=== PATIENT | female | born 1945 | race Caucasian/White ===

== ENCOUNTER 2018-08-06 13:38 | Emergency (ER) | payer OTHER, MEDICARE ==
--- OUTSIDE RECORDS SUMMARY | 2018-08-06 13:40 | XMS REPORT ---
:1945 [facility] Address [address] [place] [address] [address]. [address] [place] [address] Care Team Providers Name Role Phone Unavailable Unavailable Unavailable Problems This patient has no known problems. Allergies, Adverse Reactions, Alerts This patient has no known allergies or adverse reactions. Medications This patient has no known medications.
--- NOTE | 2018-08-06 15:02 | RAD REPORT ---
EXAM DESCRIPTION: CT - Stone Protocol - 08/06/2018 2:50 pm CLINICAL HISTORY: Flank pain. ABD PAIN COMPARISON: Abdomen Pelvis W/Wo Contrast dated 01/09/2018 TECHNIQUE: Axial images were obtained without oral or IV contrast. Lack of contrast limits solid org an and vascular assessment. The lliez-sz-sgyo spans the entirety of the system partially obscuring uppermost abdomen and lung bases. Coronal reformatted images were obtained and reviewed. All CT scans are performed using dose optimization technique as appropriate and may include automated exposure control or mA/KV adjustment according to patient size. FINDINGS: The lower lung ramachandran are clear. Cholecystectomy clips. Imaged portions of the liver and spleen show no suspicious findings on non-contrast imaging. The panc reas and adrenal glands are normal. No pathologic lymphadenopathy in the abdomen or pelvis. No urinary tract stones or obstructive uropathy. No bowel obstruction, free air, free fluid or abscess. Anterior abdominal wall laxity noted. Moderate stool is present in the colon.Scattered colonic diverticulosis without diverticulitis. The appendix appears absent. Postsurgical changes are present involving the lumbar spine with hardware in place. Advanced degenera tive changes are noted throughout the lumbar levels. IMPRESSION: No acute abnormality is identified.
[2018-08-06 15:04] LABS: Absolute Lymphocytes (CBC) 3.5 K/uL (0.7-4.9); Absolute Monocytes 0.9 K/uL (0.1-1.3); Absolute Neutrophil 3.1 K/uL (1.8-8.0); Basophils % 0.6 % (0-1.3); Eosinophils % 3.9 % (0-4.4); Hematocrit 37.4 % (36.0-45.0); MPV 8.5 fL (7.6-11.3); Monocytes % 11.6 % (3.3-12.3); RBC Red Blood Cell Count 4.14 M/uL (3.86-4.86)
[2018-08-06 15:17] LABS: Protime INR 1.13
--- NOTE | 2018-08-06 15:26 | RAD REPORT ---
EXAM DESCRIPTION: RAD - Chest Single View - 08/06/2018 3:20 pm CLINICAL HISTORY: CHEST PAIN Chest pain. COMPARISON: Chest Pa And Lat (2 Views) dated 02/28/2018; Chest Single View dated 02/10/2017; Chest Sing le View dated 02/09/2017; Chest Single View dated 02/09/2017 FINDINGS: Portable technique limits examination quality. The lungs are grossly clear. The heart is normal in size. No displaced fractures. IMPRESSION: No acute intrathoracic process suspected.
[2018-08-06 15:27] LABS: ALT/SGPT 31 U/L (12-78); AST/SGOT 39 U/L (15-37); Albumin 3.4 g/dL (3.4-5.0); Alkaline Phosphatase 157 U/L (45-117); BUN Blood Urea Nitrogen 39 mg/dL (7-18); Bicarbonate 33 mmol/L (21-32); Bilirubin Direct 0.2 mg/dL (0-0.2); Bilirubin Total 0.6 mg/dL (0.2-1.0); Glucose Level 132 mg/dL (74-106); Lipase 27 U/L (73-393); Magnesium 2.3 mg/dL (1.8-2.4); NT PRO-BNP 126 pg/mL (<125); Protein, Total 7.4 g/dL (6.4-8.2); Sodium Level 138 mmol/L (136-145); Troponin (Emerg Dept Use Only) < 0.02 ng/mL (0.0-0.045)
--- NOTE | 2018-08-06 15:55 | EDPHYS ---
Physician Documentation [facility] Name: Casie Kelley Age: 72 yrs Sex: Female : 1945 Arrival Date: 08/06/2018 Time: 13:44 Bed 2 Private MD: PRASHANTH SOTO ED Physician Kali Denton HPI: 08/06 17:02 This 72 yrs old Female presents to ER via Wheelchair with complaints of SIDE gs PAIN. 17:02 The patient presents with abdominal pain in the left upper quadrant. Onset: The gs symptoms/episode began/occurred yesterday. The symptoms do not radiate. Associated signs and symptoms: Pertinent positives: constipation, Pertinent negatives: nausea and vomiting, chest pain, diarrhea. The symptoms are described as crampy. Modifying factors: The symptoms are alleviated by nothing, the symptoms are aggravated by nothing. Severity of pain: At its worst the pain was moderate in the emergency department the pain is unchanged. The patient has experienced similar episodes in the past, a few times. The patient has not recently seen a physician. took a nerve pill says made her feel sleepy pt has sufentanil pump. Historical: - Allergies: 14:00 Codeine; aa5 14:00 Compazine; aa5 14:00 Darvon; aa5 14:00 Demerol; aa5 14:00 HYDROCODONE; aa5 14:00 Meperidine; aa5 14:00 PENTAZOCINE; aa5 14:00 Talwin; aa5 14:00 TRIMETHOPRIM; aa5 14:00 Vioxx; aa5 - PMHx: 14:00 Aneurysm; Cervical Spondylosis; constipation; CVA; Diabetes - NIDDM; heel spur; aa5 Fibromyalgia; Gastroparesis; GERD; Hypothyroidism; ileus; lymphedema; multiple thyroid nodules; PERIPHERAL NEUROPATHY; Obesity; Sleep Apnea; spinal stenosis; vaginal atrophy; - PSHx: 14:00 Cholecystectomy; Appendectomy; Hysterectomy; Disc surgery; PAIN MANAGEMENT PUMP; aa5 shoulder repair; - Immunization history:: Adult Immunizations unknown. - Social history:: Smoking status: Patient/guardian denies using tobacco, never smoked. - Ebola Screening: : No symptoms or risks identified at this time. ROS: 17:02 All other systems are negative. gs Exam: 17:02 Head/Face: Normocephalic, atraumatic. Eyes: Pupils equal round and reactive to light, gs extra-ocular motions intact. Lids and lashes normal. Conjunctiva and sclera are non-icteric and not injected. Cornea within normal limits. Periorbital areas with no swelling, redness, or edema. ENT: Nares patent. No nasal discharge, no septal abnormalities noted. Tympanic membranes are normal and external auditory canals are clear. Oropharynx with no redness, swelling, or masses, exudates, or evidence of obstruction, uvula midline. Mucous membranes moist. Neck: Trachea midline, no thyromegaly or masses palpated, and no cervical lymphadenopathy. Supple, full range of motion without nuchal rigidity, or vertebral point tenderness. No Meningismus. Chest/axilla: Normal chest wall appearance and motion. Nontender with no deformity. No lesions are appreciated. Cardiovascular: Regular rate and rhythm with a normal S1 and S2. No gallops, murmurs, or rubs. Normal PMI, no JVD. No pulse deficits. Respiratory: Lungs have equal breath sounds bilaterally, clear to auscultation and percussion. No rales, rhonchi or wheezes noted. No increased work of breathing, no retractions or nasal flaring. Skin: Warm, dry with normal turgor. Normal color with no rashes, no lesions, and no evidence of cellulitis. MS/ Extremity: Pulses equal, no cyanosis. Neurovascular intact. Full, normal range of motion. Neuro: Awake and alert, GCS 15, oriented to person, place, time, and situation. Cranial nerves II-XII grossly intact. Motor strength 5/5 in all extremities. Sensory grossly intact. Cerebellar exam normal. Normal gait. 17:02 Back: No spinal tenderness. No costovertebral tenderness. Full range of motion. 17:02 Constitutional: The patient appears in no acute distress, alert, awake. 17:02 Abdomen/GI: Palpation: moderate abdominal tenderness, in the left upper quadrant, rebound tenderness, is not appreciated. Vital Signs: 14:00 BP 111 / 46; Pulse 64; Resp 16 S; Temp 99.2(TE); Pulse Ox 96% on R/A; Weight 93.89 kg aa5 (R); Height 5 ft. 1 in. (154.94 cm) (R); Pain 8/10; 14:00 Body Mass Index 39.11 (93.89 kg, 154.94 cm) aa5 MDM: 14:35 Patient medically screened. gs 17:02 Differential diagnosis: bowel obstruction, coronary artery disease, pancreatitis. Data gs reviewed: vital signs, nurses notes. Counseling: I had a detailed discussion with the patient and/or guardian regarding: the historical points, exam findings, and any diagnostic results supporting the discharge/admit diagnosis, lab results, radiology results, the need for outpatient follow up. Response to treatment: the patient's symptoms have markedly improved after treatment, and as a result, I will discharge patient. Physician consultation: Benito Lynch DO regarding patient's condition, pain pump issue, and will see patient in office, shortly. 08/06 14:35 Order name: Basic Metabolic Panel; Complete Time: 15:33 08/06 14:35 Order name: CBC with Diff; Complete Time: 15:33 08/06 14:35 Order name: LFT's; Complete Time: 15:33 08/06 14:35 Order name: Magnesium; Complete Time: 15:33 08/06 14:35 Order name: NT PRO-BNP; Complete Time: 15:33 08/06 14:35 Order name: PT-INR; Complete Time: 15:33 08/06 14:31 Order name: EKG Electrocardiogram EDIL 08/06 14:35 Order name: Troponin (emerg Dept Use Only); Complete Time: 15:33 08/06 14:35 Order name: XRAY Chest (1 view); Complete Time: 15:33 08/06 14:35 Order name: EKG; Complete Time: 14:36 08/06 14:35 Order name: Cardiac monitoring; Complete Time: 15:32 gs 08/06 14:35 Order name: Lipase; Complete Time: 15:33 08/06 14:35 Order name: CT Stone Protocol; Complete Time: 15:33 08/06 14:35 Order name: EKG - Nurse/Tech; Complete Time: 15:32 gs 08/06 14:35 Order name: IV Saline Lock; Complete Time: 15:32 08/06 14:35 Order name: Labs collected and sent; Complete Time: 15:32 08/06 14:35 Order name: O2 Per Protocol; Complete Time: 15:32 08/06 14:35 Order name: O2 Sat Monitoring; Complete Time: 15:32 Administered Medications: 16:07 Drug: Potassium Effervescent Tablet 50 mEq Route: PO; sg Disposition: 08/06/18 15:54 Discharged to Home. Impression: Upper abdominal pain, unspecified. - Condition is Stable. - Discharge Instructions: Abdominal Pain, Adult, Constipation, Adult. - Medication Reconciliation Form, Thank You Letter, Antibiotic Education, Prescription Opioid Use form. - Follow up: Private Physician; When: 1 - 2 days; Reason: Re-evaluation by your physician. Signatures: Dispatcher [employer] EDMihai Ruiz RN RN sg Maral Beard RN RN aa5 Kali Denton MD MD gs Botello, Elizabeth eb Corrections: (The following items were deleted from the chart) 16:17 15:54 08/06/2018 15:54 Discharged to Home. Impression: Upper abdominal pain, eb unspecified. Condition is Stable. Forms are Medication Reconciliation Form, Thank You Letter, Antibiotic Education, Prescription Opioid Use. Follow up: Private Physician; When: 1 - 2 days; Reason: Re-evaluation by your physician.
--- NOTE | 2018-08-06 15:55 | ER ---
Nurse's Notes [facility] Name: Casie Kelley Age: 72 yrs Sex: Female : 1945 Arrival Date: 08/06/2018 Time: 13:44 Bed 2 Private MD: CHERYLE SOTO Diagnosis: Upper abdominal pain, unspecified Presentation: 08/06 13:58 Presenting complaint: Patient states: LUQ pain that began 2 days ago. Pt denies Nausea, aa5 vomiting, and diarrhea. Pt states "I am supposed to have a heart cath tomorrow at [facility] for some blockages I have". 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 Transition of care: patient was not received from another setting of care. Onset of symptoms was July 2018. Risk Assessment: Do you want to hurt yourself or someone else? Patient reports no desire to harm self or others. Initial Sepsis Screen: Does the patient meet any 2 criteria? No. Patient's initial sepsis screen is negative. Does the patient have a suspected source of infection? No. Patient's initial sepsis screen is negative. Care prior to arrival: None. 13:58 Method Of Arrival: Wheelchair aa5 13:58 Acuity: HAN 3 aa5 Historical: - Allergies: 14:00 Codeine; aa5 14:00 Compazine; aa5 14:00 Darvon; aa5 14:00 Demerol; aa5 14:00 HYDROCODONE; aa5 14:00 Meperidine; aa5 14:00 PENTAZOCINE; aa5 14:00 Talwin; aa5 14:00 TRIMETHOPRIM; aa5 14:00 Vioxx; aa5 - PMHx: 14:00 Aneurysm; Cervical Spondylosis; constipation; CVA; Diabetes - NIDDM; heel spur; aa5 Fibromyalgia; Gastroparesis; GERD; Hypothyroidism; ileus; lymphedema; multiple thyroid nodules; PERIPHERAL NEUROPATHY; Obesity; Sleep Apnea; spinal stenosis; vaginal atrophy; - PSHx: 14:00 Cholecystectomy; Appendectomy; Hysterectomy; Disc surgery; PAIN MANAGEMENT PUMP; aa5 shoulder repair; - Immunization history:: Adult Immunizations unknown. - Social history:: Smoking status: Patient/guardian denies using tobacco, never smoked. - Ebola Screening: : No symptoms or risks identified at this time. Vital Signs: 14:00 BP 111 / 46; Pulse 64; Resp 16 S; Temp 99.2(TE); Pulse Ox 96% on R/A; Weight 93.89 kg aa5 (R); Height 5 ft. 1 in. (154.94 cm) (R); Pain 8/10; 14:00 Body Mass Index 39.11 (93.89 kg, 154.94 cm) aa5 ED Course: 13:44 Patient arrived in ED. sb2 13:45 CHERYLE SOTO is Private Physician. sb2 13:58 Arm band placed on. aa5 13:59 Triage completed. aa5 14:18 Kali Denton MD is Attending Physician. gs 14:37 EKG done, by certified ophthalmic technologist. reviewed by Kali Denton MD. tc 14:[address] via stretcher. nj 14:49 CT completed. Patient tolerated procedure well. Patient moved back from CT. nj 14:50 CT Stone Protocol In Process Unspecified. EDMS 15:20 XRAY Chest (1 view) In Process Unspecified. EDMS 15:32 Mihai Brewer, RN is Primary Nurse. sg Administered Medications: 16:07 Drug: Potassium Effervescent Tablet 50 mEq Route: PO; sg Outcome: 15:54 Discharge ordered by . gs 16:17 Patient left the ED. eb Signatures: Dispatcher [employer] EDMS Mihai Brewer, JUDY RN Maral Clay RN RN aa5 Stacey Patel, dry goods inspector EKG Ttc Etienne Motley Gregory, MD MD Margy Meeks sb2 Cheryle Delgado eb Corrections: (The following items were deleted from the chart) 14:03 13:58 Presenting complaint: Patient states: LUQ pain that began 2 days ago. Pt denies aa5 Nausea, vomiting, and diarrhea. aa5 14:12 13:58 Presenting complaint: Patient states: LUQ pain that began 2 days ago. Pt denies aa5 Nausea, vomiting, and diarrhea. Pt states "I am supposed to have a heart cath tomorrow at [facility] for some blockages I have" aa5
--- NOTE | 2018-08-06 16:03 | EKG ---
Test Date: 2018-08-06 Test Time: 14:09:32 Marketing Technology Specialist: JENNIFER MEASUREMENT RESULTS: Intervals: Rate: 70 SC: 226 QRSD: 80 QT: 408 QTc: 440 Beatty: P: 72 SC: 226 QRS: 12 T: 58 INTERPRETIVE STATEMENTS: Sinus rhythm with 1st degree AV block with premature supraventricular complexes Otherwise normal ECG Compared to ECG 02/08/2017 08:48:16 Atrial premature complex(es) now present First degree AV block now present Electronically Signed On 08-06-18 16:02:49 DRILLING FIELD SPECIALIST by Ricco Gregg
[2018-08-06] MEDS ORDERED: POTASSIUM 25 MEQ EFFERV TAB ONE (16:18)
[2018-08-06 17:22] VITALS: BP 111/46; TEMP 99.2; O2SAT 96
== END 2018-08-06 16:17 | disposition home or self-care (01) ==
LOC: ER 13:38
DX: R10.10 Upper abdominal pain, unspecified (principal); I44.0 Atrioventricular block, first degree; I49.3 Ventricular premature depolarization
CPT/HCPCS: 36415; 71045; 74176; 76377; 80048; 80076; 83690; 83735; 83880; 84484; 85025; 85610; 93005; 99284

== ENCOUNTER 2018-08-14 17:16 | Emergency (ER) | payer OTHER, MEDICARE ==
--- OUTSIDE RECORDS SUMMARY | 2018-08-14 17:18 | XMS REPORT ---
:1945 [facility] Address [address] [place] [address] [address]. [address] [place] [address] Care Team Providers Name Role Phone Unavailable Unavailable Unavailable Problems This patient has no known problems. Allergies, Adverse Reactions, Alerts This patient has no known allergies or adverse reactions. Medications This patient has no known medications.
--- NOTE | 2018-08-14 19:40 | EDPHYS ---
Physician Documentation [facility] Name: Casie Kelley Age: 72 yrs Sex: Female : 1945 Arrival Date: 08/14/2018 Time: 17:25 Bed 26 Private MD: ED Physician Kali Denton HPI: 08/14 21:51 This 72 yrs old Female presents to ER via EMS with complaints of Leg Pain. gs 21:51 The complaints affect the lateral aspect of right thigh. Context: The problem was gs sustained at home, resulted from a chronic condition, the patient can fully bear weight, the patient is able to ambulate. Modifying factors: The symptoms are alleviated by nothing. the symptoms are aggravated by movement. Associated signs and symptoms: Pertinent positives: numbness, now resolved. Treatment prior to arrival includes: no previous treatment. Severity of symptoms: At their worst the symptoms were moderate, in the emergency department the symptoms have resolved. The patient has experienced similar episodes in the past, several times. Historical: - Allergies: 17:56 Codeine; tl3 17:56 Compazine; tl3 17:56 Darvon; tl3 17:56 HYDROCODONE; tl3 17:56 Demerol; tl3 17:56 Meperidine; tl3 17:56 PENTAZOCINE; tl3 17:56 Talwin; tl3 17:56 TRIMETHOPRIM; tl3 17:56 Vioxx; tl3 17:56 Levofloxacin; tl3 17:56 Lyrica; tl3 17:56 sulfamethoxazole (bulk); tl3 - Home Meds: 17:56 furosemide 40 mg Oral tab 1 tab once daily [Active]; gabapentin 300 mg Oral cap 1 cap 3 tl3 times per day [Active]; levothyroxine 75 mcg tab 1 tab once daily [Active]; metformin 500 mg Oral Tb24 1 tab 2 times per day [Active]; Zaroxolyn 2.5 mg Oral tab 1 tab once daily [Active]; mirabegron oral oral 1 tab once daily [Active]; montelukast 10 mg Oral tab 1 tab once daily [Active]; nitroglycerin 0.4 mg SL subl 1 tab [Active]; Xyzal 5 mg oral tab 1 tab once daily [Active]; Klor-Con M20 20 mEq Oral TbTQ 1 tab once daily [Active]; omeprazole 40 mg Oral cpDR 1 cap 2 times per day [Active]; Zofran (as hydrochloride) 4 mg Oral tab 1 tabs every 8 hours [Active]; nystatin 100,000 unit/gram Topical powd 2 times per day [Active]; trazodone 50 mg Oral tab 1 tab nightly [Active]; qwpqexujlr-jomkpndojx-JpWx(PF) 1 mcg/mL -0.1 % epidural soln per pain pump [Active]; atorvastatin 40 mg oral tab 1 tab once daily [Active]; Plavix 75 mg Oral tab 1 tab once daily [Active]; docusate sodium 100 mg Oral cap 1 cap 2 times per day [Active]; estradiol vaginal vaginal [Active]; fluticasone 50 mcg/actuation nasal spsn 2 sprays once daily [Active]; glucosamine-chondroitin 750-600 mg oral chew 2 tab twice a day [Active]; DuoNeb 0.5 mg-3 mg(2.5 mg base)/3 mL Inhl nebu 3 mL 4 times per day [Active]; - PMHx: 17:56 Aneurysm; Cervical Spondylosis; constipation; CVA; Diabetes - NIDDM; Fibromyalgia; tl3 Gastroparesis; GERD; heel spur; Hypothyroidism; ileus; lymphedema; multiple thyroid nodules; Obesity; PERIPHERAL NEUROPATHY; Sleep Apnea; spinal stenosis; vaginal atrophy; 21:53 Chronic pain; gs - PSHx: 17:56 Cholecystectomy; Appendectomy; Hysterectomy; Disc surgery; PAIN MANAGEMENT PUMP; tl3 shoulder repair; - Immunization history:: Adult Immunizations. - Social history:: Smoking status: unknown. - Ebola Screening: : No symptoms or risks identified at this time. ROS: 21:53 All other systems are negative. gs Exam: 21:53 Head/Face: Normocephalic, atraumatic. Eyes: Pupils equal round and reactive to light, gs extra-ocular motions intact. Lids and lashes normal. Conjunctiva and sclera are non-icteric and not injected. Cornea within normal limits. Periorbital areas with no swelling, redness, or edema. ENT: Nares patent. No nasal discharge, no septal abnormalities noted. Tympanic membranes are normal and external auditory canals are clear. Oropharynx with no redness, swelling, or masses, exudates, or evidence of obstruction, uvula midline. Mucous membranes moist. Neck: Trachea midline, no thyromegaly or masses palpated, and no cervical lymphadenopathy. Supple, full range of motion without nuchal rigidity, or vertebral point tenderness. No Meningismus. Chest/axilla: Normal chest wall appearance and motion. Nontender with no deformity. No lesions are appreciated. Cardiovascular: Regular rate and rhythm with a normal S1 and S2. No gallops, murmurs, or rubs. Normal PMI, no JVD. No pulse deficits. Respiratory: Lungs have equal breath sounds bilaterally, clear to auscultation and percussion. No rales, rhonchi or wheezes noted. No increased work of breathing, no retractions or nasal flaring. Abdomen/GI: Soft, non-tender, with normal bowel sounds. No distension or tympany. No guarding or rebound. No evidence of tenderness throughout. Back: No spinal tenderness. No costovertebral tenderness. Full range of motion. Skin: Warm, dry with normal turgor. Normal color with no rashes, no lesions, and no evidence of cellulitis. MS/ Extremity: Pulses equal, no cyanosis. Neurovascular intact. Full, normal range of motion. Neuro: Awake and alert, GCS 15, oriented to person, place, time, and situation. Cranial nerves II-XII grossly intact. Motor strength 5/5 in all extremities. Sensory grossly intact. Cerebellar exam normal. Normal gait. 21:53 Constitutional: The patient appears alert, awake. Vital Signs: 17:56 BP 109 / 53; Pulse 60; Resp 18; Pulse Ox 99% ; tl3 19:19 BP 106 / 50; Pulse 62; Resp 18; Pulse Ox 95% on R/A; mg2 19:37 BP 96 / 57; Pulse 63; Resp 16; Pulse Ox 98% on R/A; tl3 20:10 BP 112 / 52; Pulse 62; Resp 16; Pulse Ox 96% on R/A; tl3 MDM: 17:58 Patient medically screened. gs 21:53 Data reviewed: vital signs, nurses notes, old medical records. Counseling: I had a gs detailed discussion with the patient and/or guardian regarding: the historical points, exam findings, and any diagnostic results supporting the discharge/admit diagnosis, the need for outpatient follow up. Administered Medications: No medications were administered Disposition: 08/14/18 19:39 Discharged to Home. Impression: Mononeuropathy, unspecified, Constipation, unspecified. - Condition is Stable. - Discharge Instructions: Constipation, Adult, Pinched Nerve. - Medication Reconciliation Form, Thank You Letter, Antibiotic Education, Prescription Opioid Use form. - Follow up: Private Physician; When: 2 - 3 days; Reason: Re-evaluation by your physician. Follow up: Mendoza Oconnell MD; When: 2 - 3 days; Reason: Re-evaluation by your physician. Signatures: Kali Denton MD MD Teresa Deutsch RN RN tl3 Corrections: (The following items were deleted from the chart) 20:12 19:39 08/14/2018 19:39 Discharged to Home. Impression: Mononeuropathy, unspecified; tl3 Constipation, unspecified. Condition is Stable. Forms are Medication Reconciliation Form, Thank You Letter, Antibiotic Education, Prescription Opioid Use. Follow up: Private Physician; When: 2 - 3 days; Reason: Re-evaluation by your physician. Follow up: Mendoza Oconnell; When: 2 - 3 days; Reason: Re-evaluation by your physician. gs
--- NOTE | 2018-08-14 19:40 | ER ---
Nurse's Notes [facility] Name: Casie Kelley Age: 72 yrs Sex: Female : 1945 Arrival Date: 08/14/2018 Time: 17:25 Bed 26 Private MD: Diagnosis: Mononeuropathy, unspecified;Constipation, unspecified Presentation: 08/14 17:26 Presenting complaint: EMS states: EMS was called for lift assist, but once on site pt tl3 was complaining of not being able to feel right leg. Was able to ambulate with assistance at home. Transition of care: patient was not received from another setting of care. Onset of symptoms was August 14, 2018. Risk Assessment: Do you want to hurt yourself or someone else? Patient reports no desire to harm self or others. Initial Sepsis Screen: Does the patient meet any 2 criteria? No. Patient's initial sepsis screen is negative. Does the patient have a suspected source of infection? No. Patient's initial sepsis screen is negative. Care prior to arrival: None. 17:26 Method Of Arrival: EMS tl3 17:26 Acuity: HAN 3 tl3 Triage Assessment: 17:56 General: Appears in no apparent distress. Behavior is calm, cooperative, appropriate tl3 for age. Pain: Denies pain. Historical: - Allergies: 17:56 Codeine; tl3 17:56 Compazine; tl3 17:56 Darvon; tl3 17:56 HYDROCODONE; tl3 17:56 Demerol; tl3 17:56 Meperidine; tl3 17:56 PENTAZOCINE; tl3 17:56 Talwin; tl3 17:56 TRIMETHOPRIM; tl3 17:56 Vioxx; tl3 17:56 Levofloxacin; tl3 17:56 Lyrica; tl3 17:56 sulfamethoxazole (bulk); tl3 - Home Meds: 17:56 furosemide 40 mg Oral tab 1 tab once daily [Active]; gabapentin 300 mg Oral cap 1 cap 3 tl3 times per day [Active]; levothyroxine 75 mcg tab 1 tab once daily [Active]; metformin 500 mg Oral Tb24 1 tab 2 times per day [Active]; Zaroxolyn 2.5 mg Oral tab 1 tab once daily [Active]; mirabegron oral oral 1 tab once daily [Active]; montelukast 10 mg Oral tab 1 tab once daily [Active]; nitroglycerin 0.4 mg SL subl 1 tab [Active]; Xyzal 5 mg oral tab 1 tab once daily [Active]; Klor-Con M20 20 mEq Oral TbTQ 1 tab once daily [Active]; omeprazole 40 mg Oral cpDR 1 cap 2 times per day [Active]; Zofran (as hydrochloride) 4 mg Oral tab 1 tabs every 8 hours [Active]; nystatin 100,000 unit/gram Topical powd 2 times per day [Active]; trazodone 50 mg Oral tab 1 tab nightly [Active]; wvnqzchrgg-vsnolnpjnw-EdZw(PF) 1 mcg/mL -0.1 % epidural soln per pain pump [Active]; atorvastatin 40 mg oral tab 1 tab once daily [Active]; Plavix 75 mg Oral tab 1 tab once daily [Active]; docusate sodium 100 mg Oral cap 1 cap 2 times per day [Active]; estradiol vaginal vaginal [Active]; fluticasone 50 mcg/actuation nasal spsn 2 sprays once daily [Active]; glucosamine-chondroitin 750-600 mg oral chew 2 tab twice a day [Active]; DuoNeb 0.5 mg-3 mg(2.5 mg base)/3 mL Inhl nebu 3 mL 4 times per day [Active]; - PMHx: 17:56 Aneurysm; Cervical Spondylosis; constipation; CVA; Diabetes - NIDDM; Fibromyalgia; tl3 Gastroparesis; GERD; heel spur; Hypothyroidism; ileus; lymphedema; multiple thyroid nodules; Obesity; PERIPHERAL NEUROPATHY; Sleep Apnea; spinal stenosis; vaginal atrophy; 21:53 Chronic pain; gs - PSHx: 17:56 Cholecystectomy; Appendectomy; Hysterectomy; Disc surgery; PAIN MANAGEMENT PUMP; tl3 shoulder repair; - Immunization history:: Adult Immunizations. - Social history:: Smoking status: unknown. - Ebola Screening: : No symptoms or risks identified at this time. Screenin:58 Abuse screen: Denies threats or abuse. Nutritional screening: No deficits noted. tl3 Tuberculosis screening: No symptoms or risk factors identified. Fall Risk Secondary diagnosis (15 points) impaired mobility, CVA. Assessment: 17:58 Reassessment: No changes from previously documented assessment. tl3 19:00 Reassessment: Patient appears in no apparent distress at this time. No changes from tl3 previously documented assessment. Patient and/or family updated on plan of care and expected duration. Pain level reassessed. Patient is alert, oriented x 3, equal unlabored respirations, skin warm/dry/pink. assisted pt to ambulate in room and out into the nursing station, stated that she is feeling better. 20:10 Reassessment: Patient appears in no apparent distress at this time. No changes from tl3 previously documented assessment. Patient and/or family updated on plan of care and expected duration. Pain level reassessed. Patient is alert, oriented x 3, equal unlabored respirations, skin warm/dry/pink. Vital Signs: 17:56 BP 109 / 53; Pulse 60; Resp 18; Pulse Ox 99% ; tl3 19:19 BP 106 / 50; Pulse 62; Resp 18; Pulse Ox 95% on R/A; mg2 19:37 BP 96 / 57; Pulse 63; Resp 16; Pulse Ox 98% on R/A; tl3 20:10 BP 112 / 52; Pulse 62; Resp 16; Pulse Ox 96% on R/A; tl3 ED Course: 17:25 Patient arrived in ED. tl3 17:29 Triage completed. tl3 17:30 Kali Denton MD is Attending Physician. gs 17:56 Arm band placed on right wrist. tl3 17:58 Patient has correct armband on for positive identification. Bed in low position. Call tl3 light in reach. Side rails up X 1. Adult w/ patient. Pulse ox on. NIBP on. 17:58 No provider procedures requiring assistance completed. Patient did not have IV access tl3 during this emergency room visit. 19:34 Teresa Deutsch, JUDY is Primary Nurse. tl3 19:37 Mendoza Oconnell MD is Referral Physician. Administered Medications: No medications were administered Outcome: 19:39 Discharge ordered by . 20:10 Discharged to home via wheelchair. tl3 20:10 Condition: stable 20:10 Discharge instructions given to patient, family, Instructed on discharge instructions, follow up and referral plans. Demonstrated understanding of instructions, follow-up care. 20:12 Patient left the ED. tl3 Signatures: Kali Denton MD MD Teresa Deutsch, JUDY RN tl3 Gardose, Saul, RN RN mg2 Corrections: (The following items were deleted from the chart) 19:37 19:00 BP 96 / 57; Pulse 63bpm; Resp 16bpm; Pulse Ox 98% RA; tl3 tl3
[2018-08-14 20:27] VITALS: BP 112/52; O2SAT 96
== END 2018-08-14 20:12 | disposition home or self-care (01) ==
LOC: ER 17:16
DX: G58.9 Mononeuropathy, unspecified (principal); K59.00 Constipation, unspecified; E11.40 Type 2 diabetes mellitus with diabetic neuropathy, unspecified; M79.7 Fibromyalgia; E11.43 Type 2 diabetes mellitus with diabetic autonomic (poly)neuropathy; K31.84 Gastroparesis; K21.9 Gastro-esophageal reflux disease without esophagitis; E03.9 Hypothyroidism, unspecified; G47.30 Sleep apnea, unspecified; G89.29 Other chronic pain; M47.812 Spondylosis without myelopathy or radiculopathy, cervical region; M48.00 Spinal stenosis, site unspecified; Z79.84 Long term (current) use of oral hypoglycemic drugs; Z79.899 Other long term (current) drug therapy; Z86.73 Personal history of transient ischemic attack (TIA), and cerebral infarction without residual deficits
CPT/HCPCS: 99283

== ENCOUNTER 2018-08-19 18:05 | Observation (INO) | payer OTHER, MEDICARE ==
--- OUTSIDE RECORDS SUMMARY | 2018-08-19 18:07 | XMS REPORT ---
:1945 Author Organization [facility] Address [address] [place] [address] [address] [place] [address] Care Team Providers Name Role Phone Unavailable Unavailable Unavailable Problems This patient has no known problems. Allergies, Adverse Reactions, Alerts This patient has no known allergies or adverse reactions. Medications This patient has no known medications.
[2018-08-19 20:59] LABS: Urine Blood NEGATIVE (NEG); Urine Glucose NEGATIVE (NEG); Urine Protein NEGATIVE (NEG)
--- NOTE | 2018-08-19 21:23 | RAD REPORT ---
EXAM DESCRIPTION: US - Extrem Venous W Compress [place] - 08/19/2018 9:13 pm CLINICAL HISTORY: Leg pain and swelling COMPARISON: None. TECHNIQUE: Real-time sonographic evaluation of the bilateral lower extremity common femoral, superfi cial femoral, popliteal and posterior tibial veins was performed. FINDINGS: Normal compressibility, flow augmentation, phasic flow and spontaneous flow are identified in the left and right lower extremity common femoral, superficial femoral, popliteal and posterior t ibial veins. No intraluminal filling defects seen. IMPRESSION: No DVT in either lower extremity.
--- NOTE | 2018-08-19 22:06 | RAD REPORT ---
EXAM DESCRIPTION: RAD - Chest Single View - 08/19/2018 9:19 pm CLINICAL HISTORY: Leg swelling, shortness of breath COMPARISON: August 06 TECHNIQUE: AP portable chest image was obtained 2119 hours . FINDINGS: Chronic interstitial lung disease is present slightly increased over comparison. No new ma ss or consolidation. Heart size is normal. Vasculature similar or slightly increased over comparison. No measurable pleural effusion and no pneumothorax. No acute bony abnormality seen. No acute aortic findings suspected. IMPRESSION: Interstitial markings and vasculature are increased slightly from comparison. No focal c onsolidation. Early interstitial edema or infiltrate are suspected.
[2018-08-19 22:16] LABS: Absolute Lymphocytes (CBC) 3.2 K/uL (0.7-4.9); Absolute Monocytes 0.8 K/uL (0.1-1.3); Absolute Neutrophil 3.4 K/uL (1.8-8.0); Basophils % 0.7 % (0-1.3); Eosinophils % 4.6 % (0-4.4); Hematocrit 35.8 % (36.0-45.0); Lymphocytes % 41.4 % (15.3-44.8); MPV 8.1 fL (7.6-11.3); Monocytes % 10.2 % (3.3-12.3); RBC Red Blood Cell Count 3.87 M/uL (3.86-4.86)
[2018-08-19 22:19] LABS: Protime INR 1.03
[2018-08-19 22:34] LABS: ALT/SGPT 24 U/L (12-78); AST/SGOT 28 U/L (15-37); Albumin 3.1 g/dL (3.4-5.0); Alkaline Phosphatase 177 U/L (45-117); BUN Blood Urea Nitrogen 22 mg/dL (7-18); Bicarbonate 28 mmol/L (21-32); Bilirubin Total 0.3 mg/dL (0.2-1.0); Glucose Level 146 mg/dL (74-106); Magnesium 2.2 mg/dL (1.8-2.4); NT PRO-BNP 238 pg/mL (<125); Potassium 3.7 mmol/L (3.5-5.1); Sodium Level 141 mmol/L (136-145); Troponin I < 0.02 ng/mL (0.0-0.045)
--- NOTE | 2018-08-19 22:53 | ER ---
Nurse's Notes [facility] Name: Casie Kelley Age: 72 yrs Sex: Female : 1945 Arrival Date: 08/19/2018 Time: 18:08 Bed 17 Private MD: PRASHANTH SOTO Diagnosis: Cellulitis of left lower limb;Cellulitis of right lower limb Presentation: 08/19 18:33 Presenting complaint: Patient states: Reports redness and inflammation to bilateral aj lower legs. Seen by PCP on and given RX. Transition of care: patient was not received from another setting of care. Onset of symptoms was August 15, 2018. Risk Assessment: Do you want to hurt yourself or someone else? Patient reports no desire to harm self or others. Initial Sepsis Screen: Does the patient meet any 2 criteria? No. Patient's initial sepsis screen is negative. Does the patient have a suspected source of infection? No. Patient's initial sepsis screen is negative. Care prior to arrival: None. 18:33 Method Of Arrival: Wheelchair aj 18:33 Acuity: HAN 3 aj Triage Assessment: 18:36 General: Appears in no apparent distress. comfortable, Behavior is calm, cooperative, aj appropriate for age. Pain: Denies pain. Neuro: Level of Consciousness is awake, alert, obeys commands, Oriented to person, place, time, situation, Appropriate for age. Respiratory: Airway is patent Respiratory effort is even, unlabored, Respiratory pattern is regular, symmetrical. Derm: Skin is intact, is healthy with good turgor, Skin is pink, warm \T\ dry. normal, Mild patchy redness to bilateral lower legs. Musculoskeletal: Swelling present in right leg and left leg. Historical: - Allergies: 18:36 Codeine; aj 18:36 Compazine; aj 18:36 Darvon; aj 18:36 Demerol; aj 18:36 HYDROCODONE; aj 18:36 Levofloxacin; aj 18:36 Lyrica; aj 18:36 Meperidine; aj 18:36 PENTAZOCINE; aj 18:36 sulfamethoxazole (bulk); aj 18:36 Talwin; aj 18:36 TRIMETHOPRIM; aj 18:36 Vioxx; aj - Home Meds: 18:36 atorvastatin 40 mg Oral tab 1 tab once daily [Active]; docusate sodium 100 mg Oral cap aj 1 cap 2 times per day [Active]; DuoNeb 0.5 mg-3 mg(2.5 mg base)/3 mL Inhl nebu 3 mL 4 times per day [Active]; estradiol Vaginal [Active]; fluticasone 50 mcg/actuation nasal spsn 2 sprays once daily [Active]; furosemide 40 mg Oral tab 1 tab once daily [Active]; gabapentin 300 mg Oral cap 1 cap 3 times per day [Active]; glucosamine-chondroitin 750-600 mg Oral chew 2 tab twice a day [Active]; Klor-Con M20 20 mEq Oral TbTQ 1 tab once daily [Active]; levothyroxine 75 mcg tab 1 tab once daily [Active]; metformin 500 mg Oral Tb24 1 tab 2 times per day [Active]; mirabegron Oral 1 tab once daily [Active]; montelukast 10 mg Oral tab 1 tab once daily [Active]; nitroglycerin 0.4 mg SL subl 1 tab [Active]; nystatin 100,000 unit/gram Topical powd 2 times per day [Active]; omeprazole 40 mg Oral cpDR 1 cap 2 times per day [Active]; Plavix 75 mg Oral tab 1 tab once daily [Active]; qatadorhob-dszmwqncrg-TaCx(PF) 1 mcg/mL -0.1 % epidural soln per pain pump [Active]; trazodone 50 mg Oral tab 1 tab nightly [Active]; Xyzal 5 mg Oral tab 1 tab once daily [Active]; Zaroxolyn 2.5 mg Oral tab 1 tab once daily [Active]; Zofran (as hydrochloride) 4 mg Oral tab 1 tabs every 8 hours [Active]; - PMHx: 18:36 Aneurysm; Cervical Spondylosis; Chronic pain; constipation; CVA; Diabetes - NIDDM; aj Fibromyalgia; Gastroparesis; GERD; heel spur; Hypothyroidism; ileus; lymphedema; multiple thyroid nodules; Obesity; PERIPHERAL NEUROPATHY; Sleep Apnea; spinal stenosis; vaginal atrophy; - PSHx: 18:36 Cholecystectomy; Appendectomy; Hysterectomy; Disc surgery; PAIN MANAGEMENT PUMP; shoulder repair; - Immunization history:: Adult Immunizations up to date. - Social history:: Smoking status: Patient/guardian denies using tobacco. - Ebola Screening: : Patient negative for fever greater than or equal to 101.5 degrees Fahrenheit, and additional compatible Ebola Virus Disease symptoms Patient denies exposure to infectious person Patient denies travel to an Ebola-affected area in the 21 days before illness onset No symptoms or risks identified at this time. Screenin:36 Abuse screen: Denies threats or abuse. Nutritional screening: No deficits noted. jd3 Tuberculosis screening: No symptoms or risk factors identified. Fall Risk Ambulatory Aid- Crutches/Cane/Walker (15 pts). Gait- Weak (10 pts.). Mental Status- Oriented to own ability (0 pts). Total Miller Fall Scale indicates Low Risk Score (25-44 pts). Fall prevention measures have been instituted. Side Rails Up X 2 Placed close to Nursing Station Frequent Obs/Assesments occuring Family Present and informed to notify staff if they need to leave bedside. Assessment: 19:46 General: Appears in no apparent distress. uncomfortable, Behavior is calm, cooperative, jd3 appropriate for age. Pain: Complains of pain in right leg and left leg Quality of pain is described as aching, tender. Neuro: Level of Consciousness is awake, alert, obeys commands, Oriented to person, place, time, situation. Cardiovascular: Capillary refill < 3 seconds Patient's skin is warm and dry. Respiratory: Airway is patent Respiratory effort is even, unlabored, Respiratory pattern is regular, symmetrical. GI: No signs and/or symptoms were reported involving the gastrointestinal system. : No signs and/or symptoms were reported regarding the genitourinary system. EENT: No signs and/or symptoms were reported regarding the EENT system. Derm: Skin is intact, Skin is dry, Skin is normal, Skin temperature is warm. Musculoskeletal: Circulation, motion, and sensation intact. Range of motion: limited in left ankle and right ankle Swelling present in right leg and left leg. 21:26 Reassessment: Patient appears in no apparent distress at this time. Patient and/or jd3 family updated on plan of care and expected duration. Pain level reassessed. Patient is alert, oriented x 3, equal unlabored respirations, skin warm/dry/pink. 23:45 Reassessment: Patient appears in no apparent distress at this time. Patient and/or jd3 family updated on plan of care and expected duration. Pain level reassessed. Patient is alert, oriented x 3, equal unlabored respirations, skin warm/dry/pink. 08/20 00:43 Reassessment: Patient appears in no apparent distress at this time. Patient and/or jd3 family updated on plan of care and expected duration. Pain level reassessed. Patient is alert, oriented x 3, equal unlabored respirations, skin warm/dry/pink. Vital Signs: 08/19 18:36 BP 108 / 45; Pulse 65; Resp 20; Temp 97.8; Pulse Ox 98% on R/A; Weight 95.25 kg; Height aj 5 ft. 1 in. (154.94 cm); 19:45 BP 99 / 50; Pulse 65; Resp 16 S; Pulse Ox 97% on R/A; jd3 21:26 BP 127 / 65; Pulse 79; Resp 17 S; Pulse Ox 99% on R/A; jd3 23:44 BP 110 / 54; Pulse 64; Resp 16 S; Pulse Ox 98% on R/A; jd3 18:36 Body Mass Index 39.68 (95.25 kg, 154.94 cm) aj ED Course: 18:08 Patient arrived in ED. mr 18:08 PRASHANTH SOTO is Private Physician. mr 18:34 Triage completed. aj 18:38 Arm band placed on left wrist. Patient placed in waiting room, Patient notified of wait aj time. 19:24 Jerrell Paniagua, JUDY is Primary Nurse. jd3 19:32 Everett Robertson PA is PHCP. cp 19:32 Stephen Pérez MD is Attending Physician. cp 19:36 Patient has correct armband on for positive identification. Placed in gown. Bed in low jd3 position. Call light in reach. Side rails up X2. Adult w/ patient. 22:51 Sherwin Conroy MD is Hospitalizing Provider. cp 23:45 No provider procedures requiring assistance completed. jd3 08/20 00:40 Patient admitted, IV remains in place. Inserted saline lock: 20 gauge in right EJ, jd3 using aseptic technique. Administered Medications: 00:31 Drug: Lasix 20 mg Route: IVP; Site: right jugular; jd3 00:53 Follow up: Response: No adverse reaction jd3 00:53 Not Given (to be given on admission): vancoMYCIN 1 grams IVPB once over 2 hrs jd3 Outcome: 08/19 22:52 Decision to Hospitalize by Provider. cp 08/20 00:43 Patient left the ED. [email or web address] Admitted to Med/surg accompanied by nurse, via stretcher, room 205, with chart, Report called to Yenny KIM Condition: stable Instructed on the need for admit, Demonstrated understanding of instructions. Signatures: Rubi Joaquin RN JUDY White, Janey mr Ailyn, RENÉ Floyd cp, Jonathon, RN RN jd3 Corrections: (The following items were deleted from the chart) 08/19 18:38 18:36 Arm band placed on left wrist. Patient placed in an exam room, manolo french 19:46 19:45 BP 147 / 89; Pulse 72bpm; Resp 17bpm; Spontaneous; Pulse Ox 100% RA; trista weston 08/20 00:55 00:51 Condition: stable trista [email or web address] 00:55 00:51 Admitted to Med/surg accompanied by nurse, via stretcher, room 205, with chart, jd3 Report called to Yenny weston 00:55 00:51 Instructed on the need for admit, Demonstrated understanding of instructions, trista [email or web address] 00:55 00:53 Patient left the ED. trista [email or web address] 00:55 08/19 23:45 Patient did not have IV access during this emergency room visit. House trista Transition Social Worker to put in PICC line upon admission. trista
--- NOTE | 2018-08-19 22:53 | EDPHYS ---
Physician Documentation [facility] Name: Casie Kelley Age: 72 yrs Sex: Female : 1945 Arrival Date: 08/19/2018 Time: 18:08 Bed 17 Private MD: PRASHANTH SOTO ED Physician Stephen Pérez HPI: 08/19 20:13 This 72 yrs old Female presents to ER via Wheelchair with complaints of Leg cp Swelling. 20:13 The patient presents with pain, that is acute, swelling, tenderness, redness. The cp complaints affect the right lower leg and left lower leg. 20:13 Onset: The symptoms/episode began/occurred last week. cp 20:13 Associated signs and symptoms: Pertinent positives: calf tenderness, warmth, erythema. cp Treatment prior to arrival includes: prescription medications, oral clindamycin. Severity of symptoms: in the emergency department the symptoms are actually worse, moderately. Historical: - Allergies: 18:36 Codeine; aj 18:36 Compazine; aj 18:36 Darvon; aj 18:36 Demerol; aj 18:36 HYDROCODONE; aj 18:36 Levofloxacin; aj 18:36 Lyrica; aj 18:36 Meperidine; aj 18:36 PENTAZOCINE; aj 18:36 sulfamethoxazole (bulk); aj 18:36 Talwin; aj 18:36 TRIMETHOPRIM; aj 18:36 Vioxx; aj - Home Meds: 18:36 atorvastatin 40 mg Oral tab 1 tab once daily [Active]; docusate sodium 100 mg Oral cap aj 1 cap 2 times per day [Active]; DuoNeb 0.5 mg-3 mg(2.5 mg base)/3 mL Inhl nebu 3 mL 4 times per day [Active]; estradiol Vaginal [Active]; fluticasone 50 mcg/actuation nasal spsn 2 sprays once daily [Active]; furosemide 40 mg Oral tab 1 tab once daily [Active]; gabapentin 300 mg Oral cap 1 cap 3 times per day [Active]; glucosamine-chondroitin 750-600 mg Oral chew 2 tab twice a day [Active]; Klor-Con M20 20 mEq Oral TbTQ 1 tab once daily [Active]; levothyroxine 75 mcg tab 1 tab once daily [Active]; metformin 500 mg Oral Tb24 1 tab 2 times per day [Active]; mirabegron Oral 1 tab once daily [Active]; montelukast 10 mg Oral tab 1 tab once daily [Active]; nitroglycerin 0.4 mg SL subl 1 tab [Active]; nystatin 100,000 unit/gram Topical powd 2 times per day [Active]; omeprazole 40 mg Oral cpDR 1 cap 2 times per day [Active]; Plavix 75 mg Oral tab 1 tab once daily [Active]; mmvwmvfrlf-xsdhynvnvv-TfDb(PF) 1 mcg/mL -0.1 % epidural soln per pain pump [Active]; trazodone 50 mg Oral tab 1 tab nightly [Active]; Xyzal 5 mg Oral tab 1 tab once daily [Active]; Zaroxolyn 2.5 mg Oral tab 1 tab once daily [Active]; Zofran (as hydrochloride) 4 mg Oral tab 1 tabs every 8 hours [Active]; - PMHx: 18:36 Aneurysm; Cervical Spondylosis; Chronic pain; constipation; CVA; Diabetes - NIDDM; aj Fibromyalgia; Gastroparesis; GERD; heel spur; Hypothyroidism; ileus; lymphedema; multiple thyroid nodules; Obesity; PERIPHERAL NEUROPATHY; Sleep Apnea; spinal stenosis; vaginal atrophy; - PSHx: 18:36 Cholecystectomy; Appendectomy; Hysterectomy; Disc surgery; PAIN MANAGEMENT PUMP; shoulder repair; - Immunization history:: Adult Immunizations up to date. - Social history:: Smoking status: Patient/guardian denies using tobacco. - Ebola Screening: : Patient negative for fever greater than or equal to 101.5 degrees Fahrenheit, and additional compatible Ebola Virus Disease symptoms Patient denies exposure to infectious person Patient denies travel to an Ebola-affected area in the 21 days before illness onset No symptoms or risks identified at this time. ROS: 20:20 Constitutional: Negative for body aches, chills, fever, poor PO intake. cp 20:20 Eyes: Negative for injury, pain, redness, and discharge. cp 20:20 ENT: Negative for drainage from ear(s), ear pain, sore throat, difficulty swallowing, difficulty handling secretions. 20:20 Cardiovascular: Positive for edema, Negative for chest pain, palpitations. 20:20 Respiratory: Negative for cough, shortness of breath, wheezing. 20:20 Abdomen/GI: Negative for abdominal pain, nausea, vomiting, and diarrhea, constipation. 20:20 Back: Negative for pain at rest, pain with movement. 20:20 Skin: Positive for erythema, of the left lower leg and right lower leg, warmth, Negative for diaphoresis. 20:20 Neuro: Negative for altered mental status, dizziness, headache, syncope, weakness. 20:20 All other systems are negative. Exam: 20:25 Constitutional: The patient appears in no acute distress, alert, awake, cp non-diaphoretic, non-toxic, well developed, well nourished. 20:25 Head/Face: Normocephalic, atraumatic. cp 20:25 Eyes: Periorbital structures: appear normal, Conjunctiva: normal, no exudate, no injection, Sclera: no appreciated abnormality, Lids and lashes: appear normal, bilaterally. 20:25 ENT: External ear(s): are unremarkable, Ear canal(s): are normal, clear, TM's: bulging, is not appreciated, Nose: is normal, Mouth: Lips: moist, Oral mucosa: pink and intact, moist, Posterior pharynx: is normal, airway is patent, no erythema, no exudate. 20:25 Neck: ROM/movement: is normal, is supple, without pain, no range of motions limitations, no meningismus, no nuchal rigidity. 20:25 Chest/axilla: Inspection: normal, Palpation: is normal, no crepitus, no tenderness. 20:25 Cardiovascular: Rate: normal, Rhythm: regular, Edema: ankle edema, that is moderate, JVD: is not appreciated. 20:25 Respiratory: the patient does not display signs of respiratory distress, Respirations: normal, no use of accessory muscles, no retractions, no splinting, no tachypnea, labored breathing, is not present, Breath sounds: decreased breath sounds, that are mild, throughout, stridor, is not appreciated, wheezing: is not appreciated. 20:25 Abdomen/GI: Inspection: abdomen appears normal, Bowel sounds: active, all quadrants, Palpation: abdomen is soft and non-tender, in all quadrants. 20:25 Back: pain, that is moderate, ROM is painful. 20:25 Skin: cellulitis, that is moderate, well demarcated, on the left lower leg and right lower leg. 20:25 Neuro: Orientation: to person, place \T\ time. Mentation: is normal. 20:40 ECG was reviewed by the Attending Physician. cp Vital Signs: 18:36 BP 108 / 45; Pulse 65; Resp 20; Temp 97.8; Pulse Ox 98% on R/A; Weight 95.25 kg; Height aj 5 ft. 1 in. (154.94 cm); 19:45 BP 99 / 50; Pulse 65; Resp 16 S; Pulse Ox 97% on R/A; jd3 21:26 BP 127 / 65; Pulse 79; Resp 17 S; Pulse Ox 99% on R/A; jd3 23:44 BP 110 / 54; Pulse 64; Resp 16 S; Pulse Ox 98% on R/A; jd3 18:36 Body Mass Index 39.68 (95.25 kg, 154.94 cm) aj MDM: 19:32 Patient medically screened. cp 22:50 Data reviewed: vital signs, nurses notes, lab test result(s), EKG, radiologic studies, cp plain films, ultrasound. Physician consultation: Sherwin Conroy MD was called at 22:51, was contacted at 22:51, regarding admission, to the medical/surgical unit. patient's condition. 08/19 19:56 Order name: CBC with Diff cp 08/19 19:56 Order name: CMP cp 08/19 19:56 Order name: Procalcitonin cp 08/19 19:56 Order name: Blood Culture Adult (2) cp 08/19 19:56 Order name: BNP cp 08/19 19:56 Order name: Troponin I cp 08/19 19:56 Order name: Magnesium cp 08/19 19:56 Order name: PT-INR cp 08/19 19:56 Order name: Ptt, Activated cp 08/19 20:52 Order name: Urine Dipstick--Ancillary (enter results) gm 08/19 21:00 Order name: Urine Dipstick-Ancillary; Complete Time: 21:47 EDMS 08/19 22:18 Order name: CBC with Automated Diff; Complete Time: 22:25 EDMS 08/19 22:25 Interpretation: Normal except: HCT 35.8; EOSINOPHIL % 4.6. cp 08/19 22:23 Order name: Protime (+INR); Complete Time: 22:25 EDMS 08/19 22:23 Order name: PTT, Activated Partial Thromb; Complete Time: 22:25 EDMS 08/19 19:56 Order name: US Extremity Venous W Compression Elroy cp 08/19 19:56 Order name: EKG; Complete Time: 19:58 cp 08/19 19:56 Order name: EKG - Nurse/Tech; Complete Time: 20:38 cp 08/19 19:56 Order name: XRAY Chest (1 view) 08/19 21:24 Order name: US; Complete Time: 21:47 EDMS 08/19 22:26 Interpretation: Report reviewed. cp 08/19 22:07 Order name: RAD; Complete Time: 22:25 EDMS 08/19 22:26 Interpretation: Report reviewed. 08/19 22:34 Order name: Comprehensive Metabolic Panel; Complete Time: 22:36 EDMS 08/19 22:36 Interpretation: Normal except: GLUC 146; BUN 22; GFR 59; ALK 177; A/G 0.8; GLOB 3.9; cp ALB 3.1; CA 8.4. 08/19 22:34 Order name: Troponin I; Complete Time: 22:36 EDMS 08/19 22:34 Order name: NT PRO-BNP; Complete Time: 22:36 EDMS 08/19 22:36 Interpretation: Abnormal: NT PRO-BNP 238. 08/19 22:34 Order name: Magnesium; Complete Time: 22:36 EDMS 08/19 23:11 Order name: Procalcitonin; Complete Time: 23:17 EDMS 08/19 23:17 Interpretation: Reviewed. cp EC:40 Rate is 65 beats/min. Rhythm is regular. NC interval is normal. QRS interval is normal. cp QT interval is normal. Interpreted by me. Reviewed by me. Administered Medications: 08/20 00:31 Drug: Lasix 20 mg Route: IVP; Site: right jugular; jd3 00:53 Follow up: Response: No adverse reaction jd3 00:53 Not Given (to be given on admission): vancoMYCIN 1 grams IVPB once over 2 hrs jd3 Disposition: 08/19/18 22:52 Hospitalization ordered by Sherwin Conroy for Observation. Preliminary diagnosis are Cellulitis of left lower limb, Cellulitis of right lower limb. - Bed requested for Telemetry/MedSurg (observation). - Status is Observation. jd3 - Condition is Stable. - Problem is new. - Symptoms have improved. UTI on Admission? No Signatures: Dispatcher [employer] EDMS Alicia Byers RN JUDY mw Rubi Joaquin RN Everett Domingo PA PA cp Davies, Jonathon, RN RN jd3 Corrections: (The following items were deleted from the chart) 08/19 22:36 22:36 Normal except: GLUC 146; BUN 22; GFR 59. cp cp 23: 22:52 Hospitalization Ordered by Sherwin Conroy MD for Observation. Preliminary diagnosis is Cellulitis of left lower limb; Cellulitis of right lower limb. Bed requested for Telemetry/MedSurg (observation). Status is Observation. Condition is Stable. Problem is new. Symptoms have improved. UTI on Admission? No. cp 08/20 00:53 08/19 23:20 08/19/2018 22:52 Hospitalization Ordered by Sherwin Conroy MD for jd3 Observation. Preliminary diagnosis is Cellulitis of left lower limb; Cellulitis of right lower limb. Bed requested for Telemetry/MedSurg (observation). Status is Observation. Condition is Stable. Problem is new. Symptoms have improved. UTI on Admission? No. mw
[2018-08-19] MEDS ORDERED: ACETAMINOPHEN 500 MG TAB PO PRN (23:14)
[2018-08-19] MEDS ORDERED: FUROSEMIDE 40 MG TABLET PO PRN (23:17)
[2018-08-19] MEDS ORDERED: ECONAZOLE NITRATE 1% CREAM 15GM TOP PRN (23:17)
[2018-08-19] MEDS ORDERED: MORPHINE 4 MG/ML SYR IV PRN (23:31)
[2018-08-19] MEDS ORDERED: VANCOMYCIN 1 GM/250 ML BAG ONE (23:47)
[2018-08-19] MEDS ORDERED: FUROSEMIDE 20 MG/ 2ML VIAL ONE (23:47)
[2018-08-20] MEDS ORDERED: VANCOMYCIN 750 MG in NA CHLORIDE 0.9% 150 ML IVPB ONE (00:45)
[2018-08-20] MEDS ORDERED: VANCOMYCIN 1 GM/250 ML BAG ONE (00:59)
[2018-08-20] MEDS ORDERED: AMPICILLIN/SULBACT 3 GM in NA CHLORIDE 0.9% 100 ML IVPB SCH ×2 (01:00→05:00)
[2018-08-20 03:57] VITALS: BMI 39.6
[2018-08-20] MEDS ORDERED: AMPICILLIN/SULBACTAM 3GM/VIAL ONE (03:59)
[2018-08-20] MEDS ORDERED: NA CHLORIDE 0.9% 250 ML ONE (05:27)
[2018-08-20] MEDS: LEVOTHYROXINE SOD 0.075 MG TAB PO SCH (05:34)
[2018-08-20 06:13] LABS: Absolute Monocytes 0.7 K/uL (0.1-1.3); Absolute Neutrophil 4.1 K/uL (1.8-8.0); Basophils % 0.7 % (0-1.3); Hematocrit 34.9 % (36.0-45.0); Lymphocytes % 36.9 % (15.3-44.8); MPV 8.5 fL (7.6-11.3); Monocytes % 8.5 % (3.3-12.3); RBC Red Blood Cell Count 3.81 M/uL (3.86-4.86)
[2018-08-20 06:21] LABS: ALT/SGPT 23 U/L (12-78); AST/SGOT 28 U/L (15-37); Alkaline Phosphatase 168 U/L (45-117); BUN Blood Urea Nitrogen 24 mg/dL (7-18); Bicarbonate 29 mmol/L (21-32); Bilirubin Total 0.3 mg/dL (0.2-1.0); Glucose Level 120 mg/dL (74-106); Magnesium 2.3 mg/dL (1.8-2.4); NT PRO-BNP 281 pg/mL (<125); Phosphorus 3.7 mg/dL (2.5-4.9); Potassium 3.7 mmol/L (3.5-5.1); Protein, Total 6.8 g/dL (6.4-8.2); Sodium Level 143 mmol/L (136-145); Troponin I < 0.02 ng/mL (0.0-0.045)
--- NOTE | 2018-08-20 07:13 | P.HP ---
Certification for Inpatient Patient admitted to: Inpatient With expected LOS: >2 Midnights Patient will require the following post-hospital care: None Practitioner: I am a practitioner with admitting privileges, knowledge of patient current condition, hospital course, and medical plan of care. Services: Services provided to patient in accordance with Admission requirements found in Title 42 Section 412.3 of the Code of Federal Regulations Patient History Date of Service: 08/19/18 Reason for admission: Bilateral lower extremity cellulitis with lower extremity edema History of Present Illness: Patient is a 72-year-old female came to the hospital with swelling in both of her lower extremities. She also had erythema now in both of the legs. She came into the hospital for further evaluation. She has been on oral antibiotics at home per her primary care provider. However her symptoms were gradually worsening. In the emergency room, she had Doppler of the bilateral lower extremities. This did not reveal a DVT. Most likely patient has cellulitis of both of the lower extremities. Patient states she was also told in the past that she had vasculitis. This could also be an etiology of her inflammation. She will need further evaluation. Allergies codeine Allergy (Intermediate, Verified 08/20/18 01:53) nausea/vomitting meperidine HCl [From Demerol] Allergy (Intermediate, Verified 08/20/18 01:53) Nausea vomitting hydrocodone [Hydrocodone] Allergy (Verified 08/20/18 01:53) nausea vomitting pentazocine lactate [From Talwin] Allergy (Verified 08/20/18 01:53) hallucinations prochlorperazine edisylate [From Compazine] Allergy (Verified 08/20/18 01:53) hallucinations propoxyphene HCl [From Darvon] Allergy (Verified 08/20/18 01:53) nausea vomitting rofecoxib [From Vioxx] Adverse Reaction (Severe, Verified 08/20/18 01:53) renal failure TR Allergy (Uncoded 08/20/18 01:53) Unknown Home Medications: Calcium Carbonate/Vitamin D3 [Calcium 600-Vit D3 400 Caplet] 1 each PO BIDAC 07/16 Cranberry Fruit Extract 1 cap PO BID 02/08/17 Econazole Nitrate 1 tico TOP BIDP PRN 02/08/17 Estradiol [Estrace] 1 tico VAG SEECOM 02/08/17 Fluticasone [Flonase 50MCG Nasal Wright*] 2 spray SHADY DAILY 02/08/17 Gabapentin [Neurontin*] 1 cap PO BID 02/08/17 Lactobacillus Combination No.4 [Probiotic] 1 cap PO DAILY 02/08/17 Levothyroxine Sodium 75 mcg PO DAILY 02/08/17 Metformin ER [Glucophage ER*] 1 tab PO BIDAC 02/08/17 Mirabegron [Myrbetriq] 1 tab PO DAILY 02/08/17 Montelukast [Singulair*] 10 mg PO BEDTIME 02/08/17 Multivitamin [Multiple Vitamins] 1 tab PO DAILY 02/08/17 Nystatin Powder [Mycostatin (Powder)*] 1 tico TOP PRN PRN 02/08/17 Omeprazole 40 mg PO BID 02/08/17 Simvastatin 20 mg PO BEDTIME 02/08/17 Amlodipine [Norvasc*] 10 mg PO DAILY #30 tab 02/14/17 Furosemide 40 mg PO DAILY PRN #30 02/14/17 - Past Medical/Surgical History Diabetic: Yes -: Hypothyroidism -: Fibromyalgia -: Diabetes mellitus -: Gastroparesis -: Diabetic neuropathy -: Spinal stenosis -: Cervical spondylosis with myelopathy -: History of aneurysm with clipping -: Left carotid stenosis -: History of CVA -: Chronic UTI's -: Chronic pain -: Bladder Suspension -: Laminectomy -: Spinal fusion x2 -: Hysterectomy -: Cholecystectomy -: Appendectomy -: Pain pump placement x2 -: shoulder surgery - bilateral Psychosocial/ Personal History: The patient is . She has 4 children. She does not work. - Family History Mother Medical History: Lung disease, Cancer Notes: Rhematic fever, Rhuematoid arthritis Father Medical History: Heart disease, Hypertension, Lung disease, Diabetes, Other ( see notes) - Social History Smoking Status: Never smoker Alcohol use: No CD- Drugs: No Caffeine use: No Place of Residence: Home Review of Systems 10-point ROS is otherwise unremarkable Physical Examination - Vital Signs Temperature: 97.1 F Blood Pressure: 133/58 Pulse: 78 Respirations: 16 Pulse Ox (%): 97 - Physical Exam General: Alert, In no apparent distress, Oriented x3 HEENT: Atraumatic, PERRLA, Mucous membr. moist/pink, EOMI, Sclerae nonicteric Neck: Supple, 2+ carotid pulse no bruit, No LAD, Without JVD or thyroid abnormality Respiratory: Clear to auscultation bilaterally, Normal air movement Cardiovascular: Regular rate/rhythm, Normal S1 S2, Systolic murmur Gastrointestinal: Normal bowel sounds, Soft and benign, Non-distended, No tenderness Musculoskeletal: No clubbing, No tenderness Integumentary: Tenderness/swelling, Erythema Neurological: Normal speech, Normal tone, Sensation intact, Cranial nerves 3-12 intact, Normal affect, Abnormal gait, Abnormal strength Lymphatics: No axilla or inguinal lymphadenopathy - Studies Laboratory Data (last 24 hrs) 08/19/18 22:00: PT 12.2, INR 1.03, APTT 34.7 08/19/18 22:00: Sodium 141, Potassium 3.7, BUN 22 H, Creatinine 0.93, Glucose 146 H, Magnesium 2.2, Total Bilirubin 0.3, AST 28, ALT 24, Alkaline Phosphatase 177 H, Troponin I < 0.02 08/19/18 22:00: WBC 7.8, Hgb 12.3, Hct 35.8 L, Plt Count 297 Assessment & Plan - Problems (Diagnosis) (1) Lymphedema of both lower extremities Current Visit: Yes Status: Acute (2) Cellulitis of left lower extremity Current Visit: Yes Status: Acute (3) History of vasculitis of skin Current Visit: Yes Status: Acute (4) Neuropathy Current Visit: No Status: Active (5) Diabetes mellitus Onset Date: 02/09/17 Current Visit: No Status: Chronic Qualifiers: (6) History of CVA (cerebrovascular accident) Current Visit: No Status: Chronic (7) Hyperlipidemia Onset Date: 02/09/17 Current Visit: No Status: Chronic Qualifiers: (8) Hypertension Onset Date: 02/09/17 Current Visit: No Status: Chronic Qualifiers: (9) Hypothyroidism Onset Date: 02/09/17 Current Visit: No Status: Chronic Qualifiers: (10) Obesity (BMI 30-39.9) Current Visit: No Status: Chronic - Plan 1. Continue with IV antibiotic 2. Continue with monitoring the erythema. If not improving over the next 24-48 hr may benefit from topical or IV steroids 3. Gentle diuresing and check echocardiogram 4. Hep-Lock IV 5. Monitor CBC 6. Strict blood sugar monitoring 7. Pain control 8. Physical therapy evaluation 9. GI and DVT prophylaxis Discharge Plan: Home Plan to discharge in: Greater than 2 days - Advance Directives Does patient have a Living Will: No Does patient have a Durable POA for Healthcare: No - Code Status/Comfort Care Code Status Assessed: Yes Code Status: Full Code Critical Care: No Time Spent Managing PTS Care (In Minutes): 50
[2018-08-20 07:59] LABS: Thyroid Stimulating Hormone 0.443 uIU/mL (0.360-3.740)
[2018-08-20] MEDS ORDERED: PNEUMOCOCCAL VACCINE 0.5 ML IMVAC ONE (08:00)
[2018-08-20] MEDS: METFORMIN ER 500 MG TAB PO SCH ×2 (08:40→16:51)
[2018-08-20] MEDS: ENOXAPARIN 40 MG/0.4 ML SQ SCH (08:40)
[2018-08-20] MEDS: MULTIVITAMIN TAB PO SCH (08:40)
[2018-08-20] MEDS: GABAPENTIN 300 MG CAP PO SCH ×2 (08:41→21:28)
[2018-08-20] MEDS: CALCIUM CARB 500MG/VIT D 200 IU TAB PO SCH ×2 (08:41→21:28)
[2018-08-20] MEDS: PANTOPRAZOLE 40MG TABLET PO SCH ×2 (08:41→16:52)
[2018-08-20] MEDS: LACTOBACILLUS/ACIDOPHILUS TAB PO SCH (08:41)
[2018-08-20] MEDS: ASPIRIN EC 81 MG TAB PO SCH (08:42)
[2018-08-20] MEDS: FUROSEMIDE 40 MG/4 ML VIAL IV SCH (08:42)
[2018-08-20] MEDS ORDERED: VANCOMYCIN 1.5 GM in NA CHLORIDE 0.9% 500 ML IVPB SCH (09:00)
[2018-08-20] MEDS ORDERED: HOME MED 1 EA UNK (Mirabegron [Myrbetriq] 1 TAB) PO SCH (09:00)
[2018-08-20] MEDS ORDERED: AMLODIPINE 10 MG TAB PO SCH (09:00)
[2018-08-20] MEDS ORDERED: FUROSEMIDE 40 MG/4 ML VIAL IV SCH (09:00)
[2018-08-20] MEDS: AMPICILLIN/SULBACT 3 GM in NA CHLORIDE 0.9% 100 ML IVPB SCH ×2 (09:59→16:51)
--- NOTE | 2018-08-20 11:46 | EKG ---
Test Date: 2018-08-19 Test Time: 20:30:55 Crabber: ESTER MEASUREMENT RESULTS: Intervals: Rate: 65 WI: 192 QRSD: 80 QT: 438 QTc: 455 Canadian: P: 76 WI: 192 QRS: 28 T: 58 INTERPRETIVE STATEMENTS: Normal sinus rhythm Normal ECG Compared to ECG 08/06/2018 14:09:32 Atrial premature complex(es) no longer present First degree AV block no longer present Electronically Signed On 08-20-18 11:42:58 QA INTERN by Frederick Richard
--- NOTE | 2018-08-20 13:46 | P.PN ---
Subjective Date of Service: 08/20/18 Primary Care Provider: Dr. Le; Cardiology-Dr. Rubio Chief Complaint: Bilateral lower extremity cellulitis with lower extremity edema Subjective: Other (Pain stable. Edema improved) Physical Examination - Vital Signs Temperature: 97.9 F Blood Pressure: 133/58 Pulse: 78 Respirations: 20 Pulse Ox (%): 98 - Physical Exam General: Alert, In no apparent distress, Oriented x3, Cooperative HEENT: Atraumatic Neck: Supple Respiratory: Clear to auscultation bilaterally, Normal air movement Cardiovascular: Normal pulses, Regular rate/rhythm Gastrointestinal: Normal bowel sounds, Soft and benign, Non-distended, No masses , No rebound, No guarding Integumentary: Other (Erythema, swelling to the lower extremities improved.) Neurological: Normal speech, Normal strength at 5/5 x4 extr, Normal tone, Normal affect - Studies Laboratory Data (last 24 hrs) 08/19/18 22:00: PT 12.2, INR 1.03, APTT 34.7 08/19/18 22:00: Sodium 141, Potassium 3.7, BUN 22 H, Creatinine 0.93, Glucose 146 H, Magnesium 2.2, Total Bilirubin 0.3, AST 28, ALT 24, Alkaline Phosphatase 177 H, Troponin I < 0.02 08/19/18 22:00: WBC 7.8, Hgb 12.3, Hct 35.8 L, Plt Count 297 Medications List Reviewed: Yes Assessment & Plan Discharge Plan: Home Plan to discharge in: 48 Hours Physician Review Additional Text: Impression: Bilateral cellulitis to the lower extremities with history of lymphedema Diabetes mellitus type 2 Hypertension Hypothyroidism GERD Diabetic neuropathy Hyperlipidemia Obesity, BMI 39 Plan: Bilateral cellulitis to the lower extremities with history of lymphedema: Continue with IV antibiotic therapy. Will also continue with diuretic therapy. Will ambulate with physical therapy. Anticipate improvement over the next 48 hr. Patient may require home health and physical therapy at discharge. Diabetes mellitus type 2: Continue with sliding scale. Hypertension: Continue with blood pressure medication. Will monitor and adjust appropriately Hypothyroidism: Continue with medication. Will monitor closely. GERD: Continue the medication. Diabetic neuropathy: Continue with her medication. Will provide medication for pain. Hyperlipidemia: Continue with her medication Obesity, BMI 39: Address lifestyle modification education. Time Spent Managing Pts Care (In Minutes): 55
[2018-08-20] MEDS ORDERED: ATORVASTATIN 10 MG TAB PO SCH (21:00)
[2018-08-20] MEDS ORDERED: VANCOMYCIN 1.75 GM in NA CHLORIDE 0.9% 500 ML IVPB SCH (23:00)
[2018-08-21] MEDS: AMPICILLIN/SULBACT 3 GM in NA CHLORIDE 0.9% 100 ML IVPB SCH ×3 (01:45→17:00)
[2018-08-21] MEDS: LEVOTHYROXINE SOD 0.075 MG TAB PO SCH (06:00)
[2018-08-21 06:28] LABS: Absolute Lymphocytes (CBC) 2.2 K/uL (0.7-4.9); Absolute Monocytes 0.7 K/uL (0.1-1.3); Absolute Neutrophil 3.4 K/uL (1.8-8.0); Basophils % 0.9 % (0-1.3); Hematocrit 34.5 % (36.0-45.0); Lymphocytes % 32.9 % (15.3-44.8); MPV 8.4 fL (7.6-11.3); Monocytes % 10.1 % (3.3-12.3); RBC Red Blood Cell Count 3.66 M/uL (3.86-4.86)
[2018-08-21 06:31] LABS: Magnesium 2.2 mg/dL (1.8-2.4); Potassium 3.3 mmol/L (3.5-5.1)
[2018-08-21] MEDS ORDERED: POTASSIUM 25 MEQ EFFERV TAB PO ONE (07:28)
[2018-08-21 08:50] VITALS: TEMP 97.6
[2018-08-21] MEDS ORDERED: CLOPIDOGREL 75 MG TABLET PO SCH (09:00)
[2018-08-21] MEDS ORDERED: HOME MED 1 EA UNK (L.Acidoph,Paracasei, B.Lactis [Probiotic] 1 EACH) PO SCH (09:00)
[2018-08-21] MEDS ORDERED: MAGNESIUM OXIDE 400 MG TAB PO SCH (09:00)
[2018-08-21] MEDS ORDERED: METOPROLOL TAR 50 MG TAB PO SCH (09:00)
[2018-08-21] MEDS ORDERED: NYSTATIN PWDR 100000 UNIT/GM TOP SCH (09:00)
[2018-08-21] MEDS ORDERED: HOME MED 1 EA UNK (Mirabegron [Myrbetriq] 50 MG) PO SCH (09:00)
[2018-08-21] MEDS: ENOXAPARIN 40 MG/0.4 ML SQ SCH (10:14)
[2018-08-21] MEDS: METFORMIN ER 500 MG TAB PO SCH ×2 (10:15→17:36)
[2018-08-21] MEDS: ASPIRIN EC 81 MG TAB PO SCH (10:15)
[2018-08-21] MEDS: CALCIUM CARB 500MG/VIT D 200 IU TAB PO SCH (10:15)
[2018-08-21] MEDS: PANTOPRAZOLE 40MG TABLET PO SCH ×2 (10:16→17:36)
[2018-08-21] MEDS: FUROSEMIDE 40 MG/4 ML VIAL IV SCH (10:17)
[2018-08-21] MEDS: MULTIVITAMIN TAB PO SCH (10:17)
[2018-08-21] MEDS: LACTOBACILLUS/ACIDOPHILUS TAB PO SCH (10:17)
[2018-08-21] MEDS: GABAPENTIN 300 MG CAP PO SCH (10:17)
--- NOTE | 2018-08-21 10:24 | P.DS ---
Admission Date: 08/20/18 Discharge Date: 08/21/18 Primary Care Provider: Dr. eL; Cardiology-Dr. Rubio Disposition: ROUTINE DISCHARGE Discharge Condition: GOOD Reason for Admission: Bilateral lower extremity cellulitis with lower extremity edema Consultations: none Procedures: CXR: COMPARISON: August 06 TECHNIQUE: AP portable chest image was obtained 2119 hours . FINDINGS: Chronic interstitial lung disease is present slightly increased over comparison. No new mass or consolidation. Heart size is normal. Vasculature similar or slightly increased over comparison. No measurable pleural effusion and no pneumothorax. No acute bony abnormality seen. No acute aortic findings suspected. IMPRESSION: Interstitial markings and vasculature are increased slightly from comparison. No focal consolidation. Early interstitial edema or infiltrate are suspected. Venous Doppler: COMPARISON: None. TECHNIQUE: Real-time sonographic evaluation of the bilateral lower extremity common femoral, superficial femoral, popliteal and posterior tibial veins was performed. FINDINGS: Normal compressibility, flow augmentation, phasic flow and spontaneous flow are identified in the left and right lower extremity common femoral, superficial femoral, popliteal and posterior tibial veins. No intraluminal filling defects seen. IMPRESSION: No DVT in either lower extremity. Medical Problem List: Bilateral cellulitis to the lower extremities with history of lymphedema Diabetes mellitus type 2, A1c 8.4 Hypertension Hypothyroidism GERD Diabetic neuropathy Hyperlipidemia Carotid Arterial disease Obesity, BMI 39 Brief History of Present Illness: 72-year-old female presented to the emergency room with increasing edema to the lower extremities. Mild erythema noted. Patient was evaluated emergency room. Patient was admitted for further evaluation. Hospital Course: Patient presented with increasing swelling to the lower extremities. Patient with history of lymphedema. Patient was admitted for bilateral cellulitis secondary to lymphedema. Patient was given antibiotics and diuretic medication. Medications adjusted during her stay. Patient was also taught fluid restriction. At discharge Norvasc and Neurontin has been discontinued due to side effects of edema. Patient will continue with a 1500 cc per day fluid restriction and low-salt diet. She is to monitor her weight daily. If her weight increases by more than 5 lb she is to contact her PCP for further recommendation. At discharge she will continue with Lasix 80 mg daily and 40 mg at night. Patient will continue with her potassium supplementation. Patient will continue also with Augmentin 500 mg 1 pill twice daily for 7 days. Recommend to elevate legs when sitting or lying. Patient is to continue monitor her edema. She is to follow up with a PCP in 1 week to follow up this hospitalization and continue her care. Patient has diabetes mellitus type 2. Patient will continue with her medication metformin 500 mg 3 times a day. A1c 8.4. Recommend to maintain blood sugars less 140 fasting and less than 200 after meals. Further adjustment can be done by her PCP. Patient has hypertension. Medication adjusted due to edema. Norvasc has been discontinued. Patient started on metoprolol. At discharge she will continue with metoprolol 50 mg 1 pill twice daily. Recommendation is to maintain blood pressures less 150/80. Further adjustment can be done by her PCP. Patient has GERD. She will continue with her medication Prilosec 40 mg twice daily. Patient has hypothyroidism. She will continue with her medication levothyroxine 75 mcg daily. Patient has diabetic neuropathy. She is without any significant pain. Neurontin was discontinued due to edema. If this is to be restarted then Neurontin should be decreased at the lowest dose possible. Patient may use Tylenol as needed for pain. Patient has hyperlipidemia. She will continue with medication Lipitor 40 mg daily. Patient has carotid arterial disease. She will continue with Plavix 75 mg daily. Patient to follow up with cardiovascular surgery as she will have surgery here soon. Patient may will continue with her other medications including medication for urinary incontinence, constipation, and allergies. Vital Signs/Physical Exam: Temp Pulse Resp BP Pulse Ox 97.6 F 72 18 111/56 L 95 08/21/18 08:00 08/21/18 08:00 08/21/18 08:00 08/21/18 08:00 08/21/18 08:00 General: Alert, In no apparent distress, Oriented x3, Cooperative HEENT: Atraumatic Neck: Supple Respiratory: Clear to auscultation bilaterally, Normal air movement Cardiovascular: Normal pulses, Regular rate/rhythm Gastrointestinal: Normal bowel sounds, Soft and benign, Non-distended, No tenderness, No masses, No rebound, No guarding Musculoskeletal: No erythema, No tenderness, No warmth Integumentary: No erythema, No warmth, No cyanosis, Tenderness/swelling ( Swelling to the left lower extremity significantly improved.) Neurological: Normal speech, Normal strength at 5/5 x4 extr, Normal tone, Normal affect Laboratory Data at Discharge: WBC 6.6 K/uL (4.3-10.9) D 08/21/18 06:03 Hgb 12.0 g/dL (12.0-15.0) 08/21/18 06:03 Hct 34.5 % (36.0-45.0) L 08/21/18 06:03 Plt Count 275 K/uL (152-406) 08/21/18 06:03 PT 12.2 SECONDS (9.5-12.5) 08/19/18 22:00 INR 1.03 08/19/18 22:00 APTT 34.7 SECONDS (24.3-36.9) 08/19/18 22:00 Sodium 144 mmol/L (136-145) 08/21/18 06:03 Potassium 3.3 mmol/L (3.5-5.1) L 08/21/18 06:03 BUN 18 mg/dL (7-18) 08/21/18 06:03 Creatinine 0.87 mg/dL (0.55-1.3) 08/21/18 06:03 Glucose 140 mg/dL (74-106) H 08/21/18 06:03 Phosphorus 3.7 mg/dL (2.5-4.9) 08/20/18 05:47 Magnesium 2.2 mg/dL (1.8-2.4) 08/21/18 06:03 Total Bilirubin 0.3 mg/dL (0.2-1.0) 08/20/18 05:47 AST 28 U/L (15-37) 08/20/18 05:47 ALT 23 U/L (12-78) 08/20/18 05:47 Alkaline Phosphatase 168 U/L (45-117) H 08/20/18 05:47 Troponin I < 0.02 ng/mL (0.0-0.045) 08/20/18 13:00 Home Medications: Amoxicillin/Potassium Clav [Augmentin 500-125 Tablet] 1 each PO BID #14 tablet 08/21/18 Atorvastatin Calcium [Lipitor] 40 mg PO BEDTIME 08/21/18 Clopidogrel Bisulfate [Plavix*] 75 mg PO DAILY 08/21/18 Docusate [Colace Cap*] 100 mg PO BID 08/21/18 Estradiol [Estrace] 1 gm VG SEECOM 08/21/18 Fluticasone [Flonase 50MCG Nasal [place]*] 2 sprays NS DAILY 08/21/18 Furosemide [Lasix*] 40 mg PO 1700 08/21/18 Furosemide [Lasix*] 80 mg PO DAILY 08/21/18 Gluc/Tommy-MSM#1/C/Femi/Mehran/Bor [Glucosamine-Chondr Complx Cplt] 2 tab PO BID Ipratropium/Albuterol Sulfate [Iprat-Albut 0.5-3(2.5) mg/3 ml] 3 ml IH Q4H 08/21 L.acidoph,Paracasei, B.lactis [Probiotic] 1 each PO DAILY 08/21/18 Levocetirizine Dihydrochloride [Xyzal] 5 mg PO 1700 08/21/18 Levothyroxine [Synthroid*] 75 mcg PO [id number] 08/21/18 Magnesium Oxide [Mag 0X*] 400 mg PO BID 08/21/18 Metformin HCl [Glucophage*] 500 mg PO TIDWM 08/21/18 Metoprolol Tartrate [Lopressor*] 50 mg PO BID #60 tab 08/21/18 Mirabegron [Myrbetriq] 50 mg PO DAILY 08/21/18 Montelukast [Singulair*] 10 mg PO BEDTIME 08/21/18 Multivitamin [Daily Multivitamin] 1 each PO DAILY 08/21/18 Nitroglycerin [Nitrostat*] 0.4 mg SL Q5M PRN 08/21/18 Nystatin Powder [Mycostatin (Powder)*] 1 appl TP BID 08/21/18 Omeprazole [Prilosec] 40 mg PO BID 08/21/18 Ondansetron [Zofran (Odt)*] 4 mg PO Q8HP PRN 08/21/18 Potassium Oral Tab [Klor-Con 10 mEq Tab*] 40 meq PO BID 08/21/18 Trazodone [Desyrel*] 50 mg PO BEDTIME 08/21/18 Tumeric Root Extract 2 cap PO DAILY 08/21/18 New Medications: Amoxicillin/Potassium Clav [Augmentin 500-125 Tablet] 1 each PO BID #14 tablet Metoprolol Tartrate [Lopressor*] 50 mg PO BID #60 tab Patient Discharge Instructions: 1. Patient will follow up with PCP in 1 week to follow up this hospitalization. 2. Patient presented with increasing swelling to the lower extremities. Patient with history of lymphedema. Patient was admitted for bilateral cellulitis secondary to lymphedema. Patient was given antibiotics and diuretic medication. Medications adjusted during her stay. Patient was also taught fluid restriction. At discharge Norvasc and Neurontin has been discontinued due to side effects of edema. Patient will continue with a 1500 cc per day fluid restriction and low-salt diet. She is to monitor her weight daily. If her weight increases by more than 5 lb she is to contact her PCP for further recommendation. At discharge she will continue with Lasix 80 mg daily and 40 mg at night. Patient will continue with her potassium supplementation. Patient will continue also with Augmentin 500 mg 1 pill twice daily for 7 days. Recommend to elevate legs when sitting or lying. Patient is to continue monitor her edema. She is to follow up with a PCP in 1 week to follow up this hospitalization and continue her care. 3. Patient has diabetes mellitus type 2. Patient will continue with her medication metformin 500 mg 3 times a day. A1c 8.4. Recommend to maintain blood sugars less 140 fasting and less than 200 after meals. Further adjustment can be done by her PCP. 4. Patient has GERD. She will continue with her medication Prilosec 40 mg twice daily. 5. Patient has hypothyroidism. She will continue with her medication levothyroxine 75 mcg daily. 6. Patient has diabetic neuropathy. She is without any significant pain. Neurontin was discontinued due to edema. If this is to be restarted then Neurontin should be decreased at the lowest dose possible. Patient may use Tylenol as needed for pain. 7. Patient has hyperlipidemia. She will continue with medication Lipitor 40 mg daily. 8. Patient has carotid arterial disease. She will continue with plan of 75 mg daily. Patient to follow up with cardiovascular surgery as she will have surgery here soon. 9. Patient may will continue with her other medications including medication for urinary incontinence, constipation, and allergies. 10. Patient has hypertension. Medications adjusted due to edema has been discontinued. Metoprolol has been added. At discharge she will continue with metoprolol 50 mg 1 pill twice daily. Recommendation is to maintain blood pressures less 150/80. Further adjustment can be done by her PCP. Diet: ADA Activity: Fall precautions Time spent managing pt's care (in minutes): 55
[2018-08-21 14:15] VITALS: O2SAT 95
[2018-08-21] MEDS ORDERED: CETIRIZINE HCL 5 MG TABLET PO SCH (17:00)
[2018-08-21 17:11] VITALS: BP 135/63
[2018-08-21] MEDS ORDERED: TRAZODONE 50 MG TABLET PO SCH (21:00)
[2018-08-21] MEDS ORDERED: MONTELUKAST 10 MG TAB PO SCH (21:00)
== END 2018-08-21 18:04 | disposition home health service (06) ==
LOC: ER 18:05 → 2ND 08-20 00:01 → INTOOBSV 08-20 00:01
PROVIDERS: ADMIT Hospitalist; ATTEND Hospitalist
DX: L03.116 Cellulitis of left lower limb (principal); L03.115 Cellulitis of right lower limb; E11.40 Type 2 diabetes mellitus with diabetic neuropathy, unspecified; I10 Essential (primary) hypertension; E03.9 Hypothyroidism, unspecified; K21.9 Gastro-esophageal reflux disease without esophagitis; E78.5 Hyperlipidemia, unspecified; I77.89 Other specified disorders of arteries and arterioles; E66.9 Obesity, unspecified; Z68.39 Body mass index [BMI] 39.0-39.9, adult; Z86.73 Personal history of transient ischemic attack (TIA), and cerebral infarction without residual deficits
CPT/HCPCS: 36415 ×2; 71045; 80048; 80053 ×2; 81003; 82962 ×6; 83036; 83735 ×3; 83880 ×2; 84100; 84145; 84439; 84443; 84484 ×3; 85025 ×3; 85610; 85730; 87040 ×2; 93005; 93970; 96374; 97116 ×2; 97163; 97530; 99285; G0378 ×2; J0295 ×3; J1650 ×2; J1940 ×3; J3370 ×2

== ENCOUNTER 2019-04-27 03:21 | Emergency (ER) | payer OTHER, MEDICARE ==
[2019-04-27 04:07] LABS: Protime INR 1.75
[2019-04-27 04:08] LABS: Absolute Lymphocytes (CBC) 4.5 K/uL (0.7-4.9); Basophils % 0.6 % (0-1.3); Hematocrit 31.4 % (36.0-45.0); Lymphocytes % 51.6 % (15.3-44.8); MPV 8.7 fL (7.6-11.3); RBC Red Blood Cell Count 3.36 M/uL (3.86-4.86)
[2019-04-27 04:18] LABS: Potassium 3.8 mmol/L (3.5-5.1)
--- NOTE | 2019-04-27 05:04 | EDPHYS ---
Physician Documentation [facility] Name: Casie Kelley Age: 73 yrs Sex: Female : 1945 Arrival Date: 04/27/2019 Time: 03:28 Bed 17 Private MD: ED Physician Kali Denton HPI: 04/27 04:39 This 73 yrs old Female presents to ER via EMS with complaints of can move gs legs. 04:39 The patient presents to the emergency department with weakness of the left lower gs extremity, right lower extremity. Onset: The symptoms/episode began/occurred at 02:00. Context: occurred at home, occurred while the patient was sitting. Associated signs and symptoms: Pertinent negatives: altered mental status, altered speech. Severity of symptoms: At their worst the symptoms were severe in the emergency department the symptoms are unchanged. Current symptoms: paralysis or paresis, that is severe. The patient has experienced a previous episode. Historical: - Allergies: 04:13 TRIMETHOPRIM; jb4 04:13 Vioxx; jb4 04:13 Talwin; jb4 04:13 sulfamethoxazole (bulk); jb4 04:13 PENTAZOCINE; jb4 04:13 Meperidine; jb4 04:13 Lyrica; jb4 04:13 HYDROCODONE; jb4 04:13 Darvon; jb4 04:13 Compazine; jb4 04:13 Demerol; jb4 04:13 Levofloxacin; jb4 04:13 Codeine; jb4 - Home Meds: 04:13 atorvastatin 40 mg Oral tab 1 tab once daily [Active]; DuoNeb 0.5 mg-3 mg(2.5 mg jb4 base)/3 mL Inhl nebu 3 mL 4 times per day [Active]; estradiol Vaginal [Active]; fluticasone 50 mcg/actuation nasal spsn 2 sprays once daily [Active]; furosemide 40 mg Oral tab 1 tab once daily [Active]; gabapentin 300 mg Oral cap 1 cap 3 times per day [Active]; glucosamine-chondroitin 750-600 mg Oral chew 2 tab twice a day [Active]; Klor-Con M20 20 mEq Oral TbTQ 1 tab once daily [Active]; levothyroxine 75 mcg tab 1 tab once daily [Active]; metformin 500 mg Oral Tb24 1 tab 2 times per day [Active]; montelukast 10 mg Oral tab 1 tab once daily [Active]; nitroglycerin 0.4 mg SL subl 1 tab [Active]; nystatin 100,000 unit/gram Topical powd 2 times per day [Active]; omeprazole 40 mg Oral cpDR 1 cap 2 times per day [Active]; Plavix 75 mg Oral tab 1 tab once daily [Active]; tgdphgidvo-hzxnavwirv-CoYi(PF) 1 mcg/mL -0.1 % epidural soln per pain pump [Active]; Xyzal 5 mg Oral tab 1 tab once daily [Active]; Zaroxolyn 2.5 mg Oral tab 1 tab once daily [Active]; Zofran (as hydrochloride) 4 mg Oral tab 1 tabs every 8 hours [Active]; 04:13 Eliquis 5 mg oral tab 1 tab 2 times per day [Active]; mirabegron oral 50mg oral 1 tab jb4 once daily [Active]; morphine 15 mg Oral tab 1 tab every 6 hours for Severe Pain [Active]; - PMHx: 04:13 Aneurysm; Cervical Spondylosis; Chronic pain; constipation; CVA; Diabetes - NIDDM; jb4 Fibromyalgia; Gastroparesis; GERD; heel spur; Hypothyroidism; ileus; lymphedema; multiple thyroid nodules; Obesity; PERIPHERAL NEUROPATHY; Sleep Apnea; spinal stenosis; vaginal atrophy; - PSHx: 04:13 Cholecystectomy; Hysterectomy; Appendectomy; Disc surgery; PAIN MANAGEMENT PUMP; jb4 shoulder repair; - Immunization history:: Adult Immunizations up to date. - Social history:: Smoking status: Patient/guardian denies using tobacco, Patient/guardian denies using alcohol. - Ebola Screening: : No symptoms or risks identified at this time. ROS: 04:39 All other systems are negative. gs Exam: 04:39 Head/Face: Normocephalic, atraumatic. Eyes: Pupils equal round and reactive to light, gs extra-ocular motions intact. Lids and lashes normal. Conjunctiva and sclera are non-icteric and not injected. Cornea within normal limits. Periorbital areas with no swelling, redness, or edema. ENT: Nares patent. No nasal discharge, no septal abnormalities noted. Tympanic membranes are normal and external auditory canals are clear. Oropharynx with no redness, swelling, or masses, exudates, or evidence of obstruction, uvula midline. Mucous membranes moist. Neck: Trachea midline, no thyromegaly or masses palpated, and no cervical lymphadenopathy. Supple, full range of motion without nuchal rigidity, or vertebral point tenderness. No Meningismus. Chest/axilla: Normal chest wall appearance and motion. Nontender with no deformity. No lesions are appreciated. Cardiovascular: Regular rate and rhythm with a normal S1 and S2. No gallops, murmurs, or rubs. Normal PMI, no JVD. No pulse deficits. Respiratory: Lungs have equal breath sounds bilaterally, clear to auscultation and percussion. No rales, rhonchi or wheezes noted. No increased work of breathing, no retractions or nasal flaring. Abdomen/GI: Soft, non-tender, with normal bowel sounds. No distension or tympany. No guarding or rebound. No evidence of tenderness throughout. Back: No spinal tenderness. No costovertebral tenderness. Full range of motion. 04:39 Constitutional: The patient appears alert, awake. 04:39 Skin: Appearance: Color: erythematous. 04:57 Neuro: Orientation: is normal, Mentation: is normal, Memory: is normal, Cranial nerves: gs CN II- XII are normal as tested, Cerebellar function: normal finger to nose testing, Motor: strength is 5/5 in the right arm and left arm, Strength is 3/5 in the left leg, Strength is 1/5 in the right leg, Sensation: pin prick testing is normal, speech normal. Vital Signs: 03:45 BP 116 / 59; Pulse 63; Resp 16; Temp 98.1(O); Pulse Ox 98% on R/A; Weight 99.34 kg (R); jb4 Height 5 ft. 1 in. (154.94 cm) (R); Pain 8/10; 04:30 BP 100 / 46; Pulse 61; Resp 15; Pulse Ox 99% on R/A; jb4 05:15 BP 129 / 54; Pulse 64; Resp 12; Pulse Ox 98% on R/A; jb4 06:30 BP 115 / 53; Pulse 62; Resp 13; Pulse Ox 97% on R/A; jb4 03:45 Body Mass Index 41.38 (99.34 kg, 154.94 cm) jb4 NIH Stroke Scale Scores: 04:47 NIHSS Score: 5 jb4 04:57 NIHSS Score: 5 MDM: 03:41 Patient medically screened. 04:57 Data reviewed: vital signs, nurses notes. Counseling: I had a detailed discussion with the patient and/or guardian regarding: the historical points, exam findings, and any diagnostic results supporting the discharge/admit diagnosis, the need to transfer to another facility. Response to treatment: There is no appreciated change of the patient's symptoms at this time. ED course: ddx-cva,cauda equina,weakness,neoplasm no TPA weakness b/l lower extremities, also pt on eliquis. 04/27 03:33 Order name: Basic Metabolic Panel; Complete Time: 04:47 04/27 03:33 Order name: CBC with Diff 04/27 03:33 Order name: Protime (+inr); Complete Time: 04:47 04/27 03:33 Order name: CT Stroke Brain w/o Contrast 04/27 03:33 Order name: Stroke CXR 1 View 04/27 04:15 Order name: Manual Differential EDNE 04/27 03:33 Order name: EKG; Complete Time: 03:35 04/27 03:33 Order name: Accucheck; Complete Time: 04:07 04/27 03:33 Order name: Cardiac monitoring; Complete Time: 04:08 04/27 03:33 Order name: EKG - Nurse/Tech; Complete Time: 04:07 04/27 03:33 Order name: IV Saline Lock; Complete Time: 04:07 04/27 03:33 Order name: Labs collected and sent; Complete Time: 04:08 04/27 03:33 Order name: NPO; Complete Time: 04:08 04/27 03:33 Order name: O2 Per Protocol; Complete Time: 04:08 04/27 03:33 Order name: O2 Sat Monitoring; Complete Time: 04:08 04/27 03:33 Order name: Stroke Swallow Screen; Complete Time: 04:08 Administered Medications: 05:16 Drug: NS 0.9% 1000 ml Route: IV; Rate: 75 ml/hr; Site: right antecubital; jb4 05:24 Follow up: Response: No adverse reaction; IV Status: Infusion continued upon transfer jb4 Disposition: 04/27/19 05:03 Transfer ordered to [facility]. Diagnosis is lower extremity paresis. - Reason for transfer: Higher level of care. - Accepting physician is sadi. - Condition is Stable. - Problem is new. - Symptoms have improved. NIH Stroke Scale - NIH Stroke Score Date: 04/27/2019 Time: 04:47 Total Score = 5 1a. Level of Consciousness (LOC) - 0(Alert) 1b. Level of Consciousness (LOC) (Year \T\ Age) - 0(Both) 1c. LOC Commands (Open \T\ Closes Eyes/Blower Insulator) - 0(Both) 2. Best Gaze (Lateral Gaze Paresis) - 0(Normal) 3. Visual Field Loss - 0(No visual loss) 4. Facial Palsy - 0(Normal) 5a. Left Arm: Motor (10-second hold) - 0(No drift) 5b. Right Arm: Motor (10-second hold) - 0(No drift) 6a. Left Leg: Motor (5-second hold - always test supine) - 1(Drift) 6b. Right Leg: Motor (5-second hold - always test supine) - 4(No movement) 7. Limb Ataxia (finger/nose \T\ heel/wilson - test with eyes open) - 0(Absent) 8. Sensory Loss (pinprick arms/legs/face) - 0(Normal) 9. Best Language: Aphasia (description/naming/reading) - 0(No aphasia) 10. Dysarthria (speech clarity - read or repeat words) - 0(Normal) 11. Extinction and Inattention (visual/tactile/auditory/spatial/personal) - 0(No abnormality) Initials: jb4 NIH Stroke Scale - NIH Stroke Score Date: 04/27/2019 Time: 04:57 Total Score = 5 1a. Level of Consciousness (LOC) - 0(Alert) 1b. Level of Consciousness (LOC) (Year \T\ Age) - 0(Both) 1c. LOC Commands (Open \T\ Closes Eyes/Blower Insulator) - 0(Both) 2. Best Gaze (Lateral Gaze Paresis) - 0(Normal) 3. Visual Field Loss - 0(No visual loss) 4. Facial Palsy - 0(Normal) 5a. Left Arm: Motor (10-second hold) - 0(No drift) 5b. Right Arm: Motor (10-second hold) - 0(No drift) 6a. Left Leg: Motor (5-second hold - always test supine) - 2(Drift, some effort against gravity) 6b. Right Leg: Motor (5-second hold - always test supine) - 3(No effort against gravity) 7. Limb Ataxia (finger/nose \T\ heel/wilson - test with eyes open) - 0(Absent) 8. Sensory Loss (pinprick arms/legs/face) - 0(Normal) 9. Best Language: Aphasia (description/naming/reading) - 0(No aphasia) 10. Dysarthria (speech clarity - read or repeat words) - 0(Normal) 11. Extinction and Inattention (visual/tactile/auditory/spatial/personal) - 0(No abnormality) Initials: Signatures: Dispatcher [employer] EDMS Renzo Cummings RN RN jb4 Kali Denton MD MD Corrections: (The following items were deleted from the chart) 05:07 04:13 Home Meds: docusate sodium 100 mg Oral cap 1 cap 2 times per day; [facility] jb4 05:07 04:13 Home Meds: mirabegron Oral 1 tab once daily; [facility] jb4 05:07 04:13 Home Meds: trazodone 50 mg Oral tab 1 tab nightly; jb4 jb4 06:46 05:03 04/27/2019 05:03 Transfer ordered to [facility]. jb4 Diagnosis is lower extremity paresis. Reason for transfer: Higher level of care. Accepting physician is sadi. Condition is Stable. Problem is new. Symptoms have improved. gs
--- NOTE | 2019-04-27 05:04 | ER ---
Nurse's Notes [facility] Name: Casie Kelley Age: 73 yrs Sex: Female : 1945 Arrival Date: 04/27/2019 Time: 03:28 Bed 17 Private MD: Diagnosis: lower extremity paresis Presentation: 04/27 03:15 Presenting complaint: EMS states: PT reports inability to move her right leg. Reports a jb4 history of TIA and Stroke, and that the last time she had a TIA it felt the same way. 03:15 Method Of Arrival: EMS: [facility] jb4 03:15 Transition of care: patient was not received from another setting of care. Onset of jb4 symptoms was April 27, 2019. Risk Assessment: Do you want to hurt yourself or someone else? Patient reports no desire to harm self or others. Initial Sepsis Screen: Does the patient meet any 2 criteria? No. Patient's initial sepsis screen is negative. Does the patient have a suspected source of infection? No. Patient's initial sepsis screen is negative. Care prior to arrival: None. 03:15 Acuity: HAN 2 jb4 Historical: - Allergies: 04:13 TRIMETHOPRIM; jb4 04:13 Vioxx; jb4 04:13 Talwin; jb4 04:13 sulfamethoxazole (bulk); jb4 04:13 PENTAZOCINE; jb4 04:13 Meperidine; jb4 04:13 Lyrica; jb4 04:13 HYDROCODONE; jb4 04:13 Darvon; jb4 04:13 Compazine; jb4 04:13 Demerol; jb4 04:13 Levofloxacin; jb4 04:13 Codeine; jb4 - Home Meds: 04:13 atorvastatin 40 mg Oral tab 1 tab once daily [Active]; DuoNeb 0.5 mg-3 mg(2.5 mg jb4 base)/3 mL Inhl nebu 3 mL 4 times per day [Active]; estradiol Vaginal [Active]; fluticasone 50 mcg/actuation nasal spsn 2 sprays once daily [Active]; furosemide 40 mg Oral tab 1 tab once daily [Active]; gabapentin 300 mg Oral cap 1 cap 3 times per day [Active]; glucosamine-chondroitin 750-600 mg Oral chew 2 tab twice a day [Active]; Klor-Con M20 20 mEq Oral TbTQ 1 tab once daily [Active]; levothyroxine 75 mcg tab 1 tab once daily [Active]; metformin 500 mg Oral Tb24 1 tab 2 times per day [Active]; montelukast 10 mg Oral tab 1 tab once daily [Active]; nitroglycerin 0.4 mg SL subl 1 tab [Active]; nystatin 100,000 unit/gram Topical powd 2 times per day [Active]; omeprazole 40 mg Oral cpDR 1 cap 2 times per day [Active]; Plavix 75 mg Oral tab 1 tab once daily [Active]; nvjlfazkxb-ukpxqbhlyj-RgTf(PF) 1 mcg/mL -0.1 % epidural soln per pain pump [Active]; Xyzal 5 mg Oral tab 1 tab once daily [Active]; Zaroxolyn 2.5 mg Oral tab 1 tab once daily [Active]; Zofran (as hydrochloride) 4 mg Oral tab 1 tabs every 8 hours [Active]; 04:13 Eliquis 5 mg oral tab 1 tab 2 times per day [Active]; mirabegron oral 50mg oral 1 tab jb4 once daily [Active]; morphine 15 mg Oral tab 1 tab every 6 hours for Severe Pain [Active]; - PMHx: 04:13 Aneurysm; Cervical Spondylosis; Chronic pain; constipation; CVA; Diabetes - NIDDM; jb4 Fibromyalgia; Gastroparesis; GERD; heel spur; Hypothyroidism; ileus; lymphedema; multiple thyroid nodules; Obesity; PERIPHERAL NEUROPATHY; Sleep Apnea; spinal stenosis; vaginal atrophy; - PSHx: 04:13 Cholecystectomy; Hysterectomy; Appendectomy; Disc surgery; PAIN MANAGEMENT PUMP; jb4 shoulder repair; - Immunization history:: Adult Immunizations up to date. - Social history:: Smoking status: Patient/guardian denies using tobacco, Patient/guardian denies using alcohol. - Ebola Screening: : No symptoms or risks identified at this time. Screenin:50 The patient has not been NPO before screening. The patient is alert, able to follow jb4 commands. The patient does not exhibit slurred or garbled speech The patient is not exhibiting difficulty speaking. The patient does not exhibit difficulty understanding words. The patient is able to swallow own secretions with no drooling or need for suction. Patient tolerated one teaspoon of water. No drooling, immediate coughing, gurgling, or clearing of the throat was noted. The patient tolerated 90mL of water. No drooling, immediate coughing, gurgling, or clearing of the throat was noted. The patient passed the bedside swallow screening. Oral medications may be given as ordered. Contact Physician for further diet orders. Provider notified of bedside swallow screening results: Kali Denton MD. 03:51 Abuse screen: Denies threats or abuse. Nutritional screening: No deficits noted. jb4 Tuberculosis screening: No symptoms or risk factors identified. Fall Risk Secondary diagnosis (15 points) TIA, CVA, IV access (20 points). Gait- Impaired (20 pts.). Total Miller Fall Scale indicates High Risk Score (45 or more points). Fall prevention measures have been instituted. Side Rails Up X 2 Placed Close to Nursing Station Frequent Obs/Assessments Occuring Family Present and informed to notify staff if the need to leave the bedside As available patient and family educated on Fall Prevention Program and Strategies. Assessment: 03:15 General: Appears in no apparent distress. uncomfortable, Behavior is calm, cooperative, jb4 appropriate for age, Pt is unable to move her right leg, redness and warmth noted to BUSHRA inner lower legs.. Pain: Complains of pain in back Pain does not radiate. Pain currently is 8 out of 10 on a pain scale. Neuro: Level of Consciousness is awake, alert, obeys commands, Oriented to person, place, time, situation. Cardiovascular: Patient's skin is warm and dry. Rhythm is sinus rhythm. Respiratory: Airway is patent Respiratory effort is even, unlabored, Respiratory pattern is regular, symmetrical. GI: No deficits noted. No signs and/or symptoms were reported involving the gastrointestinal system. : No deficits noted. No signs and/or symptoms were reported regarding the genitourinary system. EENT: No deficits noted. No signs and/or symptoms were reported regarding the EENT system. Derm: Skin is intact, Skin is pink, warm \T\ dry. Musculoskeletal: Circulation, motion, and sensation intact. 03:29 Reassessment: Pt reports sudden onset weakness to left side. 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 04:26 Reassessment: Patient appears in no apparent distress at this time. No changes from 4 previously documented assessment. Patient and/or family updated on plan of care and expected duration. Pain level reassessed. Pt reports weakness feels the same. 04:43 Reassessment: Pt report being able to move her right leg. Pt reports left leg is jb4 getting worse and harder to move. 05:50 Reassessment: Patient appears in no apparent distress at this time. Patient and/or jb4 family updated on plan of care and expected duration. Pain level reassessed. Patient is alert, oriented x 3, equal unlabored respirations, skin warm/dry/pink. PT reports being able to fully use her right leg, continues to complain of weakness of left extremeties. 06:44 Reassessment: Patient appears in no apparent distress at this time. No changes from [facility] previously documented assessment. Patient and/or family updated on plan of care and expected duration. Pain level reassessed. Patient is alert, oriented x 3, equal unlabored respirations, skin warm/dry/pink. Pt transferred out of ED via EMS. Vital Signs: 03:45 BP 116 / 59; Pulse 63; Resp 16; Temp 98.1(O); Pulse Ox 98% on R/A; Weight 99.34 kg (R); jb4 Height 5 ft. 1 in. (154.94 cm) (R); Pain 8/10; 04:30 BP 100 / 46; Pulse 61; Resp 15; Pulse Ox 99% on R/A; jb4 05:15 BP 129 / 54; Pulse 64; Resp 12; Pulse Ox 98% on R/A; jb4 06:30 BP 115 / 53; Pulse 62; Resp 13; Pulse Ox 97% on R/A; jb4 03:45 Body Mass Index 41.38 (99.34 kg, 154.94 cm) 4 NIH Stroke Scale Scores: 04:47 NIHSS Score: 5 jb4 04:57 NIHSS Score: 5 ED Course: 03:15 Arm band placed on right wrist. EKG completed in triage. Results shown to . bello 03:15 Patient has correct armband on for positive identification. Bed in low position. Call jb4 light in reach. Side rails up X 1. site monitor on. Pulse ox on. NIBP on. 03:28 Patient arrived in ED. jb4 03:30 blood sugar 195. jd2 03:32 Kali Denton MD is Attending Physician. gs 03:49 Initial lab(s) drawn, by me, sent to lab. EKG done, by ED staff, reviewed by Kali Denton MD. 03:51 Inserted saline lock: in right antecubital area, using aseptic technique. Blood jb4 collected. 03:52 CT Stroke Brain w/o Contrast In Process Unspecified. EDMS 03:55 Renzo Cummings, RN is Primary Nurse. jb4 04:05 Stroke CXR 1 View In Process Unspecified. EDMS 04:06 Triage completed. jb4 06:30 No provider procedures requiring assistance completed. Patient transferred, IV remains jb4 in place. Administered Medications: 05:16 Drug: NS 0.9% 1000 ml Route: IV; Rate: 75 ml/hr; Site: right antecubital; jb4 05:24 Follow up: Response: No adverse reaction; IV Status: Infusion continued upon transfer jb4 Outcome: 05:03 ER care complete, transfer ordered by . 06:30 Transferred by ground EMS to [facility], Transfer form completed. jb4 X-rays sent w/ patient. 06:30 Condition: stable 06:30 Discharge instructions given to patient, family, Instructed on the need for transfer, Demonstrated understanding of instructions. 06:46 Patient left the ED. jb4 NIH Stroke Scale - NIH Stroke Score Date: 04/27/2019 Time: 04:47 Total Score = 5 1a. Level of Consciousness (LOC) - 0(Alert) 1b. Level of Consciousness (LOC) (Year \T\ Age) - 0(Both) 1c. LOC Commands (Open \T\ Closes Eyes/Autographer) - 0(Both) 2. Best Gaze (Lateral Gaze Paresis) - 0(Normal) 3. Visual Field Loss - 0(No visual loss) 4. Facial Palsy - 0(Normal) 5a. Left Arm: Motor (10-second hold) - 0(No drift) 5b. Right Arm: Motor (10-second hold) - 0(No drift) 6a. Left Leg: Motor (5-second hold - always test supine) - 1(Drift) 6b. Right Leg: Motor (5-second hold - always test supine) - 4(No movement) 7. Limb Ataxia (finger/nose \T\ heel/wilson - test with eyes open) - 0(Absent) 8. Sensory Loss (pinprick arms/legs/face) - 0(Normal) 9. Best Language: Aphasia (description/naming/reading) - 0(No aphasia) 10. Dysarthria (speech clarity - read or repeat words) - 0(Normal) 11. Extinction and Inattention (visual/tactile/auditory/spatial/personal) - 0(No abnormality) Initials: jbIker NIH Stroke Scale - NIH Stroke Score Date: 04/27/2019 Time: 04:57 Total Score = 5 1a. Level of Consciousness (LOC) - 0(Alert) 1b. Level of Consciousness (LOC) (Year \T\ Age) - 0(Both) 1c. LOC Commands (Open \T\ Closes Eyes/Autographer) - 0(Both) 2. Best Gaze (Lateral Gaze Paresis) - 0(Normal) 3. Visual Field Loss - 0(No visual loss) 4. Facial Palsy - 0(Normal) 5a. Left Arm: Motor (10-second hold) - 0(No drift) 5b. Right Arm: Motor (10-second hold) - 0(No drift) 6a. Left Leg: Motor (5-second hold - always test supine) - 2(Drift, some effort against gravity) 6b. Right Leg: Motor (5-second hold - always test supine) - 3(No effort against gravity) 7. Limb Ataxia (finger/nose \T\ heel/wilson - test with eyes open) - 0(Absent) 8. Sensory Loss (pinprick arms/legs/face) - 0(Normal) 9. Best Language: Aphasia (description/naming/reading) - 0(No aphasia) 10. Dysarthria (speech clarity - read or repeat words) - 0(Normal) 11. Extinction and Inattention (visual/tactile/auditory/spatial/personal) - 0(No abnormality) Initials: monet Signatures: Dispatcher [employer] EDSharon Watson James, RN RN jb4 Kali Denton MD MD gs Corrections: (The following items were deleted from the chart) 04:09 03:35 blood sugar 195 jd2 jd2 04:38 03:51 Initial lab(s) drawn, by me, sent to lab. EKG done, by ED staff, reviewed jb4 by Kali Denton MD jb4 04:47 03:29 NIHSS Score: 5 jb4 jb4 04:47 04:43 NIHSS Score: 6 jb4 jb4 05:07 04:13 Home Meds: docusate sodium 100 mg Oral cap 1 cap 2 times per day; jb4 jb4 05:07 04:13 Home Meds: mirabegron Oral 1 tab once daily; jb4 jb4 05:07 04:13 Home Meds: trazodone 50 mg Oral tab 1 tab nightly; jb4 jb4
[2019-04-27] MEDS ORDERED: NA CHLORIDE 0.9% 1,000 ML ONE (05:09)
[2019-04-27 05:23] LABS: Blood Morphology Comment NOT SEEN (NOT SEEN); Platelet Estimate ADEQ
[2019-04-27 06:59] VITALS: TEMP 98.1
[2019-04-27 07:03] VITALS: BP 115/53; O2SAT 97
--- NOTE | 2019-04-27 08:27 | RAD REPORT ---
EXAM DESCRIPTION: Vikram Single View04/27/2019 4:05 am CLINICAL HISTORY: Code stroke/ malaise COMPARISON: July 2018 FINDINGS: The lungs appear clear of acute infiltrate. The heart is normal size IMPRESSION: No acute abnormalities displayed
--- NOTE | 2019-04-27 15:34 | EKG ---
Test Date: 2019-04-27 Test Time: 03:58:05 Brush Stainer: BESSIE MEASUREMENT RESULTS: Intervals: Rate: 64 OK: 204 QRSD: 82 QT: 436 QTc: 449 [place]: P: 69 OK: 204 QRS: 24 T: 53 INTERPRETIVE STATEMENTS: Sinus rhythm with premature supraventricular complexes Low voltage QRS Abnormal ECG Compared to ECG 08/19/2018 20:30:55 Atrial premature complex(es) now present Low QRS voltage now present Electronically Signed On 04-27-19 15:34:00 CDT by Ricco Gregg
--- NOTE | 2019-04-30 17:40 | RAD REPORT ---
EXAM DESCRIPTION: CT - Ct Stroke Brain Wo Cont - 04/27/2019 4:10 am ADDENDUM #1 THIS REPORT CONTAINS FINDINGS THAT MAY BE CRITICAL TO PATIENT CARE: The findings were verbally discu ssed via telephone conference with Dr. Denton by Dr. Wilburn at 0410 hours central time on April 27. The results were acknowledged and understood. Electronically signed by: Adriano Wilburn MD 04/27/2019 4:11 AM CDT End of Addendum EXAM DESCRIPTION: Ct Stroke Brain Wo Cont CLINICAL HISTORY: WEAKNESS COMPARISON: CT head February 08, 2017 TECHNIQUE: Multiple helical axial tomographic images were obtained of the head without intravenous c ontrast. Coronal and sagittal reformatted images were obtained. This exam was performed according to our departmental dose-optimization program, which includes automated exposure control, adjustment of the mA and/or kV according to patient size and/or use of iterative reconstruction technique. FINDINGS: Mild generalized brain volume loss is demonstrated. Metallic aneurysm clip in the suprasel lar cistern demonstrated with associated artifact. There is mild hypoattenuation in the periventricul ar white matter suggestive of chronic microvascular ischemic changes. There is no acute intracranial hemorrhage. No mass. No midline shift. No ventriculomegaly. Martin-white matter differentiation is main tained. Paranasal sinuses are clear. Mastoid air cells and middle ear spaces are clear. Changes of lens repla cement demonstrated. Left frontal craniotomy changes are demonstrated. Surrounding soft tissues are unremarkable. IMPRESSION: No acute intracranial process. Electronically signed by: Adriano Wilburn MD 04/27/2019 4:05 AM CDT Due to temporary technical issues with the PACS/Fluency reporting system, reports are being signed by the in house radiologist as a courtesy to ensure prompt reporting. The interpreting radiologist is f ully responsible for the content of the report.
== END 2019-04-27 06:46 | disposition short-term general hospital (02) ==
LOC: ER 03:21
DX: H52.52 Paresis of accommodation (principal); I89.0 Lymphedema, not elsewhere classified; E03.9 Hypothyroidism, unspecified; K21.9 Gastro-esophageal reflux disease without esophagitis; G62.9 Polyneuropathy, unspecified; Z88.6 Allergy status to analgesic agent; Z88.2 Allergy status to sulfonamides; Z88.8 Allergy status to other drugs, medicaments and biological substances
CPT/HCPCS: 93005; 85025; 80048; 36415; 85610; 82962; 70450; 71045; 99285; J7030

== ENCOUNTER 2019-05-02 09:26 | Inpatient (IN) | payer OTHER, MEDICARE ==
--- NOTE | 2019-05-02 14:45 | R.PREADM ---
SCREENING DATE AND TIME 05/02/2019 09:39 (CDT) ANTICIPATED REHAB ADMISSION DATE 05/04/2019 REFERRING FACILITY [facility] REFERRAL DATE AND TIME 05/02/2019 09:39 (CDT) ACUTE ADMIT DATE 04/27/2019 Previous Rehabilitation(s): No. REFERRING PHYSICIAN Reyes Hernadez REHAB FACILITY [facility] CLINICAL LIAISON Flora Masters PHYSICIAN REVIEWER Dr. Edil Carroll M.D. MR# [id number] NAME CASIE KELSEY ADDRESS [address] [facility] [id number] DATE OF 1945 AGE 73 SSN# [id number] GENDER female MARITAL STATUS RACE white ADMIT FROM 02 - [facility] PRE-HOSPITAL LIVING SETTING 01 - Home (private home/apt. board/care, assisted living, senior care, transitional living) HOME TYPE AND DETAILS Type of home: single family house # of steps to enter the residence: 0 # of steps within the residence: 0 # of levels in the residence: 1 PRE-HOSPITAL LIVING WITH Family/Relatives FAMILY SUPPORT Yes PRIMARY FAMILY CONTACT NAME Ed White PRIMARY FAMILY CONTACT PHONE PHONE PRIMARY FAMILY CONTACT ON ADM.? no IS PRIMARY FAMILY CONTACT AUTH. REP.? no 1ST EMERGENCY CONTACT Ed White 1ST CONTACT PHONE PHONE 1ST CONTACT ON ADM. no IS 1ST CONTACT AUTH. REP.? no PHONE 2ND CONTACT ON ADM.? no PATIENT EMPLOYMENT STATUS Retired (for age) PATIENT EMPLOYER No Employer PAYOR INFORMATION: 1ST PAYOR NAME MEDICARE 1ST PAYOR PHONE 1ST PAYOR INJURY/ILLNESS DUE TO ACCIDENT? No ANOTHER CONSTITUTION PARTY RESPONSIBLE? No PRIMARY REHAB/ACUTE DIAGNOSIS: TIA REHAB IMPAIRMENT CATEGORY (KUMAR): 20 Miscellaneous (Misc) does NOT meet 60% rule PRIMARY DIAGNOSIS-RELATED SURGERIES: No surgeries related to the primary diagnosis were performed. COMORBID REHAB/ACUTE DIAGNOSES: - N/A JOSE Type 2 diabetes mellitus CAROTID STENOSIS obesity chronic pain chronic anticoagulation hypertension hypothyroidism presence of intrathecal pump sleep apnea INTERVENTIONS: - Hypertension Fluid management Medications VS - Sleep Apnea 02 sats Oxygen Respiratory management RISK FOR COMPLICATIONS: - Hypertension CVA Hypotension AL TIA - Sleep Apnea Anoxia BI CVA Fatigue AL SUMMARY OF ACUTE HOSPITALIZATION: Pt. is a 73 yo Right-handed white female. On 04/27/2019 she was admitted to [facility] with diagnosis TIA. Her impairment category is Debility 16 - Debility (16). Pre-morbidly, Pt. was independent/mod-I in Self-Care, Sphincter Control, Transfers Control, Locomotio n, Communication, and Social Cognition; and she had good Sphincter Control. Currently, she has deficits of Self-Care, Transfers Control, Locomotion, Communication, Social Cognit ion, Endurance, Balance, and Safety Awareness. Pt. is now referred to [facility] for acute in-patient rehabilitation in order to maximize patient's functional independence in activities of daily living, strength, ROM, and mobi lity. Patient has realistic goal of being discharged at assistance level 6-Patricio to reside at Home with Fam jace/Relatives. Casie Kelsey is a 73 year old female that lives in a single mario house with her . Her prior level of function was she needed assistance with ADLs and ambulation. On 04/27/2019, patient was sitting on the couch last night for atleast 2 hours and then when she tried to get up she cant, she tried it multiple times but cant feel her right leg and was admitted to [facility] and treated. He is now medically stable but in need of 24-hour nursing, doctor supervision and oversite while receiving active and ongoing is reasonably expected to participate in 3hours of therapy a day/15 hours per week and receive care with an intensive interdisciplinary approach. PAST MEDICAL HISTORY JOSE CAROTID STENOSIS Type 2 diabetes mellitus chronic anticoagulation chronic pain hypertension hypothyroidism obesity presence of intrathecal pump sleep apnea MEDICATION ALLERGIES: rofecoxib codeine hydrocodone meperidine bactrim pentazocine lactate prochlorperazine edisylate propoxyphene ENVIRONMENTAL ALLERGIES: - Substance Allergies None Known - Other Allergies None Known CODE STATUS: Full code WEIGHT/HEIGHT/BMI: WEIGHT 216 lbs HEIGHT 5' 1" BMI 40.8 DIET: - Diet Type Regular - Diet - Solid Texture Regular - Diet - Liquid Texture Regular - Tube Feed N/A REVIEW OF SYSTEMS: - Gen Alert and awake Lying in bed No apparent distress Oriented to: person, time, and place - Vital Signs Vital signs stable, afebrile - CVS RRR VITAL SIGNS Temperature: 98.1 F SBP/DBP: 135/63 Pulse: 82 Resp: 18 Vital signs stable, afebrile MEDICATIONS/TREATMENT: Other- See attached MAR (Medication Administration Record). CURRENT SPHINCTER CONTROL: Pre-hospital bladder status: continent # of bladder accidents in the last 7 days prior to screenin Pre-hospital bowel status: continent # of bowel accidents in the last 7 days prior to screenin Last Bowel Movement Date: 05/02/2019 DETAILED CURRENT FUNCTIONAL STATUS: - Bladder accident frequency: Ind - No accidents in the past 7 days - Bowel accident frequency: Ind - No accidents in the past 7 days - Walking score based on distance walked: 2(5149ft) - Wheelchair score based on distance traveled: 1(<=50ft) FUNCTIONAL STATUS: - Self-Care A. Eating Ind sup B. Grooming Ind sup C. Bathing Ind ADNO D. Dressing - Upper Ind Kianna E. Dressing - Lower Ind maxA F. Toileting Ind Kianna - Sphincter Control G: Bladder control Ind Ind H: Bowel control Ind Ind - Transfers Control I. Bed/Chair/Wheelchair Ind Kianna J. Toilet Ind Kianna K. Tub/Shower Ind ADNO - Locomotion L. Walk/Wheelchair (C) Ind Dep L. Walk/Wheelchair (W) Ind modA M. Stairs Ind ADNO - Communication N. Comprehension (B) Ind sup O. Expression (B) Ind sup - Social Cognition P. Social Interaction Ind sup Q. Problem Solving Ind sup R. Memory Ind sup - Endurance Poor - Balance Fair - Safety Awareness Fair CURRENT FUNC. DEFICITS: Self-Care, Transfers Control, Locomotion, Communication, Social Cognition, Endurance, Balance, and Sa fety Awareness THERAPY NOTES FROM ACUTE CARE: Attached. SPECIAL NEEDS: - Safety Concerns Skin breakdown precautions needed due to skin breakdown risk PATIENT NEEDS ACTIVE AND ONGOING THERAPEUTIC INTERVENTION OF MULTIPLE THERAPY DISCIPLINES, INCLUDING: - Dietary and Nutrition Adequate Nutrition. Nutritional Education. Nutritional Supplements. PATIENT NEEDS CLOSE MEDICAL SUPERVISION BY A REHABILITATION PHYSICIAN FOR: Bowel and Bladder Management Coordination of Treatment Team Diabetes Management Medical and Co-Morbidity Management Pain Management PATIENT REQUIRES 24X7 REHAB NURSING FOR MEDICAL AND FUNCTIONAL MGT. OF THE FOLLOWING DEFICITS: ADL's Ambulation Bowel and Bladder Management Cognition Communication Disease Management Medication Management Pain Management Patient/Family Education Providing Safe Environment Transfers PATIENT REQUIRES INTENSIVE, COORDINATED INTERDISCIPLINARY APPROACH TO REHAB: Arranging Home Equipment/Services Discharge Planning Family Intervention/Training Child Welfare Worker/Case Management PATIENT REHAB POTENTIAL: Kiet KELSEY is able and expected to receive 3 hours of individualized therapy daily on at least 5 of nicho ry 7 days Kiet KELSEY's prognosis for significant practical improvement within a reasonable period of time appears Good Expected level of measurable improvement will be of a practical value to Kiet KELSEY's functional capaci ty or adaptations to impairments Has a viable Discharge Plan Medically appropriate; condition is sufficiently stable to participate in intensive rehab program DISCHARGE PLAN: - Estimated Length of Stay (days) 13. - Consensus on plan Discharge plan has been discussed with primary caregiver. Patient/Family is in agreement with the wilfred n. Primary caregiver is in agreement with the plan. - Patient/Family Goals Return home with assistance. - Planned Living Setting Upon Discharge Home, to live with Family/Relatives. RECOMMENDED CARE LEVEL: IRF RECOMMENDATION DETAILS: Recommended Admission to Comprehensive Rehabilitation Program to Increase Functional [place] SCREENER'S COMPLETENESS CONFIRMATION: - Screening Confirmation The patient data collection on this preadmission screening form is finished PHYSICIANS REVIEW AND ADMISSION DETERMINATION Admit - Based on my review of the Pre-Admission Screening results, in my medical judgment and experie nce, I concur with the findings and recommend admission to [facility], as this patient requires an IRF level of care. SIGNATURE PANEL: Clinical Liaison - [electronically] signed by Tracy Garcia on 05/02/2019 at 14:02 (CDT) Clinical Liaison - [electronically] signed by Flora Masters on 05/02/2019 at 14:06 (CDT) Physician Reviewer - [electronically] signed by Dr. Edil Carroll M.D. on 05/02/2019 at 14:45 (CDT )
[2019-05-02] MEDS ORDERED: IPRATROPIUM BROM 0.5MG/2.5ML NEB PRN (18:45)
[2019-05-02] MEDS ORDERED: ALBUTEROL 2.5 MG/3 ML NEB SOL NEB PRN (18:45)
[2019-05-02] MEDS ORDERED: MORPHINE 15 MG IR TAB PO PRN (19:15)
[2019-05-02] MEDS ORDERED: D50W 25 GM/50 ML SYRINGE IV PRN (19:19)
[2019-05-02] MEDS ORDERED: GLUCAGON 1 MG/VIAL IM PRN (19:19)
[2019-05-02] MEDS: INSULIN -REGULAR HUMAN 50 UNIT/0.5 ML ML SQ SCH (21:00)
[2019-05-02] MEDS: MAGNESIUM CHLORIDE 64 MG TAB PO SCH (21:35)
[2019-05-02] MEDS: APIXABAN 5 MG TABLET PO SCH (21:35)
[2019-05-02] MEDS: LACTOBACILLUS/ACIDOPHILUS TAB PO SCH (21:35)
[2019-05-02] MEDS: ATORVASTATIN 40 MG TAB PO SCH (21:35)
[2019-05-02] MEDS: GABAPENTIN 300 MG CAP PO SCH (21:35)
[2019-05-02] MEDS: ACETAMINOPHEN 500 MG TAB PO PRN (21:36)
[2019-05-02] MEDS: MIDODRINE HCL 5 MG TABLET PO SCH (21:36)
[2019-05-02] MEDS: MONTELUKAST 10 MG TAB PO SCH (21:41)
[2019-05-02 23:17] LABS: Urine Appearance CLEAR; Urine Bilirubin NEGATIVE (NEG); Urine Blood NEGATIVE (NEG); Urine Color YELLOW; Urine Glucose NEGATIVE (NEG); Urine Protein NEGATIVE (NEG); Urine Specific Gravity 1.015 (1.005-1.030); Urine Urobilinogen 0.2 mg/dL (0.2-1.0); Urine pH 5.5 (5.0-7.0)
[2019-05-02] MEDS ORDERED: NYSTATIN PWDR 100000 UNIT/GM TOP PRN (23:17)
[2019-05-02 23:57] LABS: Urine Culture Reflex Order NOT NEEDED
[2019-05-03 00:01] LABS: Urine Bacteria <20 /HPF (<20); Urine RBC NONE SEEN /HPF (NONE SEEN)
[2019-05-03] MEDS: LEVOTHYROXINE SOD 0.075 MG TAB PO SCH (06:30)
[2019-05-03 07:18] LABS: Absolute Lymphocytes (CBC) 4.4 K/uL (0.7-4.9); Basophils % 0.8 % (0-1.3); Hematocrit 36.1 % (36.0-45.0); Lymphocytes % 48.8 % (15.3-44.8); MPV 8.2 fL (7.6-11.3); RBC Red Blood Cell Count 3.81 M/uL (3.86-4.86)
[2019-05-03] MEDS: INSULIN -REGULAR HUMAN 50 UNIT/0.5 ML ML SQ SCH ×4 (07:30→21:00)
[2019-05-03 07:43] LABS: Albumin 3.3 g/dL (3.4-5.0); Magnesium 2.1 mg/dL (1.8-2.4); Potassium 3.9 mmol/L (3.5-5.1)
[2019-05-03] MEDS: D-MANNOSE PO SCH ×2 (08:00→19:56)
[2019-05-03] MEDS: PANTOPRAZOLE 40MG TABLET PO SCH (09:30)
[2019-05-03] MEDS: FUROSEMIDE 40 MG TABLET PO SCH ×2 (09:30→17:05)
[2019-05-03] MEDS: MULTIVITAMIN TAB PO SCH (09:31)
[2019-05-03] MEDS: glipiZIDE 5 MG TAB PO SCH (09:31)
[2019-05-03] MEDS: GLUCOSAM/CHONDROI 500mg-400mg PO SCH ×3 (09:31→22:09)
[2019-05-03] MEDS: APIXABAN 5 MG TABLET PO SCH ×2 (09:31→19:52)
[2019-05-03] MEDS: MIDODRINE HCL 5 MG TABLET PO SCH ×2 (09:31→19:53)
[2019-05-03] MEDS: GABAPENTIN 300 MG CAP PO SCH ×3 (09:31→22:09)
[2019-05-03] MEDS: CALCIUM CARBONATE 500 MG TAB PO SCH (09:31)
[2019-05-03] MEDS: MAGNESIUM CHLORIDE 64 MG TAB PO SCH ×2 (09:31→19:53)
[2019-05-03] MEDS: LACTOBACILLUS/ACIDOPHILUS TAB PO SCH ×2 (09:31→19:53)
[2019-05-03] MEDS: SPIRONOLACTONE 25 MG TABLET PO SCH (09:32)
[2019-05-03] MEDS: CLOPIDOGREL 75 MG TABLET PO SCH (09:32)
[2019-05-03] MEDS: METFORMIN HCL 500 MG TAB PO SCH ×3 (09:32→17:05)
--- NOTE | 2019-05-03 09:35 | P.RH.PN ---
Estimated Length of Stay: 14 Expected Discharge Date: 05/15/19 Discharge Disposition Plan: Home Family Support: Yes Half-Way Goal: Mobility, Transfers, Self Care Vital Signs: Last Vital Signs Temp 97.1 F 05/03/19 07:19 Pulse 56 05/03/19 07:19 Resp 14 05/03/19 07:19 BP 110/71 05/03/19 07:19 Pulse Ox 97 05/03/19 07:19 Laboratory: Laboratory Last Values WBC 9.0 K/uL (4.3-10.9) 05/03/19 06:44 RBC 3.81 M/uL (3.86-4.86) L 05/03/19 06:44 Hgb 12.5 g/dL (12.0-15.0) 05/03/19 06:44 Hct 36.1 % (36.0-45.0) 05/03/19 06:44 MCV 94.9 fL (80-100) 05/03/19 06:44 MCH 32.8 pg (27.0-35.0) 05/03/19 06:44 MCHC 34.6 g/dL (32.0-36.0) 05/03/19 06:44 RDW 14.0 % (12.1-15.2) 05/03/19 06:44 Plt Count 350 K/uL (152-406) D 05/03/19 06:44 MPV 8.2 fL (7.6-11.3) 05/03/19 06:44 Neutrophils % 35.3 % (41.7-73.7) L 05/03/19 06:44 Lymphocytes % 48.8 % (15.3-44.8) H 05/03/19 06:44 Monocytes % 7.7 % (3.3-12.3) 05/03/19 06:44 Eosinophils % 7.4 % (0-4.4) H 05/03/19 06:44 Basophils % 0.8 % (0-1.3) 05/03/19 06:44 Absolute Neutrophils 3.2 K/uL (1.8-8.0) 05/03/19 06:44 Absolute Lymphocytes 4.4 K/uL (0.7-4.9) 05/03/19 06:44 Absolute Monocytes 0.7 K/uL (0.1-1.3) 05/03/19 06:44 Absolute Eosinophils 0.7 K/uL (0-0.5) H 05/03/19 06:44 Absolute Basophils 0.1 K/uL (0-0.5) 05/03/19 06:44 Sodium 142 mmol/L (136-145) 05/03/19 06:44 Potassium 3.9 mmol/L (3.5-5.1) 05/03/19 06:44 Chloride 110 mmol/L (98-107) H 05/03/19 06:44 Carbon Dioxide 25 mmol/L (21-32) 05/03/19 06:44 BUN 22 mg/dL (7-18) H D 05/03/19 06:44 Creatinine 1.06 mg/dL (0.55-1.3) D 05/03/19 06:44 Estimated GFR 51 mL/min (=/>90) L 05/03/19 06:44 Glucose 162 mg/dL (74-106) H 05/03/19 06:44 POC Glucose 157 mg/dl (65-120) H 05/02/19 20:19 Calcium 9.2 mg/dL (8.5-10.1) 05/03/19 06:44 Magnesium 2.1 mg/dL (1.8-2.4) 05/03/19 06:44 Albumin 3.3 g/dL (3.4-5.0) L 05/03/19 06:44 Prealbumin 22.0 mg/dL (20-40) 05/03/19 06:44 Urine Color Yellow 05/02/19 22:18 Urine Appearance Clear 05/02/19 22:18 Urine pH 5.5 (5.0-7.0) 05/02/19 22:18 Ur Specific [place] 1.015 (1.005-1.030) 05/02/19 22:18 Urine Ketones Negative (NEG) 05/02/19 22:18 Urine Blood Negative (NEG) 05/02/19 22:18 Urine Nitrite Negative (NEG) 05/02/19 22:18 Urine Bilirubin Negative (NEG) 05/02/19 22:18 Urine Urobilinogen 0.2 mg/dL (0.2-1.0) 05/02/19 22:18 Ur Leukocyte Esterase Negative (NEG) 05/02/19 22:18 Urine RBC None seen /HPF (NONE SEEN) 05/02/19 22:18 Urine WBC <5 /HPF (<5) 05/02/19 22:18 Ur Squamous Epith Cells <5 /HPF (NONE SEEN) 05/02/19 22:18 Ur Urothelial Cells <5 /HPF (NONE SEEN) 05/02/19 22:18 Urine Bacteria <20 /HPF (<20) 05/02/19 22:18 Urine Culture Reflexed Not needed 05/02/19 22:18 Urine Glucose Negative (NEG) 05/02/19 22:18 Urine Total Protein Negative (NEG) 05/02/19 22:18 Weight: 200 lb 9.6 oz Closed Surgical Incision Present: Yes Physician Update: Labs reviewed. Mildly elevated BUN. Will push fluids. Her morphine pump needs to be refilled on Monday. Will contact Dr. Lynch's office for instructions. Continue Eliquis and Plavix. She is doing well with physical and occupational therpy. Summary: Patient's care plan and oysterman goals have been reviewed and revised as necessary. Please see the Rehabilitation Signature page for all necessary signatures.
[2019-05-03] MEDS ORDERED: INFLUENZA VACCINE (for 3y+) 0.5 ML DOSE IMVAC ONE (11:00)
[2019-05-03] MEDS: ACETAMINOPHEN 500 MG TAB PO PRN (13:28)
[2019-05-03] MEDS ORDERED: CYCLOBENZAPRINE TOP PRN (13:48)
[2019-05-03] MEDS ORDERED: BACLOFEN TOP PRN (13:48)
[2019-05-03] MEDS ORDERED: [UNRECOGNIZED DRUG - OTHER] TOP PRN (13:48)
[2019-05-03] MEDS: FLUTICASONE 50MCG NASAL SPRAY NAS SCH ×2 (14:45→22:10)
[2019-05-03] MEDS: LEVOCETIRIZINE 5 MG PO SCH (19:55)
[2019-05-03] MEDS ORDERED: HOME MED 1 EA UNK PO SCH (21:00)
[2019-05-03] MEDS: ATORVASTATIN 40 MG TAB PO SCH (22:09)
[2019-05-03] MEDS: MONTELUKAST 10 MG TAB PO SCH (22:09)
[2019-05-04] MEDS: LEVOTHYROXINE SOD 0.075 MG TAB PO SCH (06:38)
[2019-05-04] MEDS: PANTOPRAZOLE 40MG TABLET PO SCH (06:38)
[2019-05-04] MEDS: INSULIN -REGULAR HUMAN 50 UNIT/0.5 ML ML SQ SCH ×4 (07:30→20:32)
[2019-05-04] MEDS: FLUTICASONE 50MCG NASAL SPRAY NAS SCH ×2 (08:58→20:30)
[2019-05-04] MEDS: ACETAMINOPHEN 500 MG TAB PO PRN ×2 (08:59→20:28)
[2019-05-04] MEDS: CLOPIDOGREL 75 MG TABLET PO SCH (09:00)
[2019-05-04] MEDS: APIXABAN 5 MG TABLET PO SCH ×2 (09:00→20:29)
[2019-05-04] MEDS: MIDODRINE HCL 5 MG TABLET PO SCH ×2 (09:00→20:28)
[2019-05-04] MEDS: FUROSEMIDE 40 MG TABLET PO SCH ×2 (09:00→17:10)
[2019-05-04] MEDS: MULTIVITAMIN TAB PO SCH (09:00)
[2019-05-04] MEDS: glipiZIDE 5 MG TAB PO SCH (09:00)
[2019-05-04] MEDS: GLUCOSAM/CHONDROI 500mg-400mg PO SCH ×3 (09:00→20:28)
[2019-05-04] MEDS: LACTOBACILLUS/ACIDOPHILUS TAB PO SCH ×2 (09:00→20:28)
[2019-05-04] MEDS: MAGNESIUM CHLORIDE 64 MG TAB PO SCH ×2 (09:00→20:28)
[2019-05-04] MEDS: CALCIUM CARBONATE 500 MG TAB PO SCH (09:01)
[2019-05-04] MEDS: GABAPENTIN 300 MG CAP PO SCH ×3 (09:01→20:28)
[2019-05-04] MEDS: METFORMIN HCL 500 MG TAB PO SCH ×3 (09:01→17:10)
[2019-05-04] MEDS: SPIRONOLACTONE 25 MG TABLET PO SCH (09:02)
[2019-05-04] MEDS: D-MANNOSE PO SCH ×2 (09:56→20:27)
[2019-05-04] MEDS: LEVOCETIRIZINE 5 MG PO SCH (17:11)
[2019-05-04] MEDS: MONTELUKAST 10 MG TAB PO SCH (20:28)
[2019-05-04] MEDS: ATORVASTATIN 40 MG TAB PO SCH (20:28)
[2019-05-05] MEDS: LEVOTHYROXINE SOD 0.075 MG TAB PO SCH (06:31)
[2019-05-05] MEDS: PANTOPRAZOLE 40MG TABLET PO SCH (06:31)
[2019-05-05] MEDS: INSULIN -REGULAR HUMAN 50 UNIT/0.5 ML ML SQ SCH ×4 (07:30→20:23)
[2019-05-05] MEDS: FLUTICASONE 50MCG NASAL SPRAY NAS SCH ×2 (08:22→19:16)
[2019-05-05] MEDS: GLUCOSAM/CHONDROI 500mg-400mg PO SCH ×3 (08:22→19:17)
[2019-05-05] MEDS: CALCIUM CARBONATE 500 MG TAB PO SCH (08:22)
[2019-05-05] MEDS: LACTOBACILLUS/ACIDOPHILUS TAB PO SCH ×2 (08:22→19:17)
[2019-05-05] MEDS: GABAPENTIN 300 MG CAP PO SCH ×3 (08:22→19:16)
[2019-05-05] MEDS: APIXABAN 5 MG TABLET PO SCH ×2 (08:22→19:17)
[2019-05-05] MEDS: glipiZIDE 5 MG TAB PO SCH (08:22)
[2019-05-05] MEDS: MIDODRINE HCL 5 MG TABLET PO SCH ×2 (08:22→19:17)
[2019-05-05] MEDS: MULTIVITAMIN TAB PO SCH (08:22)
[2019-05-05] MEDS: METFORMIN HCL 500 MG TAB PO SCH ×3 (08:23→16:57)
[2019-05-05] MEDS: CLOPIDOGREL 75 MG TABLET PO SCH (08:23)
[2019-05-05] MEDS: FUROSEMIDE 40 MG TABLET PO SCH ×2 (08:23→16:57)
[2019-05-05] MEDS: SPIRONOLACTONE 25 MG TABLET PO SCH (08:23)
[2019-05-05] MEDS: MAGNESIUM CHLORIDE 64 MG TAB PO SCH ×2 (08:23→19:16)
[2019-05-05] MEDS: D-MANNOSE PO SCH ×2 (08:24→19:15)
[2019-05-05] MEDS: POLYETHYL GLY 3350 17 GM/DOSE PO PRN (10:27)
[2019-05-05] MEDS: LEVOCETIRIZINE 5 MG PO SCH (16:57)
[2019-05-05] MEDS: ACETAMINOPHEN 500 MG TAB PO PRN (19:16)
[2019-05-05] MEDS: MONTELUKAST 10 MG TAB PO SCH (19:17)
[2019-05-05] MEDS: ATORVASTATIN 40 MG TAB PO SCH (19:17)
[2019-05-06] MEDS: LEVOTHYROXINE SOD 0.075 MG TAB PO SCH (06:16)
[2019-05-06] MEDS: PANTOPRAZOLE 40MG TABLET PO SCH (06:16)
[2019-05-06] MEDS: INSULIN -REGULAR HUMAN 50 UNIT/0.5 ML ML SQ SCH ×4 (07:30→21:58)
[2019-05-06] MEDS: D-MANNOSE PO SCH ×2 (08:45→20:21)
[2019-05-06] MEDS: METFORMIN HCL 500 MG TAB PO SCH ×3 (08:45→17:03)
[2019-05-06] MEDS: ACETAMINOPHEN 500 MG TAB PO PRN (08:45)
[2019-05-06] MEDS: SPIRONOLACTONE 25 MG TABLET PO SCH (08:46)
[2019-05-06] MEDS: GABAPENTIN 300 MG CAP PO SCH ×3 (08:46→20:22)
[2019-05-06] MEDS: MIDODRINE HCL 5 MG TABLET PO SCH ×2 (08:46→20:22)
[2019-05-06] MEDS: glipiZIDE 5 MG TAB PO SCH (08:46)
[2019-05-06] MEDS: GLUCOSAM/CHONDROI 500mg-400mg PO SCH ×3 (08:46→20:22)
[2019-05-06] MEDS: LACTOBACILLUS/ACIDOPHILUS TAB PO SCH ×2 (08:46→20:21)
[2019-05-06] MEDS: APIXABAN 5 MG TABLET PO SCH ×2 (08:47→20:22)
[2019-05-06] MEDS: FUROSEMIDE 40 MG TABLET PO SCH ×2 (08:47→17:02)
[2019-05-06] MEDS: CLOPIDOGREL 75 MG TABLET PO SCH (08:47)
[2019-05-06] MEDS: MAGNESIUM CHLORIDE 64 MG TAB PO SCH ×2 (08:47→20:22)
[2019-05-06] MEDS: MULTIVITAMIN TAB PO SCH (08:47)
[2019-05-06] MEDS: CALCIUM CARBONATE 500 MG TAB PO SCH (08:48)
[2019-05-06] MEDS: FLUTICASONE 50MCG NASAL SPRAY NAS SCH ×2 (08:49→20:22)
[2019-05-06] MEDS: POLYETHYL GLY 3350 17 GM/DOSE PO PRN (14:22)
[2019-05-06] MEDS: LEVOCETIRIZINE 5 MG PO SCH (17:03)
[2019-05-06] MEDS: ATORVASTATIN 40 MG TAB PO SCH (20:21)
[2019-05-06] MEDS: MONTELUKAST 10 MG TAB PO SCH (20:22)
[2019-05-07] MEDS: PANTOPRAZOLE 40MG TABLET PO SCH (06:33)
[2019-05-07] MEDS: LEVOTHYROXINE SOD 0.075 MG TAB PO SCH (06:33)
[2019-05-07] MEDS: INSULIN -REGULAR HUMAN 50 UNIT/0.5 ML ML SQ SCH ×4 (07:23→21:00)
[2019-05-07] MEDS: FLUTICASONE 50MCG NASAL SPRAY NAS SCH ×2 (08:00→21:23)
[2019-05-07] MEDS: D-MANNOSE PO SCH ×2 (08:00→21:22)
[2019-05-07] MEDS: glipiZIDE 5 MG TAB PO SCH (08:39)
[2019-05-07] MEDS: APIXABAN 5 MG TABLET PO SCH ×2 (08:39→21:22)
[2019-05-07] MEDS: MULTIVITAMIN TAB PO SCH (08:39)
[2019-05-07] MEDS: GLUCOSAM/CHONDROI 500mg-400mg PO SCH ×3 (08:39→21:22)
[2019-05-07] MEDS: CLOPIDOGREL 75 MG TABLET PO SCH (08:39)
[2019-05-07] MEDS: ACETAMINOPHEN 500 MG TAB PO PRN (08:40)
[2019-05-07] MEDS: MIDODRINE HCL 5 MG TABLET PO SCH ×2 (08:40→21:23)
[2019-05-07] MEDS: MAGNESIUM CHLORIDE 64 MG TAB PO SCH ×2 (08:40→21:22)
[2019-05-07] MEDS: FUROSEMIDE 40 MG TABLET PO SCH ×2 (08:41→17:15)
[2019-05-07] MEDS: CALCIUM CARBONATE 500 MG TAB PO SCH (08:41)
[2019-05-07] MEDS: METFORMIN HCL 500 MG TAB PO SCH ×3 (08:41→17:15)
[2019-05-07] MEDS: LACTOBACILLUS/ACIDOPHILUS TAB PO SCH ×2 (08:42→21:22)
[2019-05-07] MEDS: GABAPENTIN 300 MG CAP PO SCH ×3 (08:42→21:22)
[2019-05-07] MEDS: SPIRONOLACTONE 25 MG TABLET PO SCH (08:42)
[2019-05-07] MEDS ORDERED: BISACODYL 10 MG RECTAL SUPP PR PRN (15:30)
[2019-05-07] MEDS ORDERED: MAGNESIUM CITRATE 300 ML BOT PO PRN (15:30)
[2019-05-07] MEDS: LEVOCETIRIZINE 5 MG PO SCH (17:16)
--- NOTE | 2019-05-07 17:56 | R.HP ---
FACILITY: [facility] ENCOUNTER DATE AND TIME: 05/07/2019 17:46 (CDT) MR#: [id number] NAME CASIE KELSEY ADDRESS: [address] [place] [address]: [facility] [id number] PHONE: DATE OF : 1945 AGE: 73 SSN# [id number] GENDER: Female DEXTERITY Right-handed MARITAL STATUS RACE White PRE-HOSPITAL LIVING SETTING 01 - Home (private home/apt. board/care, assisted living, custodial, transitional living) PRE-HOSPITAL LIVING WITH Family/Relatives ENCOUNTER PHYSICIAN: Dr. Edil Carroll M.D. REFERRING DOCTOR: Reyes Hernadez DATE OF ADMISSION: 05/02/2019 17:58 (CDT) REFERRING FACILITY [facility] HOME TYPE AND DETAILS: Type of home: single family house # of steps to enter the residence: 0 # of steps within the residence: 0 # of levels in the residence: 1 ADMISSION DIAGNOSIS: TIA PRIMARY DIAGNOSIS-RELATED SURGERIES: No surgeries related to the primary diagnosis were performed. SECONDARY/COMORBID DIAGNOSES (TIERED): - N/A JOSE Type 2 diabetes mellitus CAROTID STENOSIS obesity chronic pain chronic anticoagulation hypertension hypothyroidism presence of intrathecal pump sleep apnea HISTORY OF PRESENT ILLNESS (HPI): Pt. is a 73 yo Right-handed white female. On 04/27/2019 she was admitted to [facility] with diagnosis TIA. Her impairment category is Debility 16 - Debility (16). Pre-morbidly, Pt. was independent/mod-I in Self-Care, Sphincter Control, Transfers Control, Locomotio n, Communication, and Social Cognition; and she had good Sphincter Control. Currently, she has deficits of Self-Care, Transfers Control, Locomotion, Communication, Social Cognit ion, Endurance, Balance, and Safety Awareness. Pt. is now referred to [facility] for acute in-patient rehabilitation in order to maximize patient's functional independence in activities of daily living, strength, ROM, and mobi lity. Patient has realistic goal of being discharged at assistance level 6-Patricio to reside at Home with Fam jace/Relatives. Casie Kelsey is a 73 year old female that lives in a single mario house with her . Her prior level of function was she needed assistance with ADLs and ambulation. On 04/27/2019, patient was sitting on the couch last night for atleast 2 hours and then when she tried to get up she cant, she tried it multiple times but cant feel her right leg and was admitted to [facility] and treated. He is now medically stable but in need of 24-hour nursing, doctor supervision and oversite while receiving active and ongoing is reasonably expected to participate in 3hours of therapy a day/15 hours per week and receive care with an intensive interdisciplinary approach. MEDICATION ALLERGIES: rofecoxib codeine hydrocodone meperidine bactrim pentazocine lactate prochlorperazine edisylate propoxyphene ENVIRONMENTAL ALLERGIES: - Substance Allergies None Known - Other Allergies None Known PAST MEDICAL HISTORY: JOSE CAROTID STENOSIS Type 2 diabetes mellitus chronic anticoagulation chronic pain hypertension hypothyroidism obesity presence of intrathecal pump sleep apnea FAMILY HISTORY: Family history is not contributory. SOCIAL HISTORY: - Home Living Family/Relatives REVIEW OF SYSTEMS: - Gen No Chills Fatigue No Fever - Eyes No Double Vision No itchiness - ENMT No Difficulty Swallowing - CVS No Chest Discomfort No Chest Pain Fatigue No Weight Gain - Resp No Cough No Shortness of Breath - GI Continent No Abdominal Pain No Constipation No Diarrhea - Continent No Kidney Pain No Painful Urination No Urinary Urgency - MSK No Joint Pain Muscle Cramps No Stiffness - Skin No Itching No Rash No Suspicious Lesions - Neuro Coordination Difficulty No Difficulty with Concentration No Memory Loss No Seizures Weakness - Psych No Anxiety No Depression No HIV Exposure No Persistent Infections No Seasonal Allergies - Endo No Cold/Heat Intolerance No Excessive Hunger No Excessive Thirst No Excessive Urination PHYSICAL EXAM - Gen Alert and awake Lying in bed No apparent distress Oriented to: person, time, and place - Skin No breakdown No abnormalities - Eyes No abnormalities - ENMT No abnormalities - Neck No abnormalities - CVS RRR - Chest No abnormalities - Abd +bowel sounds - GI Soft Deferred - No abnormalities - Ext Mild bilateral lower extremity edema. - MSK 4/5 weakness in both lower extremities. - Neuro No focal deficits - Psych No abnormalities VITAL SIGNS Temperature: 98.1 F SBP/DBP: 135/63 Pulse: 82 Resp: 18 NURSING: - Shower allowing shower - Lab Results blood Sugar Check ACHS ACTIVITIES OOB only with supervision FUNCTIONAL STATUS: - Self-Care A. Eating Ind sup B. Grooming Ind sup C. Bathing Ind ADNO D. Dressing - Upper Ind Kianna E. Dressing - Lower Ind maxA F. Toileting Ind Kianna - Sphincter Control G: Bladder control Ind Ind H: Bowel control Ind Ind - Transfers Control I. Bed/Chair/Wheelchair Ind Kianna J. Toilet Ind Kianna K. Tub/Shower Ind ADNO - Locomotion L. Walk/Wheelchair (C) Ind Dep L. Walk/Wheelchair (W) Ind modA M. Stairs Ind ADNO - Communication N. Comprehension (B) Ind sup O. Expression (B) Ind sup - Social Cognition P. Social Interaction Ind sup Q. Problem Solving Ind sup R. Memory Ind sup - Endurance Poor - Balance Fair - Safety Awareness Fair QI SCORES:: - Self-Care A. Eating 05-Setup or clean-up assistance B. Oral hygiene 05-Setup or clean-up assistance C. Toileting hygiene 04-Supervision or touching assistance E. Shower/bathe self 03-Partial/moderate assistance F. Upper body dressing 04-Supervision or touching assistance G. Lower body dressing 02-Substantial/maximal assistance H. Putting on/taking off footwear 02-Substantial/maximal assistance - Mobility A. Roll left and right 03-Partial/moderate assistance B. Sit to lying 04-Supervision or touching assistance C. Lying to sitting on side of bed 04-Supervision or touching assistance D. Sit to stand 04-Supervision or touching assistance E. Chair/drg-of-lvbbc transfer 04-Supervision or touching assistance F. Toilet transfer 04-Supervision or touching assistance G. Car transfer 88-Not attempted due to medical condition or safety concerns I. Walk 10 feet 04-Supervision or touching assistance J. Walk 50 feet with two turns 04-Supervision or touching assistance K. Walk 150 feet 88-Not attempted due to medical condition or safety concerns L. Walking 10 feet on uneven surfaces 88-Not attempted due to medical condition or safety concerns M. 1 step (curb) 88-Not attempted due to medical condition or safety concerns N. 4 steps 88-Not attempted due to medical condition or safety concerns O. 12 steps 88-Not attempted due to medical condition or safety concerns P. Picking up object 88-Not attempted due to medical condition or safety concerns R. Wheel 50 feet with two turns 88-Not attempted due to medical condition or safety concerns S. Wheel 150 feet 88-Not attempted due to medical condition or safety concerns - Bladder and Bowel Bladder continence 1-Stress incontinence only Bowel continence 0-Always continent CURRENT FUNC. DEFICITS: Self-Care, Transfers Control, Locomotion, Communication, Social Cognition, Endurance, Balance, and Sa fety Awareness MEDICATIONS: - Other See attached MAR (Medication Administration Record) ASSESSMENT: Pt. is a 73 yo Right-handed white female.On 04/27/2019 she was admitted to [facility] with diagnosis TIA.Her impairment category is Debility 16 - Debility (16).Pre-morbidly, Pt. was independent/mod-I in Self-Care, Sphincter Control, Transfers Control, Locomotion, Communicati on, and Social Cognition; and she had good Sphincter Control.Currently, she has deficits of Self-Care , Transfers Control, Locomotion, Communication, Social Cognition, Endurance, Balance, and Safety Awar eness.Pt. is now referred to [facility] for acute in-patient rehabilitation in order to maximize patient's functional independence in activities of daily living, strength, ROM, an d mobility.- Rehab Goal Patient has realistic goal of being discharged at assistance level 6-Patricio to reside at Home with Fam jace/Relatives. Casie Kelsey is a 73 year old female that lives in a single mario house with her . Her prior level of function was she needed assistance with ADLs and ambulation. On 04/27/2019, patient was sitting on the couch last night for atleast 2 hours and then when she tried to get up she cant, she tried it multiple times but cant feel her right leg and was admitted to [facility] and treated. He is now medically stable but in need of 24-hour nursing, doctor supervision and oversite while receiving active and ongoing is reasonably expected to participate in 3hours of therapy a day/15 hours per week and receive care with an intensive interdisciplinary approach.REHAB PLAN: - Physical Therapy Gait dysfunction - to improve, our physical therapists will perform initial evaluation of pt's status upon admission and devise an individualized program for Gait Training, and Wheel Chair mobility Inability to transfer - to improve, our physical therapists will perform initial evaluation of pt's s tatus upon admission and devise an individualized program for Bed mobility Need for home safety evaluation - to improve, our physical therapists will perform initial evaluation of pt's status upon admission and devise an individualized program for Home Evaluation Need in caregiver upon discharge - to improve, our physical therapists will perform initial evaluatio n of pt's status upon admission and devise an individualized program for Caregiver Training New precaution - to improve, our physical therapists will perform initial evaluation of pt's status u yadira admission and devise an individualized program for Patient precaution education Edema - to improve, our physical therapists will perform initial evaluation of pt's status upon admi ssion and devise an individualized program for Elevation Training, and Lymphedema Therapy Pain - to improve, our physical therapists will perform initial evaluation of pt's status upon admiss ion and devise an individualized program for Modalities Poor balance - to improve, our physical therapists will perform initial evaluation of pt's status upo n admission and devise an individualized program for Balance Training Poor endurance - to improve, our physical therapists will perform initial evaluation of pt's status u yadira admission and devise an individualized program for Endurance Training Weakness - to improve, our physical therapists will perform initial evaluation of pt's status upon ad mission and devise an individualized program for Aquatic Therapy, Neuromuscular Reeducation, and Stre ngthening Achieving independence - to improve, our physical therapists will perform initial evaluation of pt's status upon admission and devise an individualized program for Community Reintegration Activities - Occupational Therapy ADL deficits - to improve, our occupation therapists will perform initial evaluation of pt's status u yadira admission and devise an individualized program for Bathing, Bed mobility, Community Reintegration , Cooking, Dressing, Eating, Fine Motor Skills, Grooming, Homemaking, Kitchen Mobility, Laundry, Freda ent Education, Safety Awareness, Splinting - Positioning, Transfers(Toilet, Tub, Shower), and Wheel C hair Management Cognitive deficits - to improve, our occupation therapists will perform initial evaluation of pt's st atus upon admission and devise an individualized program for Cognition - orientation Need for child caregiver - to improve, our occupation therapists will perform initial evaluation of pt's s tatus upon admission and devise an individualized program for Caregiver Training Weakness - to improve, our occupation therapists will perform initial evaluation of pt's status upon admission and devise an individualized program for Aquatic Therapy, Balance, Endurance, UE ROM, and U E strengthening MEDICAL PLAN: - Diet Type Start Regular - Diet - Liquid Texture Start Regular - Tube Feed Start N/A - Lab Results blood Sugar Check ACHS - Other See attached MAR (Medication Administration Record) - Diet - Solid Texture Regular - Shower shower DISCHARGE PLAN: - Estimated Length of Stay (days) 13. - Consensus on plan Discharge plan has been discussed with primary caregiver. Patient/Family is in agreement with the wilfred n. Primary caregiver is in agreement with the plan. - Patient/Family Goals Return home with assistance. - Planned Living Setting Upon Discharge Home, to live with Family/Relatives. SIGNATURE PANEL: (CDT)
--- NOTE | 2019-05-07 17:57 | PAPE ---
PATIENT: [facility] MR# [id number] REFERRING DOCTOR Reyes Hernadez EVALUATION DATE AND TIME 05/07/2019 17:56 (CDT) NAME CASSIA KELSEY DATE OF 1945 AGE 73 PHONE SSN# [id number] GENDER female EVALUATING PHYSICIAN Dr. Edil Carroll M.D. ADMISSION DIAGNOSIS: TIA SECONDARY/COMORBID DIAGNOSES TIERED: - N/A JOSE Type 2 diabetes mellitus CAROTID STENOSIS obesity chronic pain chronic anticoagulation hypertension hypothyroidism presence of intrathecal pump sleep apnea POST-ADMISSION FUNCTIONAL/MEDICAL STATUS: - Bladder Same accident frequency: Ind - No accidents in the past 7 days - Bowel Same accident frequency: Ind - No accidents in the past 7 days - Walking Same score based on distance walked: 2(5149ft) - Wheelchair Same score based on distance traveled: 1(<=50ft) STATUS CHANGE EVALUATION: No change in Functional or Medical Status is identified compared with Pre-Admission screening. PATIENT NEEDS CLOSE MEDICAL SUPERVISION BY A REHABILITATION PHYSICIAN FOR: Bowel and Bladder Management Coordination of Treatment Team Diabetes Management Medical and Co-Morbidity Management Pain Management PATIENT REQUIRES 24X7 REHAB NURSING FOR MEDICAL AND FUNCTIONAL MGT. OF THE FOLLOWING DEFICITS: ADL's Ambulation Bowel and Bladder Management Cognition Communication Disease Management Medication Management Pain Management Patient/Family Education Providing Safe Environment Transfers PATIENT REQUIRES INTENSIVE, COORDINATED INTERDISCIPLINARY APPROACH TO REHAB: Arranging Home Equipment/Services Discharge Planning Family Intervention/Training Executive Chairman Of The Board/Case Management LIST OF IDENTIFIED AND POTENTIAL PROBLEMS: Alteration in leisure activities Bladder, Incontinence Blood Pressure, Hypertension/hypotension Issues Bowel, Incontinence Diabetes, Hyperglycemia/hypoglycemia Issues Infection, Actual or Potential Mobility Impaired Pain, Alteration in Comfort Self Care Deficit Skin Integrity, Actual or Potential Urinary Tract Infection (UTI), Actual or Potential RISK FOR COMPLICATIONS - Hypertension CVA. Hypotension. AL. TIA. - Sleep Apnea Anoxia. BI. CVA. Fatigue. AL. INTERVENTIONS - Hypertension - Sleep Apnea 02 sats. Oxygen. Respiratory management. PATIENT COULD BE AT RISK FOR COMPLICATIONS FROM ADVERSE MEDICAL CONDITIONS DUE TO HIS/HER COMORBIDITI ES AND THE RIGORS OF THE INTENSIVE REHABILLITATION PROGRAM. METHODS OR INTERVENTIONS TO AVOID COMPLIC ATIONS INCLUDE: - Infection Clinical staff to assess and manage the signs and symptoms of infection including fever, redness, war mth, etc. - Urinary Tract Infection - Falls Patient will be evaluated for Fall Precautions and will be placed on Fall Precautions as indicated pe r protocol. - Skin Breakdown Nursing will assess skin daily using assessment tool and will place on Skin Breakdown Precautions as indicated per protocol. - Pain Clinical staff may employ non-medication methods such as massage, distraction, decrease stimulus, etc . as needed. Clinical staff will assess patient's pain level every shift per protocol to assess and e nsure pain management effectiveness. Medications will be given and the pain level re-assessed. PRELIMINARY PLAN OF CARE: - Physical Therapy Patient needs Physical Therapy for a daily minimum of 1.5 hours at least 5 out of 7 days, to improve: Mobility, Strengthening, Transfers, Stretching, ROM, Endurance, Ability to manage stairs, Gait, and Balance. - Speech Therapy Patient needs Speech Therapy for a daily minimum of 0.5 hours at least 5 out of 7 days, to improve: S wallowing, Cognition, Language Skills, and Compensatory Strategies. - Rehabilitation Nursing Patient requires 24x7 Rehabilitation Nursing for: Pain Issues, Identifying and preventing risk factor s, Monitoring and reporting current medical conditions, Assisting with ambulation and transfer, Kate ting with all ADL-s, Teaching patients about disease process and medications, Family teaching, Provid ing safe environment, Bowel and Bladder Issues, Skin Integrity, and Medication Management. Patient needs Executive Chairman Of The Board and/or Case Management for: Discharge Planning, Arranging Home Equipmen t or Services, and Family Interventions. - Dietary and Nutrition Services Patient needs Dietary and Nutrition Services for: Adequate Nutrition, Nutritional Supplements, and Nu tritional Education. - Occupational Therapy Patient needs Occupational Therapy for a daily minimum of 1.5 hours at least 5 out of 7 days, to impr ove Activities of Daily Living, including: Eating, Grooming, Bathing, Dressing, Toileting, Toilet Tra nsfers, Community Reintegration, Higher functional activities, Adaptive Equipment, Splinting, Househo ld Tasks, and Other activities as determined. POTENTIAL FUNCTIONAL GOALS FOR PATIENT TO ACHIEVE BY DISCHARGE: - Safety Precaution Patient will remain free from falls or injury at time of discharge. - Bed Mobility Patient will perform bed mobility at 4-Kianna level of assistance. - Transfers Patient will complete transfers from bed to chair at 4-Kianna level of assistance. - Mobility Patient will ambulate 150 ft with 4-Kianna level of assistance with RW. PATIENT REHAB POTENTIAL TimboIam LOW is able and expected to receive 3 hours of individualized therapy daily on at least 5 of nicho ry 7 days Kiet KELSEY's prognosis for significant practical improvement within a reasonable period of time appears Good Expected level of measurable improvement will be of a practical value to Kiet KELSEY's functional capaci ty or adaptations to impairments Has a viable Discharge Plan Medically appropriate; condition is sufficiently stable to participate in intensive rehab program DISCHARGE PLAN: - Estimated Length of Stay (days) 13. - Consensus on plan Discharge plan has been discussed with primary caregiver. Patient/Family is in agreement with the wilfred n. Primary caregiver is in agreement with the plan. - Patient/Family Goals Return home with assistance. - Planned Living Setting Upon Discharge Home, to live with Family/Relatives. CONCLUSION ON REHABILITATION NECESSITY: I have evaluated patient's pre-admission functional status and, comparing it to the patient's post-ad mission functional status now, I conclude that the pre-admission assessment was accurate. Patient's c ondition on admission supports the medical necessity of admission to [facility]. It is safe to proceed with patient's therapy program. SIGNATURE PANEL: (CDT)
[2019-05-07] MEDS: ATORVASTATIN 40 MG TAB PO SCH (21:22)
[2019-05-07] MEDS: MONTELUKAST 10 MG TAB PO SCH (21:22)
[2019-05-08] MEDS: PANTOPRAZOLE 40MG TABLET PO SCH (06:38)
[2019-05-08] MEDS: LEVOTHYROXINE SOD 0.075 MG TAB PO SCH (06:38)
[2019-05-08] MEDS: INSULIN -REGULAR HUMAN 50 UNIT/0.5 ML ML SQ SCH ×4 (07:30→20:21)
[2019-05-08] MEDS ORDERED: POTASSIUM CL SA 10 MEQ TAB PO SCH (08:00)
[2019-05-08] MEDS ORDERED: METOLAZONE 2.5 MG TABLET PO SCH (08:00)
[2019-05-08] MEDS: FLUTICASONE 50MCG NASAL SPRAY NAS SCH ×2 (08:46→20:21)
[2019-05-08] MEDS: D-MANNOSE PO SCH ×2 (08:47→20:21)
[2019-05-08] MEDS: POLYETHYL GLY 3350 17 GM/DOSE PO PRN (08:47)
[2019-05-08] MEDS: GABAPENTIN 300 MG CAP PO SCH ×3 (08:50→20:21)
[2019-05-08] MEDS: MIDODRINE HCL 5 MG TABLET PO SCH ×2 (08:50→20:20)
[2019-05-08] MEDS: MULTIVITAMIN TAB PO SCH (08:51)
[2019-05-08] MEDS: CLOPIDOGREL 75 MG TABLET PO SCH (08:51)
[2019-05-08] MEDS: METFORMIN HCL 500 MG TAB PO SCH ×3 (08:52→16:56)
[2019-05-08] MEDS: LACTOBACILLUS/ACIDOPHILUS TAB PO SCH ×2 (08:52→20:20)
[2019-05-08] MEDS: glipiZIDE 5 MG TAB PO SCH (08:52)
[2019-05-08] MEDS: GLUCOSAM/CHONDROI 500mg-400mg PO SCH ×3 (08:52→20:21)
[2019-05-08] MEDS: CALCIUM CARBONATE 500 MG TAB PO SCH (08:52)
[2019-05-08] MEDS: MAGNESIUM CHLORIDE 64 MG TAB PO SCH ×2 (08:53→20:20)
[2019-05-08] MEDS: APIXABAN 5 MG TABLET PO SCH ×2 (08:53→20:20)
[2019-05-08] MEDS: SPIRONOLACTONE 25 MG TABLET PO SCH (08:54)
[2019-05-08] MEDS: FUROSEMIDE 40 MG TABLET PO SCH ×2 (08:55→16:56)
[2019-05-08] MEDS: LEVOCETIRIZINE 5 MG PO SCH (16:58)
--- NOTE | 2019-05-08 17:18 | R.PN ---
ENCOUNTER DATE AND TIME: 05/08/2019 17:15 (CDT) NAME CASSIA KELSEY DATE OF : 1945 DATE OF ADMISSION: 05/02/2019 17:58 (CDT) TIACHIEF COMPLAINT: Debility and transient ischemic attack. SUBJECTIVE: Pt denied any depression. Pt denied any Shortness of Breath. Ms. Kelsey is making good progress overall with physical and occupational therapy. Her blood work is s table. VITAL SIGNS Temperature: 98.1 F SBP/DBP: 135/63 Pulse: 82 Resp: 18 MEDICATION ALLERGIES: rofecoxib codeine hydrocodone meperidine bactrim pentazocine lactate prochlorperazine edisylate propoxyphene ENVIRONMENTAL ALLERGIES: - Substance Allergies None Known - Other Allergies None Known NURSING: - Shower allowing shower - Lab Results blood Sugar Check ACHS ACTIVITIES OOB only with supervision THERAPIES: - Dietary and Nutrition Adequate Nutrition. Nutritional Education. Nutritional Supplements. PHYSICAL EXAM - Gen Alert and awake Lying in bed No apparent distress Oriented to: person, time, and place - Skin No breakdown No abnormalities - Eyes No abnormalities - ENMT No abnormalities - Neck No abnormalities - CVS RRR - Chest No abnormalities - Abd +bowel sounds - GI Soft Deferred - No abnormalities - Ext Mild bilateral lower extremity edema. - MSK 4/5 weakness in both lower extremities. - Neuro No focal deficits - Psych No abnormalities ASSESSMENT: Pt. is a 73 yo Right-handed white female.On 04/27/2019 she was admitted to [facility] with diagnosis TIA.Her impairment category is Debility 16 - Debility (16).Pre-morbidly, Pt. was independent/mod-I in Self-Care, Sphincter Control, Transfers Control, Locomotion, Communicati on, and Social Cognition; and she had good Sphincter Control.Currently, she has deficits of Self-Care , Transfers Control, Locomotion, Communication, Social Cognition, Endurance, Balance, and Safety Awar eness.Pt. is now referred to [facility] for acute in-patient rehabilitation in order to maximize patient's functional independence in activities of daily living, strength, ROM, an d mobility.- Rehab Goal Patient has realistic goal of being discharged at assistance level 6-Patricio to reside at Home with Fam jace/Relatives. MDM/PLAN: - Physical Therapy Gait dysfunction - to improve, our physical therapists will perform initial evaluation of pt's statu s upon admission and devise an individualized program for Gait Training, and Wheel Chair mobility Inability to transfer - to improve, our physical therapists will perform initial evaluation of pt's status upon admission and devise an individualized program for Bed mobility Need for home safety evaluation - to improve, our physical therapists will perform initial evaluatio n of pt's status upon admission and devise an individualized program for Home Evaluation Need in caregiver upon discharge - to improve, our physical therapists will perform initial evaluati on of pt's status upon admission and devise an individualized program for Caregiver Training New precaution - to improve, our physical therapists will perform initial evaluation of pt's status upon admission and devise an individualized program for Patient precaution education Edema - to improve, our physical therapists will perform initial evaluation of pt's status upon admis andrey and devise an individualized program for Elevation Training, and Lymphedema Therapy Pain - to improve, our physical therapists will perform initial evaluation of pt's status upon admis andrey and devise an individualized program for Modalities Poor balance - to improve, our physical therapists will perform initial evaluation of pt's status up on admission and devise an individualized program for Balance Training Poor endurance - to improve, our physical therapists will perform initial evaluation of pt's status upon admission and devise an individualized program for Endurance Training Weakness - to improve, our physical therapists will perform initial evaluation of pt's status upon a dmission and devise an individualized program for Aquatic Therapy, Neuromuscular Reeducation, and Str engthening Achieving independence - to improve, our physical therapists will perform initial evaluation of pt's status upon admission and devise an individualized program for Community Reintegration Activities - Occupational Therapy ADL deficits - to improve, our occupation therapists will perform initial evaluation of pt's status upon admission and devise an individualized program for Bathing, Bed mobility, Community Reintegratio n, Cooking, Dressing, Eating, Fine Motor Skills, Grooming, Homemaking, Kitchen Mobility, Laundry, Pat ient Education, Safety Awareness, Splinting - Positioning, Transfers(Toilet, Tub, Shower), and Wheel Chair Management Cognitive deficits - to improve, our occupation therapists will perform initial evaluation of pt's s tatus upon admission and devise an individualized program for Cognition - orientation Need for day care teacher - to improve, our occupation therapists will perform initial evaluation of pt's status upon admission and devise an individualized program for Caregiver Training Weakness - to improve, our occupation therapists will perform initial evaluation of pt's status upon admission and devise an individualized program for Aquatic Therapy, Balance, Endurance, UE ROM, and UE strengthening - Other See attached MAR (Medication Administration Record) - Diet Type Continue Regular - Diet - Liquid Texture Continue Regular - Tube Feed Continue N/A - Lab Results blood Sugar Check ACHS - Diet - Solid Texture Continue Regular - Shower allowing shower FUNCTIONAL STATUS: UPDATED AT WEEKLY TEAM CONFERENCE - Bladder Same accident frequency: 7-Ind - No accidents in the past 7 days - Bowel Same accident frequency: 7-Ind - No accidents in the past 7 days - Walking Same score based on distance walked: 2(50-149ft) - Wheelchair Same score based on distance traveled: 1(<=50ft) FUNCTIONAL STATUS: - Self-Care A. Eating sup B. Grooming sup C. Bathing ADNO D. Dressing - Upper Kianna E. Dressing - Lower maxA F. Toileting Kianna - Sphincter Control G: Bladder control Ind H: Bowel control Ind - Transfers Control I. Bed/Chair/Wheelchair Kianna J. Toilet Kianna K. Tub/Shower ADNO - Locomotion L. Walk/Wheelchair (C) Dep L. Walk/Wheelchair (W) modA M. Stairs ADNO - Communication N. Comprehension (B) sup O. Expression (B) sup - Social Cognition P. Social Interaction sup Q. Problem Solving sup R. Memory sup - Endurance Poor - Balance Fair - Safety Awareness Fair QI SCORES:: - Self-Care A. Eating 05-Setup or clean-up assistance B. Oral hygiene 05-Setup or clean-up assistance C. Toileting hygiene 04-Supervision or touching assistance E. Shower/bathe self 03-Partial/moderate assistance F. Upper body dressing 04-Supervision or touching assistance G. Lower body dressing 02-Substantial/maximal assistance H. Putting on/taking off footwear 02-Substantial/maximal assistance - Mobility A. Roll left and right 03-Partial/moderate assistance B. Sit to lying 04-Supervision or touching assistance C. Lying to sitting on side of bed 04-Supervision or touching assistance D. Sit to stand 04-Supervision or touching assistance E. Chair/bqt-pn-aquvs transfer 04-Supervision or touching assistance F. Toilet transfer 04-Supervision or touching assistance G. Car transfer 88-Not attempted due to medical condition or safety concerns I. Walk 10 feet 04-Supervision or touching assistance J. Walk 50 feet with two turns 04-Supervision or touching assistance K. Walk 150 feet 88-Not attempted due to medical condition or safety concerns L. Walking 10 feet on uneven surfaces 88-Not attempted due to medical condition or safety concerns M. 1 step (curb) 88-Not attempted due to medical condition or safety concerns N. 4 steps 88-Not attempted due to medical condition or safety concerns O. 12 steps 88-Not attempted due to medical condition or safety concerns P. Picking up object 88-Not attempted due to medical condition or safety concerns R. Wheel 50 feet with two turns 88-Not attempted due to medical condition or safety concerns S. Wheel 150 feet 88-Not attempted due to medical condition or safety concerns - Bladder and Bowel Bladder continence 1-Stress incontinence only Bowel continence 0-Always continent [facility] DEFICITS: Self-Care, Transfers Control, Locomotion, Communication, Social Cognition, Endurance, Balance, and Sa fety Awareness SIGNATURE PANEL: (CDT)
[2019-05-08] MEDS: MONTELUKAST 10 MG TAB PO SCH (20:20)
[2019-05-08] MEDS: ATORVASTATIN 40 MG TAB PO SCH (20:21)
[2019-05-09 06:13] LABS: Absolute Lymphocytes (CBC) 4.2 K/uL (0.7-4.9); Basophils % 0.8 % (0-1.3); Hematocrit 34.6 % (36.0-45.0); Lymphocytes % 53.2 % (15.3-44.8); MPV 8.5 fL (7.6-11.3); RBC Red Blood Cell Count 3.76 M/uL (3.86-4.86)
[2019-05-09] MEDS: LEVOTHYROXINE SOD 0.075 MG TAB PO SCH (06:30)
[2019-05-09] MEDS: PANTOPRAZOLE 40MG TABLET PO SCH (06:30)
[2019-05-09 06:38] LABS: Albumin 3.3 g/dL (3.4-5.0); Magnesium 2.7 mg/dL (1.8-2.4); Potassium 3.5 mmol/L (3.5-5.1); Prealbumin 21.9 mg/dL (20-40)
[2019-05-09] MEDS: INSULIN -REGULAR HUMAN 50 UNIT/0.5 ML ML SQ SCH ×4 (07:30→20:55)
[2019-05-09] MEDS: D-MANNOSE PO SCH ×2 (08:32→20:53)
[2019-05-09] MEDS: FLUTICASONE 50MCG NASAL SPRAY NAS SCH ×2 (08:32→20:54)
[2019-05-09] MEDS: SPIRONOLACTONE 25 MG TABLET PO SCH (08:33)
[2019-05-09] MEDS: GABAPENTIN 300 MG CAP PO SCH ×3 (08:33→20:56)
[2019-05-09] MEDS: APIXABAN 5 MG TABLET PO SCH ×2 (08:33→20:56)
[2019-05-09] MEDS: METFORMIN HCL 500 MG TAB PO SCH ×3 (08:33→16:43)
[2019-05-09] MEDS: MULTIVITAMIN TAB PO SCH (08:33)
[2019-05-09] MEDS: CALCIUM CARBONATE 500 MG TAB PO SCH (08:33)
[2019-05-09] MEDS: LACTOBACILLUS/ACIDOPHILUS TAB PO SCH ×2 (08:35→20:56)
[2019-05-09] MEDS: CLOPIDOGREL 75 MG TABLET PO SCH (08:35)
[2019-05-09] MEDS: glipiZIDE 5 MG TAB PO SCH (08:35)
[2019-05-09] MEDS: MIDODRINE HCL 5 MG TABLET PO SCH ×2 (08:35→20:56)
[2019-05-09] MEDS: FUROSEMIDE 40 MG TABLET PO SCH ×2 (08:35→16:43)
[2019-05-09] MEDS: MAGNESIUM CHLORIDE 64 MG TAB PO SCH ×2 (08:35→20:56)
[2019-05-09] MEDS: GLUCOSAM/CHONDROI 500mg-400mg PO SCH ×3 (08:35→20:55)
--- NOTE | 2019-05-09 14:02 | FAST ---
SHIFT START DATE/TIME: 05/09/2019 07:00 (CDT) SHIFT END DATE/TIME: 05/09/2019 19:00 (CDT) NAME CASSIA KELSEY DATE OF : 1945 DATE OF ADMISSION: 05/02/2019 17:58 (CDT) PHONE: AGE: 73 SSN# [id number] GENDER: Female ENCOUNTER PHYSICIAN: Dr. Edil Carroll M.D. ADMISSION DIAGNOSIS: - Debility 16 - Debility (16) TIA. EATING: EATING - STEP 1: Does the patient complete the activity by him/herself with no assistance (physical, verbal/nonverbal cueing, setup/clean-up)? Yes. 1. [id number] ADMISSION PERFORMANCE: Independent CODE: 06 ORAL HYGIENE: ORAL HYGIENE - STEP 1: Does the patient complete the activity by him/herself with no assistance (physical, verbal/nonverbal cueing, setup/clean-up)? Yes. 1. [id number] ADMISSION PERFORMANCE: Independent CODE: 06 TOILETING HYGIENE: TOILETING HYGIENE - STEP 1: Does the patient complete the activity by him/herself with no assistance (physical, verbal/nonverbal cueing, setup/clean-up)? Yes. 1. [id number] ADMISSION PERFORMANCE: Independent CODE: 06 BATHING: Not assessed/no information CODE: - DRESSING - UPPER BODY: DRESSING - UPPER BODY - STEP 1: Does the patient complete the activity by him/herself with no assistance (physical, verbal/nonverbal cueing, setup/clean-up)? Yes. 1. [id number] ADMISSION PERFORMANCE: Independent CODE: 06 DRESSING - LOWER BODY: DRESSING - LOWER BODY - STEP 1: Does the patient complete the activity by him/herself with no assistance (physical, verbal/nonverbal cueing, setup/clean-up)? Yes. 1. [id number] ADMISSION PERFORMANCE: Independent CODE: 06 PUTTING ON/TAKING OFF FOOTWEAR: FOOTWEAR - STEP 1: Does the patient complete the activity by him/herself with no assistance (physical, verbal/nonverbal cueing, setup/clean-up)? Yes. 1. [id number] ADMISSION PERFORMANCE: Independent CODE: 06 ROLL LEFT AND RIGHT: ROLL LEFT AND RIGHT - STEP 1: Does the patient complete the activity by him/herself with no assistance (physical, verbal/nonverbal cueing, setup/clean-up)? Yes. 1. [id number] ADMISSION PERFORMANCE: Independent CODE: 06 SIT TO LYING: SIT TO LYING - STEP 1: Does the patient complete the activity by him/herself with no assistance (physical, verbal/nonverbal cueing, setup/clean-up)? No. SIT TO LYING - STEP 2: Does the patient need only setup/clean-up assistance from one helper? No. SIT TO LYING - STEP 3: Does the patient need only verbal/nonverbal cueing or touching/steadying/contact guard assistance fro m one helper? Yes. 1. [id number] ADMISSION PERFORMANCE: Supervision or touching assistance CODE: 04 LYING TO SITTING: LYING TO SITTING ON SIDE OF BED - STEP 1: Does the patient complete the activity by him/herself with no assistance (physical, verbal/nonverbal cueing, setup/clean-up)? No. LYING TO SITTING ON SIDE OF BED - STEP 2: Does the patient need only setup/clean-up assistance from one helper? No. LYING TO SITTING ON SIDE OF BED - STEP 3: Does the patient need only verbal/nonverbal cueing or touching/steadying/contact guard assistance fro m one helper? Yes. 1. [id number] ADMISSION PERFORMANCE: Supervision or touching assistance CODE: 04 SIT TO STAND: SIT TO STAND - STEP 1: Does the patient complete the activity by him/herself with no assistance (physical, verbal/nonverbal cueing, setup/clean-up)? No. SIT TO STAND - STEP 2: Does the patient need only setup/clean-up assistance from one helper? No. SIT TO STAND - STEP 3: Does the patient need only verbal/nonverbal cueing or touching/steadying/contact guard assistance fro m one helper? Yes. 1. [id number] ADMISSION PERFORMANCE: Supervision or touching assistance CODE: 04 TRANSFERS: BED, CHAIR: CHAIR/[id number] TRANSFER - STEP 1: Does the patient complete the activity by him/herself with no assistance (physical, verbal/nonverbal cueing, setup/clean-up)? No. CHAIR/ELU-XU-[id number] TRANSFER - STEP 2: Does the patient need only setup/clean-up assistance from one helper? No. CHAIR/[id number]-[id number] TRANSFER - STEP 3: Does the patient need only verbal/nonverbal cueing or touching/steadying/contact guard assistance fro m one helper? Yes. 1. [id number] ADMISSION PERFORMANCE: Supervision or touching assistance CODE: 04 TRANSFER TOILET: TOILET TRANSFER - STEP 1: Does the patient complete the activity by him/herself with no assistance (physical, verbal/nonverbal cueing, setup/clean-up)? No. TOILET TRANSFER - STEP 2: Does the patient need only setup/clean-up assistance from one helper? No. TOILET TRANSFER - STEP 3: Does the patient need only verbal/nonverbal cueing or touching/steadying/contact guard assistance fro m one helper? Yes. 1. [id number] ADMISSION PERFORMANCE: Supervision or touching assistance CODE: 04 TRANSFERS: CAR: Not assessed/no information CODE: - WALK 10 FEET: Not assessed/no information CODE: - 1 STEP (CURB): Not assessed/no information CODE: - PICKING UP OBJECT: Not assessed/no information CODE: - DOES THE PATIENT USE A WHEELCHAIR/SCOOTER? Q1. DOES THE PATIENT USE A WHEELCHAIR/SCOOTER?: Yes CODE: 1 WHEEL 50 FEET WITH TWO TURNS: WHEEL 50 FEET WITH TWO TURNS - STEP 1: Does the patient complete the activity by him/herself with no assistance (physical, verbal/nonverbal cueing, setup/clean-up)? No. WHEEL 50 FEET WITH TWO TURNS - STEP 2: Does the patient need only setup/clean-up assistance from one helper? No. WHEEL 50 FEET WITH TWO TURNS - STEP 3: Does the patient need only verbal/nonverbal cueing or touching/steadying/contact guard assistance fro m one helper? Yes. 1. [id number] ADMISSION PERFORMANCE: Supervision or touching assistance CODE: 04 INDICATE THE TYPE OF WHEELCHAIR/SCOOTER USED: RR1. INDICATE THE TYPE OF WHEELCHAIR/SCOOTER USED.: Manual CODE: 1 WHEEL 150 FEET: WHEEL 150 FEET - STEP 1: Does the patient complete the activity by him/herself with no assistance (physical, verbal/nonverbal cueing, setup/clean-up)? No. WHEEL 150 FEET - STEP 2: Does the patient need only setup/clean-up assistance from one helper? No. WHEEL 150 FEET - STEP 3: Does the patient need only verbal/nonverbal cueing or touching/steadying/contact guard assistance fro m one helper? Yes. 1. [id number] ADMISSION PERFORMANCE: Supervision or touching assistance CODE: 04 INDICATE THE TYPE OF WHEELCHAIR/SCOOTER USED: SS1. INDICATE THE TYPE OF WHEELCHAIR/SCOOTER USED.: Manual CODE: 1 BLADDER AND BOWEL: H350. BLADDER CONTINENCE (3-DAY ASSESSMENT PERIOD): Always continent (no documented incontinence) CODE: 0 H400. BOWEL CONTINENCE (3-DAY ASSESSMENT PERIOD): Always continent CODE: 0 SIGNATURE PANEL: The following modified sections: 1. [id number] Admission Performance, 1. [id number] Admission Performance, 1. [id number] Admission Performance, 1. [id number] Admission Performance, 1. QV6296e Admission Performance, 1. [id number] Admission Performance, 1. [id number] Admission Performance, 1. [id number] Admission Performance , 1. [id number] Admission Performance, 1. [id number] Admission Performance, 1. WI1528H Admission Performanc e, 1. [id number] Admission Performance, Q1. Does the patient use a wheelchair/scooter?, 1. [id number] Admis andrey Performance, RR1. Indicate the type of wheelchair/scooter used., 1. [id number] Admission Performanc e, Code, SS1. Indicate the type of wheelchair/scooter used., H350. Bladder Continence (3-day assessme nt period), H400. Bowel Continence (3-day assessment period) were [electronically] signed by Case WhittNCaio on MonMay 09 2019 14:01:35 T-0500 (Central Daylight Time)
--- NOTE | 2019-05-09 15:17 | FAST ---
ENCOUNTER DATE AND TIME: 05/09/2019 08:00 (CDT) NAME CASSIA KELSEY DATE OF : 1945 DATE OF ADMISSION: 05/02/2019 17:58 (CDT) PHONE: AGE: 73 SSN# [id number] GENDER: Female ENCOUNTER PHYSICIAN: Dr. Edil Carroll M.D. ADMISSION DIAGNOSIS: - Debility 16 - Debility (16) TIA. ROLL LEFT AND RIGHT: ROLL LEFT AND RIGHT - STEP 1: Does the patient complete the activity by him/herself with no assistance (physical, verbal/nonverbal cueing, setup/clean-up)? No. ROLL LEFT AND RIGHT - STEP 2: Does the patient need only setup/clean-up assistance from one helper? No. ROLL LEFT AND RIGHT - STEP 3: Does the patient need only verbal/nonverbal cueing or touching/steadying/contact guard assistance fro m one helper? Yes. 1. [id number] ADMISSION PERFORMANCE: Supervision or touching assistance CODE: 04 SIT TO LYING: SIT TO LYING - STEP 1: Does the patient complete the activity by him/herself with no assistance (physical, verbal/nonverbal cueing, setup/clean-up)? No. SIT TO LYING - STEP 2: Does the patient need only setup/clean-up assistance from one helper? No. SIT TO LYING - STEP 3: Does the patient need only verbal/nonverbal cueing or touching/steadying/contact guard assistance fro m one helper? Yes. 1. [id number] ADMISSION PERFORMANCE: Supervision or touching assistance CODE: 04 LYING TO SITTING: LYING TO SITTING ON SIDE OF BED - STEP 1: Does the patient complete the activity by him/herself with no assistance (physical, verbal/nonverbal cueing, setup/clean-up)? No. LYING TO SITTING ON SIDE OF BED - STEP 2: Does the patient need only setup/clean-up assistance from one helper? No. LYING TO SITTING ON SIDE OF BED - STEP 3: Does the patient need only verbal/nonverbal cueing or touching/steadying/contact guard assistance fro m one helper? Yes. 1. [id number] ADMISSION PERFORMANCE: Supervision or touching assistance CODE: 04 SIT TO STAND: SIT TO STAND - STEP 1: Does the patient complete the activity by him/herself with no assistance (physical, verbal/nonverbal cueing, setup/clean-up)? No. SIT TO STAND - STEP 2: Does the patient need only setup/clean-up assistance from one helper? Yes. 1. [id number] ADMISSION PERFORMANCE: Setup or clean-up assistance CODE: 05 TRANSFERS: BED, CHAIR: CHAIR/[id number] TRANSFER - STEP 1: Does the patient complete the activity by him/herself with no assistance (physical, verbal/nonverbal cueing, setup/clean-up)? No. CHAIR/[id number] TRANSFER - STEP 2: Does the patient need only setup/clean-up assistance from one helper? Yes. 1. [id number] ADMISSION PERFORMANCE: Setup or clean-up assistance CODE: 05 TRANSFER TOILET: Not assessed/no information CODE: - TRANSFERS: CAR: Not assessed/no information CODE: - WALK 10 FEET: WALK 10 FEET - STEP 1: Does the patient complete the activity by him/herself with no assistance (physical, verbal/nonverbal cueing, setup/clean-up)? No. WALK 10 FEET - STEP 2: Does the patient need only setup/clean-up assistance from one helper? Yes. 1. [id number] ADMISSION PERFORMANCE: Setup or clean-up assistance CODE: 05 WALK 50 FEET: WALK 50 FEET - STEP 1: Does the patient complete the activity by him/herself with no assistance (physical, verbal/nonverbal cueing, setup/clean-up)? No. WALK 50 FEET - STEP 2: Does the patient need only setup/clean-up assistance from one helper? Yes. 1. [id number] ADMISSION PERFORMANCE: Setup or clean-up assistance CODE: 05 WALK 150 FEET: WALK 150 FEET - STEP 1: Does the patient complete the activity by him/herself with no assistance (physical, verbal/nonverbal cueing, setup/clean-up)? No. WALK 150 FEET - STEP 2: Does the patient need only setup/clean-up assistance from one helper? Yes. 1. [id number] ADMISSION PERFORMANCE: Setup or clean-up assistance CODE: 05 WALK 10 FEET UNEVEN: Not assessed/no information CODE: - 1 STEP (CURB): Not assessed/no information CODE: - PICKING UP OBJECT: Not assessed/no information CODE: - DOES THE PATIENT USE A WHEELCHAIR/SCOOTER? Q1. DOES THE PATIENT USE A WHEELCHAIR/SCOOTER?: Yes CODE: 1 WHEEL 50 FEET WITH TWO TURNS: WHEEL 50 FEET WITH TWO TURNS - STEP 1: Does the patient complete the activity by him/herself with no assistance (physical, verbal/nonverbal cueing, setup/clean-up)? No. WHEEL 50 FEET WITH TWO TURNS - STEP 2: Does the patient need only setup/clean-up assistance from one helper? Yes. 1. [id number] ADMISSION PERFORMANCE: Setup or clean-up assistance CODE: 05 INDICATE THE TYPE OF WHEELCHAIR/SCOOTER USED: RR1. INDICATE THE TYPE OF WHEELCHAIR/SCOOTER USED.: Manual CODE: 1 WHEEL 150 FEET: WHEEL 150 FEET - STEP 1: Does the patient complete the activity by him/herself with no assistance (physical, verbal/nonverbal cueing, setup/clean-up)? No. WHEEL 150 FEET - STEP 2: Does the patient need only setup/clean-up assistance from one helper? Yes. 1. [id number] ADMISSION PERFORMANCE: Setup or clean-up assistance CODE: 05 INDICATE THE TYPE OF WHEELCHAIR/SCOOTER USED: SS1. INDICATE THE TYPE OF WHEELCHAIR/SCOOTER USED.: Manual CODE: 1 BLADDER AND BOWEL: CODE: EXPR CODE: EXPR SIGNATURE PANEL: The following modified sections: 1. [id number] Admission Performance, 1. [id number] Admission Performance, 1. [id number] Admission Performance, 1. LD1586P Admission Performance, 1. [id number] Admission Performance, 1. [id number] Admission Performance, 1. [id number] Admission Performance, 1. [id number] Admission Performance , Q1. Does the patient use a wheelchair/scooter?, 1. [id number] Admission Performance, RR1. Indicate the type of wheelchair/scooter used., 1. [id number] Admission Performance, Code, SS1. Indicate the type of wheelchair/scooter used. were [electronically] signed by Elijah Anand PTA on MonMay 09 2019 15:16:34 GMT-0500 (Central Daylight Time)
[2019-05-09] MEDS: ACETAMINOPHEN 500 MG TAB PO PRN (15:52)
[2019-05-09] MEDS: LEVOCETIRIZINE 5 MG PO SCH (16:43)
--- NOTE | 2019-05-09 17:23 | R.PN ---
ENCOUNTER DATE AND TIME: 05/09/2019 17:21 (CDT) NAME CASSIA KELSEY DATE OF : 1945 DATE OF ADMISSION: 05/02/2019 17:58 (CDT) TIACHIEF COMPLAINT: Debility and transient ischemic attack. SUBJECTIVE: Pt denied any depression. Pt denied any Shortness of Breath. Ms. Kelsey is making good progress overall with physical and occupational therapy. Her blood work is s table. Her pain is well managed and she is sleeping well at night. VITAL SIGNS Temperature: 97.7 F SBP/DBP:145 Pulse: 87 Resp: 16 MEDICATION ALLERGIES: rofecoxib codeine hydrocodone meperidine bactrim pentazocine lactate prochlorperazine edisylate propoxyphene ENVIRONMENTAL ALLERGIES: - Substance Allergies None Known - Other Allergies None Known NURSING: - Shower allowing shower - Lab Results blood Sugar Check ACHS ACTIVITIES OOB only with supervision THERAPIES: - Dietary and Nutrition Adequate Nutrition. Nutritional Education. Nutritional Supplements. PHYSICAL EXAM - Gen Alert and awake Lying in bed No apparent distress Oriented to: person, time, and place - Skin No breakdown No abnormalities - Eyes No abnormalities - ENMT No abnormalities - Neck No abnormalities - CVS RRR - Chest No abnormalities - Abd +bowel sounds - GI Soft Deferred - No abnormalities - Ext Mild bilateral lower extremity edema. - MSK 4/5 weakness in both lower extremities. - Neuro No focal deficits - Psych No abnormalities ASSESSMENT: Pt. is a 73 yo Right-handed white female.On 04/27/2019 she was admitted to [facility] with diagnosis TIA.Her impairment category is Debility 16 - Debility (16).Pre-morbidly, Pt. was independent/mod-I in Self-Care, Sphincter Control, Transfers Control, Locomotion, Communicati on, and Social Cognition; and she had good Sphincter Control.Currently, she has deficits of Self-Care , Transfers Control, Locomotion, Communication, Social Cognition, Endurance, Balance, and Safety Awar eness.Pt. is now referred to [facility] for acute in-patient rehabilitation in order to maximize patient's functional independence in activities of daily living, strength, ROM, an d mobility.- Rehab Goal Patient has realistic goal of being discharged at assistance level 6-Patricio to reside at Home with Fam jace/Relatives. MDM/PLAN: - Physical Therapy Gait dysfunction - to improve, our physical therapists will perform initial evaluation of pt's statu s upon admission and devise an individualized program for Gait Training, and Wheel Chair mobility Inability to transfer - to improve, our physical therapists will perform initial evaluation of pt's status upon admission and devise an individualized program for Bed mobility Need for home safety evaluation - to improve, our physical therapists will perform initial evaluatio n of pt's status upon admission and devise an individualized program for Home Evaluation Need in caregiver upon discharge - to improve, our physical therapists will perform initial evaluati on of pt's status upon admission and devise an individualized program for Caregiver Training New precaution - to improve, our physical therapists will perform initial evaluation of pt's status upon admission and devise an individualized program for Patient precaution education Edema - to improve, our physical therapists will perform initial evaluation of pt's status upon admi ssion and devise an individualized program for Elevation Training, and Lymphedema Therapy Pain - to improve, our physical therapists will perform initial evaluation of pt's status upon admis andrey and devise an individualized program for Modalities Poor balance - to improve, our physical therapists will perform initial evaluation of pt's status up on admission and devise an individualized program for Balance Training Poor endurance - to improve, our physical therapists will perform initial evaluation of pt's status upon admission and devise an individualized program for Endurance Training Weakness - to improve, our physical therapists will perform initial evaluation of pt's status upon a dmission and devise an individualized program for Aquatic Therapy, Neuromuscular Reeducation, and Str engthening Achieving independence - to improve, our physical therapists will perform initial evaluation of pt's status upon admission and devise an individualized program for Community Reintegration Activities - Occupational Therapy ADL deficits - to improve, our occupation therapists will perform initial evaluation of pt's status upon admission and devise an individualized program for Bathing, Bed mobility, Community Reintegratio n, Cooking, Dressing, Eating, Fine Motor Skills, Grooming, Homemaking, Kitchen Mobility, Laundry, Pat ient Education, Safety Awareness, Splinting - Positioning, Transfers(Toilet, Tub, Shower), and Wheel Chair Management Cognitive deficits - to improve, our occupation therapists will perform initial evaluation of pt's s tatus upon admission and devise an individualized program for Cognition - orientation Need for health care specialist - to improve, our occupation therapists will perform initial evaluation of pt's status upon admission and devise an individualized program for Caregiver Training Weakness - to improve, our occupation therapists will perform initial evaluation of pt's status upon admission and devise an individualized program for Aquatic Therapy, Balance, Endurance, UE ROM, and UE strengthening - Other See attached MAR (Medication Administration Record) - Diet Type Continue Regular - Diet - Liquid Texture Continue Regular - Tube Feed Continue N/A - Lab Results blood Sugar Check ACHS - Diet - Solid Texture Continue Regular - Shower allowing shower FUNCTIONAL STATUS: UPDATED AT WEEKLY TEAM CONFERENCE - Bladder Same accident frequency: 7-Ind - No accidents in the past 7 days - Bowel Same accident frequency: 7-Ind - No accidents in the past 7 days - Walking Same score based on distance walked: 2(50-149ft) - Wheelchair Same score based on distance traveled: 1(<=50ft) FUNCTIONAL STATUS: - Self-Care A. Eating sup B. Grooming sup C. Bathing ADNO D. Dressing - Upper Kianna E. Dressing - Lower maxA F. Toileting Kianna - Sphincter Control G: Bladder control Ind H: Bowel control Ind - Transfers Control I. Bed/Chair/Wheelchair Kianna J. Toilet Kianna K. Tub/Shower ADNO - Locomotion L. Walk/Wheelchair (C) Dep L. Walk/Wheelchair (W) modA M. Stairs ADNO - Communication N. Comprehension (B) sup O. Expression (B) sup - Social Cognition P. Social Interaction sup Q. Problem Solving sup R. Memory sup - Endurance Poor - Balance Fair - Safety Awareness Fair QI SCORES:: - Self-Care A. Eating 05-Setup or clean-up assistance B. Oral hygiene 05-Setup or clean-up assistance C. Toileting hygiene 04-Supervision or touching assistance E. Shower/bathe self 03-Partial/moderate assistance F. Upper body dressing 04-Supervision or touching assistance G. Lower body dressing 02-Substantial/maximal assistance H. Putting on/taking off footwear 02-Substantial/maximal assistance - Mobility A. Roll left and right 03-Partial/moderate assistance B. Sit to lying 04-Supervision or touching assistance C. Lying to sitting on side of bed 04-Supervision or touching assistance D. Sit to stand 04-Supervision or touching assistance E. Chair/qcz-ma-stogh transfer 04-Supervision or touching assistance F. Toilet transfer 04-Supervision or touching assistance G. Car transfer 88-Not attempted due to medical condition or safety concerns I. Walk 10 feet 04-Supervision or touching assistance J. Walk 50 feet with two turns 04-Supervision or touching assistance K. Walk 150 feet 88-Not attempted due to medical condition or safety concerns L. Walking 10 feet on uneven surfaces 88-Not attempted due to medical condition or safety concerns M. 1 step (curb) 88-Not attempted due to medical condition or safety concerns N. 4 steps 88-Not attempted due to medical condition or safety concerns O. 12 steps 88-Not attempted due to medical condition or safety concerns P. Picking up object 88-Not attempted due to medical condition or safety concerns R. Wheel 50 feet with two turns 88-Not attempted due to medical condition or safety concerns S. Wheel 150 feet 88-Not attempted due to medical condition or safety concerns - Bladder and Bowel Bladder continence 1-Stress incontinence only Bowel continence 0-Always continent CURRENT [facility]. DEFICITS: Self-Care, Transfers Control, Locomotion, Communication, Social Cognition, Endurance, Balance, and Sa fety Awareness SIGNATURE PANEL: (CDT)
[2019-05-09] MEDS: ATORVASTATIN 40 MG TAB PO SCH (20:56)
[2019-05-09] MEDS: MONTELUKAST 10 MG TAB PO SCH (20:57)
[2019-05-10] MEDS: LEVOTHYROXINE SOD 0.075 MG TAB PO SCH (06:42)
[2019-05-10] MEDS: PANTOPRAZOLE 40MG TABLET PO SCH (06:42)
[2019-05-10] MEDS: INSULIN -REGULAR HUMAN 50 UNIT/0.5 ML ML SQ SCH ×4 (07:23→20:47)
[2019-05-10] MEDS: CALCIUM CARBONATE 500 MG TAB PO SCH (08:24)
[2019-05-10] MEDS: MULTIVITAMIN TAB PO SCH (08:24)
[2019-05-10] MEDS: GLUCOSAM/CHONDROI 500mg-400mg PO SCH ×3 (08:24→20:16)
[2019-05-10] MEDS: LACTOBACILLUS/ACIDOPHILUS TAB PO SCH ×2 (08:24→20:16)
[2019-05-10] MEDS: SPIRONOLACTONE 25 MG TABLET PO SCH (08:25)
[2019-05-10] MEDS: APIXABAN 5 MG TABLET PO SCH ×2 (08:25→20:17)
[2019-05-10] MEDS: GABAPENTIN 300 MG CAP PO SCH ×3 (08:25→20:16)
[2019-05-10] MEDS: glipiZIDE 5 MG TAB PO SCH (08:25)
[2019-05-10] MEDS: METFORMIN HCL 500 MG TAB PO SCH ×3 (08:25→16:34)
[2019-05-10] MEDS: FUROSEMIDE 40 MG TABLET PO SCH ×2 (08:25→16:34)
[2019-05-10] MEDS: MAGNESIUM CHLORIDE 64 MG TAB PO SCH ×2 (08:25→20:16)
[2019-05-10] MEDS: CLOPIDOGREL 75 MG TABLET PO SCH (08:25)
[2019-05-10] MEDS: MIDODRINE HCL 5 MG TABLET PO SCH ×2 (08:26→20:17)
--- NOTE | 2019-05-10 09:00 | FAST ---
ENCOUNTER DATE AND TIME: 05/08/2019 08:00 (CDT) NAME CASSIA KELSEY DATE OF : 1945 DATE OF ADMISSION: 05/02/2019 17:58 (CDT) PHONE: AGE: 73 N# [id number] GENDER: Female ENCOUNTER PHYSICIAN: Dr. Edil Carroll M.D. ADMISSION DIAGNOSIS: - Debility 16 - Debility (16) TIA. EATING: EATING - STEP 1: Does the patient complete the activity by him/herself with no assistance (physical, verbal/nonverbal cueing, setup/clean-up)? Yes. 1. [id number] ADMISSION PERFORMANCE: Independent CODE: 06 ORAL HYGIENE: ORAL HYGIENE - STEP 1: Does the patient complete the activity by him/herself with no assistance (physical, verbal/nonverbal cueing, setup/clean-up)? Yes. 1. [id number] ADMISSION PERFORMANCE: Independent CODE: 06 TOILETING HYGIENE: TOILETING HYGIENE - STEP 1: Does the patient complete the activity by him/herself with no assistance (physical, verbal/nonverbal cueing, setup/clean-up)? Yes. 1. [id number] ADMISSION PERFORMANCE: Independent CODE: 06 BATHING: SHOWER/BATHE SELF - STEP 1: Does the patient complete the activity by him/herself with no assistance (physical, verbal/nonverbal cueing, setup/clean-up)? Yes. 1. [id number] ADMISSION PERFORMANCE: Independent CODE: 06 DRESSING - UPPER BODY: DRESSING - UPPER BODY - STEP 1: Does the patient complete the activity by him/herself with no assistance (physical, verbal/nonverbal cueing, setup/clean-up)? Yes. 1. [id number] ADMISSION PERFORMANCE: Independent CODE: 06 DRESSING - LOWER BODY: DRESSING - LOWER BODY - STEP 1: Does the patient complete the activity by him/herself with no assistance (physical, verbal/nonverbal cueing, setup/clean-up)? Yes. 1. [id number] ADMISSION PERFORMANCE: Independent CODE: 06 PUTTING ON/TAKING OFF FOOTWEAR: FOOTWEAR - STEP 1: Does the patient complete the activity by him/herself with no assistance (physical, verbal/nonverbal cueing, setup/clean-up)? Yes. 1. [id number] ADMISSION PERFORMANCE: Independent CODE: 06 DOES THE PATIENT USE A WHEELCHAIR/SCOOTER? CODE: EXPR INDICATE THE TYPE OF WHEELCHAIR/SCOOTER USED: CODE: EXPR INDICATE THE TYPE OF WHEELCHAIR/SCOOTER USED: CODE: EXPR BLADDER AND BOWEL: CODE: EXPR CODE: EXPR SIGNATURE PANEL: The following modified sections: 1. [id number] Admission Performance, 1. [id number] Admission Performance, 1. [id number] Admission Performance, 1. [id number] Admission Performance, 1. [id number] Admission Performance, 1. [id number] Admission Performance, 1. [id number] Admission Performance were [electronically] signed by Grzegorz Thomas OT on MonMay 10 2019 08:59:06 GMT-0500 (Central Daylight Time)
[2019-05-10] MEDS: FLUTICASONE 50MCG NASAL SPRAY NAS SCH ×2 (09:03→20:19)
[2019-05-10] MEDS: D-MANNOSE PO SCH ×2 (09:03→20:17)
--- NOTE | 2019-05-10 09:43 | P.RH.PN ---
Estimated Length of Stay: 10 Expected Discharge Date: 05/11/19 Discharge Disposition Plan: Home Family Support: Yes Custodial Goal: Mobility, Transfers, Self Care Vital Signs: Last Vital Signs Temp 97.0 F 05/09/19 19:30 Pulse 66 05/10/19 08:25 Resp 18 05/09/19 19:30 BP 145/53 H 05/10/19 08:25 Pulse Ox 97 05/09/19 19:30 Laboratory: Laboratory Last Values WBC 7.9 K/uL (4.3-10.9) 05/09/19 05:41 RBC 3.76 M/uL (3.86-4.86) L 05/09/19 05:41 Hgb 12.5 g/dL (12.0-15.0) 05/09/19 05:41 Hct 34.6 % (36.0-45.0) L 05/09/19 05:41 MCV 92.2 fL (80-100) 05/09/19 05:41 MCH 33.4 pg (27.0-35.0) 05/09/19 05:41 MCHC 36.2 g/dL (32.0-36.0) H 05/09/19 05:41 RDW 13.9 % (12.1-15.2) 05/09/19 05:41 Plt Count 290 K/uL (152-406) 05/09/19 05:41 MPV 8.5 fL (7.6-11.3) 05/09/19 05:41 Neutrophils % 29.8 % (41.7-73.7) L 05/09/19 05:41 Lymphocytes % 53.2 % (15.3-44.8) H 05/09/19 05:41 Monocytes % 9.9 % (3.3-12.3) 05/09/19 05:41 Eosinophils % 6.3 % (0-4.4) H 05/09/19 05:41 Basophils % 0.8 % (0-1.3) 05/09/19 05:41 Absolute Neutrophils 2.3 K/uL (1.8-8.0) 05/09/19 05:41 Absolute Lymphocytes 4.2 K/uL (0.7-4.9) 05/09/19 05:41 Absolute Monocytes 0.8 K/uL (0.1-1.3) 05/09/19 05:41 Absolute Eosinophils 0.5 K/uL (0-0.5) 05/09/19 05:41 Absolute Basophils 0.1 K/uL (0-0.5) 05/09/19 05:41 Sodium 140 mmol/L (136-145) 05/09/19 05:41 Potassium 3.5 mmol/L (3.5-5.1) 05/09/19 05:41 Chloride 100 mmol/L (98-107) 05/09/19 05:41 Carbon Dioxide 31 mmol/L (21-32) 05/09/19 05:41 BUN 34 mg/dL (7-18) H 05/09/19 05:41 Creatinine 1.25 mg/dL (0.55-1.3) 05/09/19 05:41 Estimated GFR 42 mL/min (=/>90) L 05/09/19 05:41 Glucose 164 mg/dL (74-106) H 05/09/19 05:41 POC Glucose 163 mg/dl (65-120) H 05/10/19 Unknown Calcium 9.4 mg/dL (8.5-10.1) 05/09/19 05:41 Magnesium 2.7 mg/dL (1.8-2.4) H D 05/09/19 05:41 Albumin 3.3 g/dL (3.4-5.0) L 05/09/19 05:41 Prealbumin 21.9 mg/dL (20-40) 05/09/19 05:41 Urine Color Yellow 05/02/19 22:18 Urine Appearance Clear 05/02/19 22:18 Urine pH 5.5 (5.0-7.0) 05/02/19 22:18 Ur Specific [place] 1.015 (1.005-1.030) 05/02/19 22:18 Urine Ketones Negative (NEG) 05/02/19 22:18 Urine Blood Negative (NEG) 05/02/19 22:18 Urine Nitrite Negative (NEG) 05/02/19 22:18 Urine Bilirubin Negative (NEG) 05/02/19 22:18 Urine Urobilinogen 0.2 mg/dL (0.2-1.0) 05/02/19 22:18 Ur Leukocyte Esterase Negative (NEG) 05/02/19 22:18 Urine RBC None seen /HPF (NONE SEEN) 05/02/19 22:18 Urine WBC <5 /HPF (<5) 05/02/19 22:18 Ur Squamous Epith Cells <5 /HPF (NONE SEEN) 05/02/19 22:18 Ur Urothelial Cells <5 /HPF (NONE SEEN) 05/02/19 22:18 Urine Bacteria <20 /HPF (<20) 05/02/19 22:18 Urine Culture Reflexed Not needed 05/02/19 22:18 Urine Glucose Negative (NEG) 05/02/19 22:18 Urine Total Protein Negative (NEG) 05/02/19 22:18 Weight: 214 lb 9.6 oz Wound Present: No Closed Surgical Incision Present: Yes Negative Pressure Wound Therapy Present: No Physician Update: Labs reviewed and are stable. Walking and did stairs with modified independence. She has mild difficulties with cognitive issues. Will discharge in the AM and have outpatient physical and speech therapy. Medical Issues: Patient is always continent with bladder and bowel. Pain Issues: Sodium Chloride 0.9%(NS) SoIP with Sufentanil 50mcg/ml Soln 0.5mcg/ ml, ropivacaine 5mg/ml Soln 0.125% by Epidural route continous Functional Improvement: Patient has met all short-term goals at this time and is progressing well toward long-term goals. Patient tends to present w/ kyphotic posture; VC given for correction. Functional Improvement Occupational Therapy: Pt can benifit with further therapy to address pt's overall goals with increasing pt's UB strength and ROM and static standing for clothing and for Iadl's. Cont with the POC and the goals by the supervising OTR. Speech Therapy Update: Patient's cognitive skills are minimally impaired. She appears to be forgetful, with reduced divided attention. However, she is at SUPV-MOD I for all speech, language, and cognitive skills. Patient is at MOD I for Auditory Comprehension, SUPV for Verbal Expression, MOD I for Social Interaction, MOD I for Problem Solving, and MOD I for Memory. Patient gets very frustrated and even embarrassed about occasional word-finding difficulties. Patient would be a good candidate for outpatient speech therapy. 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 Please see the Rehabilitation Signature page for all necessary signatures.
[2019-05-10] MEDS: ACETAMINOPHEN 500 MG TAB PO PRN (13:26)
--- NOTE | 2019-05-10 14:29 | FAST ---
ENCOUNTER DATE AND TIME: 05/09/2019 08:00 (CDT) NAME CASSIA KELSEY DATE OF : 1945 DATE OF ADMISSION: 05/02/2019 17:58 (CDT) PHONE: AGE: 73 SSN# [id number] GENDER: Female ENCOUNTER PHYSICIAN: Dr. Edil Carroll M.D. ADMISSION DIAGNOSIS: - Debility 16 - Debility (16) TIA. EATING: Not assessed/no information CODE: - ORAL HYGIENE: ORAL HYGIENE - STEP 1: Does the patient complete the activity by him/herself with no assistance (physical, verbal/nonverbal cueing, setup/clean-up)? Yes. 1. [id number] ADMISSION PERFORMANCE: Independent CODE: 06 TOILETING HYGIENE: TOILETING HYGIENE - STEP 1: Does the patient complete the activity by him/herself with no assistance (physical, verbal/nonverbal cueing, setup/clean-up)? Yes. 1. [id number] ADMISSION PERFORMANCE: Independent CODE: 06 BATHING: SHOWER/BATHE SELF - STEP 1: Does the patient complete the activity by him/herself with no assistance (physical, verbal/nonverbal cueing, setup/clean-up)? Yes. 1. [id number] ADMISSION PERFORMANCE: Independent CODE: 06 DRESSING - UPPER BODY: DRESSING - UPPER BODY - STEP 1: Does the patient complete the activity by him/herself with no assistance (physical, verbal/nonverbal cueing, setup/clean-up)? Yes. 1. [id number] ADMISSION PERFORMANCE: Independent CODE: 06 DRESSING - LOWER BODY: DRESSING - LOWER BODY - STEP 1: Does the patient complete the activity by him/herself with no assistance (physical, verbal/nonverbal cueing, setup/clean-up)? Yes. 1. [id number] ADMISSION PERFORMANCE: Independent CODE: 06 PUTTING ON/TAKING OFF FOOTWEAR: FOOTWEAR - STEP 1: Does the patient complete the activity by him/herself with no assistance (physical, verbal/nonverbal cueing, setup/clean-up)? Yes. 1. [id number] ADMISSION PERFORMANCE: Independent CODE: 06 DOES THE PATIENT USE A WHEELCHAIR/SCOOTER? CODE: EXPR INDICATE THE TYPE OF WHEELCHAIR/SCOOTER USED: CODE: EXPR INDICATE THE TYPE OF WHEELCHAIR/SCOOTER USED: CODE: EXPR BLADDER AND BOWEL: CODE: EXPR CODE: EXPR SIGNATURE PANEL: The following modified sections: 1. [id number] Admission Performance, 1. [id number] Admission Performance, 1. VB1054g Admission Performance, 1. [id number] Admission Performance, 1. GR5424c Admission Performance, 1. [id number] Admission Performance were [electronically] signed by ANETTE Steward on MonMay 10 2019 14:28:52 T-0500 (Central Daylight Time)
[2019-05-10] MEDS: LEVOCETIRIZINE 5 MG PO SCH (16:34)
[2019-05-10] MEDS: ATORVASTATIN 40 MG TAB PO SCH (20:16)
[2019-05-10] MEDS: MONTELUKAST 10 MG TAB PO SCH (20:17)
[2019-05-11 05:36] VITALS: BMI 39.7
[2019-05-11] MEDS: LEVOTHYROXINE SOD 0.075 MG TAB PO SCH (06:32)
[2019-05-11] MEDS: PANTOPRAZOLE 40MG TABLET PO SCH (06:32)
[2019-05-11] MEDS: INSULIN -REGULAR HUMAN 50 UNIT/0.5 ML ML SQ SCH (07:22)
[2019-05-11 07:37] VITALS: BP 119/68; TEMP 97.4
[2019-05-11] MEDS: D-MANNOSE PO SCH (08:21)
[2019-05-11] MEDS: ACETAMINOPHEN 500 MG TAB PO PRN (08:21)
[2019-05-11] MEDS: MAGNESIUM CHLORIDE 64 MG TAB PO SCH (08:22)
[2019-05-11] MEDS: MULTIVITAMIN TAB PO SCH (08:23)
[2019-05-11] MEDS: METFORMIN HCL 500 MG TAB PO SCH (08:23)
[2019-05-11] MEDS: CALCIUM CARBONATE 500 MG TAB PO SCH (08:23)
[2019-05-11] MEDS: APIXABAN 5 MG TABLET PO SCH (08:23)
[2019-05-11] MEDS: GLUCOSAM/CHONDROI 500mg-400mg PO SCH (08:23)
[2019-05-11] MEDS: FUROSEMIDE 40 MG TABLET PO SCH (08:24)
[2019-05-11] MEDS: glipiZIDE 5 MG TAB PO SCH (08:24)
[2019-05-11] MEDS: LACTOBACILLUS/ACIDOPHILUS TAB PO SCH (08:24)
[2019-05-11] MEDS: CLOPIDOGREL 75 MG TABLET PO SCH (08:24)
[2019-05-11] MEDS: SPIRONOLACTONE 25 MG TABLET PO SCH (08:24)
[2019-05-11] MEDS: GABAPENTIN 300 MG CAP PO SCH (08:25)
[2019-05-11] MEDS: MIDODRINE HCL 5 MG TABLET PO SCH (08:25)
[2019-05-11] MEDS: FLUTICASONE 50MCG NASAL SPRAY NAS SCH (08:35)
== END 2019-05-11 11:20 | disposition home health service (06) | DRG 69 ==
LOC: 5TH 17:58
PROVIDERS: ADMIT Psychiatry & Neurology Neurology with Special Qualifications in Child Neurology; ATTEND Psychiatry & Neurology Neurology with Special Qualifications in Child Neurology
DX: G45.9 Transient cerebral ischemic attack, unspecified (principal); N17.9 Acute kidney failure, unspecified; R54 Age-related physical debility; E11.9 Type 2 diabetes mellitus without complications; G89.29 Other chronic pain; I10 Essential (primary) hypertension; E03.9 Hypothyroidism, unspecified; G47.30 Sleep apnea, unspecified; Z79.01 Long term (current) use of anticoagulants
CPT/HCPCS: 36415; 80048; 81001; 82040; 82962; 83735; 84134; 85025; 87086; 87088; 90471; 92523; 97110; 97116; 97127; 97161; 97530; Q2035

== ENCOUNTER 2020-12-01 11:22 | Emergency (ER) | payer OTHER, MEDICARE ==
--- OUTSIDE RECORDS SUMMARY | 2020-12-01 11:26 | XMS REPORT | Continuity of Care Document ---
:1945 Author Organization [facility] t Address [address] [place] [address] Care Team Providers Name Role Phone Sudarshan Madrigal MD Primary Care Physician 2, Lab Attending Clinician Unavailable Keyon Le MD Attending Clinician Pob, Lab Main Attending Clinician Unavailable Meredith MENDES S Attending Clinician Jose Francisco EMPLOYMENT ADVISOR Attending Clinician Provider, Urgent Care Attending Clinician Unavailable Nae ALEJO Attending Clinician Srikanth MENDES Attending Clinician Ramiro MENDES Attending Clinician Doctor Unassigned, Name Attending Clinician Unavailable KATHIA Attending Clinician Unavailable CLAIRE Admitting Clinician Unavailable Payers Payer Name Policy Type Policy Number Effective Date Expiration Date S ource Problems Condition Condition Condition Status Onset Resolution Last Treating Co mments Source Name Details Category Date Date Treatment Clinician Date Acute Acute Disease Active 2018-[address] [facility] ischemic ischemic 0-03 [facility] stroke 00:00: Medical 00 [place] JOSE (acute JOSE (acute Disease Active [facility] kidney kidney 04-28 [facility] injury) injury) 00:00: Medical 00 [place] Type 2 Type [address] [facility]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 04-28 [facility] - mellitus mellitus 00:00: Medica l 00 [place] Carotid Carotid Disease Active [facility] stenosis stenosis 04-28 [facility] - 00:[facility]: Medical 00 [place] Obesity Obesity Disease Active [facility] 04-28 [facility] 00:[facility]: Medical 00 [place] Chronic Chronic Disease Active [facility] anticoagul anticoagul 04-28 [facility] - ation ation 00:00: Medical 00 [place] Sleep Sleep Disease Active [facility] apnea apnea 04-28 [facility] - 00:00: Medical 00 [place] Weakness Weakness Disease [facility] 00:[facility]: Medical 00 [place] Cellulitis Cellulitis Disease Active 2012-[address] 08-22 [facility] - 00:00: Medical 00 [place] Chronic Chronic Disease Active 2012-[address] [facility] pain pain 08-21 [facility] - 00:00: Medical 00 [place] Hypertensi Hypertensi Disease Active 2012-[address] on on 08-21 [facility] - 00:00: Medical 00 [place] Hypothyroi Hypothyroi Disease Active 2012-[address] dism dism 08-21 [facility] - 00:00: Medical 00 [place] Presence Presence Disease Active 2012-07 [facility] 08[facility] - intratheca intratheca 00:00: Me dical l pump l pump 00 Center Allergies, Adverse Reactions, Alerts Allergy Allergy Status Severity Reaction(s) Onset Inactive Treating Comm ents Source Name Type Date Date Clinician Sulfamet Propensi Active 2012-[address] [facility] hoxazole ty to 08-22 [facility] - -Trimeth adverse 00:00: Medical oprim reaction 00 Center s Codeine Propensi Active Nausea And 2012-[address] [facility] ty to Vomiting 08-22 [facility] - adverse 00:00: Medical reaction 00 Center s Hydrocod Propensi Active Nausea And 2012-[address] [facility] ty to Vomiting 08-22 tolerates [facility] - adverse 00:00: sufentani Medica l reaction 00 l per IT Center s pain pump from home. Meperidi Propensi Active Nausea And 2012-[address] ne ty to Vomiting 08-22 [facility] - adverse 00:00: Medical reaction 00 Center s Pentazoc Propensi Active 2012-[address] ine ty to 08-22 tions [facility] - Lactate adverse 00:00: Medical reaction 00 Center s Prochlor Propensi Active 2012-[address] perazine ty to 08-22 tions [facility] - Edisylat adverse 00:00: Medical e reaction 00 Center s Propoxyp Propensi Active Nausea And 2012-[address] hene ty to Vomiting 08-22 [facility] - adverse 00:00: Medical reaction 00 Center s Rofecoxi Propensi Active Severe 2012-[address] [facility] [address] b ty to 08-22 failure [facility] - adverse 00:00: Medical reaction 00 Center s prochlor DA Active U 2002[facility] d [facility] codeine DA Active U 2002[facility]: d [facility] propoxyp DA Active U 2002-0 [facility]ne [facility]: d [facility] pentazoc DA Active U 2002-0 [facility]e [facility] 00:[facility]: d [facility] Center meperidi DA Active U 2002-0 [facility] ne [facility] 00:[facility]: d 00 [facility] Center naloxone DA Active U 2002-0 [facility] 00:[facility]: d 00 [facility] Center CODEINE DA Active U 2002-0 [facility] 00:[facility]: d 00 [facility] Center COMPAZIN DA Active U 2002-0 [facility] E [facility] 00:[facility]: d 00 [facility] Center DARVON DA Active U 2002-0 [facility] 00:[facility]: d 00 Medical Center DEMEROL DA Active U 2002-0 [facility] 02-24 [facility] 00:00: d Medical Center No Known DA Active U 2002- [facility] Contrast [facility]- [facility]: d s [facility] No Known DA Active U 2002- [facility] Food - [facility] Allergie 00:00: d s Medical Center No Known DA Active U 2002- [facility] Other [facility]- [facility] Allergie 00:00: d s Medical Center EMMA DA Active U 2002- [facility] 7 [facility] 00:[facility]: d Medical Center Social History Social Habit Start Date Stop Date Quantity Comments Source Sex Assigned At [facility] Alcohol intake 2013-06-24 2013-06-24 Current [facility] es - 00:00:00 00:00:00 non-drinker of Medical Ce nter alcohol (finding) Smoking Status Start Date Stop Date Source Never smoker [facility] Medications Ordered Filled Start Stop Current Ordering Indication Dosage Frequency Signature Comments Components Source Medication Medication Date Date Medication? Clinician (SIG) Name Name metFORMIN 2018-07 Yes 500mg [id number] Take [address] [facility] [address] (GLUCOPHAGE 0-04 [id number] tablet [facility] - ) 500 MG 00:00: 3D (500 mg Medica l tablet 00 total) by Center mouth 3 (three) times daily. glucosamine 2018-07 Yes 1{tbl} Q.80494050 Take [address] [facility] [address] -chondroiti 0-03 [id number] tablet by [facility] - n 500-400 18:01: 3D mouth 3 Medic al mg tablet 23 (three) Center times daily. lactobacill 2018-07 Yes 1{tbl} Q.5D Take [address] us acidoph 0-03 tablet by Luke s - & bulgar 18:01: mouth 2 Medica l (FLORANEX) 23 (two) Center 1 million times cell Tab daily. per tablet levothyroxi 2018-07 Yes 75ug QD Take [address] [facility] [address] ne 0-03 mcg by [facility] - (SYNTHROID, 18:01: mouth Medic al LEVOTHROID) 23 daily. [place] 75 MCG tablet multivitami 2018-07 Yes 1{tbl} QD Take [address] n 0-03 [facility] - (THERAGRAN) 18:01: mouth Medic al per tablet 23 daily. [place] nystatin 2018-[address] [facility] (MYCOSTATIN 0-03 topically [facility] - ) 100,000 18:01: as needed Med ical unit/gram 23 . Center powder polyethylen 2018-07 Yes 17g Take [address] e glycol 0-03 by mouth [facility] - (GLYCOLAX) 18:01: as needed Me dical 17 gram 23 . Center packet MAGNESIUM 2018-07 Yes 71.5mg Q.5D Take 71.[address] CHLORIDE 0-03 mg by [facility] - (SLOW-MAG 18:01: mouth 2 Medic al ORAL) 23 (two) Center times daily. sodium 2018-[address] [facility] chloride 0-03 Epidural [facility] - 0.9% (NS) 18:01: route Medical SolP with 23 continuous Cent er SUfentanil . 50 mcg/mL Soln 0.5 mcg/mL, ropivacaine 5 mg/mL Soln 0.125 % D-MANNOSE 2018-07 Yes 500mg Q.5D Take [address] ORAL 0-03 mg by [facility] - 18:01: mouth 2 Medical 23 (two) Center times daily. furosemide 2018-07 Yes 40mg Q.5D Take [address] (LASIX) 40 0-03 by mouth 2 [facility] - MG tablet 18:01: (two) Medical 23 times Center daily. midodrine 2018-07 Yes 2.5mg Q.5D Take 2.[address] [facility] (PROAMATINE 0-03 mg by [facility] - ) 2.5 MG 18:01: mouth 2 Medica l tablet 23 (two) Center times daily. montelukast 2018-07 Yes 10mg QD Take [address] [facility] (SINGULAIR) 0-03 by mouth Luke s - 10 mg 18:01: nightly. Medical tablet 23 Center metOLazone 2018-07 Yes 2.5mg Take 2.[address] (ZAROXOLYN) 0-03 mg by [facility] - 2.5 MG 18:01: mouth Medical tablet 23 every 7 Center days Every Monday 30 minutes before lasix. potassium 2018-07 Yes 20meq Take [address] [facility] chloride 0-03 mEq by [facility] - (KLOR-CON) 18:01: mouth Medica l 20 mEq 23 every 7 Center packet days Once a week on Monday . spironolact 2018-07 Yes 25mg QD Take [address] [facility] one 0-03 by mouth [facility] - (ALDACTONE) 18:01: daily. Medi advid 25 MG 23 Center tablet ipratropium 2018-07 Yes 3mL Take [address] [address] -albuterol 0-03 by [facility] - (DUO-NEB) 18:01: nebulizati Me dical 0.5 mg-3 23 on every 6 Cente r mg(2.5 mg (six) base)/3 mL hours as nebulizer needed for solution Wheezing. clopidogrel 2018-07 Yes 75mg QD Take [address] [facility] (PLAVIX) 75 0-03 by mouth Luke s - mg tablet 18:01: daily. Medica l 23 Center apixaban 2018-07 Yes 5mg Q.5D Take [address] [facility] (ELIQUIS) 5 0-03 by mouth 2 [facility] kes - mg Tab 18:01: (two) Medical tablet 23 times Center daily. omeprazole 2018-07 Yes 40mg QD Take [address] (PRILOSEC) 0-03 by mouth [facility] - 40 MG 18:01: daily. Medical capsule 23 Center levocetiriz 2018-07 Yes 5mg QD Take [address] ine (XYZAL) 0-03 by mouth Luke s - 5 MG tablet 18:01: every Medic al 23 evening. [place] glipiZIDE 2018-07 Yes 5mg QD Take [address] [facility] (GLUCOTROL) 0-03 by mouth Luke s - 5 MG tablet 18:01: daily. Medi david 23 Center atorvastati 2018-07 Yes 40mg QD Take [address] [facility] n (LIPITOR) 0-03 by mouth Luke s - 40 MG 18:01: nightly. Medical tablet 23 [place] calcium 2018-07 Yes 600mg QD Take 600 [facility] carbonate 0-03 mg by [facility] - (OS-DAVID) 18:01: mouth Medical 600 mg 23 daily. Center calcium (1,500 mg) Tab gabapentin 2018-07 Yes 300mg Q.[id number] Take [address] (NEURONTIN) 0-03 [id number] mg by L ukes - 300 MG 18:01: 3D mouth 3 Medical capsule 23 (three) Center times daily. Procedures This patient has no known procedures. Plan of Care Planned Activity Planned Date Details Comments Source Future Scheduled 2020-03-[address] [facility] - Test 00:00:00 (#1) [code = Medical Center INFLUENZA VACCINE (#1)] Future Scheduled 2019-10-[address] [facility] k[facility] - Test 00:00:00 measurement Medical Center (procedure) [code = 07511583] Future Scheduled 2007-05-[address] [facility] [facility] - Test 00:00:00 WELLNESS (YEAR 2 or Medical Center FIRST YEAR if no IPPE) [code = MEDICARE ANNUAL WELLNESS (YEAR 2 or FIRST YEAR if no IPPE)] Future Scheduled 1953-10-[address] DIAB[address] EYE EXAM [facility] - Test 00:00:00 [code = DIABETIC EYE Medical Center EXAM] Future Scheduled 1955-10-[address] [facility] - Test 00:00:00 examination Medical Center (regime/therapy) [code = 944681758] Future Scheduled 1955-10[birth year]21 Urine screening for [facility] - Test 00:00:00 protein (procedure) Medical Center [code = 114708843] Encounters Start End Encounter Admission Attending Care Care Encounter Source Date/Time Date/Time Type Type Clinicians Facility Department ID 2020-11-30 2020-11-30 Brush Filler Hand [place], Hui Lab [facility] [id number] 13:14:25 13:29:25 Visit [place] [id number] [place] [id number] Professio [phone] [address] 2020-11-27 2020-11-27 Telephone Rey [facility] [id number] 00:00:00 00:00:00 Cheryle Leos [id number] [place] [id number] Professio [phone] [facility] 2020-11-26 2020-11-26 Brush Filler Hand Hui Dutton [facility] 1.2.840.114 [id number] 11:47:44 12:02:44 Visit Lab Main [place] [id number] [place] [id number] Professio [phone] [address] 2020-11-26 2020-11-26 Emergency [facility] [id number] 03:21:00 06:10:00 Shante Leos [id number] [place] 4.2.7.2.686 [place] [id number] [id number] 2020-11-23 2020-11-23 [facility] 1.2.840.114 [id number] 16:20:16 23:59:00 Encounter Jennifer Leos [id number] [place] 4.2.7.2.686 [place] [id number] 807 2020-11-23 2020-11-23 [facility] [id number] 14:51:43 15:11:43 Care [facility] [id number] Care [place] 4.2.7.2.686 Professio [phone] nal [address] 2020-11-21 2020-11-21 [facility] 1.2.840.114 [id number] 00:00:00 00:00:00 Cheryle A [place] [id number] [place] 4.2.7.2.686 Professio [phone] [facility] 2020-11-17 2020-11-17 [facility] [id number] 14:30:00 23:59:00 Encounter Veronica [place] [id number] [place] 4.2.7.2.686 [place] [id number] 806 2020-11-12 2020-11-12 [facility] 1.2.840.114 [id number] 00:00:00 00:00:00 Deo Leos [id number] [place] [id number] Professio [phone] [facility] 2020-11-11 2020-11-11 Telephone [facility] [id number] 00:00:00 00:00:00 Latisha Leos [id number] [place] [id number] Professio [phone] nal 059 [facility] 2020-11-10 2020-11-10 Telephone Rey [facility] 1.2.840.114 [id number] 00:00:00 00:00:00 Cheryle Leos [id number] [place] [id number] Professio [phone] nal 044 [facility] 2020-11-09 2020-11-09 Brush Filler Hand Hui Dutton [facility] 1.2.840.114 [id number] 12:26:23 12:41:23 Visit Lab Main [place] [id number] [place] 4.2.7.2.686 Professio [phone] nal 353 [facility] 2020-11-09 2020-11-09 Office Ramiro [facility] 1.2.840.114 [id number] 11:35:43 12:06:49 Visit Latisha [place] [id number] [place] 4.2.7.2.686 Professio [phone] nal 059 [facility] 2020-11-09 2020-11-09 Patient Rey [facility] 1.2.840.114 [id number] 00:00:00 00:00:00 Secure Msg Cheryle Leos [id number] [place] 4.2.7.2.686 Professio [phone] nal 231 [facility] 2020-11-07 2020-11-07 Orders Doctor SKYE 1.2.840.114 [id number] 00:00:00 00:00:00 Only Unassigned, CORNELIA 350.1.13.[address] [facility] 4.2.7.2.686 [phone] [id number] Results Test Description Test Time Test Comments Results Result [facility] e Comments - CT T-SPINE W/O 2020-03-26 FAX: CONTRAST 13:56:00 Tatiana Mai MD [phone] [place]: St: [facility] FAX: Frandy Shaw Name: CASSIA KELSEY : 1945 Age/S: 74/F [address] Unit: [id number] Loc: [place] [address] Phys: Frandy Shaw MD R1 Acct: [id number] Dis Date: Status: REG ER PHONE #: [phone] Exam Date: 03/26/2020 1326 FAX #: [phone] Reason: back pain EXAMS: CPT CODE: [id number] CT T-SPINE W/O CONTRAST 21014 EXAM: - CT T-SPINE W/O CONTRAST, - CT L-SPINE W/O CONTRAST HISTORY: Fall Location code:C3 TECHNIQUE: Axial tomograms through the thoracic and lumbar spine were obtained without intravenous contrast. Sagittal and coronal reformatted images are provided. One or more of the following dose reduction techniques were used: Automated exposure control, adjustment of the mA and/or kV according to patient size, and/or utilization of iterative reconstruction technique. DLP: 1214 mGy-cm. COMPARISON: None available time of interpretation. FINDINGS: Minimal remote-appearing wedging at T12 with loss of height anteriorly of 10% is seen. There is no retropulsion seen. There is no acute fracture or malalignment. Right-sided pedicle screws at L3 and L4 vertebral stabilization rods are present and appear intact and fully engaged. Pain pump device about the right lateral lower abdomen is seen with lead entering the central canal posteriorly at the level of L1-2 and extending cephalad in the right aspect of the canal to the level of T11. Bone harvest sites from the iliac wings is partially imaged. Diffuse degenerative disc disease and facet arthropathy is identified. Remainder of vertebral body height and alignment is appropriate. No acute fracture is seen. Dependent atelectasis is seen without acute consolidation. Left convex curvature of the thoracolumbar spine apex at L1 is seen. IMPRESSION: 1. No acute osseous abnormality with chronic changes as above. at 1356 Reported and signed by: Frandy Lorenzana MD PAGE 1 Signed Report (CONTINUED) FAX: Tatiana Mai MD [phone] [place]: St: REG FAX: Frandy Shaw Name: CASSIA KELSEY [facility] [place] : 1945 Age/S: 74/F [address] Unit: [id number] Loc: [place] [address] Phys: Frandy Shaw MD R1 Acct: [id number] Dis Date: Status: REG ER PHONE #: [phone] Exam Date: 03/26/2020 1326 FAX #: [phone] Reason: back pain EXAMS: CPT CODE: [id number] CT T-SPINE W/O CONTRAST 65437 <Continued> CC: Tatiana Mai MD; Frandy Shaw MD Technologist: Ara Hall Dt/Tm: 03/26/2020 (9078) [email or web address] Orig Print D/T: S: 03/26/2020 (3739 PAGE 2 Signed Report - CT L-SPINE W/O 2020-03-26 FAX: CONTRAST 13:56:00 Tatiana Mai MD [phone] [place]: [facility]: REG FAX: Frandy Shaw Name: CASSIA KELSEY [place] : 1945 Age/S: 74/F [address] Unit: [id number] Loc: [place] [address] Phys: Frandy Shaw MD R1 Acct: [id number] Dis Date: Status: REG ER PHONE #: [phone] Exam Date: 03/26/2020 1326 FAX #: [phone] Reason: pain EXAMS: CPT CODE: [id number] CT L-SPINE W/O CONTRAST 90130 EXAM: - CT T-SPINE W/O CONTRAST, - CT L-SPINE W/O CONTRAST HISTORY: Fall Location code:C3 TECHNIQUE: Axial tomograms through the thoracic and lumbar spine were obtained without intravenous contrast. Sagittal and coronal reformatted images are provided. One or more of the following dose reduction techniques were used: Automated exposure control, adjustment of the mA and/or kV according to patient size, and/or utilization of iterative reconstruction technique. DLP: 1214 mGy-cm. COMPARISON: None available time of interpretation. FINDINGS: Minimal remote-appearing wedging at T12 with loss of height anteriorly of 10% is seen. There is no retropulsion seen. There is no acute fracture or malalignment. Right-sided pedicle screws at L3 and L4 vertebral stabilization rods are present and appear intact and fully engaged. Pain pump device about the right lateral lower abdomen is seen with lead entering the central canal posteriorly at the level of L1-2 and extending cephalad in the right aspect of the canal to the level of T11. Bone harvest sites from the iliac wings is partially imaged. Diffuse degenerative disc disease and facet arthropathy is identified. Remainder of vertebral body height and alignment is appropriate. No acute fracture is seen. Dependent atelectasis is seen without acute consolidation. Left convex curvature of the thoracolumbar spine apex at L1 is seen. IMPRESSION: 1. No acute osseous abnormality with chronic changes as above. at 1356 Reported and signed by: Frandy Lorenzana MD PAGE 1 Signed Report (CONTINUED) FAX: Tatiana Mai MD [phone] [place]: St: REG FAX: Frandy Shaw Name: CASSIA KELSEY [facility] : 1945 Age/S: 74/F [address] Unit: [id number] Loc: [place] [address] Phys: Frandy Shaw MD R1 Acct: [id number] Dis Date: Status: REG ER PHONE #: [phone] Exam Date: 03/26/2020 1326 FAX #: [phone] Reason: pain EXAMS: CPT CODE: [id number] CT L-SPINE W/O CONTRAST 55666 <Continued> CC: Tatiana Mai MD; Frandy Shaw MD Technologist: Ara Hall Dt/Tm: 03/26/2020 (3794) [email or web address] Orig Print D/T: S: 03/26/2020 (2339 PAGE 2 Signed Report - CT C-SPINE W/O 2020-03-26 FAX: CONT 13:53:00 Frandy Shaw [place]: St: REG Name: CASSIA KELSEY [facility] : 1945 Age/S: 74/F [address] Unit: [id number] Loc: [place] [address] Phys: Frandy Shaw MD R1 Acct: [id number] Dis Date: Status: REG ER PHONE #: [phone] Exam Date: 03/26/2020 1326 FAX #: [phone] Reason: fall EXAMS: CPT CODE: [id number] CT C-SPINE W/O CONT 89703 EXAM: - CT C-SPINE W/O CONT CLINICAL HISTORY: Fall COMPARISON: None available. LOCATION: U19 TECHNIQUE: Axial noncontrast CT images of the cervical spine were obtained. Axially acquired data were reformatted in coronal and sagittal planes for further analysis. This examination was performed according to our departmental dose optimization program, which includes automated exposure control, adjustment of the mA and/or kV according to patient size, and/or use of iterative reconstruction technique. FINDINGS: The cervical spine demonstrate preserved lordotic curvature. The vertebral body heights are well-maintained. Moderate to severe disc height loss noted throughout the lower cervical spine from C5-T1. No significant bony spinal canal narrowing. Overall mild to moderate spinal degenerative changes with multilevel moderate to severe neural foraminal narrowing from C5-T1 predominantly related to facet hypertrophy. No soft tissue abnormalities. There is asymmetric hypertrophy of the left thyroid gland with minimal posterior extension. The lung apices are unremarkable. Visualized intracranial contents are only remarkable for metallic density just superior to the planum sphenoidale, which is likely iatrogenic. IMPRESSION: No acute fracture or traumatic malalignment. Overall mild to moderate spinal degenerative changes with multilevel bilateral moderate to severe neural foraminal narrowing from C5-T1. at 1353 Reported and signed by: VERÓNICA KELSEY DO PAGE 1 Signed Report (CONTINUED) FAX: Frandy Shaw [place]: St: REG Name: CASSIA KELSEY [facility] : 1945 Age/S: 74/F [address] Unit: [id number] Loc: [place] [address] Phys: Frandy Shaw MD R1 Acct: [id number] Dis Date: Status: REG ER PHONE #: [phone] Exam Date: 03/26/2020 1326 FAX #: [phone] Reason: fall EXAMS: CPT CODE: [id number] CT C-SPINE W/O CONT 04387 <Continued> CC: Frandy Shaw MD Technologist: Ara Wilde Trnscrd Dt/Tm: 03/26/2020 (1353) [email or web address] Orig Print D/T: S: 03/26/2020 (2659 PAGE 2 Signed Report - CT HEAD/BRAIN 2020-03-26 FAX: W/O CONT 13:43:00 Frandy Shaw [place]: St: REG Name: CASSIA KELSEY [facility] : 1945 Age/S: 74/F [address] Unit: [id number] Loc: [place] [address] Phys: Frandy Shaw MD R1 Acct: [id number] Dis Date: Status: REG ER PHONE #: [phone] Exam Date: 03/26/2020 1326 FAX #: [phone] Reason: fall thinners EXAMS: CPT CODE: [id number] CT HEAD/BRAIN W/O CONT 33134 EXAM: - CT HEAD/BRAIN W/O CONT INDICATION: fall thinners LOCATION: T18 COMPARISON: None available time of interpretation. TECHNIQUE: Axial tomograms through the brain were obtained without intravenous contrast. Coronal and sagittal reformatted images are provided. All CT scans are performed using radiation dose reduction technique. Technical factors are evaluated and adjusted to insure appropriate moderation of exposure. Automated dose management technology is applied to adjust the radiation dose to minimize exposure while achieving a diagnostic quality image. FINDINGS: Intra-axial and extra-axial structures: Metallic clips seen at the basilar cistern, resulting in beam hardening artifact, and diminishes for assessment of the adjacent structures. Within this limitation, no CT evidence of acute territorial infarct, or intracranial hemorrhage seen. No mass effect, midline shift or hydrocephalus seen. Bilateral periventricular low attenuation changes seen, suggesting sequela of chronic small vessel ischemic disease. Bones and soft tissues:The patient is post left craniotomy. Paranasal sinuses, and mastoid air cells: Appear clear. Orbits:Visualized orbits appear unremarkable. IMPRESSION: No acute intracranial process seen. Metallic clips identified at the basal cistern, resulting in beam hardening artifact, and diminishes sensitivity for assessment of the adjacent structures. at 1343 Reported and signed by: Dao Potter MD PAGE 1 Signed Report (CONTINUED) FAX: Frandy Shaw [place]: St: REG Name: CASSIA KELSEY [facility] : 1945 Age/S: 74/F [address] Unit: [id number] Loc: [place] [address] Phys: Frandy Shaw MD R1 Acct: [id number] Dis Date: Status: REG ER PHONE #: [phone] Exam Date: 03/26/2020 1326 FAX #: [phone] Reason: fall thinners EXAMS: CPT CODE: [id number] CT HEAD/BRAIN W/O CONT 04813 <Continued> CC: Frandy Shaw MD Technologist: Ara Wilde Trnscrd Dt/Tm: 03/26/2020 (0603) [email or web address] Orig Print D/T: S: 03/26/2020 (2570 PAGE 2 Signed Report COMPREHENSIVE METABOLIC PANEL 2020-03-26 13:23:00 Test Item Value Reference Range Interpretation Comme nts SODIUM (test code = NA) 140 mmol/L 137-145 N POTASSIUM (test code = K) 3.8 mmol/L 3.4-5.0 N CHLORIDE (test code = CL) 98 mmol/L 98-107 N CARBON DIOXIDE (test code = 33 mmol/L 22-30 H CO2) GLUCOSE (test code = GLU) 158 mg/dL 74-106 H BLOOD UREA NITROGEN (test code 31 mg/dL 7-17 H = BUN) GLOMERULAR FILTRATION RATE 51 >60 L T he estimated glomerular (test code = GFR) filtration rate is computed usingpatient ra ce, age (>18), sex, and serum creatinine. If anyof the neede d data elements are missing the Laboratory cannot compute an amanda mation of the glomerular filt ration rate. 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 BILIRUBIN UNCONJUGATED (test 0.2 mg/dL 0-1.1 N code = BILUNC) SGOT/AST (test code = AST) 61 U/L 15-46 H SGPT/ALT (test code = ALT) 30 U/L 0-34 N ALKALINE PHOSPHATASE (test 146 U/L 38-126 H code = ALKP) PROTHROMBIN [id number] 13:07:00 Test Item Value Reference Range Interpretation Comments PROTHROMBIN TIME 14.5 SECONDS 9.2-12.1 H PATIENT (test code = PTP) INTERNATIONAL NORMAL 1.3 The INR is to be used RATIO (test code = only for monitoring INR) ORAL ANTICOAGULANTTH ERAPY. Indicati on INR Value1. Prophylaxis/annalisa atment of: Venous Thrombosis, Pul monary Embolism 2.0 - 3.02. Preventi on of systemic emboli sm from: Tiss ue heart valves 2.0 - 3.0 Acute myocardial infa rction (to present systemic emboli sm)* 2.0 - 3.0 Valvular heart disease 2.0 - 3.0 Atrial fibrillation 2.0 - 3.03. [employer] Operator al prosthetic valv es (high risk) 2.5 - 3.5 * If oral anticoagulant t herapy is elected to preventrecurren t myocardial infa rction, an INR of 2.5-3 .5 isrecommended, consistent with Food and Drug Administrationr ecommen dations. THROMBOPLASTIN TIME [id number] 13:07:00 Test Item Value Reference Range Interpretation Comments THROMBOPLASTIN TIME 23.7 SECONDS 23.4-37.0 N Therap eutic Range PARTIAL (test code = for Hep clint PTT) EFFECTIVE Heparin IU/mL aPT T Seconds0.3 64.30.7 88.8 CBC W/AUTO [id number] 12:58:00 Test Item Value Reference Range Interpretation Comments WHITE BLOOD CELL (test code = 11.7 x10 3/uL 5.0-12.0 N WBC) RED BLOOD CELL (test code = 3.75 x10 6/uL 4.20-5.40 L RBC) HEMOGLOBIN (test code = HGB) 11.5 g/dL 12.0-16.0 L HEMATOCRIT (test code = HCT) 35.8 % 36.0-46.0 L MEAN CELL VOLUME (test code = 96 fL 81-99 N MCV) MEAN CELL HGB (test code = MCH) 30.7 pg 27-31 N MEAN CELL HGB CONCENTRATION 32.1 g/dL 33-37 L (test code = MCHC) RED CELL DISTRIBUTION WIDTH 13.8 % 11.5-15.5 N (test code = RDW) PLATELET COUNT (test code = 251 x10 3/uL 130-400 N PLT) MEAN PLATELET VOLUME (test code 9.9 fL 9.4-16.4 N = MPV) NEUTROPHIL % (test code = NT%) 63.3 % 43-65 N IMMATURE GRANULOCYTE % (test 0.4 % 0.0-2.0 N code = IG%) LYMPHOCYTE % (test code = LY%) 25.7 % 20.5-45.5 N MONOCYTE % (test code = MO%) 7.2 % 5.5-11.7 N EOSINOPHIL % (test code = EO%) 2.9 % 0.9-2.9 N BASOPHIL % (test code = BA%) 0.5 % 0.2-1.0 N NUCLEATED RBC % (test code = 0.0 % 0-1.0 N NRBC%) NEUTROPHIL # (test code = NT#) 7.41 x10 3/uL 2.2-4.8 H IMMATURE GRANULOCYTE # (test 0.05 x10 3/uL 0-0.03 H code = IG#) LYMPHOCYTE # (test code = LY#) 3.02 x10 3/uL 1.3-2.9 H MONOCYTE # (test code = MO#) 0.85 x10 3/uL 0.3-0.8 H EOSINOPHIL # (test code = EO#) 0.34 x10 3/uL 0.0-0.2 H BASOPHIL # (test code = BA#) 0.06 x10 3/uL 0.0-0.1 N - XR PELVIS 08/01 [id number] 12:35:00 FAX: Frandy Shaw [place]: St: REG Name: LOWCASSIA G [facility] : 1945 Age/S: 74/F [address] Unit#: [id number] Loc: [place] [address] Phys: Frandy Shaw MD R1 Acct: [id number] Dis Date: Status: REG ER PHONE #: [phone] Exam Date: 03/26/2020 1229 FAX #: [phone] Reason: fall EXAMS: CPT CODE: [id number] XR PELVIS 1/2 VIEWS 84728 EXAM: - XR PELVIS 1/2 VIEWS INDICATION: fall Location: T 18. COMPARISON: None. TECHNIQUE: 1 view. FINDINGS: Diminished sensitivity secondary to patient body habitus. No acute fractureseen. Soft tissues appear grossly unremarkable. IMPRESSION: No acute fracture seen. Diminished sensitivity at 1231 Reported and signed by: Dao Potter MD CC: Frandy Shaw MD Technologist: Lazaro Hall Date/Time/By: 03/26/2020 (9432) : By: [email or web address] PAGE 1 Signed Report FAX: Frandy Shaw [place]: St: REG -- Name: CASSIA KELSEY [facility] : 1945 Age/S: 74/[address] Unit #: [id number] Loc: [place] [address] Phys: Frandy Shaw MD R1 Acct: [id number] Dis Date: Status: REG ER PHONE #: [phone] Exam Date: 03/26/2020 1229 FAX #: [phone] Reason: fall EXAMS: CPT CODE: [id number] XR PELVIS 1/2 VIEWS 62931 <Continued> Orig Print D/T: S: 03/26/2020 (6244) PAGE 2 Signed Report- XR CHEST 1 [id number] 12:32:00 FAX: Frandy Shaw [place]: St: REG Name: CASSIA KELSEY [place] : 1945 Age/S: 74/F [address] Unit#: [id number] Loc: [place] [address] Phys: Frandy Shaw MD R1 Acct: [id number] Dis Date: Status: REG ER PHONE #: [phone] Exam Date: 03/26/2020 1222 FAX #: [phone] Reason: fall EXAMS: CPT CODE: [id number] XR CHEST 1 V 58842 EXAM: - XR CHEST 1 V INDICATION: fall Location: T 18. COMPARISON: None TECHNIQUE: Frontal view of the chest. FINDINGS: Mild elevation of the left hemidiaphragm, suspect small amount of left lung base opacity. No pneumothorax seen. Cardiomediastinal silhouette and osseous structures appear unremarkable. No definite evidence of an acute displaced rib fracture seen. IMPRESSION: Mild elevation of left hemidiaphragm, with suspected small amount of left lung base opacity, suggesting small pleural effusion or pleural thickening with atelectasis or pneumonia. at 1232 Reported and signed by: Dao Potter MD CC: Frandy Shaw MD Technologist: Lazaro Hall Date/Time/By: 03/26/2020 (1232) : By: Maria [email or web address] PAGE 1 Signed Report FAX: Frandy Shaw [place]: [facility]: RE G Name: CASSIA KELSEY [place] : 1945 Age/S: 74/F [address] Unit #: [id number] Loc: [place] [address] Phys: Frandy Shaw MD R1 Acct: [id number] Dis Date: Status: REG ER PHONE #: [phone] Exam Date: 03/26/2020 1222 FAX #: [phone] Reason: fall EXAMS: CPT CODE: [id number] XR CHEST 1 V 39536 <Continued> Orig Print D/T: S: 03/26/2020 (5988) PAGE 2 Signed ReportCT, BRAIN, WITHOUT [id number] 14:47:00Reason for exam:- >eval for stroke, unable to obtain MRIFINAL REPORT CT, BRAIN, WITHOUT CONTRAST INDICATION: Stroke, follow upeval for stroke, unable to obtain MRI TECHNIQUE: Noncontrast axial imaging was obtained from the vertex to the skull base. Axial images were reconstructed using a bone algorithm. DOSE REDUCTION: Dose modulation, iterative reconstruction, and/or weight-based adjustment of the mA/kV was utilized to reduce the radiation dose to as low as reasonably achievable. 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 This is seen on only one image of the axial sequence, and clearly artifactual based on sagittal and coronal reconstructions. No intracranial hemorrhage or abnormal extra-axial collection. Continued evolution of the left anterior temporal lobe infarct. No significant mass effect. No hydrocephalus. Osseous structures: Postoperative changes. Paranasal sinuses and mastoid air cells: No evidence of sinusitis. Mastoids are clear. Orbital contents: Globes are intact. IMPRESSION: Evolving left anterior temporal lobe infarct.No intracranial hemorrhage. Signed: Ludmila Finney MDReport Verified Date/Time: 05/02/2019 14:47:24 -GLUCOSE [id number] 12:03:00 Test Item Value Reference Range Interpretation Comments POC-GLUCOSE METER 237 mg/dL 70-110 H TESTED AT [place] [address] ([facility]) (test code = JACQUE Lopez [place] [address]) [address] POCT-GLUCOSE [id number] 07:42:00 Test Item Value Reference Range Interpretation Comments POC-GLUCOSE METER 155 mg/dL 70-110 H TESTED AT [facility] [address] ([facility]) (test code = JACQUE LEIGH [place] 1538) [address] POCT-GLUCOSE [id number] 23:26:00 Test Item Value Reference Range Interpretation Comments POC-GLUCOSE METER 300 mg/dL 70-110 H TESTED AT [facility] [address] ([facility]) (test code = JACQUE [place] 1538) [address] CT, CTANGIO [id number] 17:04:00Reason for exam:->eval for strokeFINAL REPORT CLINICAL HISTORY: Stroke, follow upeval for stroke TECHNIQUE: Initially, noncontrast head CT images were performed. Contiguous contrast-enhanced axial images throughthe neck followed by axial images through the head with coronal and sagittal reformations to assess the arterial circulation. 3-D reconstructions were performed using a volume rendered technique separately on a workstation. This exam was performed according to the departmental dose optimization program which includes automated exposure control, adjustment of the mA and/or kV according to the patient size, and/or use of an iterative reconstruction technique. COMPARISON: CT 04/29/2019 FINDINGS: CTA head:Postoperative changes of prior left frontal craniotomy and aneurysm clipping in the region of the anterior cerebral arteries. There is a region of hypoattenuation with loss of astorga-white differentiation within the anterior left temporal lobe consistent with acute infarct. No convincing acute intracranial hemorrhage. There is no hydrocephalus or midline shift. The skull is intact. Aneurysm clips in the region of the anterior cerebral arteries, and associated is streak artifact, limiting evaluation of the proximal ACAs segments. The MCAs and chair mechanic are patent without occlusion or high-grade stenosis.Distal bilateral ACAs are patent. The major intradural venous sinuses are patent. CTA neck:Great vessel origins: No occlusion or high-grade stenosis. Carotid arteries: No occlusion or high-grade stenosis. Vertebral arteries: No occlusion or high- grade stenosis. Mild degenerative changes of the cervical spine. Calcified left thyroid nodule measuring up to 1.4 cm, which does not require further imaging. Scarring and calcification of the visualized lung apices. IMPRESSION:1.Streak artifact relatedto ANA MARIA region aneurysm clips, partially limits evaluation in this region.2.Acute to early subacute left anterior temporal lobe infarct.3.No convincing intracranial hemorrhage.4.No arterial occlusion orhigh-grade stenosis where visualized. Signed: Ludmila Finney Verified Date/Time: 05/01/2019 17:04:53 CT, CAROTID, [id number] 17:04:00Reason for exam:- >eval strokeFINAL REPORT CLINICAL HISTORY: Stroke, follow upeval for stroke TECHNIQUE: Initially, noncontrast head CT images were performed. Contiguous contrast-enhanced axial images throughthe neck followed by axial images through the head with coronal and sagittal reformations to assess t he arterial circulation. 3-D reconstructions were performed using a volume rendered technique separately on a workstation. This exam was performed according to the departmental dose optimization program which includes automated exposure control, adjustment of the mA and/or kV according to the patient size, and/or use of an iterative reconstruction technique. COMPARISON: CT 04/29/2019 FINDINGS: CTA head:Postoperative changes of prior left frontal craniotomy and aneurysm clipping in the region of the anterior cerebral arteries. There is a region of hypoattenuation with loss of astorga-white differentiation within the anterior left temporal lobe consistent with acute infarct. No convincing acute intracranial hemorrhage. There is no hydrocephalus or midline shift. The skull is intact. Aneurysm clips in the region of the anterior cerebral arteries, and associated is streak artifact, limiting evaluation of the proximal ACAs segments. The MCAs and chair mechanic are patent without occlusion or high-grade stenosis. Distal bilateral ACAs are patent. The major intradural venous sinuses are patent. CTA neck:Great vessel origins: No occlusion or high-grade stenosis. Carotid arteries: No occlusion or high-grade stenosis. Vertebral arteries: No occlusion or high-grade stenosis. Mild degenerative changes of the cervical spine. Calcified left thyroid nodule measuring up to 1.4 cm, which does not require further imaging. Scarring and calcification of the visualized lung apices. IMPRESSION:1.Streak artifact relatedto ANA MARIA region aneurysm clips, partially limits evaluation in this region.2.Acute to early subacute left anterior temporal lobe infarct.3.No convincing intracranial hemorrhage.4.No arterial occlusion orhigh-grade stenosis where visualized. Signed: Ludmila Finney Verified Date/Time: 05/01/2019 17:04:53 POCT-GLUCOSE METER 2019-05-01 17:03:00 Test Item Value Reference Range Interpretation Comments POC-GLUCOSE METER 135 mg/dL 70-110 H TESTED AT [facility] [address] ([facility]) (test code = JACQUE Lopez [facility] 1538) [address] POCT-GLUCOSE [id number] 12:56:00 Test Item Value Reference Range Interpretation Comments POC-GLUCOSE METER 329 mg/dL 70-110 H Notified John Vincent MD/TESTED ([facility]) (test code = AT [facility] [address] [facility]) [facility] [address] POCT-GLUCOSE [id number] 08:12:00 Test Item Value Reference Range Interpretation Comments POC-GLUCOSE METER 140 mg/dL 70-110 H TESTED AT [facility] [address] ([facility]) (test code = JACQUE Lopez [facility] 1538) [address] BASIC METABOLIC [id number] 07:13:00 Test Item Value Reference Range Interpretation Comments SODIUM (BEAKER) 139 meq/L 136-145 (test code = 381) POTASSIUM (BEAKER) 4.0 meq/L 3.5-5.1 (test code = 379) CHLORIDE (BEAKER) 106 meq/L 98-107 (test code = 382) CO2 (BEAKER) (test 23 meq/L 22-29 code = 355) BLOOD UREA NITROGEN 19 mg/dL 7-21 (BEAKER) (test code = 354) CREATININE (BEAKER) 1.00 mg/dL 0.57-1.25 (test code = 358) GLUCOSE RANDOM 142 mg/dL 70-105 H (BEAKER) (test code = 652) CALCIUM (BEAKER) 9.4 mg/dL 8.4-10.2 (test code = 697) EGFR (BEAKER) (test 54 mL/min/1.73 ESTIMA LIZY GFR IS code = 1092) sq m NOT ACCURATE CREATININE CLEARANCE IN PREDICTING GLOMERULAR FILTRATION RATE . ESTIMATED GFR I S NOT APPLICABLE FOR DIALYSIS PATIEN TS. CBC W/PLT COUNT & AUTO [id number] 06:37:00 Test Item Value Reference Range Interpretation Comments WHITE BLOOD CELL COUNT (BEAKER) 9.1 K/ L 3.5-10.5 (test code = 775) RED BLOOD CELL COUNT (BEAKER) 3.51 M/ L 3.93-5.22 L (test code = 761) HEMOGLOBIN (BEAKER) (test code = 11.5 GM/DL 11.2-15.7 410) HEMATOCRIT (BEAKER) (test code = 33.2 % 34.1-44.9 L 411) MEAN CORPUSCULAR VOLUME (BEAKER) 94.6 fL 79.4-94.8 (test code = 753) MEAN CORPUSCULAR HEMOGLOBIN 32.8 pg 25.6-32.2 H (BEAKER) (test code = 751) MEAN CORPUSCULAR HEMOGLOBIN CONC 34.6 GM/DL 32.2-35.5 (BEAKER) (test code = 752) RED CELL DISTRIBUTION WIDTH 12.6 % 11.7-14.4 (BEAKER) (test code = 412) PLATELET COUNT (BEAKER) (test 312 K/CU MM 150-450 code = 756) MEAN PLATELET VOLUME (BEAKER) 10.0 fL 9.4-12.3 (test code = 754) NUCLEATED RED BLOOD CELLS 0 /100 WBC 0-0 (BEAKER) (test code = 413) NEUTROPHILS RELATIVE PERCENT 28 % (BEAKER) (test code = 429) LYMPHOCYTES RELATIVE PERCENT 54 % (BEAKER) (test code = 430) MONOCYTES RELATIVE PERCENT 9 % (BEAKER) (test code = 431) EOSINOPHILS RELATIVE PERCENT 8 % (BEAKER) (test code = 432) BASOPHILS RELATIVE PERCENT 1 % (BEAKER) (test code = 437) NEUTROPHILS ABSOLUTE COUNT 2.56 K/ L 1.56-6.13 (BEAKER) (test code = 670) LYMPHOCYTES ABSOLUTE COUNT 4.89 K/ L 1.18-3.74 H (BEAKER) (test code = 414) MONOCYTES ABSOLUTE COUNT (BEAKER) 0.81 K/ L 0.24-0.36 H (test code = 415) EOSINOPHILS ABSOLUTE COUNT 0.71 K/ L 0.04-0.36 H (BEAKER) (test code = 416) BASOPHILS ABSOLUTE COUNT (BEAKER) 0.08 K/ L 0.01-0.08 (test code = 417) IMMATURE GRANULOCYTES-RELATIVE 1 % 0-1 PERCENT (BEAKER) (test code = 2801) POCT-GLUCOSE [id number] 21:36:00 Test Item Value Reference Range Interpretation Comments POC-GLUCOSE METER 169 mg/dL 70-110 H TESTED AT [place] [address] ([facility]) (test code = [facility] John [facility] 1538) [address] POCT-GLUCOSE [id number] 17:12:00 Test Item Value Reference Range Interpretation Comments POC-GLUCOSE METER 156 mg/dL 70-110 H TESTED AT [place] [address] ([facility]) (test code = [facility] 1538) [address] POCT-GLUCOSE [id number] 12:23:00 Test Item Value Reference Range Interpretation Comments POC-GLUCOSE METER 267 mg/dL 70-110 H TESTED AT [place] [address] ([facility]) (test code = [facility] 1538) [address] POCT-GLUCOSE [id number] 08:41:00 Test Item Value Reference Range Interpretation Comments POC-GLUCOSE METER 172 mg/dL 70-110 H TESTED AT [place] [address] ([facility]) (test code = [facility] 1538) [address] BASIC METABOLIC [id number] 07:45:00 Test Item Value Reference Range Interpretation Comments SODIUM (BEAKER) 140 meq/L 136-145 (test code = 381) POTASSIUM (BEAKER) 4.5 meq/L 3.5-5.1 (test code = 379) CHLORIDE (BEAKER) 109 meq/L 98-107 H (test code = 382) CO2 (BEAKER) (test 21 meq/L 22-29 L code = 355) BLOOD UREA NITROGEN 19 mg/dL 7-21 (BEAKER) (test code = 354) CREATININE (BEAKER) 0.95 mg/dL 0.57-1.25 (test code = 358) GLUCOSE RANDOM 135 mg/dL 70-105 H (BEAKER) (test code = 652) CALCIUM (BEAKER) 9.0 mg/dL 8.4-10.2 (test code = 697) EGFR (BEAKER) (test 57 mL/min/1.73 ESTIMA LIZY GFR IS code = 1092) sq m NOT ACCURATE CREATININE CLEARANCE IN PREDICTING GLOMERULAR FILTRATION RATE . ESTIMATED GFR I S NOT APPLICABLE FOR DIALYSIS PATIEN TS. CBC W/PLT COUNT & AUTO [id number] 06:18:00 Test Item Value Reference Range Interpretation Comments WHITE BLOOD CELL COUNT (BEAKER) 7.8 K/ L 3.5-10.5 (test code = 775) RED BLOOD CELL COUNT (BEAKER) 3.34 M/ L 3.93-5.22 L (test code = 761) HEMOGLOBIN (BEAKER) (test code = 10.6 GM/DL 11.2-15.7 L 410) HEMATOCRIT (BEAKER) (test code = 31.9 % 34.1-44.9 L 411) MEAN CORPUSCULAR VOLUME (BEAKER) 95.5 fL 79.4-94.8 H (test code = 753) MEAN CORPUSCULAR HEMOGLOBIN 31.7 pg 25.6-32.2 (BEAKER) (test code = 751) MEAN CORPUSCULAR HEMOGLOBIN CONC 33.2 GM/DL 32.2-35.5 (BEAKER) (test code = 752) RED CELL DISTRIBUTION WIDTH 12.6 % 11.7-14.4 (BEAKER) (test code = 412) PLATELET COUNT (BEAKER) (test 295 K/CU MM 150-450 code = 756) MEAN PLATELET VOLUME (BEAKER) 10.1 fL 9.4-12.3 (test code = 754) NUCLEATED RED BLOOD CELLS 0 /100 WBC 0-0 (BEAKER) (test code = 413) NEUTROPHILS RELATIVE PERCENT 24 % (BEAKER) (test code = 429) LYMPHOCYTES RELATIVE PERCENT 56 % (BEAKER) (test code = 430) MONOCYTES RELATIVE PERCENT 11 % (BEAKER) (test code = 431) EOSINOPHILS RELATIVE PERCENT 8 % (BEAKER) (test code = 432) BASOPHILS RELATIVE PERCENT 1 % (BEAKER) (test code = 437) NEUTROPHILS ABSOLUTE COUNT 1.91 K/ L 1.56-6.13 (BEAKER) (test code = 670) LYMPHOCYTES ABSOLUTE COUNT 4.36 K/ L 1.18-3.74 H (BEAKER) (test code = 414) MONOCYTES ABSOLUTE COUNT (BEAKER) 0.84 K/ L 0.24-0.36 H (test code = 415) EOSINOPHILS ABSOLUTE COUNT 0.65 K/ L 0.04-0.36 H (BEAKER) (test code = 416) BASOPHILS ABSOLUTE COUNT (BEAKER) 0.06 K/ L 0.01-0.08 (test code = 417) IMMATURE GRANULOCYTES-RELATIVE 0 % 0-1 PERCENT (BEAKER) (test code = 2801) POCT-GLUCOSE [id number] 21:28:00 Test Item Value Reference Range Interpretation Comments POC-GLUCOSE METER 268 mg/dL 70-110 H TESTED AT [place] [address] ([facility]) (test code = JACQUE Lopez [facility] 1538) [address] POCT-GLUCOSE [id number] 17:44:00 Test Item Value Reference Range Interpretation Comments POC-GLUCOSE METER 258 mg/dL 70-110 H TESTED AT [place] [address] ([facility]) (test code = JACQUE Lopez [facility] 1538) [address] POCT-GLUCOSE [id number] 14:15:00 Test Item Value Reference Range Interpretation Comments POC-GLUCOSE METER 208 mg/dL 70-110 H TESTED AT [place] [address] ([facility]) (test code = JACQUE Lopez [facility] 1538) [address] BASIC METABOLIC [id number] 13:21:00 Test Item Value Reference Range Interpretation Comments SODIUM (BEAKER) 140 meq/L 136-145 (test code = 381) POTASSIUM (BEAKER) 4.0 meq/L 3.5-5.1 (test code = 379) CHLORIDE (BEAKER) 109 meq/L 98-107 H (test code = 382) CO2 (BEAKER) (test 24 meq/L 22-29 code = 355) BLOOD UREA NITROGEN 26 mg/dL 7-21 H (BEAKER) (test code = 354) CREATININE (BEAKER) 1.19 mg/dL 0.57-1.25 (test code = 358) GLUCOSE RANDOM 252 mg/dL 70-105 H (BEAKER) (test code = 652) CALCIUM (BEAKER) 9.2 mg/dL 8.4-10.2 (test code = 697) EGFR (BEAKER) (test 44 mL/min/1.73 ESTIMA LIZY GFR IS code = 1092) sq m NOT ACCURATE CREATININE CLEARANCE IN PREDICTING GLOMERULAR FILTRATION RATE . ESTIMATED GFR I S NOT APPLICABLE FOR DIALYSIS PATIEN TS. CBC W/PLT COUNT & AUTO [id number] 12:52:00 Test Item Value Reference Range Interpretation Comments WHITE BLOOD CELL COUNT (BEAKER) 7.6 K/ L 3.5-10.5 (test code = 775) RED BLOOD CELL COUNT (BEAKER) 3.26 M/ L 3.93-5.22 L (test code = 761) HEMOGLOBIN (BEAKER) (test code = 10.6 GM/DL 11.2-15.7 L 410) HEMATOCRIT (BEAKER) (test code = 31.6 % 34.1-44.9 L 411) MEAN CORPUSCULAR VOLUME (BEAKER) 96.9 fL 79.4-94.8 H (test code = 753) MEAN CORPUSCULAR HEMOGLOBIN 32.5 pg 25.6-32.2 H (BEAKER) (test code = 751) MEAN CORPUSCULAR HEMOGLOBIN CONC 33.5 GM/DL 32.2-35.5 (BEAKER) (test code = 752) RED CELL DISTRIBUTION WIDTH 12.7 % 11.7-14.4 (BEAKER) (test code = 412) PLATELET COUNT (BEAKER) (test 284 K/CU MM 150-450 code = 756) MEAN PLATELET VOLUME (BEAKER) 9.9 fL 9.4-12.3 (test code = 754) NUCLEATED RED BLOOD CELLS 0 /100 WBC 0-0 (BEAKER) (test code = 413) NEUTROPHILS RELATIVE PERCENT 26 % (BEAKER) (test code = 429) LYMPHOCYTES RELATIVE PERCENT 54 % (BEAKER) (test code = 430) MONOCYTES RELATIVE PERCENT 11 % (BEAKER) (test code = 431) EOSINOPHILS RELATIVE PERCENT 8 % (BEAKER) (test code = 432) BASOPHILS RELATIVE PERCENT 1 % (BEAKER) (test code = 437) NEUTROPHILS ABSOLUTE COUNT 2.00 K/ L 1.56-6.13 (BEAKER) (test code = 670) LYMPHOCYTES ABSOLUTE COUNT 4.10 K/ L 1.18-3.74 H (BEAKER) (test code = 414) MONOCYTES ABSOLUTE COUNT (BEAKER) 0.87 K/ L 0.24-0.36 H (test code = 415) EOSINOPHILS ABSOLUTE COUNT 0.60 K/ L 0.04-0.36 H (BEAKER) (test code = 416) BASOPHILS ABSOLUTE COUNT (BEAKER) 0.05 K/ L 0.01-0.08 (test code = 417) IMMATURE GRANULOCYTES-RELATIVE 0 % 0-1 PERCENT (BEAKER) (test code = 2801) CT, BRAIN, WITHOUT [id number] 12:34:00Reason for exam:->right leg weakness, ? TIA vs strokeFINAL REPORT CT, BRAIN, WITHOUT CONTRAST CLINICAL INDICATION: right leg weakness, ? TIA vs strokeright leg weakness. ? TIA vs stroke COMPARISON: None TECHNIQUE: Noncontrast axial CT imaging of the brain and skull. DOSE REDUCTION: Dose modulation, iterative reconstruction, and/or weight-based adjustment of the mA/kV was utilized to reduce the radiation dose to as low as reasonably achievable. FINDINGS: Prior left pterional craniotomy, presumably for aneurysm clipping with clip overlying the left ICA terminus. Streak artifact from clip minimally limits evaluation of the adjacent parenchyma. Within these limitations, nointracranial hemorrhage, midline shift or mass effect. Midline structures are normally developed. Mild chronic microvascular ischemic changes of the periventricular and subcortical white matter are present. No hydrocephalus. Orbits are within normal limits. Prior bilateral lens surgery. Atherosclerotic calcification of the intracranial internal carotid andvertebral arteries. No obstructive paranasal sinus disease. IMPRESSION: No evidence of acute infarct. Prior left pterional craniotomy for aneurysm clipping. If there is persistent clinical concern for intracranial pathology, MR examination is recommended for further characterization. Signed: Heike Adkins MDReport Verified Date/Time: 04/29/2019 12:34:14 Reading Location: [address] Neuro Reading Room POCT-GLUCOSE [id number] 07:49:00 Test Item Value Reference Range Interpretation Comments POC-GLUCOSE METER 170 mg/dL 70-110 H TESTED AT [place] [address] ([facility]) (test code = JACQUE Lopez [facility] 1538) [id number] POCT-GLUCOSE [id number] 21:52:00 Test Item Value Reference Range Interpretation Comments POC-GLUCOSE METER 227 mg/dL 70-110 H TESTED AT [place] [address] ([facility]) (test code = JACQUE Lopez [facility] 1538) [id number] POCT-GLUCOSE [id number] 17:00:00 Test Item Value Reference Range Interpretation Comments POC-GLUCOSE METER 277 mg/dL 70-110 H TESTED AT [place] [address] ([facility]) (test code = JACQUE Lopez [facility] 1538) [id number] POCT-GLUCOSE [id number] 11:19:00 Test Item Value Reference Range Interpretation Comments POC-GLUCOSE METER 306 mg/dL 70-110 H TESTED AT [facility] [address] ([facility]) (test code = JACQUE Lopez [facility] 1538) [id number] HEMOGLOBIN [id number] 08:41:00 Test Item Value Reference Range Interpretation Comments HEMOGLOBIN A1C (BEAKER) (test code = 7.8 % 4.3-6.1 H 368) POCT-GLUCOSE [id number] 07:54:00 Test Item Value Reference Range Interpretation Comments POC-GLUCOSE METER 165 mg/dL 70-110 H TESTED AT [facility] [address] ([facility]) (test code = JACQUE Lopez [facility] 1538) [address] LIPID [id number] 05:59:00 Test Item Value Reference Range Interpretation Comments TRIGLYCERIDES (BEAKER) (test code = 219 mg/dL 540) CHOLESTEROL (BEAKER) (test code = 101 mg/dL 631) HDL CHOLESTEROL (BEAKER) (test code 25 mg/dL = 976) LDL CHOLESTEROL CALCULATED (BEAKER) 32 mg/dL (test code = 633) Triglyceride Reference Range: Low Risk <150 Borderline 150-199 High Risk 200-499 Very High Risk >=500Cholesterol Reference Range: Low Risk <200 Borderline 200-239 High Risk >240HDL Cholesterol Reference Range: Low Risk >=60 High Risk <40LDL Cholesterol Reference Range: Optimal <100 Near Optimal 100-129 Borderline 130-159 High 160-189 Very High >=190 FastingBASIC METABOLIC [id number] 05:59:00 Test Item Value Reference Range Interpretation Comments SODIUM (BEAKER) 141 meq/L 136-145 (test code = 381) POTASSIUM (BEAKER) 4.3 meq/L 3.5-5.1 (test code = 379) CHLORIDE (BEAKER) 104 meq/L 98-107 (test code = 382) CO2 (BEAKER) (test 28 meq/L code = 355) BLOOD UREA NITROGEN 46 mg/dL 7-21 H (BEAKER) (test code = 354) CREATININE (BEAKER) 1.48 mg/dL 0.57-1.25 H (test code = 358) GLUCOSE RANDOM 219 mg/dL 70-105 H (BEAKER) (test code = 652) CALCIUM (BEAKER) 9.6 mg/dL 8.4-10.2 (test code = 697) EGFR (BEAKER) (test 34 mL/min/1.73 ESTIMA LIZY GFR IS code = 1092) sq m NOT ACCURATE CREATININE CLEARANCE IN PREDICTING GLOMERULAR FILTRATION RATE . ESTIMATED GFR I S NOT APPLICABLE FOR DIALYSIS PATIEN TS. FastingCB (HEMOGRAM ONLY)2019-04-28 05:36:00 Test Item Value Reference Range Interpretation Comments WHITE BLOOD CELL COUNT (BEAKER) 6.2 K/ L 3.5-10.5 (test code = 775) RED BLOOD CELL COUNT (BEAKER) 3.63 M/ L 3.93-5.22 L (test code = 761) HEMOGLOBIN (BEAKER) (test code = 11.4 GM/DL 11.2-15.7 410) HEMATOCRIT (BEAKER) (test code = 35.1 % 34.1-44.9 411) MEAN CORPUSCULAR VOLUME (BEAKER) 96.7 fL 79.4-94.8 H (test code = 753) MEAN CORPUSCULAR HEMOGLOBIN 31.4 pg 25.6-32.2 (BEAKER) (test code = 751) MEAN CORPUSCULAR HEMOGLOBIN CONC 32.5 GM/DL 32.2-35.5 (BEAKER) (test code = 752) RED CELL DISTRIBUTION WIDTH 12.6 % 11.7-14.4 (BEAKER) (test code = 412) PLATELET COUNT (BEAKER) (test 287 K/CU MM 150-450 code = 756) MEAN PLATELET VOLUME (BEAKER) 10.2 fL 9.4-12.3 (test code = 754) NUCLEATED RED BLOOD CELLS 0 /100 WBC 0-0 (BEAKER) (test code = 413) POCT-GLUCOSE [id number] 23:58:00 Test Item Value Reference Range Interpretation Comments POC-GLUCOSE METER 272 mg/dL 70-110 H TESTED AT [facility] [address] ([facility]) (test code = JACQUE SORIANO 1538) [id number] POCT-GLUCOSE [id number] 17:13:00 Test Item Value Reference Range Interpretation Comments POC-GLUCOSE METER 251 mg/dL 70-110 H TESTED AT [place] [address] (BEAKER) (test code = JACQUE LEIGH [place] 1538) [id number] VITAMIN B12 AND [id number] 12:54:00 Test Item Value Reference Range Interpretation Comments VITAMIN B12 (BEAKER) (test code = 622 pg/mL 213-816 774) FOLATE (BEAKER) (test code = 362) > ng/mL >=7.0 TSH/FREE T4 IF [id number] 12:40:00 Test Item Value Reference Range Interpretation Comments THYROID STIMULATING HORMONE 0.54 uIU/mL 0.35-4.94 (BEAKER) (test code = 772) URINALYSIS [id number] 12:06:00 Test Item Value Reference Range Interpretation Comments RBC UA (BEAKER) (test code = 519) 3 /HPF WBC UA (BEAKER) (test code = 520) 114 /HPF SQUAMOUS EPITHELIAL (BEAKER) (test 4 /HPF code = 516) HYALINE CASTS (BEAKER) (test code = 2 /LPF 514) URINALYSIS WITH MICROSCOPIC IF [id number] 12:03:00 Test Item Value Reference Range Interpretation Comments COLOR (BEAKER) (test code = 470) Light Yellow CLARITY (BEAKER) (test code = Hazy 469) SPECIFIC GRAVITY UA (BEAKER) 1.008 1.001-1.035 (test code = 468) PH UA (BEAKER) (test code = 467) 6.5 5.0-8.0 PROTEIN UA (BEAKER) (test code = Negative Negative 464) GLUCOSE UA (BEAKER) (test code = Negative Negative 365) KETONES UA (BEAKER) (test code = Negative Negative 371) BILIRUBIN UA (BEAKER) (test code Negative Negative = 462) BLOOD UA (BEAKER) (test code = Negative Negative 461) NITRITE UA (BEAKER) (test code = Negative Negative 465) LEUKOCYTE ESTERASE UA (BEAKER) Large Negative A (test code = 466) UROBILINOGEN UA (BEAKER) (test 0.2 mg/dL 0.2-1.0 code = 463) SOURCE(BEAKER) (test code = 2795) POCT-GLUCOSE [id number] 11:46:00 Test Item Value Reference Range Interpretation Comments POC-GLUCOSE METER 178 mg/dL 70-110 H TESTED AT [place] [address] ([facility]) (test code = YUNIORSHANA John [facility] 1538) [id number] POCT-GLUCOSE [id number] 08:47:00 Test Item Value Reference Range Interpretation Comments POC-GLUCOSE METER 113 mg/dL 70-110 H TESTED AT [place] [address] ([facility]) (test code = [facility] John [facility] 1538) [id number]
--- NOTE | 2020-12-01 12:00 | RAD REPORT ---
EXAM DESCRIPTION: CT - CTHCSPWOC - 12/01/2020 11:40 am CLINICAL HISTORY: head injury, fall COMPARISON: Ct Stroke Brain Wo Cont dated 04/27/2019 TECHNIQUE: Axial 5 mm thick images of the head were obtained. Axial 2 mm thick images of the cervic al spine were obtained with sagittal and coronal reconstruction images generated and reviewed. All CT scans are performed using dose optimization technique as appropriate and may include automated exposure control or mA/KV adjustment according to patient size. FINDINGS: No intracranial hemorrhage, mass, edema or acute intracranial finding. No suspicion for ac [place] infarction. No extra-axial fluid collections. Mastoid air cells and paranasal sinuses are clear. No globe or orbit abnormality seen. Aneurysm clip is present near the left-side [place] and there are postsurgical changes to the lateral frontal bone. Gliosis changes are present in the anteri or temporal lobe. Patient has atrophy and chronic ischemic changes similar to 2019. Cervical assessment is limited. The patient is substantially tilted and rotated within the scanner. P atient has significant degenerative change in the cervical spine but no fracture identified. No sublu xation or alignment abnormality seen. There is minimal rotation of the C1 ring relative to the right lateral mass of C2 probably not clinically significant. Multilevel disc space narrowing present. No f racture or acute bony abnormality. Central canal detail is inherently limited. No paraspinal mass or hematoma. IMPRESSION: No hemorrhage or other acute intracranial finding. The above detailed CT head findings a re stable from March 2019. Cervical spine degenerative changes are present as detailed. No fracture or acute finding confirmed.
[2020-12-01 12:17] LABS: Absolute Lymphocytes (CBC) 3.3 K/uL (0.7-4.9); Basophils % 0.7 % (0-1.3); Hematocrit 34.8 % (36.0-45.0); Lymphocytes % 35.3 % (15.3-44.8)
[2020-12-01 12:18] LABS: Protime INR 1.33
[2020-12-01 12:32] LABS: ALT/SGPT 29 U/L (12-78); AST/SGOT 31 U/L (15-37); Albumin 3.3 g/dL (3.4-5.0); Alkaline Phosphatase 169 U/L (45-117); BUN Blood Urea Nitrogen 33 mg/dL (7-18); Bicarbonate 33 mmol/L (21-32); Bilirubin Direct 0.2 mg/dL (0-0.2); Bilirubin Total 0.6 mg/dL (0.2-1.0); Glucose Level 151 mg/dL (74-106); Magnesium 2.5 mg/dL (1.8-2.4); NT PRO-BNP 512 pg/mL (<450); Potassium 3.6 mmol/L (3.5-5.1); Protein, Total 8.2 g/dL (6.4-8.2); Sodium Level 135 mmol/L (136-145); Troponin (Emerg Dept Use Only) < 0.02 ng/mL (0.0-0.045)
--- NOTE | 2020-12-01 13:20 | RAD REPORT ---
EXAM DESCRIPTION: CT - Chest Abdomen Pelvis W Cont - 12/01/2020 12:55 pm CLINICAL HISTORY: Chest and abdominal pain status post fall COMPARISON: CT abdomen 2019 TECHNIQUE: Computed axial tomography of the chest, abdomen and pelvis was obtained. 100 cc Isovue-30 0 was administered intravenously. Oral contrast was not requested. This limits evaluation of bowel. All CT scans are performed using dose optimization technique as appropriate and may include automated exposure control or mA/KV adjustment according to patient size. FINDINGS: A pleural effusion is not present. A pulmonary contusion is not seen. A mediastinal hematoma is not present. The liver, spleen, pancreas, adrenals, kidneys and bladder do not demonstrate traumatic injury. No ascites. Postsurgical changes involve spine. Neurostimulator device place Left hip fracture is not seen. IMPRESSION: No acute traumatic injury involving the chest, abdomen nor pelvis is seen.
--- NOTE | 2020-12-01 14:56 | EDPHYS ---
Physician Documentation [facility] Name: Casie Kelley Age: 75 yrs Sex: Female : 1945 Arrival Date: 12/01/2020 Time: 11:23 Bed 8 Private MD: ED Physician Everett Yoon HPI: 12/01 11:24 This 75 yrs old Female presents to ER via EMS with complaints of Fall Injury. [facility] 11:24 Details of fall: The patient fell from an upright position, while walking. Onset: The [facility] symptoms/episode began/occurred acutely, just prior to arrival. Associated injuries: The patient sustained injury to the head, neck injury, left hip. This is a 75 year old female with a history of chronic pain that presents to the ED with complaints of left sided pain, headache, neck pain following a fall which occurred just prior to arrival. Patient states she tripped on her walker. Patient also complains of pain to her left lower leg. Prescribed abx by her pcp yesterday. patient sttes swelling has decreased since. . Historical: - Allergies: 11:26 Codeine; ss 11:26 Compazine; ss 11:26 Darvon; ss 11:26 Demerol; ss 11:26 HYDROCODONE; ss 11:26 Levofloxacin; ss 11:26 Lyrica; ss 11:26 Meperidine; ss 11:26 PENTAZOCINE; ss 11:26 sulfamethoxazole (bulk); ss 11:26 Talwin; ss 11:26 TRIMETHOPRIM; ss 11:26 Vioxx; ss 11:26 Codeine; sv 11:26 Compazine; sv 11:26 Darvon; sv 11:26 Demerol; sv 11:26 HYDROCODONE; sv 11:26 Levofloxacin; sv 11:26 Lyrica; sv 11:26 Meperidine; sv 11:26 PENTAZOCINE; sv 11:26 sulfamethoxazole (bulk); sv 11:26 Talwin; sv 11:26 TRIMETHOPRIM; sv 11:26 Vioxx; sv - Home Meds: 12:11 alendronate 70 mg oral tab 1 tab once wkly [Active]; glipizide-metformin 2.5-500 mg sv oral tab 1 tab 2 times per day [Active]; metolazone 2.5 mg oral tab weekly [Active]; nitrofurantoin macrocrystal 100 mg Oral cap 1 cap twice a day [Active]; midodrine 5 mg oral tab twice a day [Active]; aspirin 81 mg Oral chew 1 tab once daily [Active]; morphine 15 mg Oral tab 1 tab daily prn for Severe Pain [Active]; sertraline 100 mg oral tab 1 tab once daily [Active]; montelukast 10 mg Oral tab 1 tab nightly [Active]; gabapentin 300 mg Oral cap 1 cap 3 times per day [Active]; Eliquis 5 mg Oral tab 1 tab 2 times per day [Active]; atorvastatin 40 mg Oral tab 1 tab nightly [Active]; amiodarone 200 mg Oral tab 1 tab once daily [Active]; doxycycline hyclate 100 mg Oral cap 1 cap every 12 hours [Active]; levothyroxine 50 mcg oral tab once daily [Active]; omeprazole 40 mg Oral cpDR 1 cap 2 times per day [Active]; torsemide 20 mg oral tab 2 tabs twice a day [Active]; spironolactone 25 mg Oral tab 1 tab once daily [Active]; Calcium 600 600 mg (1,500 mg) oral tab daily [Active]; 12:33 Klor-Con M20 20 mEq Oral TbTQ 2 tab 2 times per day [Active]; Renew life 1 tab daily sv [Active]; boswellia stuart xt (bulk) 65 % miscellaneous powd daily [Active]; multivitamin oral cap daily [Active]; d-mannose oral 500 mg daily oral [Active]; - PMHx: 11:26 vaginal atrophy; Aneurysm; Cervical Spondylosis; Chronic pain; lymphedema; spinal ss stenosis; GERD; PERIPHERAL NEUROPATHY; Sleep Apnea; Hypothyroidism; multiple thyroid nodules; Diabetes - NIDDM; Gastroparesis; Obesity; CVA; ileus; heel spur; Fibromyalgia; constipation; 11:26 Cervical Spondylosis; CVA; Diabetes - NIDDM; Gastroparesis; constipation; Chronic pain; sv PERIPHERAL NEUROPATHY; GERD; Aneurysm; Hypothyroidism; multiple thyroid nodules; Fibromyalgia; lymphedema; Obesity; heel spur; ileus; Sleep Apnea; spinal stenosis; vaginal atrophy; - PSHx: 11:26 Cholecystectomy; Hysterectomy; Appendectomy; Disc surgery; PAIN MANAGEMENT PUMP; ss 11: Cholecystectomy; Hysterectomy; Appendectomy; Disc surgery; PAIN MANAGEMENT PUMP; sv shoulder repair; - Immunization history:: Adult Immunizations up to date. - Social history:: Smoking status: Patient denies any tobacco usage or history of. ROS: 11:24 Constitutional: Negative for fever, chills, and weight loss, Cardiovascular: Negative jmm for chest pain, palpitations, and edema, Respiratory: Negative for shortness of breath, cough, wheezing, and pleuritic chest pain. 11:24 MS/extremity: Positive for pain, swelling. 11:24 All other systems are negative. Exam: 11:24 Constitutional: This is a well developed, well nourished patient who is awake, alert, jmm and in no acute distress. Head/Face: atraumatic. Eyes: EOMI, no conjunctival erythema appreciated ENT: Moist Mucus Membranes Neck: Trachea midline, Supple Chest/axilla: Normal chest wall appearance and motion. Cardiovascular: Regular rate and rhythm. No edema appreciated Respiratory: Normal respirations, no respiratory distress appreciated Abdomen/GI: Non distended, soft Back: Normal ROM 11:24 Musculoskeletal/extremity: left hip ttp, pain on flexion of the hip joint. 11:24 Skin: erythema and induration noted to the right lower leg, ttp, full dorsalis pulse, compartments are soft, NVI. 11:24 Neuro: Orientation: is normal, Mentation: is normal, Memory: is normal. 11:24 Psych: Behavior/mood is pleasant, cooperative. Vital Signs: 11:19 BP 144 / 58; Pulse 65; Resp 14; Temp 98.6(TE); Pulse Ox 99% on R/A; Weight 102.51 kg; ss Height 5 ft. 1 in. (154.94 cm); Pain 8/10; 12:00 BP 129 / 56; Pulse 67; Resp 15; Temp 98.7; Pulse Ox 97% ; sv 12:30 BP 122 / 46; Pulse 64; Resp 15; Pulse Ox 97% ; sv 13:00 BP 124 / 74; Pulse 64; Resp 12; Pulse Ox 97% ; sv 13:30 BP 121 / 56; Pulse 71; Resp 14; Pulse Ox 97% ; sv 14:30 BP 125 / 50; Pulse 63; Resp 21; Pulse Ox 93% on R/A; sv 15:24 BP 112 / 79; Pulse 64; Resp 16; Pulse Ox 95% ; bp 11:19 Body Mass Index 42.70 (102.51 kg, 154.94 cm) ss Maty Coma Score: 12:00 Eye Response: spontaneous(4). Verbal Response: oriented(5). Motor Response: obeys sv commands(6). Total: 15. Trauma Score (Adult): 12:00 Eye Response: spontaneous(1); Verbal Response: oriented(1); Motor Response: obeys sv commands(2); Systolic BP: > 89 mm Hg(4); Respiratory Rate: 10 to 29 per min(4); [place] Score: 15; Trauma Score: 12 13:00 Eye Response: spontaneous(1); Verbal Response: oriented(1); Motor Response: obeys sv commands(2); Systolic BP: > 89 mm Hg(4); Respiratory Rate: 10 to 29 per min(4); [place] Score: 15; Trauma Score: 12 13:30 Eye Response: spontaneous(1); Verbal Response: oriented(1); Motor Response: obeys sv commands(2); Systolic BP: > 89 mm Hg(4); Respiratory Rate: 10 to 29 per min(4); [place] Score: 15; Trauma Score: 12 MDM: 11:33 Patient medically screened. [facility] 14:53 Data reviewed: vital signs, nurses notes. Counseling: I had a detailed discussion with kita the patient and/or guardian regarding: the historical points, exam findings, and any diagnostic results supporting the discharge/admit diagnosis, lab results, radiology results, the need for outpatient follow up, to return to the emergency department if symptoms worsen or persist or if there are any questions or concerns that arise at home. Refusal of service: The patient/guardian displays adequate decision making capability and despite a detailed discussion of alternatives, benefits, risks, and consequences refuses: Admission to the hospital for further work-up and treatment. ED course: Patient is alert and non toxic in appearance in the ED. Imaging studies negative for an acute process. Patient states her right leg has decreased swelling since oral abx. 12/01 11:24 Order name: Basic Metabolic Panel [facility] 12/01 11:24 Order name: CBC with Diff [facility] 12/01 11:24 Order name: LFT's [facility] 12/01 11:24 Order name: Magnesium [facility] 12/01 11:24 Order name: NT PRO-BNP [facility] 12/01 11:24 Order name: PT-INR [facility] 12/01 11:24 Order name: Troponin (emerg Dept Use Only) [facility] 12/01 11:25 Order name: Basic Metabolic Panel; Complete Time: 13:20 [facility] 12/01 11:25 Order name: CBC with Automated Diff; Complete Time: 12:23 [facility] 12/01 11:25 Order name: Liver (Hepatic) Function; Complete Time: 13:20 [facility] 12/01 11:25 Order name: Magnesium; Complete Time: 13:20 [facility] 12/01 11:25 Order name: NT PRO-BNP; Complete Time: 13:20 [facility] 12/01 11:25 Order name: Protime (+INR); Complete Time: 12:23 [facility] 12/01 11:25 Order name: Troponin (Emerg Dept Use Only); Complete Time: 13:20 [facility] 12/01 11:24 Order name: EKG; Complete Time: 11:25 [facility] 12/01 11:24 Order name: Cardiac monitoring; Complete Time: 12:45 [facility] 12/01 11:24 Order name: EKG - Nurse/Tech; Complete Time: 12:45 [facility] 12/01 11:24 Order name: IV Saline Lock; Complete Time: 12:45 [facility] 12/01 11:24 Order name: Labs collected and sent; Complete Time: 12:45 [facility] 12/01 11:24 Order name: O2 Per Protocol; Complete Time: 12:45 [facility] 12/01 11:24 Order name: O2 Sat Monitoring; Complete Time: 12:45 [facility] 12/01 11:24 Order name: CT Head C Spine; Complete Time: 12:02 [facility] 12/01 12:02 Order name: CT Chest, Abdomen, Pelvis - W/Contrast; Complete Time: 13:22 jm Administered Medications: No medications were administered Disposition: 12/02 11:20 Co-signature as Attending Physician, Everett Yoon MD I agree with the assessment and isaias plan of care. Disposition: 12/01/20 14:55 Discharged to Home. Impression: Fall, Head Injury, Hip Contusion, Cellulitis of the Lower Leg. - Condition is Stable. - Discharge Instructions: Head Injury, Adult, Hip Pain. - Medication Reconciliation Form, Thank You Letter, Antibiotic Education, Prescription Opioid Use form. - Follow up: Private Physician; When: 2 - 3 days; Reason: Recheck today's complaints, Continuance of care, Re-evaluation by your physician. Signatures: Dispatcher [employer] Herlinda Denson RN RN Everett Post MD MD cha Mickail, Joel, PA PA jmm Smirch, Shelby, RN RN ss Corrections: (The following items were deleted from the chart) 12/01 15:28 14:55 12/01/2020 14:55 Discharged to Home. Impression: Fall; Head Injury; Hip sv Contusion; Cellulitis of the Lower Leg. Condition is Stable. Forms are Medication Reconciliation Form, Thank You Letter, Antibiotic Education, Prescription Opioid Use. Follow up: Private Physician; When: 2 - 3 days; Reason: Recheck today's complaints, Continuance of care, Re-evaluation by your physician. kita
--- NOTE | 2020-12-01 14:56 | ER ---
Nurse's Notes [facility] Name: Casie Kelley Age: 75 yrs Sex: Female : 1945 Arrival Date: 12/01/2020 Time: 11:23 Bed 8 Private MD: Diagnosis: Fall;Head Injury;Hip Contusion;Cellulitis of the Lower Leg Presentation: 12/01 11:19 Chief complaint: EMS states: Wheel of walker got caught causing patient to fall onto L ss side from standing. Pt c/o pain to L hip and states that she did hit her head. Denies LOC. significant bruising noted to R lower abd, but states that was from a previous fall and had already been seen for it in the ED previously. Coronavirus screen: Client denies travel out of the [place] in the last 14 days. Ebola Screen: Patient denies exposure to infectious person. Patient denies travel to an Ebola-affected area in the 21 days before illness onset. Initial Sepsis Screen: Does the patient meet any 2 criteria? No. Patient's initial sepsis screen is negative. Does the patient have a suspected source of infection? No. Patient's initial sepsis screen is negative. Risk Assessment: Do you want to hurt yourself or someone else? Patient reports no desire to harm self or others. Onset of symptoms was December 01, 2020. 11:19 Method Of Arrival: EMS: [facility] ss 11:19 Acuity: HAN 2 ss 11:20 Care prior to arrival: Cervical collar in place. Placed on backboard. Mechanism of sv Injury: Fall from standing position. Trauma event details: Injury occurred in the [facility], Injury occurred: at home. Trauma Activation: Alert Physician: ED Physician; Name: Dr Yoon; Notified At: 11:19; Arrived At: Physician: General Surgeon; Name: ; Notified At: 11:19; Arrived At: Physician: Radiology; Name: Ilda; Notified At: 11:19; Arrived At: Physician: Respiratory; Name: ; Notified At: 11:19; Arrived At: Physician: Lab; Name: ; Notified At: 11:19; Arrived At: Historical: - Allergies: 11:26 Codeine; ss 11:26 Compazine; ss 11:26 Darvon; ss 11:26 Demerol; ss 11:26 HYDROCODONE; ss 11:26 Levofloxacin; ss 11:26 Lyrica; ss 11:26 Meperidine; ss 11:26 PENTAZOCINE; ss 11:26 sulfamethoxazole (bulk); ss 11:26 Talwin; ss 11:26 TRIMETHOPRIM; ss 11:26 Vioxx; ss 11:26 Codeine; sv 11:26 Compazine; sv 11:26 Darvon; sv 11:26 Demerol; sv 11:26 HYDROCODONE; sv 11:26 Levofloxacin; sv 11:26 Lyrica; sv 11:26 Meperidine; sv 11:26 PENTAZOCINE; sv 11:26 sulfamethoxazole (bulk); sv 11:26 Talwin; sv 11:26 TRIMETHOPRIM; sv 11:26 Vioxx; sv - Home Meds: 12:11 alendronate 70 mg oral tab 1 tab once wkly [Active]; glipizide-metformin 2.5-500 mg sv oral tab 1 tab 2 times per day [Active]; metolazone 2.5 mg oral tab weekly [Active]; nitrofurantoin macrocrystal 100 mg Oral cap 1 cap twice a day [Active]; midodrine 5 mg oral tab twice a day [Active]; aspirin 81 mg Oral chew 1 tab once daily [Active]; morphine 15 mg Oral tab 1 tab daily prn for Severe Pain [Active]; sertraline 100 mg oral tab 1 tab once daily [Active]; montelukast 10 mg Oral tab 1 tab nightly [Active]; gabapentin 300 mg Oral cap 1 cap 3 times per day [Active]; Eliquis 5 mg Oral tab 1 tab 2 times per day [Active]; atorvastatin 40 mg Oral tab 1 tab nightly [Active]; amiodarone 200 mg Oral tab 1 tab once daily [Active]; doxycycline hyclate 100 mg Oral cap 1 cap every 12 hours [Active]; levothyroxine 50 mcg oral tab once daily [Active]; omeprazole 40 mg Oral cpDR 1 cap 2 times per day [Active]; torsemide 20 mg oral tab 2 tabs twice a day [Active]; spironolactone 25 mg Oral tab 1 tab once daily [Active]; Calcium 600 600 mg (1,500 mg) oral tab daily [Active]; 12:33 Klor-Con M20 20 mEq Oral TbTQ 2 tab 2 times per day [Active]; Renew life 1 tab daily sv [Active]; fortino davidson xt (bulk) 65 % miscellaneous powd daily [Active]; multivitamin oral cap daily [Active]; d-mannose oral 500 mg daily oral [Active]; - PMHx: 11:26 vaginal atrophy; Aneurysm; Cervical Spondylosis; Chronic pain; lymphedema; spinal ss stenosis; GERD; PERIPHERAL NEUROPATHY; Sleep Apnea; Hypothyroidism; multiple thyroid nodules; Diabetes - NIDDM; Gastroparesis; Obesity; CVA; ileus; heel spur; Fibromyalgia; constipation; 11:26 Cervical Spondylosis; CVA; Diabetes - NIDDM; Gastroparesis; constipation; Chronic pain; sv PERIPHERAL NEUROPATHY; GERD; Aneurysm; Hypothyroidism; multiple thyroid nodules; Fibromyalgia; lymphedema; Obesity; heel spur; ileus; Sleep Apnea; spinal stenosis; vaginal atrophy; - PSHx: 11:26 Cholecystectomy; Hysterectomy; Appendectomy; Disc surgery; PAIN MANAGEMENT PUMP; ss 11:26 Cholecystectomy; Hysterectomy; Appendectomy; Disc surgery; PAIN MANAGEMENT PUMP; sv shoulder repair; - Immunization history:: Adult Immunizations up to date. - Social history:: Smoking status: Patient denies any tobacco usage or history of. Screenin:27 Abuse screen: Denies threats or abuse. Denies injuries from another. Nutritional ss screening: No deficits noted. Tuberculosis screening: Never had TB. 11:45 Fall Risk Fall in past 12 months (25 points). No secondary diagnosis (0 pts). IV access sv (20 points). Ambulatory Aid- None/Bed Rest/Nurse Assist (0 pts). Gait- Normal/Bed Rest/Wheelchair (0 pts) Mental Status- Oriented to own ability (0 pts). Total Miller Fall Scale indicates High Risk Score (45 or more points). Fall prevention measures have been instituted. Side Rails Up X 2 Placed Close to Nursing Station Frequent Obs/Assessments Occuring As available patient and family educated on Fall Prevention Program and Strategies. Primary Survey: 11:45 NO uncontrolled hemorrhage observed. A: The patient is alert. Airway: patent, No sv supplemental oxygen in use on arrival. Oral cavity: clear, Trachea midline. Breathing/Chest: Respiratory pattern: regular, Respiratory effort: spontaneous, unlabored, Chest inspection: symmetrical rise and fall of the chest. Circulation: Cardiac rhythm: sinus rhythm Heart tones present. Pulses: palpable right radial artery and left radial artery. Skin color: pink, Skin temperature: warm, dry. Disability Alert. Exposure/Environment: All clothing and personal items were removed. Forensic evidence collection is not deemed to be indicated at this time. Items placed in patient belonging bag. There is no evidence of uncontrolled external bleeding. No obvious injuries are noted at this time. A warming method has been applied: A warm blanket has been provided to the patient. 12:30 Reassessment Airway Airway Patent Oxygen No O2 Oral cavity Clear Trachea Midline sv Breathing/Chest Respiratory pattern Regular Respiratory effort Spontaneous Unlabored Chest inspection Symmetrical Circulation Heart rhythm Sinus rhythm Heart tones Present Pulses Palpable Color Blue Temperature Warm Dry Disability Alert. Secondary Survey: 11:45 HEENT: No deficits noted. Gastrointestinal: Abdomen is bruised right lower quadrant sv Other purple and yellow in color, pt stated that was from her fall a few days ago. Pt also has her pain pump in that area. Palpation No deficit noted. : No signs and/or symptoms were reported regarding the genitourinary system. Musculoskeletal: No signs and/or symptoms reported regarding the musculoskeletal system. Pt has a wound noted to the RLE that is from her last fall as well. She is currently on antibiotics and stated that the swelling has improved. Assessment: 11:27 Reassessment: Pt in CT now. ss 11:42 Reassessment: Pt back from CT via stretcher. sv 13:30 Reassessment: Patient appears in no apparent distress at this time. Patient and/or sv family updated on plan of care and expected duration. Pain level reassessed. Patient is alert, oriented x 3, equal unlabored respirations, skin warm/dry/pink. 15:28 Reassessment: Patient appears in no apparent distress at this time. Patient and/or sv family updated on plan of care and expected duration. Pain level reassessed. Patient is alert, oriented x 3, equal unlabored respirations, skin warm/dry/pink. Patient states feeling better. Vital Signs: 11:19 BP 144 / 58; Pulse 65; Resp 14; Temp 98.6(TE); Pulse Ox 99% on R/A; Weight 102.51 kg; ss Height 5 ft. 1 in. (154.94 cm); Pain 8/10; 12:00 BP 129 / 56; Pulse 67; Resp 15; Temp 98.7; Pulse Ox 97% ; sv 12:30 BP 122 / 46; Pulse 64; Resp 15; Pulse Ox 97% ; sv 13:00 BP 124 / 74; Pulse 64; Resp 12; Pulse Ox 97% ; sv 13:30 BP 121 / 56; Pulse 71; Resp 14; Pulse Ox 97% ; sv 14:30 BP 125 / 50; Pulse 63; Resp 21; Pulse Ox 93% on R/A; sv 15:24 BP 112 / 79; Pulse 64; Resp 16; Pulse Ox 95% ; bp 11:19 Body Mass Index 42.70 (102.51 kg, 154.94 cm) ss Maty Coma Score: 12:00 Eye Response: spontaneous(4). Verbal Response: oriented(5). Motor Response: obeys sv commands(6). Total: 15. Trauma Score (Adult): 12:00 Eye Response: spontaneous(1); Verbal Response: oriented(1); Motor Response: obeys sv commands(2); Systolic BP: > 89 mm Hg(4); Respiratory Rate: 10 to 29 per min(4); [place] Score: 15; Trauma Score: 12 13:00 Eye Response: spontaneous(1); Verbal Response: oriented(1); Motor Response: obeys sv commands(2); Systolic BP: > 89 mm Hg(4); Respiratory Rate: 10 to 29 per min(4); Maty Score: 15; Trauma Score: 12 13:30 Eye Response: spontaneous(1); Verbal Response: oriented(1); Motor Response: obeys sv commands(2); Systolic BP: > 89 mm Hg(4); Respiratory Rate: 10 to 29 per min(4); [place] Score: 15; Trauma Score: 12 ED Course: 11:19 Arm band placed on right wrist. ss 11:23 Patient arrived in ED. ss 11:23 Herlinda Gifford, JUDY is Primary Nurse. sv 11:24 Delbert Oliveros PA is PHCP. jmm 11:24 Everett Yoon MD is Attending Physician. jmm 11:40 CT Head C Spine In Process Unspecified. EDMS 11:45 Patient has correct armband on for positive identification. Placed in gown. Bed in low sv position. Call light in reach. Side rails up X2. 11:45 Patient maintains SpO2 saturation greater than 95% on room air. sv 11:45 Thermoregulation: warm blanket given to patient. sv 11:58 Triage completed. ss 12:45 Basic Metabolic Panel Sent. sv 12:45 CBC with Diff Sent. sv 12:45 Troponin (emerg Dept Use Only) Sent. sv 12:45 PT-INR Sent. sv 12:45 NT PRO-BNP Sent. sv 12:46 Magnesium Sent. sv 12:46 LFT's Sent. sv 12:56 CT Chest, Abdomen, Pelvis - W/Contrast In Process Unspecified. EDMS 15:28 IV discontinued, intact, bleeding controlled, No redness/swelling at site. Pressure sv dressing applied. 15:28 No provider procedures requiring assistance completed. sv Administered Medications: No medications were administered Intake: 12:00 PO: 0ml; Total: 0ml. sv 13:00 PO: 0ml; Total: 0ml. sv 13:30 PO: 0ml; Total: 0ml. sv Output: 12:00 Urine: 0ml; Total: 0ml. sv 13:00 Urine: 0ml; Total: 0ml. sv 13:30 Urine: 0ml; Total: 0ml. sv Outcome: 14:55 Discharge ordered by . kita 15:28 Patient left the ED. sv 15:28 Discharged to home via wheelchair, with family. sv 15:28 Condition: stable 15:28 Condition: improved 15:28 Patient's length of stay in the Emergency Department was greater than 2 hours. Patient's length of stay was extended due to staffing issues within the emergency department. 15:28 Discharge instructions given to patient, family, Instructed on discharge instructions, sv follow up and referral plans. Demonstrated understanding of instructions, follow-up care. Signatures: Dispatcher [employer] Herlinda Denson, Delbert Dailey RN, PA PA jmm Smirch, Shelby, RN RN Kishore Black, JUDY RN bp
[2020-12-01 15:36] VITALS: TEMP 98.7
[2020-12-01 15:43] VITALS: BP 112/79; O2SAT 95
--- NOTE | 2020-12-03 07:25 | EKG ---
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
== END 2020-12-01 15:28 | disposition home or self-care (01) ==
LOC: ER 11:22
DX: L03.116 Cellulitis of left lower limb (principal); S70.02XA Contusion of left hip, initial encounter; W18.09XA Striking against other object with subsequent fall, initial encounter; Y93.01 Activity, walking, marching and hiking; Z79.01 Long term (current) use of anticoagulants; Z79.82 Long term (current) use of aspirin; Z86.73 Personal history of transient ischemic attack (TIA), and cerebral infarction without residual deficits; Z88.1 Allergy status to other antibiotic agents; Z88.2 Allergy status to sulfonamides; Z88.3 Allergy status to other anti-infective agents; Z88.5 Allergy status to narcotic agent; Z88.6 Allergy status to analgesic agent; Z88.8 Allergy status to other drugs, medicaments and biological substances; E03.9 Hypothyroidism, unspecified; E11.42 Type 2 diabetes mellitus with diabetic polyneuropathy
CPT/HCPCS: 93005; 85025; 80048; 36415; 83735; 85610; 80076; 84484; 83880; 70450; 72125; 71260; 74177; Q9967; 99284; G0390

== ENCOUNTER 2021-04-14 10:19 | Inpatient (IN) | payer OTHER, MEDICARE ==
--- OUTSIDE RECORDS SUMMARY | 2021-04-14 10:25 | XMS REPORT | Continuity of Care Document ---
:1945 Author Organization [facility] t Address [address] [place] [id number] Care Team Providers Name Role Phone Rey MENDES, A Primary Care Physician Keyon Le MD Attending Clinician 2, Lab Attending Clinician Unavailable Pob, Lab Main Attending Clinician Unavailable Meredith MENDES S Attending Clinician Jose Francisco ALEJO Attending Clinician Provider, Urgent Care Attending Clinician [...] Details Category Date Date Treatment Clinician Date UTI UTI Disease Active Univers symptoms symptoms 7-06 ity of 00:: [place] [facility] Abdominal Abdominal Disease Active Uni vers bloating bloating 7-06 ity of 00:: [place] [facility] Bleeds Bleeds Disease Active Univers easily easily 7-06 ity of 00:: [place] [facility] High blood High blood Disease Active U nivers copper copper 7-06 ity of level level 00:: [place] [facility] Hematoma Hematoma Disease Active Unive rs 6-03 ity of 00:00: [place] [facility] Atypical Atypical Disease Active Unive rs chest pain chest pain 5-26 it y of 00:: [place] [facility] Dyslipidem Dyslipidem Disease Active U nivers ia ia 5-12 ity of 00:00: [place] [facility] Essential Essential Disease Active Uni vers hypertensi hypertensi 5-12 it y of on on 00:00: [place] [facility] Memory Memory Disease Active Univers changes changes 2-03 ity of 00:00: [place] [facility] Hypotensio Hypotensio Disease Active U nivers n, n, 2-03 ity of unspecifie unspecifie [place] hypotensio hypotensio Br anch n type n type Recurrent Recurrent Disease Active Uni vers falls falls 8-10 ity of 00:00: [place] [facility] Tremor Tremor Disease Active 2019- Univers 8-10 ity of 00:00: [place] [id number] Medical Branch Bradycardi Bradycardi Disease Active 2019- U nivers a a 8-10 ity of 00:00: [address] Branch Acute Acute Disease Active 2018-[address] [facility] ischemic ischemic 0-03 [facility] stroke stroke 00:00: [place] [id number] Center JOSE (acute JOSE (acute Disease Active [facility] kidney kidney 04-28 [facility] injury) injury) 00:00: Medical 00 Center Type 2 Type [address] [facility]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 04-28 [facility] mellitus mellitus 00:00: Medica l 00 Center Carotid Carotid Disease Active [facility] stenosis stenosis 04-28 [facility] 00[facility] Center Obesity Obesity Disease Active [facility] 04-28 [facility] 00 Center Chronic Chronic Disease Active [facility] anticoagul anticoagul 04-28 [facility] - ation ation 00:00: Medical 00 Center Sleep Sleep Disease Active [facility] apnea apnea 04-28 [facility] 00:[facility] Center Weakness Weakness Disease [facility] Center Chronic Chronic Disease Active Univers heart heart 04-23 ity of failure failure 00:00: [place] with with 00 Medical preserved preserved Bran ch ejection ejection fraction fraction PAF PAF Disease Active Univers (paroxysma (paroxysma 3-11 it y of l atrial l atrial 00:00: [place] fibrillati fibrillati 00 Me dical on) on) Branch Carotid Carotid Disease Active 2017-07 Overview: Univ ers stenosis, stenosis, 2-14 Formattin i ty of asymptomat asymptomat 00:00: g of this [place] ic, ic, 00 note Medical bilateral bilateral might be Br anch different from the original. Added automatic ally from request for surgery [id number] Carotid Carotid Disease Active Univers artery artery 8-01 ity of disease, disease, 00:00: [place] unspecifie unspecifie 00 Me dical d d Branch laterality laterality Acute on Acute on Disease Active Unive rs chronic chronic 5-21 ity of diastolic diastolic 00:00[place] congestive congestive 00 Me dical heart heart Branch failure failure Body mass Body mass Disease Active Uni vers index index 6-24 ity of (BMI) (BMI) 00:00: [place] greater greater 00 Medical than 30 in than 30 in Br anch adult adult Type 2 Type 2 Disease Active Univers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 7-27 ity of mellitus mellitus 00:00: [place] without without 00 Medical complicati complicati Br anch on, on, without without long-term long-term current current use of use of insulin insulin Multiple Multiple Disease Active Unive rs thyroid thyroid 6-07 ity of nodules nodules 00:00: [place] 00 Medical Branch Lump in Lump in Disease Active Univers neck neck 3-23 ity of 00:00: [place] 00 Medical Branch Neuropathy Neuropathy Disease Active U nivers of both of both 3-07 ity of feet feet 00:00: [place] 00 Medical Branch S/P lumbar S/P lumbar Disease Active U nivers spinal spinal 3-21 ity of arthrodesi arthrodesi 00:00: [place] [facility] Lumbar Lumbar Disease Active Univers degenerati degenerati 3-21 it y of ve disc ve disc 00:00: [place] disease disease 00 Medical Branch Cellulitis Cellulitis Disease Active 2012-[address] 08-22 [facility] Center Chronic Chronic Disease Active 2012-[address] [facility] pain pain 08-21 [facility] 00:[facility] Medical 00 Center Hypertensi Hypertensi Disease Active 2012-[address] on on 08-21 [facility] 00:[facility] Medical 00 Center Hypothyroi Hypothyroi Disease Active 2012-[address] dism dism 08-21 [facility] 00:[facility]: Medical 00 Center Presence Presence Disease Active 2012-07 [facility] of 08[facility] - intratheca intratheca 00:00: Me dical l pump l pump 00 Center Spinal Spinal Disease Active Univers stenosis, stenosis, 8-12 ity of lumbar lumbar 00:00: [place] region, region, 00 Medical without without Branch neurogenic neurogenic claudicati claudicati on on 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 8-12 it y of s with s with 00:00: [place] myelopathy myelopathy 00 Me dical Branch Acute Acute Disease Active Univers cystitis cystitis 2-04 ity of with with 00:00: [place] hematuria hematuria 00 Medi david Branch Vaginal Vaginal Disease Active 2011-07 Univers atrophy atrophy 1-14 ity of 00:00: [place] 00 Medical Branch 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 1-14 it y of ce urge ce urge 00:00: [place] and stress and stress 00 Me dical (male)(fem (male)(fem Br anch mojgan) mojgan) Lymphedema Lymphedema Disease Active U nivers ity of [place] [facility] Neuropathy Neuropathy Disease Active U nivers ity of [facility] Branch Heel spur Heel spur Disease Active Uni vers ity of [facility] Primary Primary Disease Active Univers hypothyroi hypothyroi it y of dism dism [facility] Fibromyalg Fibromyalg Disease Active U nivers ia ia ity of [facility] Gastropare Gastropare Disease Active U nivers sis sis ity of [facility] Cerebral Cerebral Disease Active Overview: Un pepito infarction infarction Formattin ity of g of this [place] note Medical might be Branch different from the original. no residual Aneurysm Aneurysm Disease Active Overview: Un pepito Formattin ity of g of this [place] note Medical might be Branch different from the original. L frontal - cerebral -short term memory loss GERD GERD Disease Resolve 2020-11-06 2020-11-06 Univers (gastroeso (gastroeso d 00:00:00 18:21:59 ity of phageal phageal [place] reflux reflux Medical disease) disease) Branch Complicate Complicate Disease Resolve 2020-05-30 2020-05-31 Univers d UTI d UTI d 5-14 00:00:00 00:41:45 ity of (urinary (urinary 00:00: [place] tract tract 00 Medical infection) infection) Br anch Chest pain Chest pain Disease Resolve 2020-05-30 2020-05-31 Univers d 5-23 00:00:00 00:41:42 ity of 00:00: [place] 00 [facility] Branch Hypokalemi Hypokalemi Disease Resolve 2020-05-30 2020-05-31 Univers a a d 5-22 00:00:00 00:41:50 ity of 00:00: [place] 00 [facility] Branch Kidney Kidney Disease Resolve 2020-05-30 2020-05-31 Univers stones stones d 2-26 00:00:00 00:42:01 ity of 00:00: [place] 00 [facility] Branch UTI UTI Disease Resolve 2015-072020-05-30 2020-05-31 Univers (urinary (urinary d 0-24 00:00:00 00:42:25 it y of tract tract 00:00: [place] infection) infection) 00 Me dical Branch Other Other Disease Resolve 2011-072020-05-30 2020-05-31 Univers constipati constipati d 1-14 00:00:00 00:42:16 ity of on on 00:00: [place] 00 Medical Branch Morbid Morbid Disease Resolve 2011-072020-05-30 2020-05-31 Univers obesity obesity d 0-24 00:00:00 00:42:10 ity of 00:00: [place] 00 Medical Branch Carotid Carotid Disease Resolve 2019-09-12 2019-09-13 Univers stenosis stenosis d 9-19 00:00:00 04:16:03 it y of 00:00: [place] 00 Medical Branch Bilateral Bilateral Disease Resolve 2019-09-12 2019-09-13 Univers carotid carotid d 8-27 00:00:00 04:16:01 ity of artery artery 00:00: [place] stenosis stenosis 00 Medica l Branch Deep vein Deep vein Disease Resolve 2019-09-12 2019-09-13 Univers thrombosis thrombosis d 3-11 00:00:00 04:15:52 ity of (DVT) of (DVT) of 00:00: [place] proximal proximal 00 Medica l vein of vein of Branch right right lower lower extremity, extremity, unspecifie unspecifie d d chronicity chronicity Cellulitis Cellulitis Disease Resolve 2019-09-12 2019-09-13 Univers d 2-01 00:00:00 04:15:41 ity of 00:00: [place] 00 Medical Branch Obesity Obesity Disease Resolve 2015-072019-09-12 2019-09-13 Univers d 0-24 00:00:00 04:15:36 ity of 00:00: [place] 00 Medical Branch Elevated Elevated Disease Resolve 2019-09-12 2019-09-13 Univers hemoglobin hemoglobin d 8- 00:00:00 04:16:13 ity of A1c A1c 00:00: [place] 00 Medical Branch Pre-op Pre-op Disease Resolve 2016-2018-10-27 2018-10-27 Univers chest exam chest exam d 6- 00:00:00 14:23:40 ity of 00:00: [place] 00 Medical Branch Ileus Ileus Disease Resolve 2016-09-25 2016-09-25 Univers d 00:00:00 20:31:37 ity of [place] [facility] Sepsis Sepsis Disease Resolve 2015-2016-04-02 2016-04-02 Univers d 8-29 00:00:00 19:56:24 ity of 00:00: [place] 00 Medical Branch Thyroid Thyroid Disease Resolve 2016-01-09 2016-01-09 Univers mass mass d 10-20 00:00:00 10:53:52 ity of 00:00: [place] 00 Medical Branch Fall, Fall, Disease Resolve 2016-01-09 2016-01-09 Univers subsequent subsequent d 10-20 00:00:00 10:53:32 ity of encounter encounter 00:00[place] Bilateral Bilateral Disease Resolve 2016-01-09 2016-01-09 Univers low back low back d 10-20 00:00:00 10:56:42 it y of pain pain 00:00: [place] without without 00 Medical sciatica sciatica Branch Pain of Pain of Disease Resolve 2016-01-09 2016-01-09 Univers left lower left lower d 10-04 00:00:00 10:56:32 ity of extremity extremity 00:00: [place] [facility] Pain of Pain of Disease Resolve 2016-01-09 2016-01-09 Univers upper upper d 10-04 00:00:00 10:56:26 ity of extremity, extremity, 00:00: [place] unspecifie unspecifie 00 Me dical d d Branch laterality laterality Peripheral Peripheral Disease Resolve 2016-01-09 2016-01-09 Univers artery artery d 307 00:00:00 10:56:04 ity of disease disease 00:00: [place] 00 Medical Branch Cerebral Cerebral Disease Resolve 2016-01-09 2016-01-09 Univers aneurysm, aneurysm, d 8-12 00:00:00 10:56:12 ity of nonrupture nonrupture 00:00: [place] 00 Medical Branch History of History of Disease Resolve 2016-01-09 2016-01-09 Univers colonic colonic d 11-06 00:00:00 10:55:55 ity of polyps polyps 00:00: [place] 00 Medical Branch UTI UTI Disease Resolve 2016-01-09 2016-01-09 Univers (urinary (urinary d 10-31 00:00:00 10:55:47 it y of tract tract 00:00: [place] infection) infection) 00 Me dical Branch Kidney Kidney Disease Resolve 2016-01-09 2016-01-09 Univers failure failure d 00:00:00 10:53:58 ity of [facility] Pneumonia Pneumonia Disease Resolve 2016-01-09 2016-01-09 Univers d 00:00:00 10:54:42 ity of [facility] Phlebitis Phlebitis Disease Resolve 2016-01-09 2016-01-09 Univers d 00:00:00 10:54:05 ity of [facility] History of History of Disease Resolve 2016-01-09 2016-01-09 Univers stomach stomach d 00:00:00 10:54:09 ity of ulcers ulcers [facility] Rheumatic Rheumatic Disease Resolve 2016-01-09 2016-01-09 Univers fever fever d 00:00:00 10:54:13 ity of [facility] Colitis Colitis Disease Resolve 2016-01-09 2016-01-09 Univers d 00:00:00 10:54:17 ity of [facility] Diverticul Diverticul Disease Resolve 2016-01-09 2016-01-09 Univers itis itis d 00:00:00 10:54:22 ity of [facility] Dementia Dementia Disease Resolve 2016-01-09 2016-01-09 Univers d 00:00:00 10:54:26 ity of [facility] Urinary Urinary Disease Resolve 2016-01-09 2016-01-09 Univers incontinen incontinen d 00:00:00 10:55:35 ity of ce ce [facility] Poisoning Poisoning Disease Resolve 2016-01-09 2016-01-09 Univers by by d 00:00:00 10:54:35 ity of aromatic aromatic [place] ammonia ammonia [facility] spirit spirit Branch Parkinson Parkinson Disease Resolve 2016-01-09 2016-01-09 Univers disease disease d 00:00:00 10:54:50 ity of [facility] UTI (lower UTI (lower Disease Resolve 2016-01-09 2016-01-09 Univers urinary urinary d 00:00:00 10:54:56 ity of tract tract [place] infection) infection) [place] Constipati Constipati Disease Resolve 2012-11-17 2015-05-01 Univers on on d - 00:00:00 23:44:32 ity of 00:00: [place] 00 [facility] Urinary Urinary Disease Resolve 2012-11-17 2012-11-17 Univers urgency urgency d 2- 00:00:00 21:36:12 ity of 00:00: [place] 00 Medical Branch Urinary Urinary Disease Resolve 2012-11-17 2012-11-17 Univers frequency frequency d 2-04 00:00:00 21:36:15 ity of 00:00: [place] 00 Medical Branch Ileus Ileus Disease Resolve 2012-11-17 2012-11-17 Univers following following d 00:00:00 21:36:34 [place] of gastrointe gastrointe [place] st[place]inal Medical surgery surgery Branch Mixed Mixed Disease Resolve 2012-10-31 2012-10-31 Univers incontinen incontinen d 09-03 00:00:00 17:41:45 ity of ce ce 00:00: [place] 00 Medical Branch Allergies, Adverse Reactions, Alerts Allergy Allergy Status Severity Reaction(s) Onset Inactive Treating Comm ents Source Name Type Date Date Clinician Preg[place]al Propensi Active Nausea 2017-07 Univer s in ty to and/or 1-16 ity of adverse Vomiting 00:00: [place] reaction 00 Medical s Branch Levoflox Propensi Active Itching Unive rs acin ty to 4-26 ity of adverse 00:00: [place] reaction 00 Medical s Branch Meperidi Propensi Active Nausea 2014-07 Univer s ne ty to and/or 2-07 ity of adverse Vomiting 00:00: [place] reaction Medical s Branch Pentazoc Propensi Active Nausea 2014-07 Univer s ine ty to and/or 2-07 ity of adverse Vomiting 00:00: [place] reaction 00 Medical s Branch Rofecoxi Propensi Active Severe 2012-[address] [facility] b ty to 08-22 failure [facility] adverse 00:[facility]: Medical reaction 00 Center s Sulfamet Propensi Active 2012-[address] [facility] hoxazole [...] adverse 00:00: Medical reaction 00 Center s Codeine Propensi Active Nausea 2011-07 Univers ty to and/or 0-24 ity of adverse Vomiting 00:00: [place] reaction [facility] s Branch Prochlor Propensi Active Hallucinatio 2011-07 Univers perazine ty to ns 0-24 ity of adverse 00:00: [place] reaction [facility] s Branch Propoxyp Propensi Active Nausea 2011-07 Univer s hene Hcl ty to and/or 0-24 ity of adverse Vomiting 00:00: [place] reaction 00 Medical s Branch Meperidi Propensi Active Nausea 2011-07 Univer s ne Hcl ty to and/or 0-24 ity of adverse Vomiting 00:00: [place] reaction 00 Medical s Branch Hydrocod Propensi Active Nausea 2011-07 Univer s one ty to and/or 0-24 ity of adverse Vomiting 00:00: [place] reaction [facility] s Branch Talwin Propensi Active Hallucinatio 2011-07 Un pepito Compound ty to ns 0-24 ity of adverse 00:00: [place] reaction [facility] s Branch Rofecoxi Propensi Active Unknown - 2011-07 Renal Uni vers b ty to See comments 0-24 failure ity of adverse 00:00: [place] reaction 00 Medical s [place] prochlor DA Active U 2002-0 [facility] perazine 02-24 [facility] 00:00: d 00 Medical [place] codeine DA Active U 2002-0 [facility] 02-24 [facility] 00:00: d 00 [facility] propoxyp DA Active U 2002-0 [facility] hene 02-24 [facility] 00:00: d 00 [facility] pentazoc DA Active U 2002-0 [facility] ine 02-24 [facility] 00:00: d 00 [facility] meperidi DA Active U 2002-0 [facility] ne 7- [place] 00:00: d 00 [facility] Center naloxone DA Active U 2002-0 [facility] 7-28 [place] 00:00: d 00 [facility] CODEINE DA Active U 2002-0 [facility] 7- [place] 00:00: d 00 [facility] COMPAZIN DA Active U 2002[facility]0 [facility] E 7- [place] 00:00: d 00 [facility] DARVON DA Active U 2002-0 [facility] 7- [place] 00:[facility]: d [facility] DEMEROL DA Active U 2002[facility]0 [facility] 7- [place] 00:[facility]: d 00 [facility] No Known DA Active U 2002-0 [facility] Contrast 7- [place] Allergie 00:00: d s 00 Medical Center No Known DA Active U 2002-0 [facility] Food 7- [facility] Allergie 00:00: d s 00 Medical Center No Known DA Active U 2002-0 [facility] Other 7- [facility] Allergie 00:00: d s 00 Medical Center TALWIN DA Active U 2002-0 [facility] 7- [facility] 00:00: d 00 Medical Center Social History Social Habit Start Date Stop Date Quantity Comments Source Exposure to Not sure [facility] SARS-CoV-2 [place] [facility] (event) Branch History [facility] 2019-12-12 2019-12-12 5 University o f Financial 00:00:00 00:00:00 [place] [facility] History [facility] Food 2019-12-12 2019-12-12 1 Univers ity of Worry 00:00:00 00:00:00 [place] [facility] History [facility] Food 2019-12-12 2019-12-12 1 Univers ity of Scarcity 00:00:00 00:00:00 [place] [facility] History SDTX 2019-12-12 2019-12-12 2 University o f Transport Med 00:00:00 00:00:00 [place] Medic al Branch History [facility] 2019-12-12 2019-12-12 2 University o f Transport Non-Med 00:00:00 00:00:00 [facility] Alcohol intake 2013-06-24 2013-06-[address] [facility] - 00:00:00 00:00:00 non-drinker of Medical Ce nter alcohol (finding) Tobacco use and 2012-05-17 2012-05-17 Never used Universit y of exposure 00:00:00 00:00:00 [facility] Sex Assigned At [address] [facility] - 00:00:00 00:00:00 [facility] Center Smoking Status Start Date Stop Date Source Never smoker [facility] Medications Ordered Filled Start Stop Current Ordering Indication Dosage Frequency Signature Comments Components Source Medication Medication Date Date Medication? Clinician (SIG) Name Name ciprofloxac 2020- Yes [id number] 500mg Take 1 Univers in HCl 04-06 tablet by ity of (CIPRO) 500 00:00: 04:59 [place] mg tablet 00 :00 every 12 Medica l (twelve) Branch hours for 10 days. ciprofloxac 2020- Yes [id number] 500mg Take 1 Univers in HCl 04-06 tablet by ity of (CIPRO) 500 00:00: 04:59 [place] mg tablet 00 :00 every 12 Medica l (twelve) Branch hours for 10 days. ciprofloxac 2020- Yes [id number] 500mg Take 1 Univers in HCl 04-06 tablet by ity of (CIPRO) 500 00:00: 04:59 [place] mg tablet 00 :00 every 12 Medica l (twelve) Branch hours for 10 days. ciprofloxac 2020- Yes [id number] 500mg Take 1 Univers in HCl 04-06 tablet by ity of (CIPRO) 500 00:00: 04:59 [place] mg tablet 00 :00 every 12 Medica l (twelve) Branch hours for 10 days. blood sugar Yes USE TO [facility] ers diagnostic 04-02 CHECK ity of (FREESTYLE 00:00: BLOOD [place] LITE 00 SUGAR Medical STRIPS) DAILY. Branch strip DX:E11.22 blood sugar Yes USE TO [facility] ers diagnostic 04-02 CHECK ity of (FREESTYLE 00:00: BLOOD [place] LITE 00 SUGAR Medical STRIPS) DAILY. Branch strip DX:E11.22 blood sugar Yes USE TO [facility] ers diagnostic 04-02 CHECK ity of (FREESTYLE 00:00: BLOOD [place] LITE 00 SUGAR Medical STRIPS) DAILY. Branch strip DX:E11.22 blood sugar Yes USE TO Univ ers diagnostic 9-03 CHECK ity of (FREESTYLE 00:00: BLOOD [place] LITE 00 SUGAR Medical STRIPS) DAILY. Branch strip DX:E11.22 ammonium Yes [id number] Apply to Univers lactate 12 8-28 area(s) as ity of % lotion 00:00: needed [place] 00 (skin over Medical swollen Branch leg, use ONLY when skin is intact. 1-2 times a day.). ammonium Yes [id number] Apply to Univers lactate 12 8-28 area(s) as ity of % lotion 00:00: needed [place] 00 (skin over Medical swollen Branch leg, use ONLY when skin is intact. 1-2 times a day.). ammonium Yes [id number] Apply to Univers lactate 12 8-28 area(s) as ity of % lotion 00:00: needed [place] 00 (skin over Medical swollen Branch leg, use ONLY when skin is intact. 1-2 times a day.). ammonium Yes [id number] Apply to Univers lactate 12 8-28 area(s) as ity of % lotion 00:00: needed [place] 00 (skin over Medical swollen Branch leg, use ONLY when skin is intact. 1-2 times a day.). lancets Yes Use 1 Univers (FREESTYLE 8-26 daily as ity o f LANCETS) 28 00:00: directed [place] gauge Mis 00 Medical Branch lancets Yes Use 1 Univers (FREESTYLE 8-26 daily as ity o f LANCETS) 28 00:00: directed [place] gauge [place] 00 Medical Branch lancets Yes Use 1 Univers (FREESTYLE 8-26 daily as ity o f LANCETS) 28 00:00: directed [place] gauge [place] 00 Medical Branch lancets Yes Use 1 Univers (FREESTYLE 8-26 daily as ity o f LANCETS) 28 00:00: directed [place] gauge [facility] 00 Medical Branch SERTRALINE Yes [id number] 100mg TAKE 1 Univers 100 mg 8-23 TABLET BY ity of tablet 00:00: MOUTH [place] 00 DAILY Medical Branch torsemide Yes [id number] TAKE 2 Un pepito 20 mg 8-23 TABLETS BY ity of tablet 00:00: MOUTH IN [place] 00 THE Medical MORNING Branch AND 1 TABLET IN THE EVENING SERTRALINE 0 Yes [id number] 100mg TAKE 1 Univers 100 mg 8-23 TABLET BY ity of tablet 00:00: MOUTH [place] 00 DAILY Medical Branch torsemide 2020-0 Yes [id number] TAKE 2 Un pepito 20 mg 8-23 TABLETS BY ity of tablet 00:00: MOUTH IN [place] 00 THE Medical MORNING Branch AND 1 TABLET IN THE EVENING SERTRALINE 0 Yes [id number] 100mg TAKE 1 Univers 100 mg 8-23 TABLET BY ity of tablet 00:00: MOUTH [place] 00 DAILY Medical Branch torsemide 0 Yes [id number] TAKE 2 Un pepito 20 mg 8-23 TABLETS BY ity of tablet 00:00: MOUTH IN [place] 00 THE Medical MORNING Branch AND 1 TABLET IN THE EVENING SERTRALINE 0 Yes [id number] 100mg TAKE 1 Univers 100 mg 8-23 TABLET BY ity of tablet 00:00: MOUTH [place] DAILY Medical Branch torsemide 0 Yes [id number] TAKE 2 Un pepito 20 mg 8-23 TABLETS BY ity of tablet 00:00: MOUTH IN [place] 00 THE Medical MORNING Branch AND 1 TABLET IN THE EVENING cefdinir 2020- No [id number] 300mg Take 1 U nivers 300 mg 8-20 -07 capsule by ity of capsule 00:00: 00:00 mouth [place] 00 :00 every 12 Medical (twelve) Branch hours. cefdinir 2020-0 202- No [id number] 300mg Take 1 U nivers 300 mg 8-20 - capsule by ity of capsule 00:00: 00:00 mouth [place] 00 :00 every 12 Medical (twelve) Branch hours. calcium 0 Yes 1{tbl} Take 1 Univer s carbonate 8-19 tablet by ity o f (CALCIUM 17:08: mouth 2 [place] 600 ORAL) 38 (two) Medical times Branch daily. diphenhydra 0 Yes Take by Un pepito mine HCl 8-19 mouth. ity of (BENADRYL 17:08: [place] ORAL) 38 Medical Branch polyethylen 2020-0 Yes 17g Take 17 g U nivers e glycol 8-19 by mouth ity of (MIRALAX) 17:08: daily. [place] 17 38 Medical gram/dose Branch powder NON-FORMULA 2020-0 Yes [facility] RY 8-19 se and ity of MEDICATION 17:08: [place] 38 essential Medical oils in Branch capsule form SUFENTANIL/ 2020-0 Yes by [facility] BUPIVACAINE 8-19 Epidural ity of /NS/PF 17:08: route. The [place] (SUFENTANIL 38 patient Medic al -BUPIVACAIN has a pain Br anch -NACL,PF, pump and EPIDURAL) these are the medication s in the pump. They added morphine. Indication s: also contains clonidine multivitami 2020-0 Yes 1{tbl} Take 1 Tab Univers n tablet 8-19 by mouth ity of 17:08: daily. [place] [address] Medical Branch morpHINE 0 Yes 15mg Take 15 mg Uni vers I.R. 15 mg 8-19 by mouth ity o f tablet 17:08: every 6 [place] [address] (six) Medical hours as Branch needed for Pain (scale 7-10). calcium 0 Yes 1{tbl} [facility] tablet by ity o f (CALCIUM 17:08: mouth 2 [place] 600 ORAL) 38 (two) Medical times Branch daily. diphenhydra 0 Yes Take by Un pepito mine HCl 8- mouth. ity of (BENADRYL 17:08: [place] ORAL) 38 Medical Branch polyethylen 0 Yes 17g Take 17 g U nivers e glycol 8-19 by mouth ity of (MIRALAX) 17:08: daily. [place] [id number] 38 Medical gram/dose Branch powder NON-FORMULA 0 Yes [facility] RY 8-19 se and ity of MEDICATION 17:08: [place] 38 essential Medical oils in Branch capsule form SUFENTANIL/ 2020-0 Yes by [facility] BUPIVACAINE 8-19 Epidural ity of /NS/PF 17:08: route. The [place] (SUFENTANIL 38 patient Medic al -BUPIVACAIN has a pain Br anch -NACL,PF, pump and EPIDURAL) these are the medication s in the pump. They added morphine. Indication s: also contains clonidine multivitami 2020-0 Yes 1{tbl} Take 1 Tab Univers n tablet 8-19 by mouth ity of 17:08: daily. [place] [address] Medical Branch morpHINE 2020-0 Yes 15mg Take 15 mg Uni vers I.R. 15 mg 8-19 by mouth ity o f tablet 17:08: every 6 [place] [address] (six) Medical hours as Branch needed for Pain (scale 7-10). calcium 2020-0 Yes 1{tbl} Take 1 [facility] 8-19 tablet by ity o f (CALCIUM 17:08: mouth 2 [place] 600 ORAL) 38 (two) Medical times Branch daily. diphenhydra 0 Yes Take by Un pepito mine HCl 8 mouth. ity of (BENADRYL 17:08: [place] ORAL) Medical Branch polyethylen 0 Yes 17g Take 17 g U nivers e glycol 03-18 by mouth ity of (MIRALAX) 17:08: daily. [place] [address] Medical gram/dose Branch powder NON-FORMULA 0 Yes [facility] Univers RY 03-18 se and ity of MEDICATION 17:08: [place] [facility] 38 essential Medical oils in Branch capsule form SUFENTANIL/ 0 Yes by [facility] BUPIVACAINE 03-18 Epidural ity of /NS/PF 17:08: route. The [place] (SUFENTANIL 38 patient Medic al -BUPIVACAIN has a pain Br anch -NACL,PF, pump and EPIDURAL) these are the medication s in the pump. They added morphine. Indication s: also contains clonidine multivitami 0 Yes 1{tbl} Take 1 Tab Univers n tablet 03-18 by mouth ity of 17:08: daily. [address] Branch morpHINE 2020-0 Yes 15mg Take 15 mg Uni vers I.R. 15 mg 8-19 by mouth ity o f tablet 17:08: every 6 [place] [address] (six) Medical hours as Branch needed for Pain (scale 7-10). SUFENTANIL/ 2020-0 Yes by [facility] BUPIVACAINE - Epidural ity of /NS/PF 12:08: route. The [place] (SUFENTANIL 38 patient Medic al -BUPIVACAIN has a pain Br anch -NACL,PF, pump and EPIDURAL) these are the medication s in the pump. They added morphine. Indication s: also contains clonidine multivitami 2021-0 Yes 1{tbl} Take 1 Tab Univers n tablet 8-19 by mouth ity of 12:08: daily. [place] 38 Medical Branch morpHINE 0 Yes 15mg Take 15 mg Uni vers I.R. 15 mg 8-19 by mouth ity o f tablet 12:08: every 6 [place] 38 (six) Medical hours as Branch needed for Pain (scale 7-10). calcium 0 Yes 1{tbl} Take 1 Univer s carbonate 8-19 tablet by ity o f (CALCIUM 12:08: mouth 2 [place] 600 ORAL) 38 (two) Medical times Branch daily. diphenhydra Yes Take by Un pepito mine HCl 8-19 mouth. ity of (BENADRYL 12:08: [place] ORAL) 38 Medical Branch polyethylen Yes 17g Take 17 g U nivers e glycol 8-19 by mouth ity of (MIRALAX) 12:08: daily. [place] 38 Medical gram/dose Branch powder NON-FORMULA 0 Yes [facility] RY 8-19 se and ity of MEDICATION 12:08: copaiba [facility] s 38 essential Medical oils in Branch capsule form amiodarone Yes [id number] 200mg Take 1 Univers 200 mg 8-16 tablet by ity of tablet 00:00: mouth [place] 00 daily. Medical Branch amiodarone Yes [id number] 200mg Take 1 [facility] 200 mg 8-16 tablet by ity of tablet 00:00: mouth [place] 00 daily. Medical Branch amiodarone Yes [id number] 200mg Take 1 [facility] 200 mg 8-16 tablet by ity of tablet 00:00: mouth [place] 00 daily. Medical Branch amiodarone Yes [id number] 200mg Take 1 [facility] 200 mg 8-16 tablet by ity of tablet 00:00: mouth [place] 00 daily. Medical Branch midodrine Yes [id number] 2.5mg Take 1 U nivers 2.5 mg 8-06 tablet by ity of tablet 00:00: mouth 2 [place] 00 (two) Medical times Branch daily. midodrine Yes [id number] 2.5mg Take 1 U nivers 2.5 mg 8-06 tablet by ity of tablet 00:00: mouth 2 [place] 00 (two) Medical times Branch daily. midodrine 2020-0 Yes [id number] 2.5mg Take 1 U nivers 2.5 mg 8-06 tablet by ity of tablet 00:00: mouth 2 [place] (two) Medical times Branch daily. midodrine 2020-0 Yes [id number] 2.5mg Take 1 U nivers 2.5 mg 8-06 tablet by ity of tablet 00:00: mouth 2 [place] (two) Medical times Branch daily. lipase-prot 2020- Yes [id number] 3{capsu Take 3 Univers ease-amylas 7-05 le} capsules ity of e (CREON) 00:00: by mouth [place] 36,000-114, 00 before Medica l 000- meals. Branch 180,000 Take 1 unit CpDR before snacks. lipase-prot Yes [id number] 3{capsu Take 3 Univers ease-amylas 7-05 le} capsules ity of e (CREON) 00:00: by mouth [place] 36,000-114, 00 before Medica l 000- meals. Branch 180,000 Take 1 unit CpDR before snacks. lipase-prot Yes [id number] 3{capsu Take 3 [facility] ease-amylas 7-05 le} capsules ity of e (CREON) 00:00: by mouth [place] 36,000-114, 00 before Medica l 000- meals. Branch 180,000 Take 1 unit CpDR before snacks. lipase-prot Yes [id number] 3{capsu Take 3 Univers ease-amylas 7-05 le} capsules ity of e (CREON) 00:00: by mouth [place] 36,000-114, 00 before Medica l 000- meals. Branch 180,000 Take 1 unit CpDR before snacks. cephALEXin 2020-2020- No [id number] 500mg Take 1 Univers 500 mg 7-12 06- capsule by ity of capsule 00:00: 00:00 mouth 4 [place] 00 :00 (four) Medical times Branch daily. clindamycin 2020-2020- No [id number] 450mg Take 3 Univers 150 mg 7-12 06-07 capsules ity of capsule 00:00: 00:00 by mouth 3 [place] 00 :00 (three) Medical times Branch daily. cephALEXin 2020-0 2020- No [id number] 500mg Take 1 [facility] 500 mg 02-01 capsule by ity of capsule 00:00: 00:00 mouth 4 [place] 00 :00 (four) Medical times Branch daily. clindamycin 2020-0 1- No [id number] 450mg Take 3 [facility] 150 mg 02-01 capsules ity of capsule 00:00: 00:00 by mouth 3 [place] 00 :00 (three) Medical times Branch daily. metOLazone 2020-0 Yes 1.25mg Take 0.5 U nivers 2.5 mg 6-15 tablets by ity of tablet 00:00: mouth [place] 00 weekly. Medical Branch metOLazone 2020-0 Yes 1.25mg Take 0.5 U nivers 2.5 mg 6-15 tablets by ity of tablet 00:00: mouth [place] 00 weekly. Medical Branch metOLazone 2020-0 Yes 1.25mg Take 0.5 U nivers 2.5 mg 6-15 tablets by ity of tablet 00:00: mouth [place] 00 weekly. Medical Branch metOLazone 0 Yes 1.25mg Take 0.5 U nivers 2.5 mg 6-15 tablets by ity of tablet 00:00: mouth [place] 00 weekly. Medical Branch OMEPRAZOLE 2020-0 Yes [id number] TAKE 1 [facility] 40 mg 6-08 CAPSULE BY ity of capsule 00:00: MOUTH [place] 00 TWICE Medical DAILY Branch atorvastati 2020-0 Yes 40mg Take 1 Univ ers n 40 mg 6-08 tablet by ity of tablet 00:00: mouth at [place] 00 bedtime. Medical Branch OMEPRAZOLE 2020-0 Yes [id number] TAKE 1 [facility] 40 mg 6-08 CAPSULE BY ity of capsule 00:00: MOUTH [place] 00 TWICE Medical DAILY Branch atorvastati 2020-0 Yes 40mg Take 1 Univ ers n 40 mg 6-08 tablet by ity of tablet 00:00: mouth at [place] 00 bedtime. Medical Branch OMEPRAZOLE 2020-0 Yes [id number] TAKE 1 [facility] 40 mg 6-08 CAPSULE BY ity of capsule 00:00: MOUTH [place] 00 TWICE Medical DAILY Branch atorvastati 2021-0 Yes 40mg Take 1 Univ ers n 40 mg 6-08 tablet by ity of tablet 00:00: mouth at [place] 00 bedtime. Medical Branch OMEPRAZOLE Yes [id number] TAKE 1 [facility] 40 mg 6-08 CAPSULE BY ity of capsule 00:00: MOUTH [place] 00 TWICE Medical DAILY Branch atorvastati Yes 40mg Take 1 Univ ers n 40 mg 6-08 tablet by ity of tablet 00:00: mouth at [place] 00 bedtime. Medical Branch fluticasone Yes [id number] 2{spray Use 2 [facility] propionate 5-22 } Sprays in ity of 50 00:00: each [place] mcg/actuati 00 nostril Medic al on nasal daily. Branch spray fluticasone Yes [id number] 2{spray Use 2 [facility] propionate 5-22 } Sprays in ity of 50 00:00: each [place] mcg/actuati 00 nostril Medic al on nasal daily. Branch spray fluticasone Yes [id number] 2{spray Use 2 [facility] propionate 5-22 } Sprays in ity of 50 00:00: each [place] mcg/actuati 00 nostril Medic al on nasal daily. Branch spray fluticasone Yes [id number] 2{spray Use 2 [facility] propionate 5-22 } Sprays in ity of 50 00:00: each [place] mcg/actuati 00 nostril Medic al on nasal daily. Branch spray bisacodyL 5 Yes [id number] 5mg Take 1 Univers mg EC 5-08 tablet by ity of tablet 00:00: mouth [place] 00 daily. Medical Branch sennosides- Yes [id number] 1{tbl} Take 1 Univers docusate 5-08 tablet by ity of sodium 00:00: mouth 2 [place] 8.6-50 mg 00 (two) Medical per tablet times Branch daily. bisacodyL 5 Yes [id number] 5mg Take 1 Univers mg EC 5-08 tablet by ity of tablet 00:00: mouth [place] 00 daily. Medical Branch sennosides- Yes [id number] 1{tbl} Take 1 Univers docusate 5-08 tablet by ity of sodium 00:00: mouth 2 [place] 8.6-50 mg 00 (two) Medical per tablet times Branch daily. bisacodyL 5 Yes [id number] 5mg Take 1 Univers mg EC 5-08 tablet by ity of tablet 00:00: mouth [place] 00 daily. Medical Branch sennosides- Yes [id number] 1{tbl} Take 1 [facility] docusate 5-08 tablet by ity of sodium 00:00: mouth 2 [place] 8.6-50 mg 00 (two) Medical per tablet times Branch daily. bisacodyL 5 Yes [id number] 5mg Take 1 Univers mg EC 5-08 tablet by ity of tablet 00:00: mouth [place] 00 daily. Medical Branch sennosides- Yes [id number] 1{tbl} Take 1 Univers docusate 5-08 tablet by ity of sodium 00:00: mouth 2 [place] 8.6-50 mg 00 (two) Medical per tablet times Branch daily. clindamycin 2020- No Cellulitis 450mg Take 3 Univers 150 mg 5-05 05-13 of right capsules ity of capsule 00:00: 04:59 lower by mouth 3 [place] 00 :00 extremity (three) Medical times Branch daily for 7 days. clindamycin 2020- No Cellulitis 450mg Take 3 Univers 150 mg 5-05 05-13 of right capsules ity of capsule 00:00: 04:59 lower by mouth 3 [place] 00 :00 extremity (three) Medical times Branch daily for 7 days. multivitami Yes 1{tbl} Take 1 Tab Univers n tablet 5-03 by mouth ity of 16:59: daily. [place] 16 Medical Branch morpHINE Yes 15mg Take 15 mg Uni vers I.R. 15 mg 5-03 by mouth ity o f tablet 16:59: every 6 [place] 16 (six) Medical hours as Branch needed for Pain (scale 7-10). calcium Yes 1{tbl} Take 1 Univer s carbonate 5-03 tablet by ity o f (CALCIUM 16:59: mouth 2 [place] 600 ORAL) 16 (two) Medical times Branch daily. diphenhydra Yes Take by Un pepito mine HCl 5-03 mouth. ity of (BENADRYL 16:59: [place] ORAL) 16 Medical Branch polyethylen Yes 17g Take 17 g U nivers e glycol 5-03 by mouth ity of (MIRALAX) 16:59: daily. [place] [address] 16 Medical gram/dose Branch powder NON-FORMULA Yes [facility] RY 5-03 se and ity of MEDICATION 16:59: [place] 16 essential Medical oils in Branch capsule form atorvastati Yes Take by Un pepito n calcium 5-03 mouth at ity of (LIPITOR 16:59: bedtime. [place] ORAL) 16 Medical Branch SUFENTANIL/ Yes by Univer s BUPIVACAINE 5-03 Epidural ity of /NS/PF 16:59: route. The [place] (SUFENTANIL 16 patient Medic al -BUPIVACAIN has a pain Br anch -NACL,PF, pump and EPIDURAL) these are the medication s in the pump. They added morphine. Indication s: also contains clonidine multivitami Yes 1{tbl} Take 1 Tab Univers n tablet 5-03 by mouth ity of 16:59: daily. [place] 16 Medical Branch morpHINE Yes 15mg Take 15 mg Uni vers I.R. 15 mg 5-03 by mouth ity o f tablet 16:59: every 6 [place] 16 (six) Medical hours as Branch needed for Pain (scale 7-10). calcium Yes 1{tbl} Take 1 Univer s carbonate 5-03 tablet by ity o f (CALCIUM 16:59: mouth 2 [place] 600 ORAL) 16 (two) Medical times Branch daily. diphenhydra Yes Take by Un pepito mine HCl 5-03 mouth. ity of (BENADRYL 16:59: [place] ORAL) 16 Medical Branch polyethylen Yes 17g Take 17 g U nivers e glycol 5-03 by mouth ity of (MIRALAX) 16:59: daily. [place] 17 16 Medical gram/dose Branch powder NON-FORMULA Yes [facility] RY 5-03 se and ity of MEDICATION 16:59: [place] 16 essential Medical oils in Branch capsule form atorvastati Yes Take by Un pepito n calcium 5-03 mouth at ity of (LIPITOR 16:59: bedtime. [place] ORAL) 16 Medical Branch SUFENTANIL/ Yes by [place] BUPIVACAINE 5-03 Epidural ity of /NS/PF 16:59: route. The [place] (SUFENTANIL 16 patient Medic al -BUPIVACAIN has a pain Br anch -NACL,PF, pump and EPIDURAL) these are the medication s in the pump. They added morphine. Indication s: also contains clonidine lipase-prot Yes Abdominal 2{capsu Take 2 Univers ease-amylas 5-03 bloating le} capsules ity of e 00:00: by mouth 4 [place] 12,000-38,0 00 (four) Medica l 00 -60,000 times Branch unit daily with capsule meals or snack. Take 2 before meals, 1 before snacks. lipase-prot Yes Abdominal 2{capsu Take 2 Univers ease-amylas 5-03 bloating le} capsules ity of e 00:00: by mouth 4 [place] 12,000-38,0 00 (four) Medica l 00 -60,000 times Branch unit daily with capsule meals or snack. Take 2 before meals, 1 before snacks. doxycycline 2020- No Cellulitis 100mg Take 1 Univers hyclate 100 5- 05-14 of right capsule by ity of mg capsule 00:00: 04:59 lower mouth [place] 00 :00 extremity every 12 Medica l (twelve) Branch hours for 10 days. doxycycline 2020- No Cellulitis 100mg Take 1 Univers hyclate 100 5- 05-14 of right capsule by ity of mg capsule 00:00: 04:59 lower mouth [place] 00 :00 extremity every 12 Medica l (twelve) Branch hours for 10 days. Nitrofurant 2020- No Abnormal 100mg Take 1 Univers oin&Nit. 5- 05-11 urinalysis capsule by ity of Macrocryst 00:00: 04:59 mouth 2 [place] (MACROBID) 00 :00 (two) Medical 100 mg times Branch capsule daily for 7 days. Nitrofurant 2020- No Abnormal 100mg Take 1 Univers oin&Nit. - 05-11 urinalysis capsule by ity of Macrocryst 00:00: 04:59 mouth 2 [place] (MACROBID) 00 :00 (two) Medical 100 mg times Branch capsule daily for 7 days. MONTELUKAST Yes [id number] 10mg TAKE 1 Univers 10 mg 4-26 TABLET BY ity of tablet 00:00: [facility] [place] [facility] [place] MONTELUKAST Yes [id number] 10mg TAKE 1 [facility] 10 mg 4-26 TABLET BY ity of tablet 00:00: [facility] AT [place] [facility] MONTELUKAST Yes [id number] 10mg TAKE 1 [facility] 10 mg 4-26 TABLET BY ity of tablet 00:00: MOUTH AT [place] [facility] MONTEKAST Yes [id number] 10mg TAKE 1 Univers 10 mg 4-26 TABLET BY ity of tablet 00:00: MOUTH AT [place] [facility] MONTELUKAST Yes Sinus 10mg TAKE 1 Uni vers 10 mg 4-26 congestion TABLET BY ity of tablet 00:00: MOUTH AT [place] [facility] MONTELUKAST Yes Sinus 10mg TAKE 1 Uni vers 10 mg 4-26 congestion TABLET BY ity of tablet 00:00: MOUTH AT [place] [facility] metOLazone Yes Chronic 1.25mg Take 0.5 Univers 2.5 mg 4-14 heart tablets by ity of tablet 00:00: failure mouth [place] with weekly. Medical preserved Branch ejection fraction metOLazone Yes Chronic 1.25mg Take 0.5 Univers 2.5 mg 4-14 heart tablets by ity of tablet 00:00: failure mouth [place] with weekly. Medical preserved Branch ejection fraction glipizide-m 2020-0 Yes [id number] 1{tbl} Take 1 Univers etformin 3-29 tablet by ity of 2.5-500 mg 00:00: mouth 2 [place] per tablet 00 (two) Medical times Branch daily before breakfast and dinner. glipizide-m 2020-0 Yes [id number] 1{tbl} Take 1 [facility] etformin 3-29 tablet by ity of 2.5-500 mg 00:00: mouth 2 [place] per tablet 00 (two) Medical times Branch daily before breakfast and dinner. glipizide-m Yes [id number] 1{tbl} Take 1 [facility] etformin 3-29 tablet by ity of 2.5-500 mg 00:00: mouth 2 [place] per tablet 00 (two) Medical times Branch daily before breakfast and dinner. glipizide-m Yes [id number] 1{tbl} Take 1 [facility] etformin 3-29 tablet by ity of 2.5-500 mg 00:00: mouth 2 [place] per tablet 00 (two) Medical times Branch daily before breakfast and dinner. glipizide-m Yes Type 2 1{tbl} Take 1 [facility] etformin 3-29 diabetes tablet by it y of 2.5-500 mg 00:00: mellitus mouth 2 [place] per tablet 00 with (two) Medical chronic times Branch kidney daily disease, before without breakfast long-term and current use dinner. of insulin, unspecified CKD stage glipizide-m Yes Type 2 1{tbl} Take 1 [facility] etformin 3-29 diabetes tablet by it y of 2.5-500 mg 00:00: mellitus mouth 2 [place] per tablet 00 with (two) Medical chronic times Branch kidney daily disease, before without breakfast long-term and current use dinner. of insulin, unspecified CKD stage spironolact Yes 25mg Take 1 Univ ers one 25 mg 3-22 tablet by ity o f tablet 00:00: mouth [place] 00 daily. Medical Branch spironolact Yes 25mg Take 1 Univ ers one 25 mg 3-22 tablet by ity o f tablet 00:00: mouth [place] 00 daily. Medical Branch spironolact Yes 25mg Take 1 Univ ers one 25 mg 3-22 tablet by ity o f tablet 00:00: mouth [place] 00 daily. Medical Branch spironolact Yes 25mg Take 1 Univ ers one 25 mg 3-22 tablet by ity o f tablet 00:00: mouth [place] 00 daily. Medical Branch blood sugar Yes USE TO Univ ers diagnostic 3-22 CHECK ity of (FREESTYLE 00:00: BLOOD [place] LITE 00 SUGAR Medical STRIPS) DAILY. Branch strip DX:E11.22 spironolact 2021-0 Yes 25mg Take 1 Univ ers one 25 mg 3-22 tablet by ity o f tablet 00:00: mouth 00 daily. Medical Branch blood sugar Yes USE TO Univ ers diagnostic 3-22 CHECK ity of (FREESTYLE 00:00: BLOOD [place] LITE 00 SUGAR Medical STRIPS) DAILY. Branch strip DX:E11.22 spironolact 0 Yes 25mg Take 1 Univ ers one 25 mg 3-22 tablet by ity o f tablet 00:00: mouth 00 daily. Medical Branch amiodarone Yes PAF 200mg Take 1 Univ ers 200 mg 3-09 (paroxysmal tablet by i ty of tablet 00:00: atrial mouth fibrillatio daily. Medica l n) Branch amiodarone Yes PAF 200mg Take 1 Univ ers 200 mg 3-09 (paroxysmal tablet by i ty of tablet 00:00: atrial mouth fibrillatio daily. Medica l n) Branch gabapentin 0 Yes [id number] 300mg Take 1 [facility] 300 mg 3-03 capsule by ity of capsule 00:00: mouth (two) Medical times Branch daily. TAKE ONE CAPSULE BY MOUTH THREE TIMES DAILY gabapentin 2020-0 Yes [id number] 300mg Take 1 [facility] 300 mg 3-03 capsule by ity of capsule 00:00: mouth (two) Medical times Branch daily. TAKE ONE CAPSULE BY MOUTH THREE TIMES DAILY gabapentin 2020-0 Yes [id number] 300mg Take 1 [facility] 300 mg 3-03 capsule by ity of capsule 00:00: mouth (two) Medical times Branch daily. TAKE ONE CAPSULE BY MOUTH THREE TIMES DAILY gabapentin 2020-0 Yes [id number] 300mg Take 1 [facility] 300 mg 3-03 capsule by ity of capsule 00:00: mouth (two) Medical times Branch daily. TAKE ONE CAPSULE BY MOUTH THREE TIMES DAILY gabapentin 2020-0 Yes Neuropathy 300mg Take 1 [facility] 300 mg 3-03 capsule by ity of capsule 00:00: mouth (two) Medical times Branch daily. TAKE ONE CAPSULE BY MOUTH THREE TIMES DAILY gabapentin 2020-0 Yes Neuropathy 300mg Take 1 [facility] 300 mg 3-03 capsule by ity of capsule 00:00: mouth (two) Medical times Branch daily. TAKE ONE CAPSULE BY MOUTH THREE TIMES DAILY torsemide 0 Yes Fluid Take 1 Unive rs 20 mg 2-19 retention QAM, 1 QPM ity of tablet 00:00: [place] 00 Medical Branch torsemide 0 Yes Fluid Take 1 Unive rs 20 mg 2-19 retention QAM, 1 QPM ity of tablet 00:00: [place] 00 Medical Branch omeprazole 2020-0 Yes [facility] 40 mg 1-26 ity of capsule 00:00: [place] 00 Medical Branch omeprazole 0 Yes [facility] 40 mg 1-26 ity of capsule 00:00: [place] 00 Medical Branch fluticasone Yes Sinus 2{spray Use 2 U nivers propionate 1-14 congestion } Sprays in ity of 50 00:00: each [place] mcg/actuati 00 nostril Medic al on nasal daily. Branch spray fluticasone Yes Sinus 2{spray Use 2 U nivers propionate 1-14 congestion } Sprays in ity of 50 00:00: each [place] mcg/actuati 00 nostril Medic al on nasal daily. Branch spray alendronate Yes [id number] 70mg Take 1 [facility] 70 mg 1-04 tablet by ity of tablet 00:00: mouth [place] 00 weekly. Medical Branch alendronate Yes [id number] 70mg Take 1 [facility] 70 mg 1-04 tablet by ity of tablet 00:00: mouth [place] 00 weekly. Medical Branch alendronate Yes [id number] 70mg Take 1 [facility] 70 mg 1-04 tablet by ity of tablet 00:00: mouth [place] 00 weekly. Medical Branch alendronate Yes [id number] 70mg Take 1 [facility] 70 mg 1-04 tablet by ity of tablet 00:00: mouth [place] 00 weekly. Medical Branch alendronate Yes Age-related 70mg Take 1 [facility] 70 mg 1-04 osteoporosi tablet by it y of tablet 00:00: s without mouth [place] 00 current weekly. Medical pathologica Branch l fracture alendronate Yes Age-related 70mg Take 1 [facility] 70 mg 1-04 osteoporosi tablet by it y of tablet 00:00: s without mouth [place] 00 current weekly. Medical pathologica Branch l fracture apixaban 2019-07 Yes [id number] 5mg Take 1 Univers (ELIQUIS) 5 2-17 tablet by ity of mg tablet 00:00: mouth 2 (two) Medical times Branch daily. Indication s: deep vein thrombosis prevention apixaban 2019-07 Yes [id number] 5mg Take 1 Univers (ELIQUIS) 5 2-17 tablet by ity of mg tablet 00:00: mouth 2 (two) Medical times Branch daily. Indication s: deep vein thrombosis prevention apixaban 2019-07 Yes [id number] 5mg Take 1 Univers (ELIQUIS) 5 2-17 tablet by ity of mg tablet 00:00: mouth 2 (two) Medical times Branch daily. Indication s: deep vein thrombosis prevention apixaban 2019-07 Yes [id number] 5mg Take 1 Univers (ELIQUIS) 5 2-17 tablet by ity of mg tablet 00:00: mouth 2 (two) Medical times Branch daily. Indication s: deep vein thrombosis prevention apixaban 2019-07 Yes deep vein 5mg Take 1 Un pepito (ELIQUIS) 5 2-17 thrombosis tablet by ity of mg tablet 00:00: prevention mouth 2 (two) Medical times Branch daily. Indication s: deep vein thrombosis prevention apixaban 2019-07 Yes deep vein 5mg Take 1 Un pepito (ELIQUIS) 5 2-17 thrombosis tablet by ity of mg tablet 00:00: prevention mouth 2 (two) Medical times Branch daily. Indication s: deep vein thrombosis prevention midodrine 5 2019-07 Yes Hypotension 5mg Take 1 [facility] mg tablet -02 , tablet by ity o f 00:00: unspecified mouth 2 [place] 00 hypotension (two) Medical type times Branch daily. midodrine 5 2019-07 Yes Hypotension 5mg Take 1 [facility] mg tablet 2-02 , tablet by ity o f 00:00: unspecified mouth 2 [place] 00 hypotension (two) Medical type times Branch daily. SERTraline 2019-07 Yes Other 100mg Take 1 Uni vers 100 mg 0-15 insomnia tablet by ity of tablet 00:00: mouth [place] 00 daily. Medical Branch SERTraline 2019-07 Yes Other 100mg Take 1 Uni vers 100 mg 0-15 insomnia tablet by ity of tablet 00:00: mouth 00 daily. Medical Branch levothyroxi 2019-07 Yes [id number] 50ug Take 1 Univers ne 50 mcg 0-12 tablet by ity o f tablet 00:00: mouth [place] 00 every Medical morning. [place] levothyroxi 2019-07 Yes [id number] 50ug Take 1 Univers ne 50 mcg 0-12 tablet by ity o f tablet 00:00: mouth [place] 00 every Medical morning. [place] levothyroxi 2019-07 Yes [id number] 50ug Take 1 Univers ne 50 mcg 0-12 tablet by ity o f tablet 00:00: mouth [place] 00 every Medical morning. Branch levothyroxi 2019-07 Yes [id number] 50ug Take 1 Univers ne 50 mcg 0-12 tablet by ity o f tablet 00:00: mouth [place] 00 every Medical morning. [place] levothyroxi 2019-07 Yes Primary 50ug Take 1 U nivers ne 50 mcg 0-12 hypothyroid tablet by ity of tablet 00:00: ism mouth [place] 00 every Medical morning. [place] levothyroxi 2019-07 Yes Primary 50ug Take 1 U nivers ne 50 mcg 0-12 hypothyroid tablet by ity of tablet 00:00: ism mouth [place] 00 every Medical morning. [place] hydrocortis 2019-07 Yes Adrenal 10mg Take 1 U nivers one 10 mg 0-06 abnormality tablet by ity of tablet 00:00: mouth [place] 00 daily. [facility] hydrocortis 2019-07 Yes Adrenal 10mg Take 1 U nivers one 10 mg 0-06 abnormality tablet by ity of tablet 00:00: mouth [place] 00 daily. [facility] hydrocortis 2019-07- No [id number] 10mg Take 1 Univers one 10 mg 0-06 09-07 tablet by ity of tablet 00:00: 00:00 mouth [place] 00 :00 daily. [facility] hydrocortis 2019-07- No [id number] 10mg Take 1 [facility] one 10 mg 0-06 09-07 tablet by ity of tablet 00:00: 00:00 mouth [place] 00 :00 daily. [facility] Branch hydrocortis Yes [id number] Apply to Univers one 1% / 11 affected ity of [place]ystatin 00:00: [place] (three) [facility] [place] ) daily as needed (for skin yeast infection. ). Nystatin 519387 units per gram, also with zinc. hydrocortis Yes [id number] Apply to Univers one 1% / 9-11 affected ity of nystatin 00:00: [place] (three) Medical (COMPOUNDED times Branch ) daily as needed (for skin yeast infection. ). Nystatin 007603 units per gram, also with zinc. hydrocortis 2020-0 Yes [id number] Apply to Univers one 1% / 11 affected ity of nystatin 00:00: [place]int[place] (three) Medical (COMPOUNDED times Branch ) daily as needed (for skin yeast infection. ). Nystatin 080029 units per gram, also with zinc. hydrocortis 2020-0 Yes [id number] Apply to Univers one 1% / 911 affected ity of nystatin 00:00: area[place] 00 (three) Medical (COMPOUNDED times Branch ) daily as needed (for skin yeast infection. ). Nystatin 938621 units per gram, also with zinc. hydrocortis 2020-0 Yes Skin yeast Apply to Univers one 1% / 11 infection affected it y of nystatin 00:00: area[place]int[place] 00 (three) Medical (COMPOUNDED times Branch ) daily as needed (for skin yeast infection. ). Nystatin 359156 units per gram, also with zinc. hydrocortis 2020-0 Yes Skin yeast Apply to Univers one 1% / 11 infection affected it y of nystatin 00:00: area[place] 3 [place] oint[place] 00 (three) Medical (COMPOUNDED times Branch ) daily as needed (for skin yeast infection. ). Nystatin 366555 units per gram, also with zinc. aspirin 81 2020-0 Yes [id number] 81mg Take 1 Univers mg EC 08-08 9107 tablet by ity of tablet 00:00: mouth [place] 00 daily. Medical Branch aspirin 81 2020-0 Yes [id number] 81mg Take 1 Univers mg EC 08-08 9107 tablet by ity of tablet 00:00: mouth [place] 00 daily. [facility] Branch aspirin 81 2020-0 Yes [id number] 81mg Take 1 Univers mg EC 08-08 9107 tablet by ity of tablet 00:00: mouth [place] 00 daily. [facility] Branch aspirin 81 2020-0 Yes [id number] 81mg Take 1 Univers mg EC 08-08 9107 tablet by ity of tablet 00:00: mouth [place] 00 daily. Medical Branch aspirin 81 2020-0 Yes Bilateral 81mg Take 1 Univers mg EC 08-08 carotid tablet by ity of tablet 00:00: artery mouth [place] 00 stenosis daily. Medical Branch aspirin 81 2020-0 Yes Bilateral 81mg Take 1 Univers mg EC - carotid tablet by ity of tablet 00:00: artery mouth [place] 00 stenosis daily. Medical Branch FREESTYLE 2018-07 Yes Use to Univer s LITE METER 2-24 check ity of Kit 00:00: blood [place] 00 glucose Medical daily. Branch DX:E11.29 FREESTYLE 2018-07 Yes Use to Univer s LITE METER 2-24 check ity of Kit 00:00: blood [place] 00 glucose Medical daily. Branch DX:E11.29 FREESTYLE 2018-07 Yes Use to Univer s LITE METER 2-24 check ity of Kit 00:00: blood [place] 00 glucose Medical daily. Branch DX:E11. FREESTYLE 2018-07 Yes Use to Univer s LITE METER 2-24 check ity of Kit 00:00: blood [place] 00 glucose Medical daily. Branch DX:E11. FREESTYLE 2018-07 Yes Use to Univer s LITE METER 2-24 check ity of Kit 00:00: blood [place] 00 glucose Medical daily. Branch DX:E11.29 FREESTYLE 2018-07 Yes Use to Univer s LITE METER 2-24 check ity of Kit 00:00: blood [place] 00 glucose Medical daily. Branch DX:E11.29 KCL 20 mEq 2018-07 Yes 20meq 20 mEq Univ ers tablet 2-19 every ity of 00:00: Monday. [place] 00 Once a Medical week the Branch same day she takes the metolazone . KCL 20 mEq 2018-07 Yes 20meq 20 mEq Univ ers tablet 2-19 every ity of 00:00: Monday. [place] 00 Once a Medical week the Branch same day she takes the metolazone . metFORMIN 2018-07 Yes 500mg Q.[id number] Take [address] [facility] (GLUCOPHAGE 0-04 [id number] tablet [facility] - ) 500 MG 00:00: 3D (500 mg Medica l tablet 00 total) by Center mouth 3 (three) times daily. glucosamine 2018-07 Yes 1{tbl} Q.02886304 Take [address] [facility] -chondroiti 0-03 [id number] tablet by [facility] - n 500-400 18:01: [...] 18:01: mouth Medic al LEVOTHROID) 23 daily. Center 75 MCG tablet multivitami 2018-07 Yes 1{tbl} QD Take [address] [facility] 0-03 tablet by [facility] - (THERAGRAN) 18:01: mouth Medic al per tablet 23 daily. [place] nystatin 2018-[address] [facility] (MYCOSTATIN 0-03 topically [place] [facility] - ) 100,000 18:01: as needed Med ical unit/gram 23 . Center powder polyethylen 2018-07 Yes 17g Take [address] e glycol 0-03 by mouth [facility] - (GLYCOLAX) 18:01: as needed Me dical 17 gram 23 . [place] packet MAGNESIUM 2018-07 Yes 71.5mg Q.5D Take [...] mouth [facility] - (ALDACTONE) 18:01: daily. Medi david 25 MG 23 Center tablet ipratropium 2018-07 [...] mg tablet 18:01: daily. Medica l 23 [place] apixaban 2018-07 Yes 5mg Q.5D Take [address] [facility] (ELIQUIS) 5 0-03 by mouth 2 [facility] - mg Tab 18:01: (two) Medical tablet 23 times Center daily. omeprazole 2018-07 Yes 40mg QD Take [address] (PRILOSEC) 0-03 by mouth [facility] - 40 MG 18:01: daily. Medical capsule 23 [place] levocetiriz 2018-07 Yes 5mg QD Take [address] ine (XYZAL) 0-03 by mouth [facility] - 5 MG tablet 18:01: every Medic al 23 evening. [place] glipiZIDE 2018-07 Yes 5mg QD Take [address] [facility] (GLUCOTROL) 0-03 by mouth [facility] - 5 MG tablet 18:01: daily. Medi david 23 Center atorvastati 2018-07 Yes 40mg QD Take [address] [facility] n (LIPITOR) 0-03 by mouth Luke s - 40 MG 18:01: nightly. Medical tablet 23 Center calcium 2018-07 Yes 600mg QD Take 600 [facility] carbonate 0-03 mg by [facility] - (OS-DAVID) 18:01: mouth Medical 600 mg 23 daily. [place] calcium (1,500 mg) Tab gabapentin 2018-07 Yes 300mg Q.[id number] Take [address] (NEURONTIN) 0-03 [id number] mg by L ukes - 300 MG 18:01: 3D mouth 3 Medical capsule 23 (three) Center times daily. nitroglycer 2018-[address] 1 Uni vers in 0.4 mg 5-15 tablet ity of sublingual 00:00: under the [place] tablet 00 tongue Medical every 5 Branch (five) minutes as needed for Chest pain. nitroglycer 2018-[address] 1 Uni vers in 0.4 mg 5-15 tablet ity of sublingual 00:00: under the [place] tablet 00 tongue Medical every 5 Branch (five) minutes as needed for Chest pain. nitroglycer 2018-[address] 1 Uni vers in 0.4 mg 5-15 tablet ity of sublingual 00:00: under the [place] tablet 00 tongue Medical every 5 Branch (five) minutes as needed for Chest pain. nitroglycer 2018-[address] 1 Uni vers in 0.4 mg 5-15 tablet ity of sublingual 00:00: under the [place] tablet 00 tongue Medical every 5 Branch (five) minutes as needed for Chest pain. nitroglycer 2018-[address] 1 Uni vers in 0.4 mg 5-15 tablet ity of sublingual 00:00: under the [place] tablet 00 tongue Medical every 5 Branch (five) minutes as needed for Chest pain. nitroglycer 2018-[address] 1 Uni vers in 0.4 mg 5-15 tablet ity of sublingual 00:00: under the [place] tablet 00 tongue Medical every 5 Branch (five) minutes as needed for Chest pain. Immunizations Ordered Filled Immunization Date Status Comments [facility] e Immunization Name Name SARS-COV-2 COVID-19 2021-04-01 Completed Unive rsity of PFIZER VACCINE 00:00:00 [facility] Branch SARS-COV-2 COVID-19 2021-04-01 Completed Unive rsity of PFIZER VACCINE 00:00:00 [facility] Branch SARS-COV-2 COVID-19 2021-04-01 Completed Unive rsity of PFIZER VACCINE 00:00:00 [facility] Branch SARS-COV-2 COVID-19 2021-04-01 Completed Unive rsity of PFIZER VACCINE 00:00:00 [facility] Branch SARS-COV-2 COVID-19 2020-09-17 Completed Unive rsity of PFIZER VACCINE 00:00:00 [facility] Branch SARS-COV-2 COVID-19 2020-09-17 Completed Unive rsity of PFIZER VACCINE 00:00:00 [facility] Branch SARS-COV-2 COVID-19 2020-09-17 Completed Unive rsity of PFIZER VACCINE 00:00:00 [facility] Branch SARS-COV-2 COVID-19 2020-09-17 Completed Unive rsity of PFIZER VACCINE 00:00:00 [facility] Branch SARS-COV-2 COVID-19 2020-09-17 Completed Unive rsity of PFIZER VACCINE 00:00:00 [facility] Branch SARS-COV-2 COVID-19 2020-09-17 Completed Unive rsity of PFIZER VACCINE 00:00:00 [facility] Branch SARS-COV-2 COVID-19 2020-08-26 Completed Unive rsity of PFIZER VACCINE 00:00:00 [facility] Branch SARS-COV-2 COVID-19 2020-08-26 Completed Unive rsity of PFIZER VACCINE 00:00:00 [facility] Branch SARS-COV-2 COVID-19 2020-08-26 Completed Unive rsity of PFIZER VACCINE 00:00:00 [facility] Branch SARS-COV-2 COVID-19 2020-08-26 Completed Unive rsity of PFIZER VACCINE 00:00:00 [facility] SARS-COV-2 COVID-19 2020-08-26 Completed Unive rsity of PFIZER VACCINE 00:00:00 [facility] Branch SARS-COV-2 COVID-19 2020-08-26 Completed Unive rsity of PFIZER VACCINE 00:00:00 [facility] Influenza High Dose 2020-05-05 Completed Unive rsity of [place] 00:00:00 [facility] Influenza High Dose 2020-05-05 Completed Unive rsity of [place] 00:00:00 [facility] Influenza High Dose 2020-05-05 Completed Unive rsity of [place] 00:00:00 [facility] Influenza High Dose 2020-05-05 Completed Unive rsity of [place] 00:00:00 [facility] Influenza High Dose 2020-05-05 Completed Unive rsity of [place] 00:00:00 [facility] Influenza High Dose 2020-05-05 Completed Unive rsity of [place] 00:00:00 [facility] Influenza High Dose 2019-04-30 Completed Unive rsity of 00:00:00 [facility] Influenza High Dose 2019-04-30 Completed Unive rsity of 00:00:00 [facility] Influenza High Dose 2019-04-30 Completed Unive rsity of 00:00:00 [facility] Influenza High Dose 2019-04-30 Completed Unive rsity of 00:00:00 [facility] Influenza High Dose 2019-04-30 Completed Unive rsity of 00:00:00 [facility] Influenza High Dose 2019-04-30 Completed Unive rsity of 00:00:00 [facility] Influenza High Dose 2018-06-10 Completed Unive rsity of 00:00:00 [facility] Influenza High Dose 2018-06-10 Completed Unive rsity of 00:00:00 [facility] Influenza High Dose 2018-06-10 Completed Unive rsity of 00:00:00 [facility] Influenza High Dose 2018-06-10 Completed Unive rsity of 00:00:00 [facility] Influenza High Dose 2018-06-10 Completed Unive rsity of 00:00:00 [facility] Influenza High Dose 2018-06-10 Completed Unive rsity of 00:00:00 [facility] Pneumococcal 13 2016-08-04 Completed Universit y of Conjugate, PCV13 00:00:00 [facility] dical (Prevnar 13) Branch Pneumococcal 13 2016-08-04 Completed Universit y of Conjugate, PCV13 00:00:00 [place] Me dical (Prevnar 13) Branch Pneumococcal 13 2016-08-04 Completed Universit y of Conjugate, PCV13 00:00:00 [place] (Prevnar 13) Branch Pneumococcal 13 2016-08-04 Completed Universit y of Conjugate, PCV13 00:00:00 [facility] dical (Prevnar 13) Branch Pneumococcal 13 2016-08-04 Completed Universit y of Conjugate, PCV13 00:00:00 [facility] dical (Prevnar 13) Branch Pneumococcal 13 2016-08-04 Completed Universit y of Conjugate, PCV13 00:00:00 [facility] [place] [facility] (Prevnar 13) Branch Influenza High Dose 2016-05-25 Completed Unive rsity of 00:00:00 [facility] Influenza High Dose 2016-05-25 Completed Unive rsity of 00:00:00 [facility] Influenza High Dose 2016-05-25 Completed Unive rsity of 00:00:00 [facility] Influenza High Dose 2016-05-25 Completed Unive rsity of 00:00:00 [facility] Influenza High Dose 2016-05-25 Completed Unive rsity of 00:00:00 [facility] Influenza High Dose 2016-05-25 Completed Unive rsity of 00:00:00 [facility] Influenza Virus 2013-04-30 Completed Universit y of Vaccine (3+ yrs) 00:00:00 [facility] Influenza Virus 2013-04-30 Completed Universit y of Vaccine (3+ yrs) 00:00:00 [facility] Influenza Virus 2013-04-30 Completed Universit y of Vaccine (3+ yrs) 00:00:00 [facility] Influenza Virus 2013-04-30 Completed Universit y of Vaccine (3+ yrs) 00:00:00 [facility] Influenza Virus 2013-04-30 Completed Universit y of Vaccine (3+ yrs) 00:00:00 [facility] Influenza Virus 2013-04-30 Completed Universit y of Vaccine (3+ yrs) 00:00:00 [facility] Influenza Virus 2012-04-30 Completed Universit y of Vaccine 00:00:00 [facility] Zoster(Zostavax)( 2012-04-30 Completed Unive rsity of ingles) 00:00:00 [facility] Influenza Virus 2012-04-30 Completed Universit y of Vaccine 00:00:00 [facility] Zoster(Zostavax)( 2012-04-30 Completed Unive rsity of ingles) 00:00:00 [facility] Influenza Virus 2012-04-30 Completed Universit y of Vaccine 00:00:00 [facility] Zoster(Zostavax)( 2012-04-30 Completed Unive rsity of ingles) 00:00:00 [facility] Influenza Virus 2012-04-30 Completed Universit y of Vaccine 00:00:00 [facility] Zoster(Zostavax)( 2012-04-30 Completed Unive rsity of ingles) 00:00:00 [facility] Influenza Virus 2012-04-30 Completed Universit y of Vaccine 00:00:00 [facility] Zoster(Zostavax)( 2012-04-30 Completed Unive rsity of ingles) 00:00:00 [facility] Influenza Virus 2012-04-30 Completed Universit y of Vaccine 00:00:00 [facility] Zoster(Zostavax)( 2012-04-30 Completed Unive rsity of ingles) 00:00:00 [facility] Pneumococcal 2011-04-30 Completed University o f Polysaccharide, 00:00:00 [place] Med ical PPSV23 (PNEUMOVAX) Branch Pneumococcal 2011-04-30 Completed University o f Polysaccharide, 00:00:00 [place] Med ical PPSV23 (PNEUMOVAX) Branch Pneumococcal 2011-04-30 Completed University o f Polysaccharide, 00:00:00 [place] Med ical PPSV23 (PNEUMOVAX) Branch Pneumococcal 2011-04-30 Completed University o f Polysaccharide, 00:00:00 [place] Med ical PPSV23 (PNEUMOVAX) Branch Pneumococcal 2011-04-30 Completed University o f Polysaccharide, 00:00:00 [place] Med ical PPSV23 (PNEUMOVAX) Branch Pneumococcal 2011-04-30 Completed University o f Polysaccharide, 00:00:00 [place] Med ical PPSV23 (PNEUMOVAX) Branch Td 2010-05-22 Completed University of 00:00:00 [facility] Td 2010-05-22 Completed University of 00:00:00 [facility] Td 2010-05-22 Completed University of 00:00:00 [facility] Td 2010-05-22 Completed University of 00:00:00 [facility] Td 2010-05-22 Completed University of 00:00:00 [facility] Td 2010-05-22 Completed University of 00:00:00 [facility] Vital Signs Vital Name Observation Time Observation Value Comments Source Systolic blood 2021-04-06 20:40:00 122 mm[Hg] Univer sity of pressure [facility] Diastolic blood 2021-04-06 20:40:00 72 mm[Hg] Unive rsity of pressure [facility] Heart rate 2021-04-06 20:40:00 60 /min [facility] Body temperature 2021-04-06 20:40:00 36.72 Natalee Univ ersity of [facility] Body height 2021-04-06 20:40:00 154.9 cm Universi [facility] Body weight 2021-04-06 20:40:00 101.152 kg [facility] BMI 2021-04-06 20:40:00 42.14 kg/m2 [facility] Oxygen saturation in 2021-04-06 20:40:00 95 /min [facility] Arterial blood by [facility] Pulse oximetry Branch Procedures Procedure Date / Time Performed Performing Clinician Sourjaelyn e XR LUMBAR SPINE 3 VW 2021-04-07 18:00:56 Cheryle Le [facility] Planned Activity Planned Date Details Comments Source Future Scheduled 2030-07-14 Screening for University of Test 00:00:00 osteoporosis [place] [facility] (procedure) [code = Branch [id number]] Future Scheduled 2030-07-14 Screening for University of Test 00:00:00 osteoporosis [place] [facility] (procedure) [code = Branch [id number]] Future Scheduled 2021-11-26 Creatinine University of Test 00:00:00 measurement [place] [facility] (procedure) [code = Branch 15975436] Future Scheduled 2021-11-26 Creatinine University of Test 00:00:00 measurement [place] [facility] (procedure) [code = Branch 00743798] Future Scheduled 2021-10-15 Depression screening Uni versity of Test 00:00:00 (procedure) [code = [place] 120637245] Branch Future Scheduled 2021-10-15 Depression screening Uni versity of Test 00:00:00 (procedure) [code = [place] [id number]] Branch Future Scheduled 2021-09-08 Calculated low Universit y of Test 00:00:00 density lipoprotein [facility] dical cholesterol level Branch (procedure) [code = 728295285] Future Scheduled 2021-09-08 Calculated low Universit y of Test 00:00:00 density lipoprotein [facility] dical cholesterol level Branch (procedure) [code = 811991050] Future Scheduled 2021-09-03 Microalbumin University of Test 00:00:00 measurement, urine, [place] Me dical quantitative Branch (procedure) [code = 837245864] Future Scheduled 2021-09-03 Microalbumin University of Test 00:00:00 measurement, urine, [facility] dical quantitative Branch (procedure) [code = 309926510] Future Scheduled 2021-05-13 DTaP,Tdap,and Td Postponed from Unive rsity of Test 00:00:00 Vaccines (1 - Tdap) 10/21/1964 (Not [facility] [place] [facility] [code = Indicated) Branch DTaP,Tdap,and Td Vaccines (1 - Tdap)] Future Scheduled 2021-05-13 DTaP,Tdap,and Td Postponed from Unive rsity of Test 00:00:00 Vaccines (1 - Tdap) 10/21/1964 (Not [facility] [place] [facility] [code = Indicated) Branch DTaP,Tdap,and Td Vaccines (1 - Tdap)] Future Scheduled 2021-03-[address] [facility] - Test 00:00:00 (#1) [code = [facility] INFLUENZA VACCINE (#1)] Future Scheduled 2021-03-10 Diabetic foot University of Test 00:00:00 examination [place] [facility] (regime/therapy) Branch [code = 066488608] Future Scheduled 2021-03-10 Diabetic foot University of Test 00:00:00 examination [place] [facility] (regime/therapy) Branch [code = 411323727] Future Scheduled 2021-03-08 Hemoglobin A1c Universit y of Test 00:00:00 measurement [place] [facility] (procedure) [code = Branch 12016413] Future Scheduled 2021-03-08 Hemoglobin A1c Universit y of Test 00:00:00 measurement [place] [facility] (procedure) [code = Branch 59127929] Future Scheduled 2020-09-26 Examination of Universit y of Test 00:00:00 retina (procedure) [place] Med ical [code = 068994102] Branch Future Scheduled 2020-09-26 Examination of Universit y of Test 00:00:00 retina (procedure) [place] Med ical [code = 534915921] Branch Future Scheduled 2020-07-[address] [facility] - Test 00:00:00 (12+) [code = Medical Center DEPRESSION SCREENING (12+)] Future Scheduled 2020-07-31 FALLS RISK SCREENING [facility] - Test 00:00:00 [code = FALLS RISK Medical C enter SCREENING] Future Scheduled 2020-05-22 DTAP/TDAP/TD [facility] - Test 00:00:00 VACCINES (2 - Td or Medical Center Tdap) [code = DTAP/TDAP/TD VACCINES (2 - Td or Tdap)] Future Scheduled 2020-01-09 Medicare Annual Universi ty of Test 00:00:00 Wellness Visit [facility] [place] [facility] (procedure) [code = Branch [id number]] Future Scheduled 2020-01-09 Medicare Annual Universi ty of Test 00:00:00 Wellness Visit [facility] [place] [facility] (procedure) [code = Branch [id number]] Future Scheduled 2019-10-[address] [facility] - Test 00:00:00 [facility] (procedure) [code = 85092168] Future Scheduled 2012-06-25 Zoster Recombinant Unive rsity of Test 00:00:00 Vaccine (SHINGRIX) [place] Med ical (2 of 3) [code = Branch Zoster Recombinant Vaccine (SHINGRIX) (2 of 3)] Future Scheduled 2012-06-25 Zoster Recombinant Unive rsity of Test 00:00:00 Vaccine (SHINGRIX) [place] Med ical (2 of 3) [code = Branch Zoster Recombinant Vaccine (SHINGRIX) (2 of 3)] Future Scheduled 2012-06-25 SHINGLES VACCINES ([address] [facility] - Test 00:00:00 of 3) [code = [facility] SHINGLES VACCINES (2 of 3)] Future Scheduled 2007-05-[address] [facility] [facility] - Test 00:00:00 WELLNESS (YEAR 2 or Medical Center FIRST YEAR if no IPPE) [code = MEDICARE ANNUAL WELLNESS (YEAR 2 or FIRST YEAR if no IPPE)] Future Scheduled 1961-10-21 Hepatitis C University of Test 00:00:00 screening [facility] [place] [facility] (procedure) [code = Branch [id number]] Future Scheduled 1961-10-21 Hepatitis C University of Test 00:00:00 screening [facility] [place] [facility] (procedure) [code = Branch 233040423] Future Scheduled 1961-10-[address] [facility] - Test 00:00:00 SCREENING [code = Medical Ce nter HEPATITIS C SCREENING] Future Scheduled 1955 COVID-19 VACCINE (1) [facility] - Test 00:00:00 [code = COVID-[address] VACCINE (1)] Future Scheduled 1953-10-21 DIABETIC EYE EXAM [facility] - Test 00:00:00 [code = DIABETIC EYE Medical Center EXAM] Future Scheduled 1953-10-[address] [facility] - Test 00:00:00 examination Medical Center (regime/therapy) [code = 426940939] Future Scheduled 1953-10-21 Urine screening for [facility] - Test 00:00:00 protein (procedure) Medical Center [code = 478489855] Encounters Start End Encounter Admission Attending Care Care Encounter Source Date/Time Date/Time Type Type Clinicians Facility Department ID 2021-04-14 2021-04-14 [facility] [id number] Univers 00:00:00 00:00:00 Cheryle Leos [id number] [id number] [facility] [phone] [place] [facility] 044 [facility] 2021-04-07 2021-04-07 [facility] [id number] Univers 12:39:42 23:59:00 Encounter Cheryle Leos [id number] [id number] [id number] [facility] 807 [place] 2021-04-06 2021-04-06 Office [facility] [id number] [facility] 15:24:36 16:56:48 Visit Cheryle Leos [id number] [id number] [phone] [place] dical nal 231 [facility] 2020-11-30 2020-11-30 Television News Reporter 2, Adc Lab [facility] [id number] 13:14:25 13:29:25 Visit [place] [id number] [place] [id number] Professio [phone] [facility] 353 [facility] 2020-11-27 2020-11-27 Telephone Rey [facility] [id number] 00:00:00 00:00:00 Cheryle Leos [id number] [place] [id number] Professio [phone] [facility] 231 [facility] 2020-11-26 2020-11-26 Television News Reporter Hui Dutton [facility] [id number] 11:47:44 12:02:44 Visit Lab Main [place] [id number] [place] [id number] Professio [phone] [address] 2020-11-26 2020-11-26 Emergency [facility] 1.2.167.585 [id number] 03:21:00 06:10:00 Shante Leos 350.1.13.10 [place] 4.2.7.2.686 [place] [phone] [id number] 2020-11-23 2020-11-23 [facility] [place] 1.2.840.114 [id number] 782 16:20:16 23:59:00 Encounter Jennifer Dafne 350.1.13.10 [place] 4.2.7.2.686 [place] [phone] [phone] 2020-11-23 [facility] 1.2.192.268 5227 2944 14:51:43 15:11:43 Care [facility] 350.1.13.10 Care [place] 4.2.7.2.686 Professio [phone] [place] [address] [address] 2020-11-21 2020-11-21 Refill Rey [facility] 1.2.840.114 [id number] [id number] 00:00:00 00:00:00 Cheryle Leos 350.1.13.10 [place] 4.2.7.2.686 Professio [phone] [facility] 231 [facility] 2020-11-17 2020-11-17 [facility] 1.2.458.199 [id number] 9200 14:30:00 23:59:00 Encounter Veronica Leos 350.1.13.10 [place] 4.2.7.2.686 [place] [id number] 806 2020-11-12 2020-11-12 [facility] 1.2.840.114 [id number] 00:00:00 00:00:00 Deo Leos 350.1.13.10 [place] 4.2.7.2.686 Professio [phone] [facility] 044 [facility] 2020-11-11 2020-11-11 Telephone [facility] 1.2.400.898 [id number] 7312 00:00:00 00:00:00 Latisha Leos 350.1.13.10 [place] 4.2.7.2.686 Professio [phone] [facility] 059 [facility] 2020-11-10 2020-11-10 [facility] 1.2.840.114 [id number] 00:00:00 00:00:00 Cheryle Leos 350.1.13.10 [place] 4.2.7.2.686 Professio [phone] [facility] 044 [facility] 2020-11-09 2020-11-09 Television News Reporter Nato [facility] 1.2.840.114 83 [id number] 12:26:23 12:41:23 Visit Lab Rony Leos 350.1.13.10 [place] 4.2.7.2.686 Profess[place] [phone] [facility] 353 [facility] 2020-11-09 2020-11-09 Office [facility] 1.2.840.114 [id number] 11:35:43 12:06:49 Visit Rejijimmie Dafne 350.1.13.10 [place] 4.2.7.2.686 Professio [phone] [facility] 059 [facility] 2020-11-09 2020-11-09 [facility] 1.2.840.114 [id number] 76457 00:00:00 00:00:00 Secure Msg Cheryle Leos 350.1.13.10 [place] 4.2.7.2.686 Profess[place] [phone] [address] 2020-11-07 2020-11-07 Orders Doctor SKYE 1.2.840.114 [id number] 00:00:00 00:00:00 Only Unassigned, CORNELIA 350.1.13.10 [place] [address].2.7.2.686 [id number] 009 Results Test Description Test Time Test Comments Results Result Sourc e Comments XR LUMBAR SPINE FINDINGS/IMPRESSION: [facility] 3 VW 8 Unilateral posterior [facility] 21:36:21 spinal fusion is Branch identified on the right at and L3-L4.No hardware complications are identified. Unchanged chronic compression deformity of the L1 vertebral body. No newfractures are identified. Severe multilevel degenerative changes are seen in the form of scattereddisc space narrowing, osteophytes and facet arthropathy. Increase in theanterior disc space at L4-L5 is redemonstrated.HISTO RY:fall last week. Now pain in lumbar spine. TECHNIQUE: Frontal and lateral views of the lumbar spine were obtained. COMPARISON: 11/26/2020. [facility], Radiant Results Inft User - 04/07/2021 4:37 PM CDT HISTORY:fal l last week. Now pain in lumbar spine. TECHNIQUE: Frontal and lateral views of the lumbar spine were obtained. COMPARISON: 11/26/2020.IMPRESSION FINDINGS/IMPRESSION: Unilateral posterior spinal fusion is identified on the right at and L3-L4.No hardware complications are identified.Unchanged chronic compression deformity of the L1 vertebral body. No newfractures are identified.Severe multilevel degenerative changes are seen in the form of scattereddisc space narrowing, osteophytes and facet arthropathy. Increase in theanterior disc space at L4-L5 is redemonstrated. - CT T-SPINE W/O 2020-03-01 FAX: CONTRAST 7 Tatiana Mai MD 13:56:00 [place]: St: REG FAX: Frandy Shaw Name: CASIE KELLEY : 1945 Age/S: 74/F [address] Unit: [id number] Loc: [place] [address] Phys: Frandy Shaw MD R1 Acct: [id number] Dis Date: Status: REG ER PHONE #: [phone] Exam Date: 03/26/2020 1793 FAX #: [phone] Reason: back pain EXAMS: CPT CODE: [id number] CT T-SPINE W/O CONTRAST 01501 EXAM: - CT T-SPINE W/O CONTRAST, - [...] Signed Report (CONTINUED) FAX: Tatiana Mai MD [phone] [place]: [facility]: REG FAX: Frandy Shaw Name: CASIE KELLEY [facility] : 1945 Age/S: 74/F [address] Unit: [id number] Loc: [place] [address] Phys: Frandy Shaw MD R1 Acct: [id number] Dis Date: Status: REG ER PHONE #: [phone] Exam Date: 03/26/2020 1326 FAX #: [phone] Reason: back pain EXAMS: CPT CODE: [id number] CT T-SPINE W/O CONTRAST 58825 <Continued> CC: Tatiana Mai MD; Frandy Shaw MD Technologist: Ara Hall Dt/Tm: 03/26/2020 (4906) [email or web address] Orig Print D/T: S: 03/26/2020 (2119 PAGE 2 Signed Report - CT L-SPINE W/O 2020-03-01 FAX: CONTRAST 7 Tatiana Mai MD 13:56:00 [place]: [facility]: REG FAX: Frandy Shaw Name: CASIE KELLEY [facility] : 1945 Age/S: 74/F [address] Unit: [id number] Loc: [place] [address] Phys: Frandy Shaw MD R1 Acct: [id number] Dis Date: Status: REG ER PHONE #: [phone] Exam Date: 03/26/2020 1326 FAX #: [phone] Reason: pain EXAMS: CPT CODE: [id number] CT L-SPINE W/O CONTRAST 15203 EXAM: - CT T-SPINE W/O CONTRAST, - [...] Signed Report (CONTINUED) FAX: Tatiana Mai MD [phone] [place]: St: REG FAX: Frandy Shaw Name: CASIE KELLEY [facility] : 1945 Age/S: 74/F [address] Unit: [id number] Loc: [place] [address] Phys: Frandy Shaw MD R1 Acct: [id number] Dis Date: Status: REG ER PHONE #: [phone] Exam Date: 03/26/2020 1326 FAX #: [phone] Reason: pain EXAMS: CPT CODE: [id number] CT L-SPINE W/O CONTRAST 93559 <Continued> CC: Tatiana Mai MD; Frandy Shaw MD Technologist: Ara Tomlinrd Dt/Tm: 03/26/2020 (6925) [email or web address] Orig Print D/T: S: 03/26/2020 (4918 PAGE 2 Signed Report - CT C-SPINE W/O 2020-03-01 FAX: CONT 7 Frandy Shaw 13:53:00 [place]: St: REG -- Name: CASIE KELLEY [facility] : 1945 Age/S: 74/F [address] Unit: [id number] Loc: [place] [address] Phys: Frandy Shaw MD R1 Acct: [id number] Dis Date: Status: REG ER PHONE #: [phone] Exam Date: 03/26/2020 1326 FAX #: [phone] Reason: fall EXAMS: CPT CODE: [id number] CT C-SPINE W/O CONT 00148 EXAM: - CT C-SPINE W/O CONT CLINICAL [...] at 1353 Reported and signed by: VERÓNICA KELLEY DO PAGE 1 Signed Report (CONTINUED) FAX: Frandy Shaw [place]: St: REG -- Name: CASIE KELLEY [facility] : 1945 Age/S: 74/F [address] Unit: [id number] Loc: [place] [address] Phys: Frandy Shaw MD Acct: [id number] Dis Date: Status: REG ER PHONE #: [phone] Exam Date: 03/26/2020 1326 FAX #: [phone] Reason: fall EXAMS: CPT CODE: [id number] CT C-SPINE W/O CONT 53973 <Continued> CC: Frandy Shaw MD Technologist: Ara Wilde Trnscrd Dt/Tm: 03/26/2020 (0777) [email or web address] Orig Print D/T: S: 03/26/2020 (6364 PAGE 2 Signed Report - CT HEAD/BRAIN 2020-03-01 FAX: W/O CONT 7 Frandy Shaw 13:43:00 [place]: St: REG -- Name: CASIE KELLEY [facility] : 1945 Age/S: 74/F [address] Unit: [id number] Loc: [place] [address] Phys: Frandy Shaw MD R1 Acct: [id number] Dis Date: Status: REG ER PHONE #: [phone] Exam Date: 03/26/2020 1326 FAX #: [phone] Reason: fall thinners EXAMS: CPT CODE: [id number] CT HEAD/BRAIN W/O CONT 20799 EXAM: - CT HEAD/BRAIN W/O CONT INDICATION: [...] 1 Signed Report (CONTINUED) FAX: Frandy Shaw [place]: St: REG -- Name: CASIE KELLEY [facility] : 1945 Age/S: 74/F [address] Unit: [id number] Loc: [place] [address] Phys: Frandy Shaw MD R1 Acct: [id number] Dis Date: Status: REG ER PHONE #: [phone] Exam Date: 03/26/2020 1326 FAX #: [phone] Reason: fall thinners EXAMS: CPT CODE: [id number] CT HEAD/BRAIN W/O CONT 10696 <Continued> CC: Frandy Shaw MD Technologist: Ara Wilde Trnscrd Dt/Tm: 03/26/2020 (4373) [email or web address] Orig Print D/T: S: 03/26/2020 (2998 PAGE 2 Signed Report COMPREHENSIVE METABOLIC PANEL [...] U/L 38-126 H code = ALKP) PROTHROMBIN [id number] 13:07:00 Test Item Value Reference Range Interpretation [...] - 3.0 Atrial fibrillation 2.0 - 3.03. Bar Back al prosthetic valv es (high risk) 2.5 - 3.5 * If oral anticoagulant t herapy is elected to preventrecurren t myocardial infa rction, an INR of 2.5-3 .5 isrecommended, consistent with Food and Drug Administrationr ecommen dations. THROMBOPLASTIN TIME [id number] 13:07:00 Test Item Value Reference Range Interpretation Comments THROMBOPLASTIN TIME 23.7 SECONDS 23.4-37.0 N Therap eutic Range PARTIAL (test code = for Hep clint PTT) EFFECTIVE Heparin IU/mL aPT T Seconds0.3 64.30.7 88.8 CBC W/AUTO [id number] 12:58:00 Test Item Value Reference Range Interpretation [...] 3/uL 0.0-0.1 N - XR PELVIS 08/01 [id number] 12:35:00 FAX: Frandy Shaw [place]: [facility] St: REG Name: CASIE KELLEY [facility] : 1945 Age/S: 74/F [address] Unit#: [id number] Loc: [place] [address] Phys: Frandy Shaw MD R1 Acct: [id number] Dis Date: Status: REG ER PHONE #: [phone] Exam Date: 03/26/2020 1229 FAX #: [phone] Reason: fall EXAMS: CPT CODE: [id number] XR PELVIS 1/2 VIEWS 94437 EXAM: - XR PELVIS 1/2 VIEWS INDICATION: fall Location: T 18. COMPARISON: None. TECHNIQUE: 1 view. FINDINGS: Diminished sensitivity secondary to patient body habitus. No acute fractureseen. Soft tissues appear grossly unremarkable. IMPRESSION: No acute fracture seen. Diminished sensitivity at 1235 Reported and signed by: Dao Potter MD CC: Frandy Shaw MD Technologist: Lazaro Castrejon Trncard Date/Time/By: 03/26/2020 (6546) : By: [email or web address] PAGE 1 Signed Report FAX: Frandy Shaw [place]: St: REG -- Name: CASIE KELLEY [facility] : 1945 Age/S: 74/[address] Unit #: [id number] Loc: [place] [address] Phys: Frandy Shaw MD R1 Acct: [id number] Dis Date: Status: REG ER PHONE #: [phone] Exam Date: 03/26/2020 1229 FAX #: [phone] Reason: fall EXAMS: CPT CODE: [id number] XR PELVIS 1/2 VIEWS 02004 <Continued> Orig Print D/T: S: 03/26/2020 (2358) PAGE 2 Signed Report- XR CHEST 1 [id number] 12:32:00 FAX: Frandy Shaw [place]: St: REG Name: [place] : 1945 Age/S: 74/F [address] Unit#: [id number] Loc: [place] [address] Phys: Frandy Shaw MD R1 Acct: [id number] Dis Date: Status: REG ER PHONE #: [phone] Exam Date: 03/26/2020 1222 FAX #: [phone] Reason: fall EXAMS: CPT CODE: [id number] XR CHEST 1 V 99836 EXAM: - XR CHEST 1 V INDICATION: [...] MD CC: Frandy Shaw MD Technologist: Lazaro Castrejon [facility] Date/Time/By: 03/26/2020 (1232) : By: [email or web address] PAGE 1 Signed Report FAX: Frandy Shaw [place]: St: RE G Name: [place]IE [place] : 1945 Age/S: 74/F [address] Unit #: [id number] Loc: [place] [address] Phys: Frandy Shaw MD R1 Acct: [id number] Dis Date: Status: REG ER PHONE #: [phone] Exam Date: 03/26/2020 1222 FAX #: [phone] Reason: fall EXAMS: CPT CODE: [id number] XR CHEST 1 V 29983 <Continued> Orig Print D/T: S: 03/26/2020 (1389) PAGE 2 Signed ReportCT, BRAIN, WITHOUT [id number] 14:47:00Reason for exam:- >eval for stroke, unable [...] lobe infarct.No intracranial hemorrhage. Signed: Ludmila Finney Verified Date/Time: 05/02/2019 14:47:24 -GLUCOSE [id number] 12:03:00 Test Item Value Reference Range Interpretation Comments POC-GLUCOSE METER 237 mg/dL 70-110 H TESTED AT [facility] ([facility]) (test code = [place] [address]) [address] POCT-GLUCOSE [id number] 07:42:00 Test Item Value Reference Range Interpretation Comments POC-GLUCOSE METER 155 mg/dL 70-110 H TESTED AT [facility] 6720 ([facility]) (test code = [place] 1538) [address] POCT-GLUCOSE [id number] 23:26:00 Test Item Value Reference Range Interpretation Comments POC-GLUCOSE METER 300 mg/dL 70-110 H TESTED AT [facility] 6720 ([facility]) (test code = [place] 1538) [address] CT, CTANGIO [id number] 17:04:00Reason for exam:->eval for strokeFINAL REPORT CLINICAL [...] the proximal ACAs segments. The MCAs and janitor custodian are patent without occlusion or high-grade stenosis.Distal [...] orhigh-grade stenosis where visualized. Signed: Ludmila Finney MDReport Verified Date/Time: 05/01/2019 17:04:53 CT, CAROTID, [id number] 17:04:00Reason for exam:- >eval strokeFINAL REPORT CLINICAL [...] the proximal ACAs segments. The MCAs and janitor custodian are patent without occlusion or high-grade stenosis. [...] METER 135 mg/dL 70-110 H TESTED AT [place] [address] ([facility]) (test code = JACQUE John [place] 087478) [address] POCT-GLUCOSE [id number] 12:56:00 Test Item Value Reference Range Interpretation Comments POC-GLUCOSE METER 329 mg/dL 70-110 H Notified John Vincent MD/TESTED ([facility]) (test code = AT [address] 1538) [facility] 7[address] 0 POCT-GLUCOSE [id number] 08:12:00 Test Item Value Reference Range Interpretation Comments POC-GLUCOSE METER 140 mg/dL 70-110 H TESTED AT [place] [address] ([facility]) (test code = YUNIORSHANA John [place] 087478) [address] BASIC METABOLIC [id number] 07:13:00 Test Item Value Reference Range Interpretation [...] PATIEN TS. CBC W/PLT COUNT & AUTO [id number] 06:37:00 Test Item Value Reference Range Interpretation [...] 417) IMMATURE GRANULOCYTES-RELATIVE 1 % 0-1 PERCENT ([facility]) (test code = 2801) POCT-GLUCOSE [id number] 21:36:00 Test Item Value Reference Range Interpretation Comments POC-GLUCOSE METER 169 mg/dL 70-110 H TESTED AT [place] [address] ([facility]) (test code = JACQUE Lopez [facility] 1538) [address] POCT-GLUCOSE [id number] 17:12:00 Test Item Value Reference Range Interpretation Comments POC-GLUCOSE METER 156 mg/dL 70-110 H TESTED AT [place] [address] ([facility]) (test code = JACQUE Lopez [facility] 1538) [address] POCT-GLUCOSE [id number] 12:23:00 Test Item Value Reference Range Interpretation Comments POC-GLUCOSE METER 267 mg/dL 70-110 H TESTED AT [place] [address] ([facility]) (test code = JACQUE Lopez [facility] 1538) [address] POCT-GLUCOSE [id number] 08:41:00 Test Item Value Reference Range Interpretation Comments POC-GLUCOSE METER 172 mg/dL 70-110 H TESTED AT [place] [address] ([facility]) (test code = JACQUE Lopez [facility] 1538) [address] BASIC METABOLIC [id number] 07:45:00 Test Item Value Reference Range Interpretation [...] PATIEN TS. CBC W/PLT COUNT & AUTO [id number] 06:18:00 Test Item Value Reference Range Interpretation [...] PERCENT (BEAKER) (test code = 2801) POCT-GLUCOSE [id number] 21:28:00 Test Item Value Reference Range Interpretation Comments POC-GLUCOSE METER 268 mg/dL 70-110 H TESTED AT [facility] 6720 (BEAKER) (test code = YUNIORIN Jonh [facility] 1538) [address] POCT-GLUCOSE [id number] 17:44:00 Test Item Value Reference Range Interpretation Comments POC-GLUCOSE METER 258 mg/dL 70-110 H TESTED AT [facility] 67 (BEAKER) (test code = [facility] John [facility] 1538) [address] POCT-GLUCOSE [id number] 14:15:00 Test Item Value Reference Range Interpretation Comments POC-GLUCOSE METER 208 mg/dL 70-110 H TESTED AT [facility] (test code = [facility] 1538) [address] BASIC METABOLIC [id number] 13:21:00 Test Item Value Reference Range Interpretation [...] PATIEN TS. CBC W/PLT COUNT & AUTO [id number] 12:52:00 Test Item Value Reference Range Interpretation [...] (test code = 2801) CT, BRAIN, WITHOUT [id number] 12:34:00Reason for exam:->right leg weakness, ? TIA [...] recommended for further characterization. Signed: Heike Adkins Verified Date/Time: 04/29/2019 12:34:14 Reading Location: [address] Neuro Reading Room POCT-GLUCOSE [id number] 07:49:00 Test Item Value Reference Range Interpretation Comments POC-GLUCOSE METER 170 mg/dL 70-110 H TESTED AT [place] [address] ([facility]) (test code = JACQUE Lopez [facility] 1538) [address] POCT-GLUCOSE [id number] 21:52:00 Test Item Value Reference Range Interpretation Comments POC-GLUCOSE METER 227 mg/dL 70-110 H TESTED AT [place] [address] ([facility]) (test code = JACQUE Lopez [facility] 1538) [address] POCT-GLUCOSE [id number] 17:00:00 Test Item Value Reference Range Interpretation Comments POC-GLUCOSE METER 277 mg/dL 70-110 H TESTED AT [place] [address] ([facility] (test code = JACQUE Lopez [facility] 1538) [address] POCT-GLUCOSE [id number] 11:19:00 Test Item Value Reference Range Interpretation Comments POC-GLUCOSE METER 306 mg/dL 70-110 H TESTED AT [place] [address] ([facility]) (test code = JACQUE Lopez [facility] 1538) [address] HEMOGLOBIN [id number] 08:41:00 Test Item Value Reference Range Interpretation Comments HEMOGLOBIN A1C (BEAKER) (test code = 7.8 % 4.3-6.1 H 368) POCT-GLUCOSE [id number] 07:54:00 Test Item Value Reference Range Interpretation Comments POC-GLUCOSE METER 165 mg/dL 70-110 H TESTED AT [place] [address] ([facility]) (test code = JACQUE Lopez [facility] 1538) [address] LIPID [id number] 05:59:00 Test Item Value Reference Range Interpretation [...] High 160-189 Very High >=190 FastingBASIC METABOLIC [id number] 05:59:00 Test Item Value Reference Range Interpretation Comments SODIUM (BEAKER) 141 meq/L 136-145 (test code = 381) POTASSIUM (BEAKER) 4.3 meq/L 3.5-5.1 (test code = 379) CHLORIDE (BEAKER) 104 meq/L 98-107 (test code = 382) CO2 (BEAKER) (test 28 meq/L -29 code = 355) BLOOD UREA NITROGEN 46 [...] S NOT APPLICABLE FOR DIALYSIS PATIEN TS. [facility]asting[facility] (HEMOGRAM ONLY)2019-04-28 05:36:00 Test Item Value Reference [...] 0-0 (BEAKER) (test code = 413) POCT-GLUCOSE [id number] 23:58:00 Test Item Value Reference Range Interpretation Comments POC-GLUCOSE METER 272 mg/dL 70-110 H TESTED AT [facility] 6720 (BEAKER) (test code = JACQUE S[place]IANO 1538) [address] POCT-GLUCOSE [id number] 17:13:00 Test Item Value Reference Range Interpretation Comments POC-GLUCOSE METER 251 mg/dL 70-110 H TESTED AT [facility] 6720 (BEAKER) (test code = JACQUE S[place]IANO 1530) [address] VITAMIN B12 AND [id number] 12:54:00 Test Item Value Reference Range Interpretation Comments VITAMIN B12 (BEAKER) (test code = 622 pg/mL 213-816 774) FOLATE (BEAKER) (test code = 362) > ng/mL >=7.0 TSH/FREE T4 IF [id number] 12:40:00 Test Item Value Reference Range Interpretation Comments THYROID STIMULATING HORMONE 0.54 uIU/mL 0.35-4.94 (BEAKER) (test code = 772) URINALYSIS [id number] 12:06:00 Test Item Value Reference Range Interpretation Comments RBC UA (BEAKER) (test code = 519) 3 /HPF WBC UA (BEAKER) (test code = 520) 114 /HPF SQUAMOUS EPITHELIAL (BEAKER) (test 4 /HPF code = 516) HYALINE CASTS (BEAKER) (test code = 2 /LPF 514) URINALYSIS WITH MICROSCOPIC IF [id number] 12:03:00 Test Item Value Reference Range Interpretation [...] 463) SOURCE(BEAKER) (test code = 2795) POCT-GLUCOSE [id number] 11:46:00 Test Item Value Reference Range Interpretation Comments POC-GLUCOSE METER 178 mg/dL 70-110 H TESTED AT [place] [address] ([facility]) (test code = [place] 1538) [address] POCT-GLUCOSE [id number] 08:47:00 Test Item Value Reference Range Interpretation Comments POC-GLUCOSE METER 113 mg/dL 70-110 H TESTED AT [place] [address] ([facility]) (test code = [place] 1538) [address]
[2021-04-14] MEDS ORDERED: NA CHLORIDE 0.9% 500 ML ONE ×2 (11:18→13:01)
[2021-04-14 11:49] LABS: Absolute Lymphocytes (CBC) 2.6 K/uL (0.7-4.9); Basophils % 0.5 % (0-1.3); Hematocrit 33.6 % (36.0-45.0); Lymphocytes % 30.5 % (15.3-44.8); MPV 7.1 fL (7.6-11.3); RBC Red Blood Cell Count 4.06 M/uL (3.86-4.86)
--- NOTE | 2021-04-14 11:53 | RAD REPORT ---
EXAM DESCRIPTION: RAD - Chest Single View - 04/14/2021 11:48 am CLINICAL HISTORY: weakness COMPARISON: Chest Single View dated 04/27/2019; Chest Single View dated 08/19/2018; Chest Single View dated 08/06/2018; Chest Pa And Lat (2 Views) dated 02/28/2018 FINDINGS: Lines: None. Lungs: No evidence of edema or pneumonia. Pleural: No significant pleural effusions or pneumothorax. Cardiac: The heart size is within normal limits. Bones: No acute fractures. Other: IMPRESSION: No acute cardiopulmonary disease.
[2021-04-14 12:17] LABS: Bilirubin Direct 0.1 mg/dL (0-0.2); Bilirubin Total 0.3 mg/dL (0.2-1.0)
[2021-04-14 12:21] LABS: Potassium 2.7 mmol/L (3.5-5.1)
[2021-04-14 12:21] LABS: Urine Blood Negative (Negative); Urine Glucose Negative (Negative); Urine Protein Negative (Negative); Urine Specific Gravity 1.015 (1.005-1.030)
[2021-04-14] MEDS ORDERED: POTASSIUM CL 10 MEQ in NA CHLORIDE 0.9% 100 ML IV ONE (13:00)
[2021-04-14 13:02] LABS: Urine Bacteria 20-50 /HPF (<20); Urine RBC <5 /HPF (NONE SEEN)
--- NOTE | 2021-04-14 14:35 | EDPHYS ---
Physician Documentation [facility] Name: Casie Kelley Age: 75 yrs Sex: Female : 1945 Arrival Date: 04/14/2021 Time: 10:21 Bed 28 Private MD: ED Physician Rex Dias HPI: 04/14 10:49 This 75 yrs old Female presents to ER via EMS with complaints of General rn Weakness. 10:49 The patient presents with decreased responsiveness. Onset: The symptoms/episode rn began/occurred yesterday. Possible causes: unknown. Associated signs and symptoms: Pertinent positives: dizziness, weakness, Pertinent negatives: abdominal pain, chest pain, headache, seizure, shortness of breath. Current symptoms: In the emergency department the patient's symptoms have improved. The patient has experienced similar episodes in the past. The patient has not recently seen a physician. EMS states called out for lift assist, state called out for lift assist several times a month. This morning slid out of recliner and required assistance, unable to lift her. Today seemed weaker than normal. Patient complained of dizziness, weakness, urinary frequency. Denies fall or head injury. No injuries today. Reports decreased appetite and p.o. intake lately.. Historical: - Allergies: 10:25 Codeine; ss 10:25 Compazine; ss 10:25 Darvon; ss 10:25 Demerol; ss 10:25 HYDROCODONE; ss 10:25 Levofloxacin; ss 10:25 Lyrica; ss 10:25 meperidine; ss 10:25 PENTAZOCINE; ss 10:25 sulfamethoxazole (bulk); ss 10:25 Talwin; ss 10:25 TRIMETHOPRIM; ss 10:25 Vioxx; ss - PMHx: 10:25 Aneurysm; heel spur; lymphedema; Obesity; Hypothyroidism; Fibromyalgia; GERD; ss Gastroparesis; constipation; CVA; Diabetes - NIDDM; ileus; multiple thyroid nodules; PERIPHERAL NEUROPATHY; Sleep Apnea; spinal stenosis; vaginal atrophy; Chronic pain; Cervical Spondylosis; - Immunization history:: Client reports receiving the 2nd dose of the Covid vaccine. - Social history:: Smoking status: Patient denies any tobacco usage or history of. - Family history:: not pertinent. - Hospitalizations: : No recent hospitalization is reported. ROS: 10:49 Constitutional: Negative for fever, chills, and weight loss, Eyes: Negative for injury, rn pain, redness, and discharge, Neck: Negative for injury, pain, and swelling, Cardiovascular: Negative for chest pain, palpitations, and edema, Respiratory: Negative for shortness of breath, cough, wheezing, and pleuritic chest pain, Abdomen/GI: Negative for abdominal pain, vomiting, diarrhea, and constipation, Back: Negative for injury and pain, : Positive for increased urinary frequency MS/Extremity: Negative for injury and deformity, Skin: Negative for injury, rash, and discoloration, Neuro: Negative for headache, numbness, tingling, and seizure. 10:49 All other systems are negative. Exam: 10:49 Constitutional: Overweight female, no acute distress, sitting up in bed Head/Face: rn Normocephalic, atraumatic. Eyes: Periorbital areas with no swelling, redness, or edema. ENT: Dry mucous membranes Cardiovascular: Bradycardic, regular. No pulse deficits Respiratory: Speaking full sentences, unlabored. No increased work of breathing, no retractions or nasal flaring. Abdomen/GI: Soft, nontender, nondistended Skin: Warm, dry MS/ Extremity: Pulses equal, no cyanosis. Neuro: Awake and alert, GCS 15, oriented to person, place, time, and situation. Cranial nerves II-XII grossly intact. Motor strength 4/5 in all extremities. Sensory grossly intact. 11:01 ECG was reviewed by the Attending Physician. rn Vital Signs: 10:28 BP 132 / 46; Pulse 50; Resp 16; Temp 97.9(O); Pulse Ox 96% on R/A; vg1 11:00 BP 130 / 56; Pulse 56; Resp 12; Pulse Ox 96% on R/A; vg1 12:00 BP 130 / 63; Pulse 54; Resp 12; Pulse Ox 95% on R/A; vg1 12:30 BP 122 / 60; Pulse 57; Resp 12; Pulse Ox 97% on R/A; vg1 13:00 BP 114 / 66; Pulse 57; Resp 14; Pulse Ox 95% on R/A; vg1 13:30 BP 124 / 62; Pulse 57; Resp 16; Pulse Ox 97% on R/A; vg1 15:00 BP 104 / 91; Pulse 58; Resp 14; Pulse Ox 97% on R/A; jl7 15:30 BP 108 / 67; Pulse 58; Resp 12; Pulse Ox 97% on R/A; vg1 17:15 BP 116 / 78; Pulse 57; Resp 14; Pulse Ox 96% on R/A; vg1 18:00 BP 117 / 60; Pulse 57; Resp 12; Pulse Ox 96% on R/A; vg1 MDM: 10:22 Patient medically screened. rn 14:29 Differential Diagnosis: electrolyte abnormality, hypoglycemia, pneumonia, UTI, volume rn depletion, Deconditioning, failure outpatient therapy. Data reviewed: vital signs, nurses notes, lab test result(s), radiologic studies, plain films, and as a result, I will admit patient. 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 Interpretation: normal. Counseling: I had a detailed discussion with the patient and/or guardian regarding: the historical points, exam findings, and any diagnostic results supporting the discharge/admit diagnosis, lab results, radiology results, the need for further work-up and treatment in the hospital. Response to treatment: the patient's symptoms have mildly improved after treatment, and as a result, I will admit patient. Admission orders: after a detailed discussion of the patient's condition and case, the admit orders are written by me. ED course: Failed outpatient therapy, still with generalized weakness, outpatient therapy for urine infection. Has been on Cipro for 10 days now. Has been unable to get up on her own and has been not able to help her. Will admit to hospitalist service for IV antibiotics for UTI and IV hydration.. 04/14 10:23 Order name: CBC with Diff; Complete Time: 12:27 rn 04/14 10:23 Order name: Basic Metabolic Panel; Complete Time: 12:27 rn 04/14 10:23 Order name: Urine Culture rn 04/14 10:23 Order name: Urine Microscopic Only; Complete Time: 14:25 rn 04/14 10:23 Order name: Blood Culture Adult (2) rn 04/14 10:23 Order name: Procalcitonin; Complete Time: 14:25 rn 04/14 10:23 Order name: XRAY Chest (1 view); Complete Time: 12:27 rn 04/14 10:23 Order name: LFT's; Complete Time: 12:27 rn 04/14 10:23 Order name: Lipase; Complete Time: 12:27 rn 04/14 12:14 Order name: SARS-COV-2 RT PCR; Complete Time: 12:27 [facility] 04/14 12:21 Order name: Urine Dipstick-Ancillary; Complete Time: 12:27 EDAL 04/14 18:00 Order name: T4 Free EDAL 04/14 18:00 Order name: Thyroid Stimulating Hormone [facility] 04/14 10:23 Order name: IV Start; Complete Time: 11:37 rn 04/14 10:23 Order name: Urine Dipstick-Ancillary (obtain specimen); Complete Time: 12:22 rn 04/14 10:23 Order name: EKG; Complete Time: 10:24 rn 04/14 10:23 Order name: EKG - Nurse/Tech; Complete Time: 10:40 rn EC:01 Rate is 51 beats/min. Rhythm is regular. QRS Vista is Normal. NV interval is prolonged rn at 254 msec. QRS interval is normal. QT interval is normal. No Q waves. T waves are Normal. No ST changes noted. Clinical impression: 1st degree heart block and Sinus bradycardia. Interpreted by me. Reviewed by me. Administered Medications: 12:00 Drug: NS 0.9% 500 ml Route: IV; Rate: bolus; Site: left forearm; vg1 14:12 Follow up: IV Status: Completed infusion; IV Intake: 500ml vg1 13:10 Drug: NS 0.9% 500 ml Route: IV; Rate: bolus; Site: left forearm; vg1 14:44 Follow up: IV Status: Completed infusion; IV Intake: 500ml jl7 13:10 Drug: Potassium Chloride 10 mEq Route: IV; Rate: calculated rate; Site: left forearm; vg1 14:44 Follow up: IV Status: Completed infusion; IV Intake: 100ml jl7 14:41 Drug: Rocephin (cefTRIAXone) 1 grams Route: IV; Rate: calculated rate; Site: left jl7 forearm; 15:29 Follow up: Response: No adverse reaction; IV Status: Completed infusion jl7 Disposition Summary: 04/14/21 14:34 Hospitalization Ordered Hospitalization Status: Inpatient Admission rn Provider: Kleber Montenegro rn Location: Telemetry/[facility] (Inpatient) rn Condition: Stable rn Problem: an ongoing problem rn Symptoms: have worsened rn Bed/Room Type: Standard rn Room Assignment: 205(04/14/21 17:05) shar Diagnosis - UTI/ Urinary tract infection, site not specified rn - Dehydration rn - Hypokalemia rn Forms: - Medication Reconciliation Form rn - SBAR form rn Signatures: Dispatcher [employer] [facility] Kizzy Rashid RN Rex Cuenca MD MD rn Smirch, Shelby, RN RN ss Leal, Jahala, RN RN jl7 Kelly Farooq, RN RN vg1 Corrections: (The following items were deleted from the chart) 11:06 10:24 CORONAVIRUS+MR.LAB.BRZ ordered. [facility] EDAL 17:05 14:34 rn shar
--- NOTE | 2021-04-14 14:35 | ER ---
Nurse's Notes [facility] Name: Casie Kelley Age: 75 yrs Sex: Female : 1945 Arrival Date: 04/14/2021 Time: 10:21 Bed 28 Private MD: Diagnosis: UTI/ Urinary tract infection, site not specified;Dehydration;Hypokalemia Presentation: 04/14 10:25 Chief complaint: EMS states: Generalized weakness since yesterday. Coronavirus screen: ss Client denies travel out of the [place] in the last 14 days. Ebola Screen: Patient denies exposure to infectious person. Patient denies travel to an Ebola-affected area in the 21 days before illness onset. Initial Sepsis Screen: Does the patient meet any 2 criteria? No. Patient's initial sepsis screen is negative. Does the patient have a suspected source of infection? No. Patient's initial sepsis screen is negative. Risk Assessment: Do you want to hurt yourself or someone else? Patient reports no desire to harm self or others. Onset of symptoms was April 13, 2021. 10:25 Method Of Arrival: EMS: [facility] ss 10:25 Acuity: HAN 3 ss Historical: - Allergies: 10:25 Codeine; ss 10:25 Compazine; ss 10:25 Darvon; ss 10:25 Demerol; ss 10:25 HYDROCODONE; ss 10:25 Levofloxacin; ss 10:25 Lyrica; ss 10:25 meperidine; ss 10:25 PENTAZOCINE; ss 10:25 sulfamethoxazole (bulk); ss 10:25 Talwin; ss 10:25 TRIMETHOPRIM; ss 10:25 Vioxx; ss - PMHx: 10:25 Aneurysm; heel spur; lymphedema; Obesity; Hypothyroidism; Fibromyalgia; GERD; ss Gastroparesis; constipation; CVA; Diabetes - NIDDM; ileus; multiple thyroid nodules; PERIPHERAL NEUROPATHY; Sleep Apnea; spinal stenosis; vaginal atrophy; Chronic pain; Cervical Spondylosis; - Immunization history:: Client reports receiving the 2nd dose of the Covid vaccine. - Social history:: Smoking status: Patient denies any tobacco usage or history of. - Family history:: not pertinent. - Hospitalizations: : No recent hospitalization is reported. Screenin:28 Abuse screen: Denies threats or abuse. Nutritional screening: No deficits noted. vg1 Tuberculosis screening: No symptoms or risk factors identified. Fall Risk Fall in past 12 months (25 points). No secondary diagnosis (0 pts). IV access (20 points). Ambulatory Aid- Crutches/Cane/Walker (15 pts). Gait- Weak (10 pts.). Mental Status- Oriented to own ability (0 pts). Total Miller Fall Scale indicates High Risk Score (45 or more points). Fall prevention measures have been instituted. Side Rails Up X 2 Placed Close to Nursing Station. Assessment: 10:27 General: Appears in no apparent distress. uncomfortable, Behavior is calm, cooperative. vg1 Pain: Complains of pain in back Pain currently is 6 out of 10 on a pain scale. Noted to be grimacing. Neuro: Level of Consciousness is awake, alert, obeys commands, Oriented to person, place, time, situation, Warehouse Receiver are equal bilaterally Moves all extremities. Gait is unsteady, Speech is normal, Facial symmetry appears normal, Intact. Cardiovascular: Patient's skin is warm and dry. Respiratory: Airway is patent Respiratory effort is even, unlabored. GI: No signs and/or symptoms were reported involving the gastrointestinal system. : No signs and/or symptoms were reported regarding the genitourinary system. EENT: No signs and/or symptoms were reported regarding the EENT system. Derm: Skin is red, on lower right extremity Skin temperature is warm. Musculoskeletal: Circulation, motion, and sensation intact. 11:39 Reassessment: Patient appears in no apparent distress at this time. No changes from vg1 previously documented assessment. Patient and/or family updated on plan of care and expected duration. Pain level reassessed. Patient is alert, oriented x 3, equal unlabored respirations, skin warm/dry/pink. Xray at bedside. 12:48 Reassessment: Patient appears in no apparent distress at this time. No changes from vg1 previously documented assessment. Pt resting with eyes closed. Spouse at bedside. 13:50 Reassessment: Patient appears in no apparent distress at this time. Patient and/or vg1 family updated on plan of care and expected duration. Pain level reassessed. Patient is alert, oriented x 3, equal unlabored respirations, skin warm/dry/pink. spouse at bedside. 14:48 Reassessment: Hospitalist at bedside. jl7 14:48 Reassessment: Patient appears in no apparent distress at this time. Patient and/or jl7 family updated on plan of care and expected duration. Pain level reassessed. Patient is alert, oriented x 3, equal unlabored respirations, skin warm/dry/pink. spouse at bedside. 15:46 Reassessment: Patient appears in no apparent distress at this time. Patient and/or vg1 family updated on plan of care and expected duration. Pain level reassessed. Patient is alert, oriented x 3, equal unlabored respirations, skin warm/dry/pink. Patient denies pain at this time. 16:00 Reassessment: Pt does straight caths at home. Pt stated needed to be drained. Straight vg1 cath performed. Pt tolerated well. 17:43 Reassessment: Patient appears in no apparent distress at this time. No changes from vg1 previously documented assessment. Patient and/or family updated on plan of care and expected duration. Pain level reassessed. Patient is alert, oriented x 3, equal unlabored respirations, skin warm/dry/pink. attempted to call report. Vital Signs: 10:28 BP 132 / 46; Pulse 50; Resp 16; Temp 97.9(O); Pulse Ox 96% on R/A; vg1 11:00 BP 130 / 56; Pulse 56; Resp 12; Pulse Ox 96% on R/A; vg1 12:00 BP 130 / 63; Pulse 54; Resp 12; Pulse Ox 95% on R/A; vg1 12:30 BP 122 / 60; Pulse 57; Resp 12; Pulse Ox 97% on R/A; vg1 13:00 BP 114 / 66; Pulse 57; Resp 14; Pulse Ox 95% on R/A; vg1 13:30 BP 124 / 62; Pulse 57; Resp 16; Pulse Ox 97% on R/A; vg1 15:00 BP 104 / 91; Pulse 58; Resp 14; Pulse Ox 97% on R/A; jl7 15:30 BP 108 / 67; Pulse 58; Resp 12; Pulse Ox 97% on R/A; vg1 17:15 BP 116 / 78; Pulse 57; Resp 14; Pulse Ox 96% on R/A; vg1 18:00 BP 117 / 60; Pulse 57; Resp 12; Pulse Ox 96% on R/A; vg1 ED Course: 10:21 Patient arrived in ED. ss 10:22 Rex Dias MD is Attending Physician. rn 10:25 Triage completed. ss 10:25 Arm band placed on right wrist. ss 10:26 Kelly Farooq, JUDY is Primary Nurse. vg1 10:29 Patient has correct armband on for positive identification. Bed in low position. Call vg1 light in reach. Side rails up X2. 10:40 Warm blanket given. Pillow given. telemetry monitor on. Pulse ox on. NIBP on. mh5 10:41 EKG done, by ED staff, reviewed by Rex Dias MD. mh5 11:00 COVID swab sent to lab. mh5 11:00 Missed attempt(s): 22 gauge in right forearm. vg1 11:05 Missed attempt(s): 22 gauge in right forearm. vg1 11:30 Inserted saline lock: 24 gauge in left forearm, using aseptic technique. Blood vg1 collected. 11:30 Initial lab(s) drawn, by ct, sent to lab. First set of blood cultures drawn by me. vg1 11:30 Inserted saline lock: 22 gauge in right antecubital area, using aseptic technique. vg1 ,using aseptic technique. completed by Shira KIM. 11:47 Second set of blood cultures drawn by me. vg1 11:48 XRAY Chest (1 view) In Process Unspecified. EDNV 12:21 Urine Culture Sent. 5 12:21 Urine Microscopic Only Sent. 5 12:22 Urine collected: straight cath specimen, clear, Amount Returned: 850mL. 5 14:34 Kleber Montenegro DO is Hospitalizing Provider. rn 16:10 Straight cath inserted, using sterile technique, 16 Fr. 700 mL return. vg1 18:07 No provider procedures requiring assistance completed. Patient admitted, IV remains in vg1 place. Administered Medications: 12:00 Drug: NS 0.9% 500 ml Route: IV; Rate: bolus; Site: left forearm; vg1 14:12 Follow up: IV Status: Completed infusion; IV Intake: 500ml vg1 13:10 Drug: NS 0.9% 500 ml Route: IV; Rate: bolus; Site: left forearm; vg1 14:44 Follow up: IV Status: Completed infusion; IV Intake: 500ml 7 13:10 Drug: Potassium Chloride 10 mEq Route: IV; Rate: calculated rate; Site: left forearm; vg1 14:44 Follow up: IV Status: Completed infusion; IV Intake: 100ml jl7 14:41 Drug: Rocephin (cefTRIAXone) 1 grams Route: IV; Rate: calculated rate; Site: left jl7 forearm; 15:29 Follow up: Response: No adverse reaction; IV Status: Completed infusion jl7 Intake: 14:12 IV: 500ml; Total: 500ml. vg1 14:44 IV: 500ml; Total: 1000ml. jl7 14:44 IV: 100ml; Total: 1100ml. jl7 Outcome: 14:34 Decision to Hospitalize by Provider. rn 18:07 Admitted to Tele accompanied by tech, via stretcher, room 205, with chart, Report vg1 called to Dez KIM 18:07 Condition: stable 18:07 Instructed on the need for admit. 18:47 Patient left the ED. vg1 Signatures: Dispatcher [employer] EDMS Rex Dias MD MD rn Smirch, Shelby, RN RN ss Martinez, Maria [facility] Ewa Mason RN RN jl7 Garcia, Victoria, RN RN vg1 Corrections: (The following items were deleted from the chart) 10:29 10:28 Fall Risk Fall in past 12 months (25 points). No secondary diagnosis (0 pts). IV vg1 access (20 points). Ambulatory Aid- Crutches/Cane/Walker (15 pts). Gait- Weak (10 pts.). Mental Status- Oriented to own ability (0 pts). Total Miller Fall Scale indicates High Risk Score (45 or more points). vg1 11:06 11:00 CORONAVIRUS+ drawn and sent. [facility] EDNV 15:51 15:30 BP 102 / 48; Pulse 58bpm; Resp 12bpm; Pulse Ox 97% RA; vg1 vg1 17:21 10:27 Derm: Skin is pink, warm \T\ dry. vg1 vg1 18:20 18:07 Admitted to Tele accompanied by tech, via stretcher, room 205, with chart, vg1 vg1
[2021-04-14] MEDS ORDERED: CEFTRIAXONE/SWI 1gm 1 GM/10 ML SYR ONE (14:53)
--- NOTE | 2021-04-14 17:06 | P.HP ---
Certification for Inpatient Patient admitted to: Inpatient With expected LOS: >2 Midnights Patient will require the following post-hospital care: None Practitioner: I am a practitioner with admitting privileges, knowledge of patient current condition, hospital course, and medical plan of care. Services: Services provided to patient in accordance with Admission requirements found in Title 42 Section 412.3 of the Code of Federal Regulations Patient History Date of Service: 04/14/21 Reason for admission: Generalized weakness History of Present Illness: Patient is a 75-year-old female with a past medical history significant for hypothyroidism, fibromyalgia, DM 2 with neuropathy, Gastroparesis, CVA, urinary retention, chronic UTI, GERD, HLD, chronic back pain who presents with complaint of generalized weakness that has been ongoing for the past 1 week. Patient reported that weakness has become worse over time and she is unable to ambulate. Patient reported that she fell this morning due to weakness. Patient reports associated signs and symptoms of dizziness, vertigo and fatigue. Patient denies any other signs or symptoms. Symptoms are aggravated or relieved by nothing. Patient decided to present to the hospital for medical evaluation. Of note, patient reported failed outpatient UTI therapy with antibiotics. Allergies codeine Allergy (Intermediate, Verified 05/03/19 00:13) nausea/vomitting meperidine HCl [From Demerol] Allergy (Intermediate, Verified 05/03/19 00:13) Nausea vomitting hydrocodone [Hydrocodone] Allergy (Verified 05/03/19 00:13) nausea vomitting pentazocine lactate [From Talwin] Allergy (Verified 05/03/19 00:13) hallucinations prochlorperazine edisylate [From Compazine] Allergy (Verified 05/03/19 00:13) hallucinations propoxyphene HCl [From Darvon] Allergy (Verified 05/03/19 00:13) nausea vomitting sulfamethoxazole [From Bactrim] Allergy (Verified 05/03/19 00:14) Nausea/Vomiting trimethoprim [From Bactrim] Allergy (Verified 05/03/19 00:14) Nausea/Vomiting rofecoxib [From Vioxx] Adverse Reaction (Severe, Verified 05/03/19 00:13) renal failure Home medications list reviewed: No Home Medications: Atorvastatin Calcium [Lipitor] 40 mg PO BEDTIME 08/21/18 Clopidogrel Bisulfate [Plavix*] 75 mg PO DAILY 08/21/18 Furosemide [Lasix*] 40 mg PO BIDL 08/21/18 Ipratropium/Albuterol Sulfate [Iprat-Albut 0.5-3(2.5) mg/3 ml] 3 ml IH Q6HP PRN 08/21/18 Levocetirizine Dihydrochloride [Xyzal] 5 mg PO 1700 08/21/18 Levothyroxine [Synthroid*] 75 mcg PO DAILY 08/21/18 Metformin HCl [Glucophage*] 500 mg PO TIDWM 08/21/18 Montelukast [Singulair*] 10 mg PO BEDTIME 08/21/18 Multivitamin [Daily Multivitamin] 1 each PO DAILY 08/21/18 Nystatin Powder [Mycostatin (Powder)*] 1 appl TP DAILY PRN 08/21/18 Omeprazole [Prilosec] 40 mg PO DAILY 08/21/18 Potassium Oral Tab [Klor-Con 10 mEq Tab*] 20 meq PO EVERY 7TH DAY 08/21/18 Apixaban [Eliquis] 5 mg PO BID 05/03/19 Calcium Carbonate 600 mg PO DAILY 05/03/19 D-Mannose 500 mg PO BID 05/03/19 Docusate [Colace Cap*] 100 mg PO DAILY 05/03/19 Fluticasone Propionate [Flonase Allergy Relief] 1 spray IH BID 05/03/19 Gabapentin [Gralise] 300 mg PO TID 05/03/19 Glucosam/Tommy-Msm1/C/Femi/Bosw [Glucosamine-Chondroitin Tablet] 1 each PO TID 05/03/19 Lactobacillus Acidophilus [Acidophilus] 1 each PO BID 05/03/19 Magnesium Chloride [Slow-Mag*] 64 mg PO BID 05/03/19 Midodrine HCl 2.5 mg PO BID 05/03/19 Polyethyl Gly 3350 [Glycolax*] 1 packet PO DAILYPRN PRN 05/03/19 Spironolactone [Aldactone*] 25 mg PO DAILY 05/03/19 glipiZIDE [Glucotrol] 5 mg PO DAILY 05/03/19 metOLazone [Zaroxolyn*] 2.5 mg PO EVERY 7TH DAY 05/03/19 - Past Medical/Surgical History Diabetic: Yes -: Hypothyroidism -: Fibromyalgia -: Diabetes mellitus -: Gastroparesis -: Diabetic neuropathy -: Spinal stenosis -: Cervical spondylosis with myelopathy -: brain aneurysm with clipping -: Left carotid stenosis -: History of CVA, TIA -: Chronic UTI's,JOSE -: Chronic back pain -: Bladder Suspension -: Laminectomy -: Spinal fusion x2 -: Hysterectomy -: Cholecystectomy -: Appendectomy -: Pain pump placement x2 -: shoulder surgery - bilateral Psychosocial/ Personal History: The patient is . She has 4 children. She does not work. - Family History Mother -: Lung disease, Cancer Notes: Rheumatic fever, Rhuematoid arthritis. Father -: Heart disease, Hypertension, Diabetes Notes: - Social History Smoking Status: Never smoker Alcohol use: No CD- Drugs: No Caffeine use: Yes Review of Systems General: Weakness, As per HPI Eyes: Unremarkable ENT: Unremarkable Respiratory: Unremarkable Cardiovascular: Unremarkable Gastrointestinal: Unremarkable Genitourinary: Unremarkable Musculoskeletal: Unremarkable Integumentary: Unremarkable Neurological: Unremarkable Lymphatics: Unremarkable Physical Examination - Physical Exam General: Alert, Oriented x3 HEENT: Atraumatic, PERRLA, Mucous membr. moist/pink, EOMI, Sclerae nonicteric Neck: Supple, 2+ carotid pulse no bruit, No LAD, Without JVD or thyroid abnormality Respiratory: Clear to auscultation bilaterally, Normal air movement Cardiovascular: Regular rate/rhythm, Normal S1 S2 Gastrointestinal: Normal bowel sounds, No tenderness Musculoskeletal: No tenderness Integumentary: No rashes, No significant lesion Neurological: Normal gait, Normal speech, Normal tone, Normal affect, Other (Dizziness, vertigo.) Lymphatics: No axilla or inguinal lymphadenopathy External genitalia: Deferred Rectal: Deferred - Studies Laboratory Data (last 24 hrs) 04/14/21 11:30: Sodium 129 L, Potassium 2.7 L*, BUN 44 H, Creatinine 1.36 H, Glucose 148 H, Total Bilirubin 0.3, AST 35, ALT 31, Alkaline Phosphatase 152 H, Lipase 23 L 04/14/21 11:30: WBC 8.50, Hgb 11.3 L, Hct 33.6 L, Plt Count 369 Assessment and Plan - Plan --UTI POA. Failed outpatient therapy. Patient placed on antibiotics. Continue IV hydration. --JOSE. Nephrology consulted. Continue IV hydration. Will continue to monitor renal functions. Further management per nephrology --History of urinary retention. Patient straight caths herself 3 times daily with the help of spouse. We will continue to straight cath patient. --DM2 with neuropathy. BS monitoring with sliding scale insulin. Continue gabapentin for her neuropathy. --GERD. Continue Protonix. --Hypothyroidism. Continue Synthroid. --Chronic back pain. We will manage pain with current pain medication regimen. --History of CVA. Continue aspirin. --Gastroparesis. Continue home medications. --Generalized weakness. CT head pending. PT eval and treat. Will appreciate recommendations. --Hypokalemia. Replete as needed. --DVT prophylaxis with heparin subQ I have had discussion about advanced directives with the patient during this hospital admission. Addressed code status and goals of care. Spent more than 30 minutes. Case discussed withpatient and nurse. The following document was completed using voice recognition software. This can produce electric tripper machine operator errors that can at times significantly distort words and phrases. Please interpret any aspect of the note that is nonsensical in light of this fact. Discharge Plan: Home Plan to discharge in: 48 Hours - Advance Directives Does patient have a Living Will: No Does patient have a Durable POA for Healthcare: No - Code Status/Comfort Care Code Status Assessed: Yes Code Status: Full Code Physician Review: Patient Assessed, Agree with Above Assessment and Plan Critical Care: No
[2021-04-14] MEDS ORDERED: SODIUM CHLORIDE 0.9% 10ML INJ IV PRN (17:54)
[2021-04-14 18:00] LABS: Thyroid Stimulating Hormone 1.46 uIU/mL (0.360-3.740)
[2021-04-14] MEDS: CEFEPIME/SWI 1gm 10 ML IV SCH (19:13)
[2021-04-14] MEDS: HEPARIN 5000 UNIT/ML 1 ML VIAL SQ SCH (19:14)
[2021-04-14] MEDS: NA CHLORIDE 0.9% 1,000 ML IV SCH (19:15)
[2021-04-14] MEDS ORDERED: POTASSIUM CL SA 10 MEQ TAB PO ONE (19:17)
[2021-04-14 19:32] VITALS: BMI 41.5
[2021-04-14] MEDS: INSULIN -REGULAR HUMAN 50 UNIT/0.5 ML ML SQ SCH (20:41)
[2021-04-14] MEDS ORDERED: CEFEPIME 1 GM/VIAL IV SCH (21:00)
[2021-04-14] MEDS: KCL 20 MEQ/100 mL IVPB 20 MEQ/100 ML BAG IV SCH (23:00)
[2021-04-15] MEDS: KCL 20 MEQ/100 mL IVPB 20 MEQ/100 ML BAG IV SCH ×2 (01:00→03:00)
[2021-04-15] MEDS: NA CHLORIDE 0.9% 1,000 ML IV SCH (05:51)
--- NOTE | 2021-04-15 06:21 | P.PN ---
Subjective Date of Service: 04/15/21 Chief Complaint: Generalized weakness Subjective: Improving (Feeling slightly better, still very weak, slight lower abdominal discomfort.) Review of Systems 10-point ROS is otherwise unremarkable Physical Examination - Vital Signs Temperature: 97.8 F Blood Pressure: 140/48 Pulse: 66 Respirations: 17 Pulse Ox (%): 94 - Studies Laboratory Data (last 24 hrs) 04/14/21 11:30: Sodium 129 L, Potassium 2.7 L*, BUN 44 H, Creatinine 1.36 H, Glucose 148 H, Total Bilirubin 0.3, AST 35, ALT 31, Alkaline Phosphatase 152 H, Lipase 23 L 04/14/21 11:30: WBC 8.50, Hgb 11.3 L, Hct 33.6 L, Plt Count 369 Assessment & Plan Physician Review Additional Text: Physical exam GEN: Alert, oriented x3, NAD HEENT: Normal conjunctiva, sclera anicteric CV: Regular rate and rhythm, no edema Pulm: Nonlabored respiration on room air ABD: Soft, mild tenderness in suprapubic area MSK: No joint tenderness Neuro: Normal speech, normal affect Generalized weakness Problem list Acute cystitis, recurrent UTI: Failed outpatient therapy JOSE History of urinary retention, requiring straight cath DM2 with neuropathy, [id number] GERD Hypothyroidism Chronic back pain History of CVA Gastroparesis Generalized weakness Hypokalemia h/o DVT -Patient on 2 different antibiotics over the last 3 weeks. Most recent to ciprofloxacin, patient unsure of the first antibiotic. -Urine culture Continue cefepime Infectious disease consulted -PT consulted, suspect patient will need SNF -h/o urinary retention, continue straight cath TID -nephrology consulted -continue home meds - protonix, Synthroid, gabapentin, aspirin -History of DVT, continue Eliquis VTE: eliquis Code: full Dispo: Anticipate DC to SNF and 1-2 days. Awaiting cultures & improvement. Time Spent Managing Pts Care (In Minutes): 35
[2021-04-15 06:32] LABS: Absolute Lymphocytes (CBC) 2.3 K/uL (0.7-4.9); Basophils % 0.8 % (0-1.3); Hematocrit 32.6 % (36.0-45.0); Lymphocytes % 30.7 % (15.3-44.8); MPV 7.2 fL (7.6-11.3); RBC Red Blood Cell Count 3.92 M/uL (3.86-4.86)
[2021-04-15 06:44] LABS: Phosphorus 1.7 mg/dL (2.5-4.9); Potassium 4.2 mmol/L (3.5-5.1); Uric Acid 6.5 mg/dL (2.6-6.0)
[2021-04-15] MEDS: INSULIN -REGULAR HUMAN 50 UNIT/0.5 ML ML SQ SCH ×4 (07:30→21:00)
--- NOTE | 2021-04-15 08:56 | P.CNS ---
Date of Consult: 04/15/21 Reason for Consult: Hyponatremia/ Hypokalemia Requesting Physician: Demond Dias Chief Complaint: Generalized weakness History of Present Illness: Patient is a 75-year-old female with a past medical history significant for hypothyroidism, fibromyalgia, DM 2 with neuropathy, Gastroparesis, CVA, urinary retention, chronic UTI, GERD, HLD, chronic back pain who presents with complaint of generalized weakness that has been ongoing for the past 1 week. Patient reported that weakness has become worse over time and she is unable to ambulate. Patient reported that she fell this morning due to weakness. Patient reports associated signs and symptoms of dizziness, vertigo and fatigue. Patient denies any other signs or symptoms. Symptoms are aggravated or relieved by nothing. Patient decided to present to the hospital for medical evaluation. Of note, patient reported failed outpatient UTI therapy with antibiotics. 10:49 This 75 yrs old Female presents to ER via EMS with complaints of General rn Weakness. 10:49 The patient presents with decreased responsiveness. Onset: The symptoms/episode rn began/occurred yesterday. Possible causes: unknown. Associated signs and symptoms: Pertinent positives: dizziness, weakness, Pertinent negatives: abdominal pain, chest pain, headache, seizure, shortness of breath. Current symptoms: In the emergency department the patient's symptoms have improved. The patient has experienced similar episodes in the past. The patient has not recently seen a physician. EMS states called out for lift assist, state called out for lift assist several times a month. This morning slid out of recliner and required assistance, unable to lift her. Today seemed weaker than normal. Patient complained of dizziness, weakness, urinary frequency. Denies fall or head injury. No injuries today. Reports decreased appetite and p.o. intake lately.. Allergies codeine Allergy (Intermediate, Verified 05/03/19 00:13) nausea/vomitting meperidine HCl [From Demerol] Allergy (Intermediate, Verified 05/03/19 00:13) Nausea vomitting hydrocodone [Hydrocodone] Allergy (Verified 05/03/19 00:13) nausea vomitting pentazocine lactate [From Talwin] Allergy (Verified 05/03/19 00:13) hallucinations prochlorperazine edisylate [From Compazine] Allergy (Verified 05/03/19 00:13) hallucinations propoxyphene HCl [From Darvon] Allergy (Verified 05/03/19 00:13) nausea vomitting sulfamethoxazole [From Bactrim] Allergy (Verified 05/03/19 00:14) Nausea/Vomiting trimethoprim [From Bactrim] Allergy (Verified 05/03/19 00:14) Nausea/Vomiting rofecoxib [From Vioxx] Adverse Reaction (Severe, Verified 05/03/19 00:13) renal failure Home medications list reviewed: Yes Home Medications: Atorvastatin Calcium [Lipitor] 40 mg PO BEDTIME 08/21/18 Clopidogrel Bisulfate [Plavix*] 75 mg PO DAILY 08/21/18 Furosemide [Lasix*] 40 mg PO BIDL 08/21/18 Ipratropium/Albuterol Sulfate [Iprat-Albut 0.5-3(2.5) mg/3 ml] 3 ml IH Q6HP PRN 08/21/18 Levocetirizine Dihydrochloride [Xyzal] 5 mg PO 1700 08/21/18 Levothyroxine [Synthroid*] 75 mcg PO DAILY 08/21/18 Metformin HCl [Glucophage*] 500 mg PO TIDWM 08/21/18 Montelukast [Singulair*] 10 mg PO BEDTIME 08/21/18 Multivitamin [Daily Multivitamin] 1 each PO DAILY 08/21/18 Nystatin Powder [Mycostatin (Powder)*] 1 appl TP DAILY PRN 08/21/18 Omeprazole [Prilosec] 40 mg PO DAILY 08/21/18 Potassium Oral Tab [Klor-Con 10 mEq Tab*] 20 meq PO EVERY 7TH DAY 08/21/18 Apixaban [Eliquis] 5 mg PO BID 05/03/19 Calcium Carbonate 600 mg PO DAILY 05/03/19 D-Mannose 500 mg PO BID 05/03/19 Docusate [Colace Cap*] 100 mg PO DAILY 05/03/19 Fluticasone Propionate [Flonase Allergy Relief] 1 spray IH BID 05/03/19 Gabapentin [Gralise] 300 mg PO TID 05/03/19 Glucosam/Tommy-Msm1/C/Femi/Bosw [Glucosamine-Chondroitin Tablet] 1 each PO TID 05/03/19 Lactobacillus Acidophilus [Acidophilus] 1 each PO BID 05/03/19 Magnesium Chloride [Slow-Mag*] 64 mg PO BID 05/03/19 Midodrine HCl 2.5 mg PO BID 05/03/19 Polyethyl Gly 3350 [Glycolax*] 1 packet PO DAILYPRN PRN 05/03/19 Spironolactone [Aldactone*] 25 mg PO DAILY 05/03/19 glipiZIDE [Glucotrol] 5 mg PO DAILY 05/03/19 metOLazone [Zaroxolyn*] 2.5 mg PO EVERY 7TH DAY 05/03/19 - Past Medical/Surgical History Diabetic: Yes -: Hypothyroidism -: Fibromyalgia -: Diabetes mellitus -: Gastroparesis -: Diabetic neuropathy -: Spinal stenosis -: Cervical spondylosis with myelopathy -: brain aneurysm with clipping -: Left carotid stenosis -: History of CVA, TIA -: Chronic UTI's,JOSE -: Chronic back pain -: Bladder Suspension -: Laminectomy -: Spinal fusion x2 -: Hysterectomy -: Cholecystectomy -: Appendectomy -: Pain pump placement x2 -: shoulder surgery - bilateral Psychosocial/ Personal History: The patient is . She has 4 children. She does not work. - Family History Mother Medical History: Lung disease, Cancer Notes: Rheumatic fever, Rhuematoid arthritis. Father Medical History: Heart disease, Hypertension, Diabetes Notes: - Social History Smoking Status: Unknown if ever smoked Alcohol use: No CD- Drugs: No Caffeine use: Yes Place of Residence: Home Review of Systems 10-point ROS is otherwise unremarkable General: Weakness, Malaise Physical Examination Temp Pulse Resp BP Pulse Ox 97.8 F 66 17 140/48 L 94 04/15/21 06:21 04/15/21 06:21 04/15/21 06:21 04/15/21 06:21 04/15/21 06:21 General: Oriented x3, Cooperative HEENT: Atraumatic Neck: Supple Respiratory: Clear to auscultation bilaterally Cardiovascular: No edema, Regular rate/rhythm Gastrointestinal: Soft and benign, Non-distended Musculoskeletal: No clubbing, No contractures Integumentary: No rashes, No cyanosis Neurological: Normal speech Laboratory Data (last 24 hrs) 04/14/21 11:30: Sodium 129 L, Potassium 2.7 L*, BUN 44 H, Creatinine 1.36 H, Glucose 148 H, Total Bilirubin 0.3, AST 35, ALT 31, Alkaline Phosphatase 152 H, Lipase 23 L 04/14/21 11:30: WBC 8.50, Hgb 11.3 L, Hct 33.6 L, Plt Count 369 Imagings Data: EXAM DESCRIPTION: RAD - Chest Single View - 04/14/2021 11:48 am CLINICAL HISTORY: weakness COMPARISON: Chest Single View dated 04/27/2019; Chest Single View dated 08/19/2018; Chest Single View dated 08/06/2018; Chest Pa And Lat (2 Views) dated 02/28/2018 FINDINGS: Lines: None. Lungs: No evidence of edema or pneumonia. Pleural: No significant pleural effusions or pneumothorax. Cardiac: The heart size is within normal limits. Bones: No acute fractures. Other: IMPRESSION: No acute cardiopulmonary disease. Conclusions/Impression: JOSE in the setting of hypovolemia Urinary retention -No NSAIDs -Continue IVF -Insert platt -Hold furosemide Hyponatremia -Continue IVF with NS Hypokalemia -Replete potassium and monitor level DM II with hyperglycemia -RISS Acute cystitis -Continue abx -Follow up culture Case reviewed with Dr. Dias Thank you kindly for the consultation.
[2021-04-15] MEDS: HEPARIN 5000 UNIT/ML 1 ML VIAL SQ SCH ×2 (08:57→21:00)
[2021-04-15] MEDS: CEFEPIME/SWI 1gm 10 ML IV SCH ×2 (08:57→21:17)
[2021-04-15] MEDS: ASPIRIN 81 MG CHEWABLE TABLET PO SCH (08:58)
[2021-04-15] MEDS: LEVOTHYROXINE SOD 0.075 MG TAB PO SCH (08:58)
[2021-04-15] MEDS: APIXABAN 5 MG TABLET PO SCH ×2 (08:58→21:17)
[2021-04-15] MEDS ORDERED: PANTOPRAZOLE 40 MG INJ IVP SCH (09:00)
[2021-04-15] MEDS ORDERED: ENOXAPARIN 40 MG/0.4 ML SQ SCH (09:00)
--- NOTE | 2021-04-15 11:07 | P.CNS ---
Date of Consult: 04/15/21 Chief Complaint: Generalized weakness History of Present Illness: Patient is a 75-year-old female with a past medical history of recurrent UTIs, diabetes, hypothyroidism, and anemia who presented to the emergency department due to the weakness. Patient states that she had felt weak over the past few days. The above patient has recurrent UTIs and states she is has 3 this year. States her most recent UTI was about 3 weeks ago and she was treated outpatient with antibiotics without success. Of note labs show increase in eosinophil count patient states she has been taking Bactrim in the past. Urine culture growing gram-negative rods, awaiting full culture report. Blood cultures pending. Patient empirically started on cefepime on 04/14. Patient tolerating antibiotic well with no nausea, vomiting, diarrhea. Patient reports overall abdominal tenderness and difficulty urinating. Patient denies shortness breath or chest pain. Allergies codeine Allergy (Intermediate, Verified 05/03/19 00:13) nausea/vomitting meperidine HCl [From Demerol] Allergy (Intermediate, Verified 05/03/19 00:13) Nausea vomitting hydrocodone [Hydrocodone] Allergy (Verified 05/03/19 00:13) nausea vomitting pentazocine lactate [From Talwin] Allergy (Verified 05/03/19 00:13) hallucinations prochlorperazine edisylate [From Compazine] Allergy (Verified 05/03/19 00:13) hallucinations propoxyphene HCl [From Darvon] Allergy (Verified 05/03/19 00:13) nausea vomitting sulfamethoxazole [From Bactrim] Allergy (Verified 05/03/19 00:14) Nausea/Vomiting trimethoprim [From Bactrim] Allergy (Verified 05/03/19 00:14) Nausea/Vomiting rofecoxib [From Vioxx] Adverse Reaction (Severe, Verified 05/03/19 00:13) renal failure Home Medications: Atorvastatin Calcium [Lipitor] 40 mg PO BEDTIME 08/21/18 Clopidogrel Bisulfate [Plavix*] 75 mg PO DAILY 08/21/18 Furosemide [Lasix*] 40 mg PO BIDL 08/21/18 Ipratropium/Albuterol Sulfate [Iprat-Albut 0.5-3(2.5) mg/3 ml] 3 ml IH Q6HP PRN 08/21/18 Levocetirizine Dihydrochloride [Xyzal] 5 mg PO 1700 08/21/18 Levothyroxine [Synthroid*] 75 mcg PO DAILY 08/21/18 Metformin HCl [Glucophage*] 500 mg PO TIDWM 08/21/18 Montelukast [Singulair*] 10 mg PO BEDTIME 08/21/18 Multivitamin [Daily Multivitamin] 1 each PO DAILY 08/21/18 Nystatin Powder [Mycostatin (Powder)*] 1 appl TP DAILY PRN 08/21/18 Omeprazole [Prilosec] 40 mg PO DAILY 08/21/18 Potassium Oral Tab [Klor-Con 10 mEq Tab*] 20 meq PO EVERY 7TH DAY 08/21/18 Apixaban [Eliquis] 5 mg PO BID 05/03/19 Calcium Carbonate 600 mg PO DAILY 05/03/19 D-Mannose 500 mg PO BID 05/03/19 Docusate [Colace Cap*] 100 mg PO DAILY 05/03/19 Fluticasone Propionate [Flonase Allergy Relief] 1 spray IH BID 05/03/19 Gabapentin [Gralise] 300 mg PO TID 05/03/19 Glucosam/Tommy-Msm1/C/Femi/Bosw [Glucosamine-Chondroitin Tablet] 1 each PO TID 05/03/19 Lactobacillus Acidophilus [Acidophilus] 1 each PO BID 05/03/19 Magnesium Chloride [Slow-Mag*] 64 mg PO BID 05/03/19 Midodrine HCl 2.5 mg PO BID 05/03/19 Polyethyl Gly 3350 [Glycolax*] 1 packet PO DAILYPRN PRN 05/03/19 Spironolactone [Aldactone*] 25 mg PO DAILY 05/03/19 glipiZIDE [Glucotrol] 5 mg PO DAILY 05/03/19 metOLazone [Zaroxolyn*] 2.5 mg PO EVERY 7TH DAY 05/03/19 - Past Medical/Surgical History Diabetic: Yes -: Hypothyroidism -: Fibromyalgia -: Diabetes mellitus -: Gastroparesis -: Diabetic neuropathy -: Spinal stenosis -: Cervical spondylosis with myelopathy -: brain aneurysm with clipping -: Left carotid stenosis -: History of CVA, TIA -: Chronic UTI's,JOSE -: Chronic back pain -: Bladder Suspension -: Laminectomy -: Spinal fusion x2 -: Hysterectomy -: Cholecystectomy -: Appendectomy -: Pain pump placement x2 -: shoulder surgery - bilateral Psychosocial/ Personal History: The patient is . She has 4 children. She does not work. - Family History Mother Medical History: Lung disease, Cancer Notes: Rheumatic fever, Rhuematoid arthritis. Father Medical History: Heart disease, Hypertension, Diabetes Notes: - Social History Smoking Status: Unknown if ever smoked Alcohol use: No CD- Drugs: No Caffeine use: Yes Place of Residence: Home Review of Systems 10-point ROS is otherwise unremarkable Physical Examination Temp Pulse Resp BP Pulse Ox 97.2 F 65 20 138/62 95 04/15/21 08:00 04/15/21 08:00 04/15/21 08:00 04/15/21 08:00 04/15/21 08:00 General: Alert, In no apparent distress, Obese HEENT: Atraumatic, Normocephalic Neck: Supple, 2+ carotid pulse no bruit Respiratory: Clear to auscultation bilaterally, Normal air movement Cardiovascular: No edema, Normal pulses, Regular rate/rhythm Capillary refill: <2 Seconds Gastrointestinal: Normal bowel sounds, Tenderness Musculoskeletal: No clubbing, No swelling, No contractures Integumentary: No rashes, No breakdown, No significant lesion Laboratory Data (last 24 hrs) 04/14/21 11:30: Sodium 129 L, Potassium 2.7 L*, BUN 44 H, Creatinine 1.36 H, Glucose 148 H, Total Bilirubin 0.3, AST 35, ALT 31, Alkaline Phosphatase 152 H, Lipase 23 L 04/14/21 11:30: WBC 8.50, Hgb 11.3 L, Hct 33.6 L, Plt Count 369 Conclusions/Impression: Antibiotics: Cefepime Start: 04/14 Stop:-- Assessment/plan Recurrent UTI Patient states she has had 3 urinary tracts within this year. Most recent UTI a was 3 weeks ago failed outpatient treatment with oral antibiotics. Urine culture performed on 04/14 growing gram-negative rods, awaiting full report. Patient empirically started on cefepime, continue current antibiotic until full culture reports are obtained. Blood cultures performed on 04/14 pending. Recommend outpatient urology consultation. Protein caloric malnutrition: Moderate Patient has low albumin at 3.0, recommend supplemental Ensure protein drinks. Anemia Continue to monitor H&H Diabetes Continue SSI Medical management per primary team Continue monitor CBC and BMP Continue monitor signs infection Plan of care discussed with Dr. Dimas Thank you for consultation.
[2021-04-15] MEDS: ATORVASTATIN 40 MG TAB PO SCH (21:17)
[2021-04-16] MEDS: HYDRALAZINE HCL 20 MG/ML VIAL IV PRN ×2 (00:30→12:24)
[2021-04-16] MEDS: ACETAMINOPHEN 500 MG TAB PO PRN (05:05)
[2021-04-16] MEDS ORDERED: AMLODIPINE 5 MG TAB PO ONE (05:30)
[2021-04-16 05:46] LABS: Hematocrit 37.9 % (36.0-45.0); MPV 7.2 fL (7.6-11.3); RBC Red Blood Cell Count 4.51 M/uL (3.86-4.86)
--- NOTE | 2021-04-16 05:53 | P.PN ---
Subjective Date of Service: 04/16/21 Chief Complaint: Generalized weakness Subjective: No new changes (Patient feels about the same, may be more weak today, with lower abdominal discomfort, feels bladder is distended) Review of Systems 10-point ROS is otherwise unremarkable Physical Examination - Vital Signs Temperature: 98.3 F Blood Pressure: 185/73 Pulse: 81 Respirations: 22 Pulse Ox (%): 97 Assessment & Plan Physician Review Additional Text: Physical exam GEN: Alert, oriented x2, appears fatigued HEENT: Normal conjunctiva, sclera anicteric CV: Regular rate and rhythm, no edema Pulm: Nonlabored respiration on room air ABD: Soft, mild tenderness in suprapubic area MSK: No joint tenderness Neuro: Normal speech, normal affect Generalized weakness Problem list Acute cystitis, recurrent UTI: Failed outpatient therapy JOSE History of urinary retention, requiring straight cath DM2 with neuropathy, [id number] GERD Hypothyroidism Chronic back pain History of CVA Gastroparesis Generalized weakness Hypokalemia h/o DVT -Patient on 2 different antibiotics over the last 3 weeks. Most recent to ciprofloxacin, patient unsure of the first antibiotic. -Urine culture growing E. coli Continue cefepime Infectious disease consulted -PT consulted, patient extremely debilitated, recommend SNF. Patient and agree -h/o urinary retention, straight cath TID, patient feeling bladder distended in between caths, will place Ray catheter -nephrology consulted -continue home meds - protonix, Synthroid, gabapentin, aspirin -History of DVT, continue Eliquis VTE: eliquis Code: full Dispo: Anticipate DC to SNF in 1-2 days. Time Spent Managing Pts Care (In Minutes): 35
[2021-04-16 05:56] LABS: Potassium 3.2 mmol/L (3.5-5.1)
[2021-04-16] MEDS: INSULIN -REGULAR HUMAN 50 UNIT/0.5 ML ML SQ SCH ×4 (08:30→21:09)
[2021-04-16] MEDS: ASPIRIN 81 MG CHEWABLE TABLET PO SCH (08:31)
[2021-04-16] MEDS: PANTOPRAZOLE 40 MG INJ IVP SCH (08:31)
[2021-04-16] MEDS: APIXABAN 5 MG TABLET PO SCH ×2 (08:31→20:10)
[2021-04-16] MEDS: AMIODARONE HCL 200 MG TAB PO SCH (08:31)
[2021-04-16] MEDS: LEVOTHYROXINE SOD 0.075 MG TAB PO SCH (08:32)
[2021-04-16] MEDS: SPIRONOLACTONE 25 MG TABLET PO SCH (08:32)
[2021-04-16] MEDS ORDERED: POTASSIUM 25 MEQ EFFERV TAB PO ONE (09:00)
[2021-04-16] MEDS: CEFEPIME/SWI 1gm 10 ML IV SCH ×2 (09:37→20:07)
--- NOTE | 2021-04-16 11:51 | P.PN ---
Subjective Date of Service: 04/16/21 Chief Complaint: Generalized weakness Patient seen examined at bedside, on the events are past 24 hr. WBC increasing, continue to monitor. Patient remains afebrile. Review of Systems 10-point ROS is otherwise unremarkable Physical Examination - Vital Signs Temperature: 97.4 F Blood Pressure: 185/73 Pulse: 81 Respirations: 18 Pulse Ox (%): 95 - Studies Microbiology Data (last 24 hrs): 04/14/21 12:20 Catheterized Urine [place] Count - Final <10,000 CFU/ML. 04/14/21 12:20 Catheterized Urine - Final Escherichia Coli Assessment And Plan - Plan Physical exam: General: Alert, In no apparent distress, Obese HEENT: Atraumatic, Normocephalic Neck: Supple, 2+ carotid pulse no bruit Respiratory: Clear to auscultation bilaterally, Normal air movement Cardiovascular: No edema, Normal pulses, Regular rate/rhythm Capillary refill: <2 Seconds Gastrointestinal: Normal bowel sounds, Tenderness Musculoskeletal: No clubbing, No swelling, No contractures Integumentary: No rashes, No breakdown, No significant lesion Conclusions/Impression: Antibiotics: Cefepime Start: 04/14 Stop:-- Assessment/plan Recurrent UTI Patient states she has had 3 urinary tracts within this year. Most recent UTI a was 3 weeks ago failed outpatient treatment with oral antibiotics. Urine culture performed on 04/14 growing E coli. Based on susceptibility testing the only oral option is Augmentin. Patient's kidney function down trending, I am recommend switching from cefepime to Rocephin. Recommend outpatient urology consultation. Protein caloric malnutrition: Moderate Patient has low albumin at 3.0, recommend supplemental Ensure protein drinks. Anemia Continue to monitor H&H Diabetes Continue SSI Medical management per primary team Continue monitor CBC and BMP Continue monitor signs infection Plan of care discussed with Dr. Dimas Thank you for consultation. Physician Review: Patient Assessed, Agree with Above Assessment and Plan
[2021-04-16] MEDS: DOCUSATE NA 100 MG CAP PO SCH ×2 (18:04→20:10)
[2021-04-16] MEDS: ATORVASTATIN 40 MG TAB PO SCH (20:09)
[2021-04-16 20:18] LABS: Urine Appearance CLEAR (Clear); Urine Bilirubin NEGATIVE (Negative); Urine Blood 3+ (Negative); Urine Color YELLOW (Yellow); Urine Glucose NEGATIVE (Negative); Urine Protein 1+ (Negative); Urine Urobilinogen 0.2 mg/dL (0.2-1.0)
[2021-04-16 20:29] LABS: Urine Microscopic Reflex ORDER UMIC
[2021-04-16 20:39] LABS: Urine Amorphous Sediment 1+ /HPF (NONE SEEN); Urine Bacteria 20-50 /HPF (<20); Urine Mucus 1+ /HPF (NONE SEEN); Urine Urothelial Cells <5 /HPF (NONE SEEN)
--- NOTE | 2021-04-16 20:57 | P.PN ---
Date of Service: 04/16/21 Vital Signs Temp Pulse Resp BP Pulse Ox 97.9 F 73 18 176/64 H 96 04/16/21 20:00 04/16/21 20:00 04/16/21 20:00 04/16/21 20:00 04/16/21 20:00 Medications Acetaminophen (Acetaminophen 500 Mg Tab) 500 mg PO Q4HP PRN PRN Reason: TEMP > 100' F Last Admin: 04/16/21 05:05 Dose: 500 mg Documented by: Amiodarone HCl (Amiodarone Hcl 200 Mg Tab) 200 mg PO DAILY [facility] Last Admin: 04/16/21 08:31 Dose: 200 mg Documented by: Amlodipine Besylate (Amlodipine 5 Mg Tab) 5 mg PO DAILY [facility] Apixaban (Apixaban 5 Mg Tablet) 5 mg PO BID [facility] Last Admin: 04/16/21 20:10 Dose: 5 mg Documented by: Aspirin (Aspirin 81 Mg Chewable Tablet) 81 mg PO DAILY [facility] Last Admin: 04/16/21 08:31 Dose: 81 mg Documented by: Atorvastatin Calcium (Atorvastatin 40 Mg Tab) 40 mg PO BEDTIME [facility] Last Admin: 04/16/21 20:09 Dose: 40 mg Documented by: Docusate Sodium (Docusate Na 100 Mg Cap) 100 mg PO BID [facility] Last Admin: 04/16/21 20:10 Dose: Not Given Documented by: Hydralazine HCl (Hydralazine Hcl 20 Mg/Ml Vial) 10 mg IV Q6HP PRN PRN Reason: FOR SBP>160 OR DBP>100 MMHG Last Admin: 04/16/21 12:24 Dose: 10 mg Documented by: Cefepime HCl (Maxipime 1 Gm/10 Ml Ivp) 10 mls @ 200 mls/hr IV Q12HR [facility] Last Admin: 04/16/21 20:07 Dose: 10 mls Documented by: Insulin Human Regular (Insulin -Regular Human 50 Unit/0.5 Ml Ml) 0 unit SQ ACHS [facility]; Protocol Last Admin: 04/16/21 16:30 Dose: Not Given Documented by: Levothyroxine Sodium (Levothyroxine Sod 0.075 Mg Tab) 0.075 mg PO ACB [facility] Last Admin: 04/16/21 08:32 Dose: 0.075 mg Documented by: Mineral Oil (Mineral Oil 30 Ml Ucup) 30 ml PO 1X ONE Stop: 04/16/21 21:01 Last Admin: 04/16/21 20:10 Dose: 30 ml Documented by: Ondansetron HCl (Ondansetron 4 Mg/2 Ml Vial) 4 mg IV Q6HP PRN PRN Reason: NAUSEA / VOMITING Pantoprazole Sodium (Pantoprazole 40 Mg Inj) 40 mg IVP DAILY [facility]; Protocol Last Admin: 04/16/21 08:31 Dose: 40 mg Documented by: Sodium Chloride (Flush Normal Saline 10 Ml) 10 ml IV BID [facility] Last Admin: 04/16/21 20:10 Dose: 10 ml Documented by: Sodium Chloride (Sodium Chloride 0.9% 10ml Inj) 10 ml IV UD PRN PRN Reason: Diluant Spironolactone (Spironolactone 25 Mg Tablet) 50 mg PO DAILY [facility] Last Admin: 04/16/21 08:32 Dose: 50 mg Documented by: Microbiology Results 04/14/21 12:20 Catheterized Urine [place] Count - Final <10,000 CFU/ML. 04/14/21 12:20 Catheterized Urine - Final Escherichia Coli 04/14/21 11:47 Blood - Blood Aerobic Blood Culture - Preliminary No growth in 24 hours. 04/14/21 11:47 Blood - Blood Anaerobic Blood Culture - Preliminary No growth in 24 hours. 04/14/21 11:30 Blood - Blood Aerobic Blood Culture - Preliminary No growth in 24 hours. 04/14/21 11:30 Blood - Blood Anaerobic Blood Culture - Preliminary No growth in 24 hours. Assessment/ Plan: Nephrology Progress Note Severe constipation No chest pain or dyspnea No acute events overnight Vitals, medications blood work and imaging reviewed in the chart General: Oriented x3, Cooperative HEENT: Atraumatic Neck: Supple Respiratory: Clear to auscultation bilaterally Cardiovascular: No edema, Regular rate/rhythm Gastrointestinal: Soft and benign, Non-distended Musculoskeletal: No clubbing, No contractures Integumentary: No rashes, No cyanosis Neurological: Normal speech Laboratory Data (last 24 hrs) 04/14/21 11:30: Sodium 129 L, Potassium 2.7 L*, BUN 44 H, Creatinine 1.36 H, Glucose 148 H, Total Bilirubin 0.3, AST 35, ALT 31, Alkaline Phosphatase 152 H, Lipase 23 L 04/14/21 11:30: WBC 8.50, Hgb 11.3 L, Hct 33.6 L, Plt Count 369 Imagings Data: EXAM DESCRIPTION: RAD - Chest Single View - 04/14/2021 11:48 am CLINICAL HISTORY: weakness COMPARISON: Chest Single View dated 04/27/2019; Chest Single View dated 08/19/2018; Chest Single View dated 08/06/2018; Chest Pa And Lat (2 Views) dated 02/28/2018 FINDINGS: Lines: None. Lungs: No evidence of edema or pneumonia. Pleural: No significant pleural effusions or pneumothorax. Cardiac: The heart size is within normal limits. Bones: No acute fractures. Other: IMPRESSION: No acute cardiopulmonary disease. Conclusions/Impression: JOSE in the setting of hypovolemia Urinary retention -No NSAIDs -Continue IVF -Insert platt -Hold furosemide Hyponatremia -Continue IVF with NS Hypokalemia -Replete potassium and monitor level DM II with hyperglycemia -RISS Acute cystitis -Continue abx -Follow up culture Chronic slow transit constipation -Continue Colace -Give Mineral Oil X1 dose
[2021-04-16] MEDS ORDERED: MINERAL OIL 30 ML UCUP PO ONE (21:00)
--- NOTE | 2021-04-17 05:53 | P.PN ---
Subjective Date of Service: 04/17/21 Chief Complaint: Generalized weakness Subjective: Improving (Feels better today, no longer having abdominal pain, still feeling very weak had good BM yesterday that relieved some discomfort) Review of Systems 10-point ROS is otherwise unremarkable Physical Examination - Vital Signs Temperature: 97.6 F Blood Pressure: 176/68 Pulse: 82 Respirations: 18 Pulse Ox (%): 92 - Studies Microbiology Data (last 24 hrs): 04/14/21 12:20 Catheterized Urine [place] Count - Final <10,000 CFU/ML. 04/14/21 12:20 Catheterized Urine - Final Escherichia Coli Assessment & Plan Physician Review Additional Text: Physical exam GEN: Alert, oriented x3, NAD CV: Regular rate and rhythm, no edema Pulm: Non-labored respiration on room air ABD: Soft, nontender, nondistended MSK: No joint tenderness Neuro: Normal speech, normal affect Generalized weakness Problem list Acute cystitis, recurrent UTI: Failed outpatient therapy JOSE History of urinary retention, requiring straight cath DM2 with neuropathy, [id number] GERD Hypothyroidism Chronic back pain History of CVA Gastroparesis Generalized weakness Hypokalemia h/o DVT -Patient on 2 different antibiotics over the last 3 weeks. Most recent to ciprofloxacin, patient unsure of the first antibiotic. -Urine culture growing E. coli Infectious disease consulted Continue cefepime -PT consulted, patient extremely debilitated, recommend SNF. Patient and agree -h/o urinary retention, straight cath TID, patient feeling bladder distended in between caths, Ray placed 04/16 -nephrology consulted -continue home meds - protonix, synthroid, gabapentin, aspirin -History of DVT, continue Eliquis -Restarted home spironolactone 04/16, BP better VTE: Eliquis Code: full Dispo: Anticipate DC to SNF, social media community manager consulted Time Spent Managing Pts Care (In Minutes): 35
[2021-04-17 06:06] LABS: Hematocrit 36.1 % (36.0-45.0); MPV 7.3 fL (7.6-11.3); RBC Red Blood Cell Count 4.36 M/uL (3.86-4.86)
[2021-04-17 06:08] LABS: Potassium 3.7 mmol/L (3.5-5.1)
[2021-04-17] MEDS: INSULIN -REGULAR HUMAN 50 UNIT/0.5 ML ML SQ SCH ×4 (07:30→20:40)
[2021-04-17] MEDS: SPIRONOLACTONE 25 MG TABLET PO SCH (09:57)
[2021-04-17] MEDS: APIXABAN 5 MG TABLET PO SCH ×2 (09:57→20:40)
[2021-04-17] MEDS: ASPIRIN 81 MG CHEWABLE TABLET PO SCH (09:57)
[2021-04-17] MEDS: LEVOTHYROXINE SOD 0.075 MG TAB PO SCH (09:57)
[2021-04-17] MEDS: DOCUSATE NA 100 MG CAP PO SCH ×2 (09:58→20:39)
[2021-04-17] MEDS: AMIODARONE HCL 200 MG TAB PO SCH (09:58)
[2021-04-17] MEDS: AMLODIPINE 5 MG TAB PO SCH (09:58)
[2021-04-17] MEDS: PANTOPRAZOLE 40 MG INJ IVP SCH (09:58)
[2021-04-17] MEDS: POTASS/SODIUM PHOSPHATE 1 PKT POWD.PACK PO SCH ×3 (09:59→12:14)
[2021-04-17] MEDS: CEFEPIME/SWI 1gm 10 ML IV SCH ×2 (12:13→20:40)
--- NOTE | 2021-04-17 15:00 | PN ---
Subjective: Patient is lying in bed, feels much better today. Denies any headache, nausea, vomiting , chest pain, abdominal pain, constipation, or diarrhea. Objective: Vital Signs: Reviewed. Lungs: Basal crackles. Heart: S1, S2. Regular. Abdomen: Soft, nontender. Bowel sounds present. Mild tenderness at the suprapubic area. Extremities: No edema. Laboratory Data: Reviewed. Recurrent urinary tract infection with acute cystitis. Patient has fail ed outpatient therapy. Currently, growing E coli in her urine from 04/14. Patient has leukocytosis of 15.3, hemoglobin 12, platelets are 426. Currently on cefepime. Blood cultures are negative for 2 4 hours. Assessment/plan: 1.Recurrent urinary tract infection with acute cystitis with Escherichia coli. Continue cefepime to marie of 7 days. 2.Leukocytosis. Continue supportive care. We will follow the patient as needed. NF/MODL Voice ID: [id number] Report ID: [id number]
[2021-04-17] MEDS: ATORVASTATIN 40 MG TAB PO SCH (20:40)
[2021-04-17] MEDS: ACETAMINOPHEN 500 MG TAB PO PRN (20:42)
--- NOTE | 2021-04-18 05:48 | P.PN ---
Subjective Date of Service: 04/18/21 Chief Complaint: Generalized weakness Subjective: Improving (doing better, still with intermittent confusion, reports patient has remained sleepy / slept on/off yesterday and today. When she was awake yesterday, she was more alert. reports mild lower abdominal pain) Review of Systems 10-point ROS is otherwise unremarkable Physical Examination - Vital Signs Temperature: 97 F Blood Pressure: 175/69 Pulse: 73 Respirations: 18 Pulse Ox (%): 95 Assessment & Plan Physician Review Additional Text: Physical exam GEN: Alert, oriented x2, sleepy but easily arousable CV: Regular rate and rhythm, no edema Pulm: Non-labored respiration on room air ABD: Soft, nontender, nondistended MSK: b/l lower extremity tenderness (chronic) Skin: no erythema Neuro: Normal speech, moves all extremities, follows commands Significant Generalized weakness Problem list Acute cystitis, recurrent UTI: Failed outpatient therapy JOSE, prerenal; resolved History of urinary retention, requiring straight cath DM2 with neuropathy, [id number] GERD Hypothyroidism Chronic back pain History of CVA Gastroparesis Generalized weakness Hypokalemia h/o DVT -Patient on 2 different antibiotics over the last 3 weeks. Most recent: ciprofloxacin, patient unsure of the first antibiotic. -Urine culture growing E. coli Infectious disease consulted Continue cefepime x7 days -Renal function improved, remains afebrile, leukocytosis improving -PT consulted, patient extremely debilitated, recommend SNF. Patient and agree -h/o urinary retention, straight cath TID, patient feeling bladder distended in between caths, Ray placed 04/16 -nephrology consulted -continue home meds - synthroid, aspirin -History of DVT, continue Eliquis -Restarted home spironolactone 04/16, BP better, added norvasc VTE: Eliquis Code: full Dispo: Anticipate DC to SNF, socially responsible investment adviser consulted Time Spent Managing Pts Care (In Minutes): 45
[2021-04-18 07:22] LABS: C-Reactive Protein 4.9 mg/L (<3.00); Magnesium 2.3 mg/dL (1.8-2.4); Phosphorus 2.4 mg/dL (2.5-4.9); Potassium 3.9 mmol/L (3.5-5.1)
[2021-04-18] MEDS: INSULIN -REGULAR HUMAN 50 UNIT/0.5 ML ML SQ SCH ×4 (07:30→20:28)
[2021-04-18 08:31] LABS: Hematocrit 35.1 % (36.0-45.0); MPV 7.2 fL (7.6-11.3); RBC Red Blood Cell Count 4.21 M/uL (3.86-4.86)
[2021-04-18] MEDS: DOCUSATE NA 100 MG CAP PO SCH ×2 (08:41→20:28)
[2021-04-18] MEDS: SPIRONOLACTONE 25 MG TABLET PO SCH (08:41)
[2021-04-18] MEDS: CEFEPIME/SWI 1gm 10 ML IV SCH ×2 (08:41→20:28)
[2021-04-18] MEDS: PANTOPRAZOLE 40 MG INJ IVP SCH (08:42)
[2021-04-18] MEDS: APIXABAN 5 MG TABLET PO SCH ×2 (08:42→20:28)
[2021-04-18] MEDS: AMLODIPINE 5 MG TAB PO SCH (08:42)
[2021-04-18] MEDS: ASPIRIN 81 MG CHEWABLE TABLET PO SCH (08:42)
[2021-04-18] MEDS: AMIODARONE HCL 200 MG TAB PO SCH (08:42)
[2021-04-18] MEDS: LEVOTHYROXINE SOD 0.075 MG TAB PO SCH (08:46)
[2021-04-18] MEDS ORDERED: POTASSIUM CL SA 10 MEQ TAB PO ONE (11:00)
[2021-04-18] MEDS ORDERED: POLYETHYL GLY 3350 17 GM/DOSE PO PRN (11:02)
[2021-04-18] MEDS: POTASS/SODIUM PHOSPHATE 1 PKT POWD.PACK PO SCH ×3 (11:20→13:13)
[2021-04-18] MEDS: ACETAMINOPHEN 500 MG TAB PO PRN (13:12)
[2021-04-18] MEDS: ATORVASTATIN 40 MG TAB PO SCH (20:28)
[2021-04-19 06:31] LABS: Hematocrit 36.2 % (36.0-45.0); MPV 6.9 fL (7.6-11.3); RBC Red Blood Cell Count 4.31 M/uL (3.86-4.86)
[2021-04-19 07:08] LABS: BUN Blood Urea Nitrogen 25 mg/dL (7-18); Bicarbonate 23 mmol/L (21-32); Glucose Level 202 mg/dL (74-106); Magnesium 2.7 mg/dL (1.8-2.4); Potassium 4.2 mmol/L (3.5-5.1); Sodium Level 136 mmol/L (136-145)
[2021-04-19 07:14] LABS: C-Reactive Protein < 2.90 mg/L (<3.00)
--- NOTE | 2021-04-19 07:22 | P.PN ---
Subjective Date of Service: 04/19/21 Chief Complaint: Generalized weakness Subjective: No new changes (feels about the same as yesterday, slightly more abdominal discomfort, feels like she needs to have a BM but waiting for assistance. no new complaints. states she still sleeps /rests eyes most of day. patient says she's awake but times doesn't want to open eyes) Review of Systems 10-point ROS is otherwise unremarkable Physical Examination - Vital Signs Temperature: 97.5 F Blood Pressure: 135/63 Pulse: 66 Respirations: 18 Pulse Ox (%): 94 Assessment & Plan Physician Review Additional Text: Physical exam GEN: Alert, oriented x2 CV: Regular rate and rhythm, no edema Pulm: Non-labored respiration on room air ABD: Soft, nontender, nondistended MSK: b/l lower extremity tenderness (chronic) Skin: no erythema Neuro: moves all extremities, follows commands, PERRL, EOMI Significant Generalized weakness Problem list Acute cystitis, recurrent UTI: Failed outpatient therapy JOSE, prerenal; resolved History of urinary retention, requiring straight cath DM2 with neuropathy, [id number] GERD Hypothyroidism Chronic back pain History of CVA Gastroparesis Generalized weakness Hypokalemia h/o DVT -Patient on 2 different antibiotics over the last 3 weeks. Most recent: ciprofloxacin, patient unsure of the first antibiotic. -Urine culture: E. coli Infectious disease consulted Continue cefepime x7 days, augmentin on discharge -Renal function improved, remains afebrile, leukocytosis improving -PT consulted, patient extremely debilitated, recommend SNF. Patient and agree -h/o urinary retention, straight cath TID, patient feeling bladder distended in between caths, Ray placed 04/16 -nephrology consulted -continue home meds - synthroid, aspirin -History of DVT, continue Eliquis -Restarted home spironolactone 04/16, BP better, added norvasc. lasix per nephrology VTE: Eliquis Code: full Dispo: Anticipate DC to SNF, social worker palliative care consulted patient has not decided on a SNF yet Time Spent Managing Pts Care (In Minutes): 35
[2021-04-19] MEDS: INSULIN -REGULAR HUMAN 50 UNIT/0.5 ML ML SQ SCH ×4 (07:30→22:33)
[2021-04-19] MEDS: LEVOTHYROXINE SOD 0.075 MG TAB PO SCH (08:15)
[2021-04-19] MEDS: APIXABAN 5 MG TABLET PO SCH ×2 (08:15→20:06)
[2021-04-19] MEDS: DOCUSATE NA 100 MG CAP PO SCH ×2 (08:15→20:05)
[2021-04-19] MEDS: ASPIRIN 81 MG CHEWABLE TABLET PO SCH (08:15)
[2021-04-19] MEDS: CEFEPIME/SWI 1gm 10 ML IV SCH ×2 (08:15→20:06)
[2021-04-19] MEDS: SPIRONOLACTONE 25 MG TABLET PO SCH (08:38)
[2021-04-19] MEDS: AMLODIPINE 5 MG TAB PO SCH (08:39)
[2021-04-19] MEDS: AMIODARONE HCL 200 MG TAB PO SCH (08:39)
--- NOTE | 2021-04-19 12:41 | P.PN ---
Subjective Date of Service: 04/19/21 Chief Complaint: Generalized weakness Patient seen examined at bedside, on the events are past 24 hr. Review of Systems 10-point ROS is otherwise unremarkable Physical Examination - Vital Signs Temperature: 97.0 F Blood Pressure: 173/77 Pulse: 68 Respirations: 18 Pulse Ox (%): 94 - Studies Laboratory Last Values WBC 8.50 K/uL (4.3-10.9) 04/14/21 11:30 RBC 4.06 M/uL (3.86-4.86) 04/14/21 11:30 Hgb 11.3 g/dL (12.0-15.0) L 04/14/21 11:30 Hct 33.6 % (36.0-45.0) L 04/14/21 11:30 MCV 82.6 fL (80-100) D 04/14/21 11:30 MCH 27.8 pg (27.0-35.0) 04/14/21 11:30 MCHC 33.6 g/dL (32.0-36.0) 04/14/21 11:30 RDW 15.7 % (12.1-15.2) H 04/14/21 11:30 Plt Count 369 K/uL (152-406) 04/14/21 11:30 MPV 7.1 fL (7.6-11.3) L 04/14/21 11:30 Neutrophils % 53.9 % (41.7-73.7) 04/14/21 11:30 Lymphocytes % 30.5 % (15.3-44.8) 04/14/21 11:30 Monocytes % 10.5 % (3.3-12.3) 04/14/21 11:30 Eosinophils % 4.6 % (0-4.4) H 04/14/21 11:30 Basophils % 0.5 % (0-1.3) 04/14/21 11:30 Absolute Neutrophils 4.6 K/uL (1.8-8.0) 04/14/21 11:30 Absolute Lymphocytes 2.6 K/uL (0.7-4.9) 04/14/21 11:30 Absolute Monocytes 0.9 K/uL (0.1-1.3) 04/14/21 11:30 Absolute Eosinophils 0.4 K/uL (0-0.5) 04/14/21 11:30 Absolute Basophils 0.0 K/uL (0-0.5) 04/14/21 11:30 Sodium 129 mmol/L (136-145) L 04/14/21 11:30 Potassium 2.7 mmol/L (3.5-5.1) L* 04/14/21 11:30 Chloride 88 mmol/L (98-107) L 04/14/21 11:30 Carbon Dioxide 32 mmol/L (21-32) 04/14/21 11:30 BUN 44 mg/dL (7-18) H 04/14/21 11:30 Creatinine 1.36 mg/dL (0.55-1.3) H 04/14/21 11:30 Estimated GFR 38 mL/min (=/>90) L 04/14/21 11:30 Glucose 148 mg/dL (74-106) H 04/14/21 11:30 Calcium 9.1 mg/dL (8.5-10.1) 04/14/21 11:30 Total Bilirubin 0.3 mg/dL (0.2-1.0) 04/14/21 11:30 Direct Bilirubin 0.1 mg/dL (0-0.2) 04/14/21 11:30 AST 35 U/L (15-37) 04/14/21 11:30 ALT 31 U/L (12-78) 04/14/21 11:30 Alkaline Phosphatase 152 U/L (45-117) H 04/14/21 11:30 Serum Total Protein 8.0 g/dL (6.4-8.2) 04/14/21 11:30 Albumin 3.0 g/dL (3.4-5.0) L 04/14/21 11:30 Globulin 5.0 g/dL (2.3-3.5) H 04/14/21 11:30 Albumin/Globulin Ratio 0.6 (1.1-1.8) L 04/14/21 11:30 Lipase 23 U/L (73-393) L 04/14/21 11:30 Procalcitonin < 0.05 ng/mL (<0.050) 04/14/21 11:30 TSH 1.460 uIU/mL (0.360-3.740) 04/14/21 11:30 Free T4 1.49 ng/dL (0.76-1.46) H 04/14/21 11:30 Urine pH 7.0 (5.0-7.0) 04/14/21 12:18 Ur Specific [place] 1.015 (1.005-1.030) 04/14/21 12:18 Glucose (UA)(Auto) Negative (Negative) 04/14/21 12:18 Urine Ketones Negative (Negative) 04/14/21 12:18 Urine Blood Negative (Negative) 04/14/21 12:18 Urine Nitrite Negative (Negative) 04/14/21 12:18 Ur Leukocyte Esterase 1+ (Negative) H 04/14/21 12:18 Urine RBC <5 /HPF (NONE SEEN) 04/14/21 12:20 Urine WBC 10-20 /HPF (<5) H 04/14/21 12:20 Ur Squamous Epith Cells <5 /HPF (NONE SEEN) 04/14/21 12:20 Urine Bacteria 20-50 /HPF (<20) H 04/14/21 12:20 Urine Culture Reflexed Not needed 04/14/21 12:20 Urine Total Protein Negative (Negative) 04/14/21 12:18 SARS-CoV-2 Rap RNA(RT-PCR) Negative (NEGATIVE) 04/14/21 10:50 Microbiology Data (last 24 hrs): 04/14/21 11:47 Blood - Blood Aerobic Blood Culture - Final No growth in 5 days. 04/14/21 11:47 Blood - Blood Anaerobic Blood Culture - Final No growth in 5 days. 04/14/21 11:30 Blood - Blood Aerobic Blood Culture - Final No growth in 5 days. 04/14/21 11:30 Blood - Blood Anaerobic Blood Culture - Final No growth in 5 days. Assessment And Plan - Plan Physical exam: General: Alert, In no apparent distress, Obese HEENT: Atraumatic, Normocephalic Neck: Supple, 2+ carotid pulse no bruit Respiratory: Clear to auscultation bilaterally, Normal air movement Cardiovascular: No edema, Normal pulses, Regular rate/rhythm Capillary refill: <2 Seconds Gastrointestinal: Normal bowel sounds, Tenderness Musculoskeletal: No clubbing, No swelling, No contractures Integumentary: No rashes, No breakdown, No significant lesion Conclusions/Impression: Antibiotics: Cefepime Start: 04/14 Stop: 04/21 Assessment/plan Recurrent UTI Patient states she has had 3 urinary tracts within this year. Most recent UTI a was 3 weeks ago failed outpatient treatment with oral antibiotics. Urine culture performed on 04/14 growing E coli. Based on susceptibility testing the only oral option is Augmentin. Continue IV cefepime. Renal function improving. Recommend outpatient urology consultation. Protein caloric malnutrition: Moderate Patient has low albumin at 3.0, recommend supplemental Ensure protein drinks. Anemia Continue to monitor H&H Diabetes Continue SSI Medical management per primary team Continue monitor CBC and BMP Continue monitor signs infection Plan of care discussed with Dr. Dimas Thank you for consultation. Physician Review: Patient Assessed, Agree with Above Assessment and Plan
[2021-04-19] MEDS ORDERED: MINERAL OIL 30 ML UCUP PO PRN (17:26)
[2021-04-19] MEDS ORDERED: MINERAL OIL 30 ML UCUP PO ONE (18:00)
[2021-04-19] MEDS: ONDANSETRON 4 MG/2 ML VIAL IV PRN (20:05)
[2021-04-19] MEDS: ATORVASTATIN 40 MG TAB PO SCH (20:06)
[2021-04-19 20:48] VITALS: O2SAT 96
--- NOTE | 2021-04-19 20:54 | P.PN ---
Date of Service: 04/19/21 Vital Signs Temp Pulse Resp BP Pulse Ox 97.5 F 66 18 135/63 94 04/19/21 17:25 04/19/21 17:25 04/19/21 17:25 04/19/21 17:25 04/19/21 17:25 Medications Acetaminophen (Acetaminophen 500 Mg Tab) 500 mg PO Q4HP PRN PRN Reason: TEMP > 100' F Last Admin: 04/18/21 13:12 Dose: 500 mg Documented by: Amiodarone HCl (Amiodarone Hcl 200 Mg Tab) 200 mg PO DAILY [facility] Last Admin: 04/19/21 08:39 Dose: 200 mg Documented by: Amlodipine Besylate (Amlodipine 5 Mg Tab) 5 mg PO DAILY [facility] Last Admin: 04/19/21 08:39 Dose: 5 mg Documented by: Apixaban (Apixaban 5 Mg Tablet) 5 mg PO BID [facility] Last Admin: 04/19/21 20:06 Dose: 5 mg Documented by: Aspirin (Aspirin 81 Mg Chewable Tablet) 81 mg PO DAILY [facility] Last Admin: 04/19/21 08:15 Dose: 81 mg Documented by: Atorvastatin Calcium (Atorvastatin 40 Mg Tab) 40 mg PO BEDTIME [facility] Last Admin: 04/19/21 20:06 Dose: 40 mg Documented by: Docusate Sodium (Docusate Na 100 Mg Cap) 100 mg PO BID [facility] Last Admin: 04/19/21 20:05 Dose: 100 mg Documented by: Hydralazine HCl (Hydralazine Hcl 20 Mg/Ml Vial) 10 mg IV Q6HP PRN PRN Reason: FOR SBP>160 OR DBP>100 MMHG Last Admin: 04/16/21 12:24 Dose: 10 mg Documented by: Cefepime HCl (Maxipime 1 Gm/10 Ml Ivp) 10 mls @ 200 mls/hr IV Q12HR [facility] Last Admin: 04/19/21 20:06 Dose: 10 mls Documented by: Insulin Human Regular (Insulin -Regular Human 50 Unit/0.5 Ml Ml) 0 unit SQ ACHS [facility]; Protocol Last Admin: 04/19/21 17:28 Dose: 2 unit Documented by: Levothyroxine Sodium (Levothyroxine Sod 0.075 Mg Tab) 0.075 mg PO ACB [facility] Last Admin: 04/19/21 08:15 Dose: 0.075 mg Documented by: Mineral Oil (Mineral Oil 30 Ml Ucup) 30 ml PO DAILY PRN PRN Reason: CONSTIPATION Ondansetron HCl (Ondansetron 4 Mg/2 Ml Vial) 4 mg IV Q6HP PRN PRN Reason: NAUSEA / VOMITING Last Admin: 04/19/21 20:05 Dose: 4 mg Documented by: Polyethylene Glycol (Polyethyl Gly 3350 17 Gm/Dose) 17 gm PO DAILY PRN PRN Reason: CONSTIPATION Last Admin: 04/19/21 15:09 Dose: 17 gm Documented by: Sodium Chloride (Flush Normal Saline 10 Ml) 10 ml IV BID [facility] Last Admin: 04/19/21 20:06 Dose: 10 ml Documented by: Sodium Chloride (Sodium Chloride 0.9% 10ml Inj) 10 ml IV UD PRN PRN Reason: Diluant Spironolactone (Spironolactone 25 Mg Tablet) 50 mg PO DAILY [facility] Last Admin: 04/19/21 08:38 Dose: 50 mg Documented by: Microbiology Results 04/14/21 11:47 Blood - Blood Aerobic Blood Culture - Final No growth in 5 days. 04/14/21 11:47 Blood - Blood Anaerobic Blood Culture - Final No growth in 5 days. 04/14/21 11:30 Blood - Blood Aerobic Blood Culture - Final No growth in 5 days. 04/14/21 11:30 Blood - Blood Anaerobic Blood Culture - Final No growth in 5 days. 04/14/21 12:20 Catheterized Urine [place] Count - Final <10,000 CFU/ML. 04/14/21 12:20 Catheterized Urine - Final Escherichia Coli Assessment/ Plan: Nephrology Progress Note Malaise, fatigue and weakness. She is worried about her sp a fall. No chest pain or dyspnea No acute events overnight Vitals, medications blood work and imaging reviewed in the chart General: Oriented x3, Cooperative HEENT: Atraumatic Neck: Supple Respiratory: Clear to auscultation bilaterally Cardiovascular: No edema, Regular rate/rhythm Gastrointestinal: Soft and benign, Non-distended Musculoskeletal: No clubbing, No contractures Integumentary: No rashes, No cyanosis Neurological: Normal speech Laboratory Data (last 24 hrs) 04/14/21 11:30: Sodium 129 L, Potassium 2.7 L*, BUN 44 H, Creatinine 1.36 H, Glucose 148 H, Total Bilirubin 0.3, AST 35, ALT 31, Alkaline Phosphatase 152 H, Lipase 23 L 04/14/21 11:30: WBC 8.50, Hgb 11.3 L, Hct 33.6 L, Plt Count 369 Imagings Data: EXAM DESCRIPTION: RAD - Chest Single View - 04/14/2021 11:48 am CLINICAL HISTORY: weakness COMPARISON: Chest Single View dated 04/27/2019; Chest Single View dated 08/19/2018; Chest Single View dated 08/06/2018; Chest Pa And Lat (2 Views) dated 02/28/2018 FINDINGS: Lines: None. Lungs: No evidence of edema or pneumonia. Pleural: No significant pleural effusions or pneumothorax. Cardiac: The heart size is within normal limits. Bones: No acute fractures. Other: IMPRESSION: No acute cardiopulmonary disease. Conclusions/Impression: JOSE in the setting of hypovolemia Urinary retention -No NSAIDs -Continue platt Hyponatremia -Encourage nutrition Hypokalemia -Replete potassium prn -Continue spironolactone DM II with hyperglycemia -RISS Acute E.coli cystitis -Continue abx Chronic slow transit constipation -Continue Colace -Mineral Oil PRN
[2021-04-20] MEDS: ONDANSETRON 4 MG/2 ML VIAL IV PRN (00:37)
[2021-04-20 06:06] LABS: Absolute Lymphocytes (CBC) 3.8 K/uL (0.7-4.9); Basophils % 0.6 % (0-1.3); Hematocrit 35.8 % (36.0-45.0); Lymphocytes % 28.3 % (15.3-44.8); MPV 7.1 fL (7.6-11.3); RBC Red Blood Cell Count 4.24 M/uL (3.86-4.86)
[2021-04-20 06:23] LABS: Bilirubin Total 0.4 mg/dL (0.2-1.0); C-Reactive Protein 3.74 mg/L (<3.00); Magnesium 2.3 mg/dL (1.8-2.4); Potassium 4.6 mmol/L (3.5-5.1); Protein, Total 7.5 g/dL (6.4-8.2)
[2021-04-20] MEDS: INSULIN -REGULAR HUMAN 50 UNIT/0.5 ML ML SQ SCH ×2 (08:59→11:30)
[2021-04-20] MEDS: APIXABAN 5 MG TABLET PO SCH (09:00)
[2021-04-20] MEDS: ASPIRIN 81 MG CHEWABLE TABLET PO SCH (09:00)
[2021-04-20] MEDS: LEVOTHYROXINE SOD 0.075 MG TAB PO SCH (09:00)
[2021-04-20] MEDS: DOCUSATE NA 100 MG CAP PO SCH (09:00)
[2021-04-20] MEDS: SPIRONOLACTONE 25 MG TABLET PO SCH (09:00)
[2021-04-20] MEDS: AMIODARONE HCL 200 MG TAB PO SCH (09:04)
[2021-04-20] MEDS: CEFEPIME/SWI 1gm 10 ML IV SCH (09:04)
[2021-04-20] MEDS: AMLODIPINE 5 MG TAB PO SCH (09:05)
--- NOTE | 2021-04-20 11:33 | P.PN ---
Subjective Date of Service: 04/20/21 Chief Complaint: Generalized weakness Patient seen examined at bedside, feeling much better today. Still states she is having slight abdominal pain however is constipated. Has not had bowel movement in 3 days. Denies any urinary symptoms. Today is day 6 of antibiotic therapy, can Dc antibiotics. Review of Systems 10-point ROS is otherwise unremarkable Physical Examination - Vital Signs Temperature: 97.3 F Blood Pressure: 159/69 Pulse: 73 Respirations: 24 Pulse Ox (%): 95 - Studies Microbiology Data (last 24 hrs): 04/14/21 11:47 Blood - Blood Aerobic Blood Culture - Final No growth in 5 days. 04/14/21 11:47 Blood - Blood Anaerobic Blood Culture - Final No growth in 5 days. 04/14/21 11:30 Blood - Blood Aerobic Blood Culture - Final No growth in 5 days. 04/14/21 11:30 Blood - Blood Anaerobic Blood Culture - Final No growth in 5 days. Assessment And Plan - Plan Physical exam: General: Alert, In no apparent distress, Obese HEENT: Atraumatic, Normocephalic Neck: Supple, 2+ carotid pulse no bruit Respiratory: Clear to auscultation bilaterally, Normal air movement Cardiovascular: No edema, Normal pulses, Regular rate/rhythm Capillary refill: <2 Seconds Gastrointestinal: Normal bowel sounds, Tenderness Musculoskeletal: No clubbing, No swelling, No contractures Integumentary: No rashes, No breakdown, No significant lesion Conclusions/Impression: Antibiotics: Cefepime Start: 04/14 Stop: 04/21 Assessment/plan Recurrent UTI Patient states she has had 3 urinary tracts within this year. Most recent UTI a was 3 weeks ago failed outpatient treatment with oral antibiotics. Urine culture performed on 04/14 growing E coli. Based on susceptibility testing the only oral option is Augmentin. Continue IV cefepime. Renal function improving. Recommend outpatient urology consultation. Protein caloric malnutrition: Moderate Patient has low albumin at 3.0, recommend supplemental Ensure protein drinks. Anemia Continue to monitor H&H Diabetes Continue SSI Medical management per primary team Continue monitor CBC and BMP Continue monitor signs infection Plan of care discussed with Dr. Dimas Thank you for consultation. Physician Review: Patient Assessed, Agree with Above Assessment and Plan
--- NOTE | 2021-04-20 12:24 | P.DS ---
Admission Date: 04/14/21 Discharge Date: 04/20/21 Disposition: TRANSFER TO ASSISTED Discharge Condition: FAIR Reason for Admission: Generalized weakness - Problems (1) UTI (urinary tract infection) Status: Acute (2) Diabetes mellitus Onset Date: 02/09/17 Status: Chronic Qualifiers: (3) History of CVA (cerebrovascular accident) Status: Chronic (4) Obesity (BMI 30-39.9) Status: Chronic Brief History of Present Illness: 75-year-old female with a past medical history significant for hypothyroidism, fibromyalgia, DM 2 with neuropathy, Gastroparesis, CVA, urinary retention, chronic UTI, GERD, HLD, chronic back pain presented to the ER with a complaint of generalized weakness of 1 week duration. The weakness progressed to the point she was unable to ambulate. She reported falling once. Patient reported associated dizziness, vertigo and fatigue. Patient reported prior outpatient UTI therapy with antibiotics. UA in the ED suggested the presence of UTI. Patient hospitalized for further management. Hospital Course: Patient admitted to the medical floor and treated for UTI with IV cefepime. Urine culture grew E. coli resistant to fluoroquinolones and Bactrim but suscep tible to cephalosporins. Patient completed 7 days of IV cefepime. She was seen by PT and underwent PT sessions. Patient is able to transfer with assistance at this time. She will benefit from skilled rehab. Patient clinically stable for transfer to SNF for skilled rehab. Vital Signs/Physical Exam: Temp Pulse Resp BP Pulse Ox 97.3 F 73 24 H 159/69 H 95 04/20/21 11:33 04/20/21 11:33 04/20/21 11:33 04/20/21 11:33 04/20/21 11:33 General: Alert, In no apparent distress HEENT: Mucous membr. moist/pink Neck: JVD not distended Respiratory: Clear to auscultation bilaterally, Normal air movement Cardiovascular: No edema, Regular rate/rhythm, Normal S1 S2 Gastrointestinal: Normal bowel sounds, Soft and benign, Non-distended, No tenderness Musculoskeletal: No swelling Integumentary: No rashes Neurological: Other (No focal deficit.) Laboratory Data at Discharge: WBC 13.40 K/uL (4.3-10.9) H 04/20/21 05:43 Hgb 11.8 g/dL (12.0-15.0) L 04/20/21 05:43 Hct 35.8 % (36.0-45.0) L 04/20/21 05:43 Plt Count 374 K/uL (152-406) 04/20/21 05:43 Sodium 136 mmol/L (136-145) 04/20/21 05:43 Potassium 4.6 mmol/L (3.5-5.1) 04/20/21 05:43 BUN 21 mg/dL (7-18) H 04/20/21 05:43 Creatinine 0.82 mg/dL (0.55-1.3) 04/20/21 05:43 Glucose 195 mg/dL (74-106) H 04/20/21 05:43 Uric Acid 6.5 mg/dL (2.6-6.0) H 04/15/21 05:57 Phosphorus 2.4 mg/dL (2.5-4.9) L 04/18/21 06:42 Magnesium 2.3 mg/dL (1.8-2.4) 04/20/21 05:43 Total Bilirubin 0.4 mg/dL (0.2-1.0) 04/20/21 05:43 AST 109 U/L (15-37) H 04/20/21 05:43 ALT 68 U/L (12-78) 04/20/21 05:43 Alkaline Phosphatase 143 U/L (45-117) H 04/20/21 05:43 Lipase 23 U/L (73-393) L 04/14/21 11:30 Home Medications: Atorvastatin Calcium [Lipitor] 40 mg PO BEDTIME 08/21/18 Montelukast [Singulair*] 10 mg PO BEDTIME 08/21/18 Omeprazole [Prilosec] 40 mg PO BID 08/21/18 Potassium Oral Tab [Klor-Con 10 mEq Tab*] 20 meq PO SEECOM 08/21/18 Apixaban [Eliquis] 5 mg PO BID 05/03/19 Docusate [Colace Cap*] 100 mg PO DAILY 05/03/19 Gabapentin [Gralise] 300 mg PO TID 05/03/19 Alendronate Sodium 1 tab PO DAILY 04/18/21 Amiodarone HCl [Cordarone*] 1 tab PO DAILY 04/18/21 Aspirin [Vazalore] 81 mg PO DAILY 04/18/21 Calcium Carbonate/Vitamin D3 [Calcium 600-Vit D3 400 Tablet] 1 each PO BID 04/18/21 Glipizide/Metformin HCl [Glipizide-Metformin 2.5-500 mg] 1 tab PO BID 04/18/21 L.acidoph,Paracasei, B.lactis [Probiotic] 12 mg PO BID 04/18/21 Levothyroxine Sodium [Synthroid] 50 mcg PO DAILY 04/18/21 Midodrine HCl 1 tab PO BID 04/18/21 Morphine *Extended Release* [MS Contin*] 1 tab PO DAILY 04/18/21 Sennosides/Docusate Sodium [Senna-S 8.6-50 mg Tablet] 1 tab PO BID 04/18/21 Sertraline [Zoloft*] 1 tab PO BEDTIME 04/18/21 Spironolactone 1 tab PO NOON 04/18/21 Torsemide [Demadex*] 20 mg PO SEECOM 04/18/21 metOLazone [Zaroxolyn*] 0.5 tab PO DAILY 04/18/21 Amlodipine [Norvasc*] 5 mg PO DAILY tab 04/20/21 Docusate [Colace Cap*] 100 mg PO BID cap 04/20/21 Polyethyl Gly 3350 [Glycolax*] 17 gm PO DAILY PRN #0 udbot 04/20/21 Diet: ADA Activity: Fall precautions Followup: Unknown,U [Primary Care Provider] - 1-2 Days Time spent managing pt's care (in minutes): 39
[2021-04-20 14:27] VITALS: BP 138/61; TEMP 97.1
== END 2021-04-20 15:22 | DRG 690 ==
LOC: ER 10:19 → ERHOLD 16:24 → 2ND 18:28
PROVIDERS: ADMIT Hospitalist; ATTEND Hospitalist
DX: N30.00 Acute cystitis without hematuria (principal); Z68.41 Body mass index [BMI] 40.0-44.9, adult; E44.0 Moderate protein-calorie malnutrition; N17.9 Acute kidney failure, unspecified; E87.1 Hypo-osmolality and hyponatremia; B96.20 Unspecified Escherichia coli [E. coli] as the cause of diseases classified elsewhere; E66.9 Obesity, unspecified; E03.9 Hypothyroidism, unspecified; M79.7 Fibromyalgia; E11.40 Type 2 diabetes mellitus with diabetic neuropathy, unspecified; K59.00 Constipation, unspecified; E87.6 Hypokalemia; D64.9 Anemia, unspecified; K31.84 Gastroparesis; K21.9 Gastro-esophageal reflux disease without esophagitis; R53.1 Weakness; R33.9 Retention of urine, unspecified; Z86.718 Personal history of other venous thrombosis and embolism; Z88.2 Allergy status to sulfonamides; Z86.73 Personal history of transient ischemic attack (TIA), and cerebral infarction without residual deficits; Z20.822 Contact with and (suspected) exposure to COVID-19
CPT/HCPCS: 36415; 51702; 71045; 80048; 80053; 80076; 81003; 81015; 82947; 83690; 83735; 84100; 84132; 84145; 84439; 84443; 84550; 85025; 85027; 86140; 87040; 87077; 87086; 87088; 87186; 93005; 96361; 96365; 97110; 97116; 97161; 97530; 99285; C9113; J0360; J0692; J0696; J1644; J2405; J3480; J7030; J7040; U0003

== ENCOUNTER 2021-08-07 06:19 | Emergency (ER) | payer OTHER, MEDICARE ==
--- OUTSIDE RECORDS SUMMARY | 2021-08-07 06:24 | XMS REPORT | Continuity of Care Document ---
:1945 Author Organization [facility] t Address [address] [place]. [address] [place] [id number] Care Team Providers Name Role Phone Rey MENDES, A Primary Care Physician Tommie MENDES Attending Clinician Keyon Le MD Attending Clinician 2, Lab Attending Clinician Unavailable Pob, Lab Main Attending Clinician Unavailable Meredith MENDES, S Attending Clinician Jose Francisco LOREDOP Attending Clinician Provider, Urgent Care Attending Clinician [...] Details Category Date Date Treatment Clinician Date Right leg Right leg Disease Active 2020-07 Uni vers weakness weakness 1-14 ity of 00:: [place] [facility] UTI UTI Disease Active Univers symptoms symptoms 7-06 ity of 00:: [place] [facility] Abdominal Abdominal Disease Active Uni vers bloating bloating 7-06 ity of 00:: [place] [facility] Bleeds Bleeds Disease Active Univers easily easily 7-06 ity of 00:: [place] [facility] High blood High blood Disease Active U cassandraers copper copper 7-06 ity of level level 00:: [place] [facility] Hematoma Hematoma Disease Active Unive rs 6-03 ity of 00:: [place] [facility] Atypical Atypical Disease Active Unive rs chest pain chest pain 5-26 it y of 00:: [place] [facility] Dyslipidem Dyslipidem Disease Active U nivers ia ia 5-12 ity of 00:00: [place] [facility] Essential Essential Disease Active Uni vers hypertensi hypertensi 5-12 it y of on on 00:: [place] [facility] Memory Memory Disease Active Univers changes changes 2-03 ity of 00:00: [place] [facility] Hypotensio Hypotensio Disease Active U nivers n, n, 2-03 ity of unspecifie unspecifie [place] 00 Medical hypotensio hypotensio Br anch n type n type Recurrent Recurrent Disease Active Uni vers falls falls 8-10 ity of 00:00: [place] [facility] Tremor Tremor Disease Active 2019- Univers 8-10 ity of 00:00: [place] [facility] Bradycardi Bradycardi Disease Active 2019- U nivers a a 8-10 ity of 00:00: [place] 00 Medical Branch UTI due to UTI due to Disease Active U nivers Klebsiella Klebsiella 5-14 it y of species species 00:00: [place] 00 [facility] Acute Acute Disease Active 2018-[address] [facility] ischemic ischemic 0-[facility] stroke stroke 00:00: Medical 00 [place] JOSE (acute JOSE (acute Disease Active C [...] [facility] 04[facility] Chronic Chronic Disease Active [facility] anticoagul anticoagul 04-28 [place] kes - ation ation 00:00: Medical 00 Center Sleep Sleep Disease Active [facility] apnea apnea 04-28 [facility] - 00:[facility]: Medical [place] Weakness Weakness Disease [facility] Chronic Chronic Disease Active Univers heart heart 9 ity of failure failure 00:00: [place] with with 00 Medical preserved preserved Bran ch ejection ejection fraction fraction PAF PAF Disease Active Univers (paroxysma (paroxysma 3-11 it y of l atrial l atrial 00:00: [place] fibrillati fibrillati 00 Me dical on) on) Branch Carotid Carotid Disease Active 2017-07 Overview: Univ ers stenosis, stenosis, 2-14 Formattin i ty of asymptomat asymptomat 00:00: g of this [place] ic, ic, 00 note Medical bilateral bilateral might be Br anch different from the original. Added automatic ally from request for surgery [id number] Carotid Carotid Disease Active Univers artery artery 8-01 ity of disease, disease, 00:00: [place] unspecifie unspecifie 00 Me dical d d Branch laterality laterality Acute on Acute on Disease Active Unive rs chronic chronic 5-21 ity of diastolic diastolic 00:00: [place] congestive congestive 00 Me dical heart heart Branch failure failure Body mass Body mass Disease Active Uni vers index index 6-24 ity of (BMI) (BMI) 00:00: [place] greater greater 00 Medical than 30 in [...] 6-07 ity of nodules nodules 00:00: [place] [facility] Lump in Lump in Disease Active Univers neck neck 3-23 ity of 00:00: [place] [facility] Neuropathy Neuropathy Disease Active U nivers of both of both 3-07 ity of feet feet 00:00: Medical Branch S/P lumbar S/P lumbar Disease Active U nivers spinal spinal 3- ity of arthrodesi arthrodesi 00:00: [place] 00 Medical [place] Lumbar Lumbar Disease Active Univers degenerati degenerati 3- it y of ve disc ve disc [...] dical l pump l pump 00 Center 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 8-12 it y of s with s with 00:00: [place] myelopathy myelopathy 00 Nm dical Branch 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 8-12 it y of s with s with 00:00: [place] myelopathy myelopathy 00 Nm dical Branch Spinal Spinal Disease Active Univers stenosis, stenosis, 8-12 ity of lumbar lumbar 00:00: [place] region, region, 00 Medical without without Branch neurogenic neurogenic claudicati claudicati on on Acute Acute Disease Active Univers cystitis cystitis 2-04 ity of with with 00:00: [place] hematuria hematuria 00 [facility] david Branch Vaginal Vaginal Disease Active 2011-07 Univers atrophy atrophy 1-14 ity of 00:00: [place] 00 Medical Branch 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 -14 it y of ce urge ce urge 00:00: [place] and stress and stress 00 Me dical (male)(fem (male)(fem Br anch mojgan) mojgan) Lymphedema Lymphedema Disease Active U nivers ity of [facility] Neuropathy Neuropathy Disease Active U nivers ity of [facility] Branch Heel spur Heel spur Disease Active Uni vers ity of [facility] Primary Primary Disease Active Univers hypothyroi hypothyroi it y of dism dism [facility] Fibromyalg Fibromyalg Disease Active U nivers ia ia ity of [facility] Gastropare Gastropare Disease Active U nivers sis sis ity of [facility] Cerebral Cerebral Disease Active Overview: Un pepito infarction infarction Formattin ity of g of this [place] note Medical might be Branch different from the original. no residual Aneurysm Aneurysm Disease Active Overview: Un pepito Formattin ity of g of this [place] note Medical might be Branch different from the original. L frontal - cerebral -short term memory loss GERD GERD Disease Resolve 2020-11-06 2020-11-06 Univers (gastroeso (gastroeso d 00:00:00 18:21:59 ity of phageal phageal [place] reflux reflux Medical disease) disease) Branch Complicate Complicate Disease Resolve 2020-05-30 2020-05-31 Univers d UTI d UTI d 5-14 00:00:00 00:41:45 ity of (urinary (urinary 00:00: [place] tract tract 00 Medical infection) infection) Br anch Chest pain Chest pain Disease Resolve 2020-05-30 2020-05-31 Univers d 5-23 00:00:00 00:41:42 ity of 00:00: [place] 00 Medical Branch Hypokalemi Hypokalemi Disease Resolve 2020-05-30 2020-05-31 Univers a a d 5- 00:00:00 00:41:50 ity of 00:00: [place] 00 [facility] Branch Kidney Kidney Disease Resolve 2020-05-30 2020-05-31 Univers stones stones d 2-26 00:00:00 00:42:01 ity of 00:00: [place] 00 Medical Branch UTI UTI Disease Resolve 2015-072020-05-30 2020-05-31 [...] Resolve 2019-09-12 2019-09-13 Univers hemoglobin hemoglobin d 8-01 00:00:00 04:16:13 ity of A1c A1c 00:00: [place] 00 Medical Branch Pre-op Pre-op Disease Resolve 2018-10-27 2018-10-27 Univers chest exam chest exam d 01-06 00:00:00 14:23:40 ity of 00:00: [place] 00 Medical Branch Ileus Ileus Disease Resolve 2016-09-25 2016-09-25 Univers d 00:00:00 20:31:37 ity of [place] [facility] Sepsis Sepsis Disease Resolve 2016-04-02 2016-04-02 Univers d 8 00:00:00 19:56:24 ity of 00:00: [place] 00 [...] Resolve 2016-01-09 2016-01-09 Univers artery artery d 3 00:00:00 10:56:04 ity of disease disease 00:00: [...] 00 Medical Branch UTI UTI Disease Resolve 2012-0 2016-01-09 2016-01-09 Univers (urinary (urinary d 10-31 00:00:00 10:55:47 it y of tract tract 00:00: [place] infection) infection) 00 Me dical [place] Kidney Kidney Disease Resolve 2016-01-09 2016-01-09 Univers failure failure d 00:00:00 10:53:58 ity of [facility] Pneumonia Pneumonia Disease Resolve 2016-01-09 2016-01-09 Univers d 00:00:00 10:54:42 ity of [facility] Phlebitis Phlebitis Disease Resolve 2016-01-09 2016-01-09 Univers d 00:00:00 10:54:05 ity of [facility] History of History of Disease Resolve 2016-01-09 2016-01-09 Univers stomach stomach d 00:00:00 10:54:09 ity of ulcers ulcers [facility] Rheumatic Rheumatic Disease Resolve 2016-01-09 2016-01-09 Univers fever fever d 00:00:00 10:54:13 ity of [facility] Colitis Colitis Disease Resolve 2016-01-09 2016-01-09 Univers d 00:00:00 10:54:17 ity of [facility] Diverticul Diverticul Disease Resolve 2016-01-09 2016-01-09 Univers itis itis d 00:00:00 10:54:22 ity of [facility] Dementia Dementia Disease Resolve 2016-01-09 2016-01-09 Univers d 00:00:00 10:54:26 ity of [facility] Urinary Urinary Disease Resolve 2016-01-09 2016-01-09 Univers incontinen incontinen d 00:00:00 10:55:35 ity of ce ce [facility] Poisoning Poisoning Disease Resolve 2016-01-09 2016-01-09 Univers by by d 00:00:00 10:54:35 ity of aromatic aromatic [place] ammonia ammonia [facility] spirit spirit Branch Parkinson Parkinson Disease Resolve 2016-01-09 2016-01-09 Univers disease disease d 00:00:00 10:54:50 ity of [facility] UTI (lower UTI (lower Disease Resolve 2016-01-09 2016-01-09 Univers urinary urinary d 00:00:00 10:54:56 ity of tract tract [place] infection) infection) Me dical Branch Constipati Constipati Disease Resolve 2012-11-17 2015-05-01 Univers on on d 11-06 00:00:00 23:44:32 ity of 00:00: [place] 00 Medical Branch Urinary Urinary Disease Resolve 2012-11-17 2012-11-17 Univers urgency urgency d 09-03 00:00:00 21:36:12 ity of 00:00: Medical Branch Urinary Urinary Disease Resolve 2012-11-17 2012-11-17 Univers frequency frequency d 2 00:00:00 21:36:15 ity of 00:00: 00 Medical Branch Ileus Ileus Disease Resolve [...] 4-26 ity of adverse 00:00: [place] reaction Medical s Branch Meperidi Propensi Active Nausea 2014-07 Univer s ne ty to and/or 2-07 ity of adverse Vomiting 00:00: [place] reaction 00 Medical s Branch Pentazoc Propensi Active Nausea 2014-07 Univer s ine ty to and/or 2-07 ity of adverse Vomiting 00:00: [place] reaction Medical s Branch Sulfamet Propensi Active 2012-[address] [facility] hoxazole ty to 1-23 [facility] -Trimeth adverse 00:00: Medical oprim reaction 00 Center s Codeine Propensi Active Nausea And 2012-[address] [facility] ty to Vomiting -23 [facility] - adverse 00:00: Medical reaction 00 [...] Edisylat adverse 00:00: Medical e reaction 00 [place] s Propoxyp Propensi Active Nausea And 2012-[address] hene ty to Vomiting 08-22 [facility] - adverse 00:00: Medical reaction 00 [place] s Rofecoxi Propensi Active Severe 2012-[address] [facility] b ty to 08-22 failure [facility] adverse 00:00: Medical reaction 00 [place] s Codeine Propensi Active Nausea 2011-07 Univers ty to and/or 0-24 ity of adverse Vomiting 00:00: [place] reaction 00 [facility] s Branch Prochlor Propensi Active Hallucinatio 2011-07 Univers perazine ty to ns 0-24 ity of adverse 00:00: [place] reaction Medical s Branch Propoxyp Propensi Active Nausea 2011-07 [...] 00:00: [place] reaction 00 Medical s Branch Talwin Propensi Active Hallucinatio 2011-07 Un pepito Compound ty to ns 0-24 ity of adverse 00:00: [place] reaction 00 Medical s Branch Rofecoxi Propensi Active Unknown - 2011-07 Renal Uni vers b ty to See comments 0-24 failure ity of adverse 00:00: [place] reaction 00 Medical s Branch prochlor DA Active U 2003-0 [facility] perazine 02-24 [facility] 00:00: d 00 [facility] Center codeine DA Active U 2002-0 [facility] 7- [facility] 00:00: d 00 Medical Center propoxyp DA Active U 2002-0 [facility] hene 02-24 [facility] 00:00: d 00 Medical Center pentazoc DA Active U 2002-0 [facility] ine 02-24 [facility] 00:00: d 00 Medical Center meperidi DA Active U 2002-0 [facility] ne 02-24 [facility] 00:00: d 00 Medical Center naloxone DA Active U 2002-0 [facility] 02-24 [facility] 00:00: d 00 Medical Center CODEINE DA Active U VOMITING 2002-0 [facility] - [facility] 00:00: d 00 Medical Center COMPAZIN DA Active U VOMITING 2002-0 [facility] E 02-24 [facility] 00:00: d 00 Medical Center DARVON DA Active U VOMITING 2002-0 [facility] 02-24 [facility] 00:00: d 00 Medical Center DEMEROL DA Active U VOMITING 2002-0 [facility] 02-24 [facility] 00:00: d 00 Medical Center No Known DA Active U 2002-0 [facility] Contrast 02-24 [facility] Allergie 00:00: d s 00 Medical Center No Known DA Active U 2002-0 [facility] Food - [facility] Allergie 00:00: d s 00 Medical Center No Known DA Active U 2002-0 [facility] Other 7- [facility] Allergie 00:00: d s 00 Medical Center TALWIN DA Active U VOMITING 2002-0 [facility] 7 [facility] 00:00: d 00 Medical Center Social History Social Habit Start Date Stop Date Quantity Comments Source Exposure to Not sure University of SARS-CoV-2 [place] Medical (event) Branch History [facility] 2019-12-12 2019-12-12 5 University o f Financial 00:00:00 00:00:00 [place] [facility] History [facility] Food 2019-12-12 2019-12-12 1 Univers ity of Worry 00:00:00 00:00:00 [place] [facility] History [facility] Food 2019-12-12 2019-12-12 1 Univers ity of Scarcity 00:00:00 00:00:00 [place] [facility] History [facility] 2019-12-12 2019-12-12 2 University o f Transport Med 00:00:00 00:00:00 [place] Medic al Branch History SDOH 2019-12-12 2019-12-12 2 University o f Transport Non-Med 00:00:00 00:00:00 [place] M edical Branch Alcohol intake 2013-06-24 2013-06-24 Current SHAMAR López es - 00:00:00 00:00:00 non-drinker of Medical Ce nter alcohol (finding) Tobacco use and 2012-05-17 2012-05-17 Never used Universit y of exposure 00:00:00 00:00:00 [facility] Sex [birth year] SHAMAR Padilla kes - 00:00:00 00:00:00 Medical Center Smoking Status Start Date Stop Date Source Never smoker [facility] Medications Ordered Filled Start Stop Current Ordering Indication Dosage Frequency Signature Comments Components Source Medication Medication Date Date Medication? Clinician (SIG) Name Name estradioL 2021- No [id number] 2mg Uni vers (ESTRING) 08-06 ity of vaginal 22:30: 21:38 [place] ring 2 mg 00 :00 [facility] estradioL 2021- No [id number] 2mg 2 mg, Un pepito (ESTRING) 08-06 Vaginal, ity o f vaginal 22:30: 21:38 ONCE, 1 [place] ring 2 mg 00 :00 dose, On Medica l 08/06/21 Branch at 1630, Routine CREON Yes [id number] TAKE 3 Unive rs 36,000-114, 1-03 CAPSULES ity of 000- 00:00: BY MOUTH [place] 180,000 00 BEFORE Medical unit CpDR MEALS, AND Bran ch 1 BEFORE SNACKS doxycycline 2020-07 Yes [id number] 100mg Take 1 Univers hyclate 100 2-30 9100 tablet by ity of mg tablet 00:00: mouth 2 [place] 00 (two) Medical times Branch daily. potassium 2020-07 Yes 20meq Take 20 Univ ers chloride 10 2-16 mEq by ity of mEq CR 14:48: mouth. [place] capsule 53 [facility] Branch D-MANNOSE 2020-07 Yes 500mg Take 500 Uni vers ORAL 2-16 mg by ity of 14:47: mouth 2 [place] 31 (two) Medical times Branch daily. Boswellia 2020-07 Yes Univers stuart 2-16 ity of extract 14:47: [place] (BOSWELLIA 31 Medical STUART XT, Branch BULK, [facility]) NON-FORMULA 2020-07 Yes [place] Univers RY 2-16 se and ity of MEDICATION 14:45: [place] 44 essential Medical oils in Branch capsule form polyethylen 2020-07 Yes 17g Take 17 g U nivers e glycol 2-16 by mouth ity of (MIRALAX) 14:45: daily. [place] 17 40 Medical gram/dose Branch powder calcium 2020-07 Yes 1{tbl} Take 1 Univer s carbonate 2-16 tablet by ity o f (CALCIUM 14:45: mouth 2 [place] 600 ORAL) 37 (two) Medical times Branch daily. morpHINE 2020-07 Yes 15mg Take 15 mg Uni vers I.R. 15 mg 2-16 by mouth ity o f tablet 14:45: every 6 [place] 35 (six) Medical hours as Branch needed for Pain (scale 7-10). SUFENTANIL/ 2020-07 Yes by Univer s BUPIVACAINE 2-16 Epidural ity of /NS/PF 14:45: route. The [place] (SUFENTANIL 31 patient Medic al -BUPIVACAIN has a pain Br anch -NACL,PF, pump and EPIDURAL) these are the medication s in the pump. They added morphine. Indication s: also contains clonidine gabapentin 2020-07 Yes [id number] 300mg Take 1 Univers 300 mg 2-16 capsule by ity of capsule 00:00: mouth 3 [place] 00 (three) Medical times Branch daily. atorvastati 2020-07 Yes 40mg Take 1 Univ ers n 40 mg 1-10 tablet by ity of tablet 00:00: mouth at [place] 00 bedtime. Medical Branch hydrocortis 2020-07 Yes [id number] Apply to Univers one 1% / 1-05 affected ity of nystatin 00:00: area(s) 3 [place] ointment 00 (three) Medical (COMPOUNDED times Branch ) daily as needed (for skin yeast infection. ). Nystatin [id number] units per gram, also with zinc. apixaban 2020-07 Yes [id number] 5mg Take 1 Univers (ELIQUIS) 5 1-02 tablet by ity of mg tablet 00:00: mouth 2 [place] 00 (two) Medical times Branch daily. Indication s: DVT prevention ibandronate 2020-07 Yes [id number] 150mg Take 1 Univers 150 mg 1-02 tablet by ity of tablet 00:00: mouth once [place] 00 every Medical month. Branch levothyroxi 2020-07 Yes [id number] 50ug Take 1 Univers ne 50 mcg 1-02 tablet by ity o f tablet 00:00: mouth [place] 00 every Medical morning. Branch GLIPIZIDE-M 2020-07 Yes [id number] TAKE 1 Univers ETFORMIN 0-18 TABLET BY ity of 2.5-500 mg 00:00: MOUTH [place] per tablet 00 TWICE Medical DAILY Branch BEFORE BREAKFAST AND DINNER blood sugar Yes USE TO Univ ers diagnostic 903 CHECK ity of (FREESTYLE 00:00: BLOOD [place] LITE 00 SUGAR Medical STRIPS) DAILY. Branch strip DX:E11.22 ammonium Yes [id number] Apply to Univers lactate 12 8-28 area(s) as ity of % lotion 00:00: needed 00 (skin over Medical swollen Branch leg, use ONLY when skin is intact. 1-2 times a day.). lancets Yes Use 1 Univers (FREESTYLE 8-26 daily as ity o f LANCETS) 28 00:00: directed [place] gauge Misc 00 Medical Branch SERTRALINE Yes [id number] 100mg TAKE 1 Univers 100 mg 8-23 TABLET BY ity of tablet 00:00: MOUTH [place] 00 DAILY Medical Branch torsemide Yes [id number] TAKE 2 Un pepito 20 mg 8-23 TABLETS BY ity of tablet 00:00: MOUTH IN [place] 00 THE Medical MORNING Branch AND 1 TABLET IN THE EVENING amiodarone Yes [id number] 200mg Take 1 Univers 200 mg 8-16 tablet by ity of tablet 00:00: mouth [place] 00 daily. Medical Branch midodrine 5 Yes 2.5mg Take 2.5 U nivers mg tablet 7-27 mg by ity of 00:00: mouth. [place] 00 Medical Branch OMEPRAZOLE Yes [id number] TAKE 1 Univers 40 mg 6-08 CAPSULE BY ity of capsule 00:00: MOUTH [place] 00 TWICE Medical DAILY Branch fluticasone Yes [id number] 2{spray Use 2 Univers propionate 5-22 } Sprays in ity of 50 00:00: each [place] mcg/actuati 00 nostril Medic al on nasal daily. Branch spray bisacodyL 5 Yes [id number] 5mg Take 1 Univers mg EC 5-08 tablet by ity of tablet 00:00: mouth [place] 00 daily. Medical Branch sennosides- Yes [id number] 1{tbl} Take 1 Univers docusate 5-08 tablet by ity of sodium 00:00: mouth 2 [place] 8.6-50 mg 00 (two) Medical per tablet times Branch daily. clindamycin 2020- No Cellulitis 450mg Take 3 Univers 150 mg -05 05-13 of right capsules ity of capsule 00:00: 04:59 lower by mouth 3 [place] 00 :00 extremity (three) Medical times Branch daily for 7 days. clindamycin 2020- No Cellulitis 450mg Take 3 Univers 150 mg - 05-13 of right capsules ity of capsule [...] ity o f tablet 16:59: every 6 [place] 16 (six) Medical hours as Branch needed [...] by mouth ity of (MIRALAX) 16:59: daily. [place] 17 16 Medical gram/dose Branch powder NON-FORMULA Yes [place] Univers RY 5-03 se and ity of MEDICATION 16:59: [place] 16 essential Medical oils in Branch capsule form atorvastati Yes Take by Un pepito n calcium 5-03 mouth at ity of (LIPITOR 16:59: bedtime. [place] ORAL) 16 Medical Branch SUFENTANIL/ Yes by Univer s BUPIVACAINE 5-03 Epidural ity of /NS/PF 16:59: route. The [place] (SUFENTANIL 16 patient Medic al -BUPIVACAIN has a pain Br anch -NACL,PF, pump and EPIDURAL) these are the medication s in the pump. They added morphine. Indication s: also contains clonidine multivitami Yes 1{tbl} Take 1 Tab Univers n tablet 5-03 by mouth ity of 16:59: daily. [place] 16 Medical Branch morpHINE Yes 15mg Take 15 mg Uni vers I.R. 15 mg 5-03 by mouth ity o f tablet 16:59: every 6 [place] 16 (six) Medical hours as Branch needed for Pain (scale 7-10). calcium Yes 1{tbl} Take 1 [employer] carbonate 5-03 tablet by ity o f (CALCIUM 16:59: mouth 2 [place] 600 ORAL) 16 (two) Medical times Branch daily. diphenhydra Yes Take by Un pepito mine HCl 5-03 mouth. ity of (BENADRYL 16:59: [place] ORAL) 16 Medical Branch polyethylen Yes 17g Take 17 g U nivers e glycol 5-03 by mouth ity of (MIRALAX) 16:59: daily. [place] 17 16 Medical gram/dose Branch powder NON-FORMULA Yes [facility] 5-03 se and ity of MEDICATION 16:59: [place] 16 essential Medical oils in Branch capsule form atorvastati Yes Take by Un pepito n calcium 5-03 mouth at ity of (LIPITOR 16:59: bedtime. [place] ORAL) 16 Medical Branch SUFENTANIL/ Yes by Univer s BUPIVACAINE 5-03 Epidural ity of /NS/PF 16:59: route. The [place] (SUFENTANIL 16 patient Medic al -BUPIVACAIN has a pain Br anch -NACL,PF, pump and EPIDURAL) these are the medication s in the pump. They added morphine. Indication s: also contains clonidine lipase-prot Yes Abdominal 2{capsu Take 2 Univers ease-amylas 5-03 bloating le} capsules ity of e 00:00: by mouth 4 [place] 12,000-38,0 00 (four) Medica l 00 -60,000 times Branch unit daily with capsule meals or snack. Take 2 before meals, 1 before snacks. lipase-prot Yes Abdominal 2{capsu Take 2 Univers ease-amylas 5-03 bloating le} capsules ity of e 00:00: by mouth 4 [place] 12,000-38,0 00 (four) Medica l 00 -60,000 [...] Cellulitis 100mg Take 1 Univers hyclate 100 5-03 05-14 of right capsule by ity of [...] No Abnormal 100mg Take 1 Univers oin&Nit. 5-03 05-11 urinalysis capsule by ity of Macrocryst 00:00: 04:59 mouth 2 [place] as (MACROBID) 00 :00 (two) Medical 100 mg times Branch capsule daily for 7 days. MONTELUKAST Yes Sinus 10mg TAKE 1 Uni vers 10 mg 4-26 congestion TABLET BY ity of tablet 00:00: MOUTH AT [place] 00 BEDTIME Medical Branch MONTELUKAST Yes Sinus 10mg TAKE 1 Uni vers 10 mg 4-26 congestion TABLET BY ity of tablet 00:00: MOUTH AT [place] 00 BEDTIME Medical Branch MONTELUKAST Yes [id number] 10mg TAKE 1 Univers 10 mg 4-26 TABLET BY ity of tablet 00:00: MOUTH AT [place] 00 BEDTIME Medical Branch metOLazone Yes Chronic 1.25mg Take 0.5 Univers 2.5 mg 4-14 heart tablets by ity of tablet 00:00: failure mouth [place] 00 with weekly. Medical preserved Branch ejection fraction metOLazone Yes Chronic 1.25mg Take 0.5 Univers 2.5 mg 4-14 heart tablets by ity of tablet 00:00: failure mouth [place] 00 with weekly. Medical preserved Branch ejection fraction glipizide-m Yes Type 2 1{tbl} Take 1 [...] use dinner. of insulin, unspecified CKD stage blood sugar Yes USE TO [facility] ers diagnostic 3-22 CHECK ity of (FREESTYLE 00:00: BLOOD [place] LITE 00 SUGAR Medical STRIPS) DAILY. Branch strip DX:E11.22 spironolact Yes 25mg Take 1 Univ ers one 25 mg 3-22 tablet by ity o f tablet 00:00: mouth [place] 00 daily. Medical Branch blood sugar Yes USE TO [facility] ers diagnostic 3-22 CHECK ity of (FREESTYLE 00:00: BLOOD [place] LITE 00 SUGAR Medical STRIPS) DAILY. Branch strip DX:E11.22 spironolact Yes 25mg Take 1 Univ ers one 25 mg 3-22 tablet by ity o f tablet 00:00: mouth [place] 00 daily. Medical Branch spironolact 0 Yes 25mg Take 1 Univ ers one 25 mg 3-22 tablet by ity o f tablet 00:00: mouth daily. Medical Branch amiodarone Yes PAF 200mg Take 1 Univ ers 200 mg 3-09 (paroxysmal tablet by i ty of tablet 00:00: atrial mouth fibrillatio daily. Medica l n) Branch amiodarone Yes PAF 200mg Take 1 Univ ers 200 mg 3-09 (paroxysmal tablet by i ty of tablet 00:00: atrial mouth fibrillatio daily. Medica l n) Branch gabapentin Yes Neuropathy 300mg Take 1 Univers 300 mg 3-03 capsule by ity of capsule 00:00: mouth (two) Medical times [place] daily. TAKE ONE CAPSULE BY MOUTH THREE TIMES DAILY gabapentin Yes Neuropathy 300mg Take 1 Univers 300 mg 3-03 capsule by ity of capsule 00:00: mouth (two) Medical times [place] daily. TAKE ONE CAPSULE BY MOUTH THREE TIMES DAILY torsemide 0 Yes Fluid Take 1 Unive rs 20 mg 2-19 retention QAM, 1 QPM ity of tablet 00:00: Medical Branch torsemide 0 Yes Fluid Take 1 Unive rs 20 mg 2-19 retention QAM, 1 QPM ity of tablet 00:00: [facility] Branch omeprazole 0 Yes Univers 40 mg 1-26 ity of capsule 00:00: Medical Branch omeprazole 0 Yes Univers 40 mg 1-26 ity of capsule 00:00: Medical Branch fluticasone 2020-0 Yes Sinus 2{spray Use 2 U nivers propionate 1-14 congestion } Sprays in ity of 50 00:00: each [place] mcg/actuati 00 nostril Medic al on nasal daily. Branch spray fluticasone Yes Sinus 2{spray Use 2 U nivers propionate 1-14 congestion } Sprays in ity of 50 00:00: each [place] mcg/actuati 00 nostril Medic al on nasal daily. Branch spray alendronate Yes Age-related 70mg Take 1 Univers 70 mg 1-04 osteoporosi tablet by it y of tablet 00:00: s without mouth current weekly. Medical pathologica Branch l fracture alendronate Yes Age-related 70mg Take 1 Univers 70 mg 1-04 osteoporosi tablet by it y of tablet 00:00: s without mouth [place] 00 current weekly. Medical pathologica Branch l fracture apixaban 2019-07 Yes deep vein 5mg Take 1 Un pepito (ELIQUIS) 5 2-17 thrombosis tablet by ity of mg tablet 00:00: prevention mouth 2 [place] 00 (two) Medical times Branch daily. Indication s: deep vein thrombosis prevention apixaban 2019-07 Yes deep vein 5mg Take 1 Un pepito (ELIQUIS) 5 2-17 thrombosis tablet by ity of mg tablet 00:00: prevention mouth 2 [place] 00 (two) Medical times Branch daily. Indication s: deep vein thrombosis prevention midodrine 5 2019-07 Yes Hypotension 5mg Take 1 Univers mg tablet -02 , tablet by ity o f 00:00: unspecified mouth 2 [place] as 00 hypotension (two) Medical type times Branch daily. midodrine 5 2019-07 Yes Hypotension 5mg Take 1 Univers mg tablet 09-01 , tablet by ity o f 00:00: [...] 00:00: mouth [place] 00 daily. Medical Branch levothyroxi 2019-07 Yes Primary 50ug Take 1 U nivers ne 50 mcg 0-12 hypothyroid tablet by ity of tablet 00:00: ism mouth [place] 00 every Medical morning. Branch levothyroxi 2019-07 Yes Primary 50ug Take 1 U nivers ne 50 mcg 0-12 hypothyroid tablet by ity of tablet 00:00: ism mouth [place] 00 every Medical morning. Branch hydrocortis 2019-07 Yes Adrenal 10mg Take 1 U nivers one 10 mg 0-06 abnormality tablet by ity of tablet 00:00: mouth [place] 00 daily. Medical Branch hydrocortis 2019-07 Yes Adrenal 10mg Take 1 U nivers one 10 mg 0-06 abnormality tablet by ity of tablet 00:00: mouth [place] 00 daily. Medical Branch hydrocortis 2020-0 Yes Skin yeast Apply to Univers one 1% / 9-11 infection affected it y of nystatin 00:00: area(s) 3 [place] oint[place] 00 (three) Medical (COMPOUNDED times Branch ) daily as needed (for skin yeast infection. ). Nystatin 936274 units per gram, also with zinc. hydrocortis 0 Yes Skin yeast Apply to Univers one 1% / 9-11 infection affected it y of nystatin 00:00: area(s) 3 [place] ointment 00 (three) Medical (COMPOUNDED times Branch ) daily as needed (for skin yeast infection. ). Nystatin 316392 units per gram, also with zinc. aspirin 81 Yes Bilateral 81mg Take 1 Univers mg EC 1-09 carotid tablet by ity of tablet 00:00: artery mouth [place] 00 stenosis daily. Medical Branch aspirin 81 0 Yes Bilateral 81mg Take 1 Univers mg EC 1-09 carotid tablet by ity of tablet 00:00: artery mouth [place] 00 stenosis daily. Medical Branch aspirin 81 0 Yes [id number] 81mg Take 1 Univers mg EC 1-09 tablet by ity of tablet 00:00: mouth [place] 00 daily. Medical Branch FREESTYLE 2018-07 Yes Use to Univer s LITE METER 2-24 check ity of Kit 00:00: blood [place] 00 glucose Medical daily. Branch DX:E11.29 FREESTYLE 2018-07 Yes Use to Univer s LITE METER 2-24 check ity of Kit 00:00: blood 00 glucose Medical daily. Branch DX:E11.29 FREESTYLE 2018-07 Yes Use to Univer s LITE METER 2-24 check ity of Kit 00:00: blood [place] 00 glucose Medical daily. Branch DX:E11.29 KCL 20 mEq 2018-07 Yes 20meq 20 mEq Univ ers tablet 2-19 every ity of 00:00: Monday. [place] 00 Once a Medical week the Branch same day she takes the metolazone . KCL 20 mEq 2018-07 Yes 20meq 20 mEq Univ ers tablet 2-19 every ity of 00:00: Josh. [place] 00 Once a Medical week the Branch same day she takes the metolazone . metFORMIN 2018-07 Yes 500mg Q.50054509 Take [address] [facility] (GLUCOPHAGE 0-04 [id number] tablet [facility] - ) 500 MG 00:00: 3D (500 mg Medica l tablet 00 total) by Center mouth 3 (three) times daily. glucosamine 2018-07 Yes 1{tbl} Q.90067355 Take [address] [facility] -chondroiti 0-03 [id number] tablet by [facility] - n 500-400 18:01: [...] mouth Medic al per tablet 23 daily. Center nystatin 2018-[address] [facility] (MYCOSTATIN 0-03 topically [place] [facility] - ) 100,000 18:01: as needed Med ical unit/gram 23 . Center powder polyethylen 2018-07 Yes 17g Take [address] e glycol 0-03 by mouth [facility]ukes - (GLYCOLAX) 18:01: as needed Me dical 17 gram 23 . [place] packet MAGNESIUM 2018-07 Yes 71.5mg Q.5D Take [...] tablet 18:01: every Medic al 23 evening. [place] glipiZIDE 2018-07 Yes 5mg QD Take [address] [facility] (GLUCOTROL) 0-03 by mouth Luke s - 5 MG tablet 18:01: daily. Medi david 23 [place] atorvastati 2018-07 Yes 40mg QD Take [address] n (LIPITOR) 0-03 by mouth Luke s - 40 MG 18:01: nightly. Medical tablet 23 [place] calcium 2018-07 Yes 600mg QD Take 600 [facility] carbonate 0-03 mg by [facility] - (OS-DAVID) 18:01: mouth Medical 600 mg 23 daily. [place] calcium (1,500 mg) Tab gabapentin 2018-07 Yes 300mg Q.[id number] Take [address] (NEURONTIN) 0-03 [id number] mg by L ukes - 300 MG 18:01: 3D mouth 3 Medical capsule 23 (three) Center times daily. nitroglycer [address] 1 Uni vers in [...] Immunizations Ordered Filled Immunization Date Status Comments [facility] e Immunization Name Name Influenza Virus 2021-05-20 Completed Universit y of Vaccine 00:00:00 [facility] SARS-COV-2 COVID-19 2021-04-01 Completed Unive rsity of iJento VACCINE 00:00:00 [facility] SARS-COV-2 COVID-19 2020-09-17 Completed Unive rsity of iJento VACCINE 00:00:00 [facility] SARS-COV-2 COVID-19 2020-09-17 Completed Unive rsity of PFIZER VACCINE 00:00:00 [facility] SARS-COV-2 COVID-19 2020-09-17 Completed Unive rsity of PFIZER VACCINE 00:00:00 [facility] SARS-COV-2 COVID-19 2020-08-26 Completed Unive rsity of PFIZER VACCINE 00:00:00 [facility] SARS-COV-2 COVID-19 2020-08-26 Completed Unive rsity of PFIZER VACCINE 00:00:00 [facility] SARS-COV-2 COVID-19 2020-08-26 Completed Unive rsity of PFIZER VACCINE 00:00:00 [facility] Influenza High Dose 2020-05-05 Completed Unive rsity of Quad 00:00:00 [facility] Influenza High Dose 2020-05-05 Completed Unive rsity of [place] 00:00:00 [facility] Influenza High Dose 2020-05-05 Completed Unive rsity of [place] 00:00:00 [facility] Influenza High Dose 2019-04-30 Completed Unive rsity of 00:00:00 [facility] Influenza High Dose 2019-04-30 Completed Unive rsity of 00:00:00 [facility] Influenza High Dose 2019-04-30 Completed Unive rsity of 00:00:00 [facility] Influenza High Dose 2018-06-10 Completed Unive rsity of 00:00:00 [facility] Influenza High Dose 2018-06-10 Completed Unive rsity of 00:00:00 [facility] Influenza High Dose 2018-06-10 Completed Unive rsity of 00:00:00 [facility] Pneumococcal 13 2016-08-04 Completed Universit y of Conjugate, PCV13 00:00:00 [facility] dical (Prevnar 13) Branch Pneumococcal 13 2016-08-04 Completed Universit y of Conjugate, PCV13 00:00:00 [facility] dical (Prevnar 13) Branch Pneumococcal 13 2016-08-04 Completed Universit y of Conjugate, PCV13 00:00:00 [facility] dical (Prevnar 13) [place] Influenza High Dose 2016-05-25 Completed Unive rsity of 00:00:00 [facility] Influenza High Dose 2016-05-25 Completed Unive rsity of 00:00:00 [facility] Influenza High Dose 2016-05-25 Completed Unive rsity of 00:00:00 [facility] Influenza Virus 2013-04-30 Completed Universit y of Vaccine (3+ yrs) 00:00:00 [facility] Influenza Virus 2013-04-30 Completed Universit y of Vaccine (3+ yrs) 00:00:00 [facility] Influenza Virus 2013-04-30 Completed Universit y of Vaccine (3+ yrs) 00:00:00 [facility] Influenza Virus 2012-04-30 Completed Universit y of Vaccine 00:00:00 [facility] Zoster(Zostavax)( 2012-04-30 Completed Unive rsity of ingles) 00:00:00 [facility] Influenza Virus 2012-04-30 Completed Universit y of Vaccine 00:00:00 [facility] Zoster(Zostavax)( 2012-04-30 Completed Unive rsity of ingles) 00:00:00 [facility] Influenza Virus 2012-04-30 Completed Universit y of Vaccine 00:00:00 [facility] Zoster(Zostavax)( 2012-04-30 Completed Unive rsity of ingles) 00:00:00 [facility] Pneumococcal 2011-04-30 Completed University o f Polysaccharide, 00:00:00 [facility] ical PPSV23 (PNEUMOVAX) Branch Pneumococcal 2011-04-30 Completed University o f Polysaccharide, 00:00:00 [facility] ical PPSV23 (PNEUMOVAX) Branch Pneumococcal 2011-04-30 Completed University o f Polysaccharide, 00:00:00 [facility] ical PPSV23 (PNEUMOVAX) Branch Td 2010-05-22 Completed University of 00:00:00 [facility] Td 2010-05-22 Completed University of 00:00:00 [facility] Td 2010-05-22 Completed University of 00:00:00 [facility] Vital Signs Vital Name Observation Time Observation Value Comments Source Systolic blood 2021-08-06 115 mm[Hg] University of pressure 17:34:00 [facility] Diastolic blood 2021-08-06 73 mm[Hg] University o f pressure 17:34:00 [facility] Heart rate 2021-08-06 53 /min University of 17:34:00 [facility] Body temperature 2021-08-06 37.28 Natalee University of 17:34:00 [facility] Body height 2021-08-06 154.9 cm University 17:34:00 [facility] Body weight 2021-08-06 94.348 kg Unable to University of 17:34:00 obtain [facility] BMI 2021-08-06 39.30 kg/m2 University 17:34:00 [facility] Procedures This patient has no known procedures. Plan of Care Planned Activity Planned Date Details Comments Source Future Scheduled 2030-07-14 Screening for University of Test 00:00:00 osteoporosis [place] [facility] (procedure) [code = Branch 344663596] Future Scheduled 2030-07-14 Screening for University of Test 00:00:00 osteoporosis [place] [facility] (procedure) [code = Branch 678842164] Future Scheduled 2021-11-26 Creatinine University of Test 00:00:00 measurement [place] [facility] (procedure) [code = Branch 87125841] Future Scheduled 2021-11-26 Creatinine University of Test 00:00:00 measurement [place] [facility] (procedure) [code = Branch 69614410] Future Scheduled 2021-10-15 Depression screening Uni versity of Test 00:00:00 (procedure) [code = [facility] dical 932561910] Branch Future Scheduled 2021-10-15 Depression screening Uni versity of Test 00:00:00 (procedure) [code = [place] Nm dical 097443520] Branch Future Scheduled 2021-09-08 Calculated low Universit y of Test 00:00:00 density lipoprotein [facility] dical cholesterol level Branch (procedure) [code = 909473135] Future Scheduled 2021-09-08 Calculated low Universit y of Test 00:00:00 density lipoprotein [facility] dical cholesterol level Branch (procedure) [code = 875158980] Future Scheduled 2021-09-03 Microalbumin University of Test 00:00:00 measurement, urine, [facility] dical quantitative Branch (procedure) [code = 527829481] Future Scheduled 2021-09-03 Microalbumin University of Test 00:00:00 measurement, urine, [facility] dical quantitative Branch (procedure) [code = 994414859] Future Scheduled 2021-05-13 DTaP,Tdap,and Td Postponed from Unive rsity of Test 00:00:00 Vaccines (1 - Tdap) 10/21/1964 (Not [place] [facility] [code = Indicated) Branch DTaP,Tdap,and Td Vaccines (1 - Tdap)] Future Scheduled 2021-05-13 DTaP,Tdap,and Td Postponed from Unive rsity of Test 00:00:00 Vaccines (1 - Tdap) 10/21/1964 (Not [place] [facility] [code = Indicated) Branch DTaP,Tdap,and Td Vaccines (1 - Tdap)] Future Scheduled 2021-03-[address] [facility] - Test 00:00:00 (#1) [code = Medical Center INFLUENZA VACCINE (#1)] Future Scheduled 2021-03-10 Diabetic foot University of Test 00:00:00 examination [facility] (regime/therapy) Branch [code = 677873542] Future Scheduled 2021-03-10 Diabetic foot University of Test 00:00:00 examination [facility] (regime/therapy) Branch [code = 447170276] Future Scheduled 2021-03-08 Hemoglobin A1c Universit y of Test 00:00:00 measurement [facility] (procedure) [code = Branch 29252152] Future Scheduled 2021-03-08 Hemoglobin A1c Universit y of Test 00:00:00 measurement [facility] (procedure) [code = Branch 06750976] Future Scheduled 2020-09-26 Examination of Universit y of Test 00:00:00 retina (procedure) [place] [facility] ical [code = 759076286] Branch Future Scheduled 2020-09-26 Examination of Universit y of Test 00:00:00 retina (procedure) [place] [facility] ical [code = 447871444] Branch Future Scheduled 2020-07-31 DEPRESSION SCREENING CHI [...] Universi ty of Test 00:00:00 Wellness Visit [facility] (procedure) [code = Branch 364487343808435] Future Scheduled 2020-01-09 Medicare Annual Universi ty of Test 00:00:00 Wellness Visit [facility] (procedure) [code = Branch 181236058020784] Future Scheduled 2019-10-[address] [facility] [address] [facility] - Test 00:00:00 measurement [facility] (procedure) [code = 91159149] Future Scheduled 2012-06-25 Zoster Recombinant Unive rsity of Test 00:00:00 Vaccine (SHINGRIX) [place] [facility] ica (2 of 3) [code = Branch Zoster Recombinant Vaccine (SHINGRIX) (2 of 3)] Future Scheduled 2012-06-25 Zoster Recombinant Unive rsity of Test 00:00:00 Vaccine (SHINGRIX) [place] [facility] ica (2 of 3) [code = Branch Zoster Recombinant Vaccine (SHINGRIX) (2 of 3)] Future Scheduled 2012-06-25 SHINGLES VACCINES ([address] [facility] - Test 00:00:00 of 3) [code = Medical Center SHINGLES VACCINES (2 of 3)] Future Scheduled 2007-05-[address] [facility] - Test 00:00:00 WELLNESS (YEAR 2 or Medical Center FIRST YEAR if no IPPE) [code = MEDICARE ANNUAL WELLNESS (YEAR 2 or FIRST YEAR if no IPPE)] Future Scheduled 1961-10-21 Hepatitis C University of Test 00:00:00 screening [place] [facility] (procedure) [code = Branch 383332870] Future Scheduled 1961-10-21 Hepatitis C University of Test 00:00:00 screening [facility] (procedure) [code = Branch 910775047] Future Scheduled 1961-10-[address] [...] 00:00:00 examination Medical Center (regime/therapy) [code = 635534607] Future Scheduled 1953-10-21 Urine screening for [facility] - Test 00:00:00 protein (procedure) Medical Center [code = 060866427] Encounters Start End Encounter Admission Attending Care Care Encounter Source Date/Time Date/Time Type Type Clinicians Facility Department ID 2020-03-26 Inpatient HCAKW DARRELL [id number] [facility] 12:00:00 [id number] [facility] 2021-08-06 2021-08-06 Office [facility] [id number] 11:00:00 13:14:19 Visit Tala GREGOR [id number] i ty [facility] 4.2.7.2.686 Travis gaming PROFESSIO [phone] Nm dical [facility] 098 [facility] 2020-11-30 2020-11-30 Pet Nutrition Specialist 2, [facility] 1.2.840.114 [id number] 13:14:25 13:29:25 Visit Gregor [id number] [place] 4.2.7.2.686 Professio [phone] 2020-11-27 2020-11-27 Telephone [facility] 1.2.840.114 [id number] 00:00:00 00:00:00 Cheryle A Gregor [id number] [place] 4.2.7.2.686 Professio [phone] [facility] 231 [facility] [address] 2020-11-26 2020-11-26 Pet Nutrition Specialist [place], [facility] 1.2.840.114 [id number] 11:47:44 12:02:44 Visit Lab Main Gregor [id number] [place] 4.2.7.2.686 Professio [phone] [address] 2020-11-26 2020-11-26 Emergency [facility] 1.2.612.644 [id number] 03:21:00 06:10:00 Shante Leos [id number] [place] 4.2.7.2.686 [place] [phone] [id number] 2020-11-23 2020-11-23 [facility] 1.2.840.114 [id number] 16:20:16 23:59:00 Encounter Jennifer Leos [id number] [place] 4.2.7.2.686 [place] [id number] [phone] 2020-11-23 Urgent [facility], [facility] [id number] 14:51:43 15:11:43 Care [facility] [id number] Care [place] 4.2.7.2.686 Professio [phone] [facility] 044 Office [facility] [address] One 2020-11-21 2020-11-21 [facility]ill [facility] 1.2.840.114 [id number] 00:00:00 00:00:00 Cheryle Leos 350.1.13.10 [place] 4.2.7.2.686 Professio [phone] [facility] 231 [facility] [address] 2020-11-17 2020-11-17 [facility] 1.2.614.612 [id number] 14:30:00 23:59:00 Encounter Veronica Leos 350.1.13.10 [place] 4.2.7.2.686 [place] [id number] [id number] 2020-11-12 2020-11-12 Telephone Srikanth [facility] 1.2.840.114 [id number] 00:00:00 00:00:00 Deo Leos 350.1.13.10 [place] 4.2.7.2.686 Professio [phone] 2020-11-11 2020-11-11 Telephone [facility] 1.2.712.658 [id number] 00:00:00 00:00:00 Latisha Leos 350.1.13.10 [place] 4.2.7.2.686 Professio [phone] [facility] [address] [place] [address] 2020-11-10 2020-11-10 Telephone [facility] 1.2.840.114 [id number] 00:00:00 00:00:00 Cheryle Leos 350.1.13.10 [place] 4.2.7.2.686 Professio [phone] [address] 2020-11-09 2020-11-09 Pet Nutrition Specialist [place] [facility] 1.2.840.114 [id number] 12:26:23 12:41:23 Visit Lab Main Gregor 350.1.13.10 [place] 4.2.7.2.686 Professio [phone] nal 353 [facility] [address] 2020-11-09 2020-11-09 Office Ramiro [facility] 1.2.840.114 [id number] 11:35:43 12:06:49 Visit Latisha Leos 350.1.13.10 [place] 4.2.7.2.686 Professio [phone] nal 059 [facility] [address] 2020-11-09 2020-11-09 Patient Rey [facility] 1.2.840.114 [id number] 00:00:00 00:00:00 Secure Msg Cheryle Leos 350.1.13.10 [place] 4.2.7.2.686 Professio [phone] nal 231 [facility] [address] 2020-11-07 2020-11-07 Orders Doctor SKYE 1.2.840.114 [id number] 00:00:00 00:00:00 Only Unassigned, CORNELIA 350.1.13.10 [place] [facility] [id number] [id number] Results Test Description Test Time Test Comments Results Result [facility] e Comments - CT T-SPINE W/O 2020-03-26 FAX: CONTRAST 13:56:00 Tatiana Mai MD [phone] [place]: St: REG FAX: Frandy Shaw Name: CASSIA KELSEY [facility] [place] : 1945 Age/S: 74/F [address] Unit: [id number] Loc: [place] [address] Phys: Frandy Shaw MD R1 Acct: [id number] Dis Date: Status: REG ER PHONE #: [phone] Exam Date: 03/26/2020 1326 FAX #: [phone] Reason: back pain EXAMS: CPT CODE: [id number] CT T-SPINE W/O CONTRAST 92044 EXAM: - CT T-SPINE W/O CONTRAST, - [...] Signed Report (CONTINUED) FAX: Tatiana Mai MD [phone] [place]: St: REG FAX: Frandy Shaw Name: CASSIA KELSEY [facility] [place] [facility] : 1945 Age/S: 74/F [address] Unit: [id number] Loc: [place] [address] Phys: Frandy Shaw MD R1 Acct: [id number] Dis Date: Status: REG ER PHONE #: [phone] Exam Date: 03/26/2020 1326 FAX #: [phone] Reason: back pain EXAMS: CPT CODE: [id number] CT T-SPINE W/O CONTRAST 35746 <Continued> CC: Tatiana Mai MD; Frandy Shaw MD Technologist: Ara Tomlinrd Dt/Tm: 03/26/2020 (8538) [email or web address] Orig Print D/T: S: 03/26/2020 (0199 PAGE 2 Signed Report - CT L-SPINE W/O 2020-03-26 FAX: CONTRAST 13:56:00 Tatiana Mai MD [phone] [place]: St: [facility] FAX: Frandy Shaw Name: CASSIA KELSEY [facility] : 1945 Age/S: 74/F [address] Unit: [id number] Loc: [place] [address] Phys: Frandy Shaw MD R1 Acct: [id number] Dis Date: Status: REG ER PHONE #: [phone] Exam Date: 03/26/2020 4728 FAX #: [phone] Reason: pain EXAMS: CPT CODE: [id number] CT L-SPINE W/O CONTRAST 24302 EXAM: - CT T-SPINE W/O CONTRAST, - [...] Signed Report (CONTINUED) FAX: Tatiana Mai MD [phone] [place]: St: REG FAX: Frandy Shaw Name: CASSIA KELSEY [facility] [place] [facility] : 1945 Age/S: 74/F [address] Unit: [id number] Loc: [place] [address] Phys: Frandy Shaw MD R1 Acct: [id number] Dis Date: Status: REG ER PHONE #: [phone] Exam Date: 03/26/2020 1326 FAX #: [phone] Reason: pain EXAMS: CPT CODE: [id number] CT L-SPINE W/O CONTRAST 67716 <Continued> CC: Tatiana Mai MD; Frandy Shaw MD Technologist: Ara Wilde Trnscrd Dt/Tm: 03/26/2020 (8279) [email or web address] Orig Print D/T: S: 03/26/2020 (8089 PAGE 2 Signed Report - CT C-SPINE W/O 2020-03-26 FAX: CONT 13:53:00 Frandy Shaw [place]: St: REG Name: LOWCASSIA G [facility] : 1945 Age/S: 74/F [address] Unit: [id number] Loc: [place] [address] Phys: Frandy Shaw MD R1 Acct: [id number] Dis Date: Status: REG ER PHONE #: [phone] Exam Date: 03/26/2020 1326 FAX #: [phone] Reason: fall EXAMS: CPT CODE: [id number] CT C-SPINE W/O CONT 57530 EXAM: - CT C-SPINE W/O CONT CLINICAL HISTORY: Fall COMPARISON: None available. LOCATION: [facility] TECHNIQUE: Axial noncontrast CT images of the [...] 1 Signed Report (CONTINUED) FAX: Frandy Shaw [place]: St: REG Name: CASSIA KELSEY [facility] : 1945 Age/S: 74/F [address] Unit: [id number] Loc: [place] [address] Phys: Frandy Shaw MD Acct: [id number] Dis Date: Status: REG ER PHONE #: [phone] Exam Date: 03/26/2020 1326 FAX #: [phone] Reason: fall EXAMS: CPT CODE: [id number] CT C-SPINE W/O CONT 80514 <Continued> CC: Frandy Shaw MD Technologist: Ara Wilde Trnscrd Dt/Tm: 03/26/2020 (2380) [email or web address] Orig Print D/T: S: 03/26/2020 (1851 PAGE 2 Signed Report - CT HEAD/BRAIN 2020-03-26 FAX: W/O CONT 13:43:00 Frandy Shaw [place]: St: REG Name: CASSIA KELSEY : 1945 Age/S: 74/F [address] Unit: [id number] Loc: [place] [address] Phys: Frandy Shaw MD R1 Acct: [id number] Dis Date: Status: REG ER PHONE #: [phone] Exam Date: 03/26/2020 1326 FAX #: [phone] Reason: fall thinners EXAMS: CPT CODE: [id number] CT HEAD/BRAIN W/O CONT 10330 EXAM: - CT HEAD/BRAIN W/O CONT INDICATION: [...] 1 Signed Report (CONTINUED) FAX: Frandy Shaw [place]: St: REG Name: CASSIA KELSEY : 1945 Age/S: 74/F [address] Unit: [id number] Loc: [place] [address] Phys: Frandy Shaw MD Acct: [id number] Dis Date: Status: REG ER PHONE #: [phone] Exam Date: 03/26/2020 1326 FAX #: [phone] Reason: fall thinners EXAMS: CPT CODE: [id number] CT HEAD/BRAIN W/O CONT 59203 <Continued> CC: Frandy Shaw MD Technologist: Ara Wilde Trnscrd Dt/Tm: 03/26/2020 (9258) [email or web address] Orig Print D/T: S: 03/26/2020 (8887 PAGE 2 Signed Report COMPREHENSIVE METABOLIC PANEL [...] U/L 38-126 H code = ALKP) PROTHROMBIN [id number] 13:07:00 Test Item Value Reference Range Interpretation [...] - 3.0 Atrial fibrillation 2.0 - 3.03. Nurse Practitioner al prosthetic valv es (high risk) 2.5 - 3.5 * If oral anticoagulant t herapy is elected to preventrecurren t myocardial infa rction, an INR of 2.5-3 .5 isrecommended, consistent with Food and Drug Administrationr ecommen dations. THROMBOPLASTIN TIME [id number] 13:07:00 Test Item Value Reference Range Interpretation Comments THROMBOPLASTIN TIME 23.7 SECONDS 23.4-37.0 N Therap eutic Range PARTIAL (test code = for Hep clint PTT) EFFECTIVE Heparin IU/mL aPT T Seconds0.3 64.30.7 88.8 CBC W/AUTO [id number] 12:58:00 Test Item Value Reference Range Interpretation [...] x10 3/uL 0.0-0.1 N - XR PELVIS 1/2 [id number] 12:35:00 FAX: Frandy Shaw Roberts: St: REG Name: CASSIA KELSEY [facility] : 1945 Age/S: 74/F [address] Unit#: [id number] Loc: [place] [address] Phys: Frandy Shaw MD R1 Acct: [id number] Dis Date: Status: REG ER PHONE #: [phone] Exam Date: 03/26/2020 1229 FAX #: [phone] Reason: fall EXAMS: CPT CODE: [id number] XR PELVIS 1/2 VIEWS 13634 EXAM: - XR PELVIS 1/2 VIEWS INDICATION: fall Location: T 18. COMPARISON: None. TECHNIQUE: 1 view. FINDINGS: Diminished sensitivity secondary to patient body habitus. No acute fractureseen. Soft tissues appear grossly unremarkable. IMPRESSION: No acute fracture seen. Diminished sensitivity at 1235 Reported and signed by: Dao Potter MD CC: Frandy Shaw MD Technologist: Lazaro Hall Date/Time/By: 03/26/2020 (4064) : By: [email or web address] PAGE 1 Signed Report FAX: Frandy Shaw Roberts: St: REG -- Name: CASSIA KELSEY [facility] : 1945 Age/S: 74/[address] Unit #: [id number] Loc: [place] [id number] Phys: Frandy Shaw MD R1 Acct: [id number] Dis Date: Status: REG ER PHONE #: [phone] Exam Date: 03/26/2020 1229 FAX #: [phone] Reason: fall EXAMS: CPT CODE: [id number] XR PELVIS / VIEWS 69230 <Continued> Orig Print D/T: S: 03/26/2020 (0800) PAGE 2 Signed Report- XR CHEST 1 [id number] 12:32:00 FAX: Frandy Shaw Roberts: St: REG Name: CASSIA KELSEY [place] : 1945 Age/S: 74/F [address] Unit#: [id number] Loc: [place] [id number] Phys: Frandy Shaw MD R1 Acct: [id number] Dis Date: Status: REG ER PHONE #: [phone] Exam Date: 03/26/2020 1222 FAX #: [phone] Reason: fall EXAMS: CPT CODE: [id number] XR CHEST 1 V 32663 EXAM: - XR CHEST 1 V INDICATION: [...] CC: Frandy Shaw MD Technologist: Lazaro Castrejon Trnscrd Date/Time/By: 03/26/2020 (3857) : By: [email or web address] PAGE 1 Signed Report FAX: Frandy Shaw Roberts: St: G Name: CASSIA KELSEY [facility] : 1945 Age/S: 74/F [address] Unit #: [id number] Loc: [place] [address] Phys: Frandy Shaw MD R1 Acct: [id number] Dis Date: Status: REG ER PHONE #: [phone] Exam Date: 03/26/2020 1222 FAX #: [phone] Reason: fall EXAMS: CPT CODE: [id number] XR CHEST 1 V 94954 <Continued> Orig Print D/T: S: 03/26/2020 (7315) PAGE 2 Signed ReportCT, BRAIN, WITHOUT [id number] 14:47:00Reason for exam:- >eval for stroke, unable [...] Ludmila Finney Verified Date/Time: 05/02/2019 14:47:24 -GLUCOSE [id number] 12:03:00 Test Item Value Reference Range Interpretation Comments POC-GLUCOSE METER 237 mg/dL 70-110 H TESTED AT [place] [address] ([place]) (test code = JACQUE SORIANO 1538) [address] POCT-GLUCOSE [id number] 07:42:00 Test Item Value Reference Range Interpretation Comments POC-GLUCOSE METER 155 mg/dL 70-110 H TESTED AT [facility] 67 ([place]) (test code = JACQUE SORIANO 1538) [address] POCT-GLUCOSE [id number] 23:26:00 Test Item Value Reference Range Interpretation Comments POC-GLUCOSE METER 300 mg/dL 70-110 H TESTED AT [facility] 67 ([place]) (test code = JACQUE LEIGH [place] 1538) [address] CT, CTANGIO [id number] 17:04:00Reason for exam:->eval for strokeFINAL REPORT CLINICAL [...] the proximal ACAs segments. The MCAs and residential director are patent without occlusion or high-grade stenosis.Distal [...] Finney Verified Date/Time: 05/01/2019 17:04:53 CT, CAROTID, [id number] 17:04:00Reason for exam:- >eval strokeFINAL REPORT CLINICAL [...] the proximal ACAs segments. The MCAs and residential director are patent without occlusion or high-grade stenosis. [...] occlusion orhigh-grade stenosis where visualized. Signed: Ludmila Finneyeport Verified Date/Time: 05/01/2019 17:04:53 POCT-GLUCOSE METER 2019-05-01 17:03:00 Test Item Value Reference Range Interpretation Comments POC-GLUCOSE METER 135 mg/dL 70-110 H TESTED AT [facility] 67 (LIV) (test code = JACQUE [place] 1538 [address] POCT-GLUCOSE [id number] 12:56:00 Test Item Value Reference Range Interpretation Comments POC-GLUCOSE METER 329 mg/dL 70-110 H Notified R Carlton MENDES/TESTED (BEAKER) (test code = AT [facility] [address] 1538) [facility] 7[address] 0 POCT-GLUCOSE [id number] 08:12:00 Test Item Value Reference Range Interpretation Comments POC-GLUCOSE METER 140 mg/dL 70-110 H TESTED AT [facility] 6720 (BEAKER) (test code = JACQUE Lopez [facility] 1538) [address] BASIC METABOLIC [id number] 07:13:00 Test Item Value Reference Range Interpretation [...] PATIEN TS. CBC W/PLT COUNT & AUTO [id number] 06:37:00 Test Item Value Reference Range Interpretation [...] PERCENT (BEAKER) (test code = 2801) POCT-GLUCOSE [id number] 21:36:00 Test Item Value Reference Range Interpretation Comments POC-GLUCOSE METER 169 mg/dL 70-110 H TESTED AT [facility] 6720 [facility] (test code = JACQUE SORIANO 1538) [address] POCT-GLUCOSE [id number] 17:12:00 Test Item Value Reference Range Interpretation Comments POC-GLUCOSE METER 156 mg/dL 70-110 H TESTED AT [facility] 6720 [facility] (test code = [facility] 1538) [address] POCT-GLUCOSE [id number] 12:23:00 Test Item Value Reference Range Interpretation Comments POC-GLUCOSE METER 267 mg/dL 70-110 H TESTED AT [facility] 6720 (BEAKER) (test code = [facility] John [facility] 1538) [address] POCT-GLUCOSE [id number] 08:41:00 Test Item Value Reference Range Interpretation Comments POC-GLUCOSE METER 172 mg/dL 70-110 H TESTED AT [place] [address] (BEAKER) (test code = [facility] 1538) [address] BASIC METABOLIC [id number] 07:45:00 Test Item Value Reference Range Interpretation [...] PATIEN TS. CBC W/PLT COUNT & AUTO [id number] 06:18:00 Test Item Value Reference Range Interpretation [...] PERCENT (BEAKER) (test code = 2801) POCT-GLUCOSE [id number] 21:28:00 Test Item Value Reference Range Interpretation Comments POC-GLUCOSE METER 268 mg/dL 70-110 H TESTED AT [facility] 6720 (BEAKER) (test code = JACQUE LE[place] 1538) [address] POCT-GLUCOSE [id number] 17:44:00 Test Item Value Reference Range Interpretation Comments POC-GLUCOSE METER 258 mg/dL 70-110 H TESTED AT [facility] 6720 (BEAKER) (test code = JACQUE [place] 1538) [address] POCT-GLUCOSE [id number] 14:15:00 Test Item Value Reference Range Interpretation Comments POC-GLUCOSE METER 208 mg/dL 70-110 H TESTED AT [facility] 6720 (BEAKER) (test code = JACQUE Lopez [place] 1538) [address] BASIC METABOLIC [id number] 13:21:00 Test Item Value Reference Range Interpretation [...] PATIEN TS. CBC W/PLT COUNT & AUTO [id number] 12:52:00 Test Item Value Reference Range Interpretation [...] (test code = 2801) CT, BRAIN, WITHOUT [id number] 12:34:00Reason for exam:->right leg weakness, ? TIA [...] MDReport Verified Date/Time: 04/29/2019 12:34:14 Reading Location: [facility] C013 Neuro Reading Room POCT-GLUCOSE [id number] 07:49:00 Test Item Value Reference Range Interpretation Comments POC-GLUCOSE METER 170 mg/dL 70-110 H TESTED AT [place] [address] ([facility]) (test code = JACQUE Lopez [facility] 1538) [address] POCT-GLUCOSE [id number] 21:52:00 Test Item Value Reference Range Interpretation Comments POC-GLUCOSE METER 227 mg/dL 70-110 H TESTED AT [place] [address] ([facility]) (test code = JACQUE Lopez [facility] 1538) [address] POCT-GLUCOSE [id number] 17:00:00 Test Item Value Reference Range Interpretation Comments POC-GLUCOSE METER 277 mg/dL 70-110 H TESTED AT [place] [address] ([facility]) (test code = JACQUE Lopez [facility] 1538) [address] POCT-GLUCOSE [id number] 11:19:00 Test Item Value Reference Range Interpretation Comments POC-GLUCOSE METER 306 mg/dL 70-110 H TESTED AT [place] [address] ([facility]) (test code = JACQUE Lopez [facility] 1538) [address] HEMOGLOBIN [id number] 08:41:00 Test Item Value Reference Range Interpretation Comments HEMOGLOBIN A1C ([facility]) (test code = 7.8 % 4.3-6.1 H 368) POCT-GLUCOSE [id number] 07:54:00 Test Item Value Reference Range Interpretation Comments POC-GLUCOSE METER 165 mg/dL 70-110 H TESTED AT [facility] 6720 (BEAKER) (test code = JACQUE LEIGH [place] 1538) [address] LIPID [id number] 05:59:00 Test Item Value Reference Range Interpretation [...] High 160-189 Very High >=190 FastingBASIC METABOLIC [id number] 05:59:00 Test Item Value Reference Range Interpretation Comments SODIUM (BEAKER) 141 meq/L 136-145 (test code = 381) POTASSIUM (BEAKER) 4.3 meq/L 3.5-5.1 (test code = 379) CHLORIDE (BEAKER) 104 meq/L 98-107 (test code = 382) CO2 (BEAKER) (test 28 meq/L 22-29 code = 355) BLOOD UREA NITROGEN 46 [...] S NOT APPLICABLE FOR DIALYSIS PATIEN TS. FastingCBC (HEMOGRAM ONLY)2019-04-28 05:36:00 Test Item Value Reference [...] 0-0 (BEAKER) (test code = 413) POCT-GLUCOSE [id number] 23:58:00 Test Item Value Reference Range Interpretation Comments POC-GLUCOSE METER 272 mg/dL 70-110 H TESTED AT [place] [address] ([facility]) (test code = JACQUE LEIGH [place] 1538) [address] POCT-GLUCOSE [id number] 17:13:00 Test Item Value Reference Range Interpretation Comments POC-GLUCOSE METER 251 mg/dL 70-110 H [facility] AT [place] [address] [facility] (test code = JACQUE Lopez [facility] 1538) [address] VITAMIN B12 AND [id number] 12:54:00 Test Item Value Reference Range Interpretation Comments VITAMIN B12 (BEAKER) (test code = 622 pg/mL 213-816 774) FOLATE (BEAKER) (test code = 362) > ng/mL >=7.0 TSH/FREE T4 IF [id number] 12:40:00 Test Item Value Reference Range Interpretation Comments THYROID STIMULATING HORMONE 0.54 uIU/mL 0.35-4.94 (BEAKER) (test code = 772) URINALYSIS [id number] 12:06:00 Test Item Value Reference Range Interpretation Comments RBC UA (BEAKER) (test code = 519) 3 /HPF WBC UA (BEAKER) (test code = 520) 114 /HPF SQUAMOUS EPITHELIAL (BEAKER) (test 4 /HPF code = 516) HYALINE CASTS (BEAKER) (test code = 2 /LPF 514) URINALYSIS WITH MICROSCOPIC IF [id number] 12:03:00 Test Item Value Reference Range Interpretation [...] 463) SOURCE(BEAKER) (test code = 2795) POCT-GLUCOSE [id number] 11:46:00 Test Item Value Reference Range Interpretation Comments POC-GLUCOSE METER 178 mg/dL 70-110 H TESTED AT [facility] 6720 (BEAKER) (test code = JACQUE LEIGH [place] 1538) [address] POCT-GLUCOSE [id number] 08:47:00 Test Item Value Reference Range Interpretation Comments POC-GLUCOSE METER 113 mg/dL 70-110 H TESTED AT [facility] 6720 (BEAKER) (test code = JACQUE LEIGH [place] 1538) [address]
--- NOTE | 2021-08-07 07:18 | RAD REPORT ---
EXAM DESCRIPTION: CT - CTHCSPWOC - 08/07/2021 6:57 am CLINICAL HISTORY: Trauma, head and neck injury. fall COMPARISON: Head C Spine Mpr Wo Con dated 12/01/2020 TECHNIQUE: Axial 5 mm thick images of the head were obtained. Axial 2 mm thick images of the cervical spine were obtained with sagittal and coronal reconstruction images generated and reviewed. All CT scans are performed using dose optimization technique as appropriate and may include automated exposure control or mA/KV adjustment according to patient size. FINDINGS: CT HEAD WITHOUT CONTRAST: No acute hemorrhage, hydrocephalus or extra-axial collection is identified.Mild generalized brain atr ophy is present with mild periventricular and deep white matter chronic microvascular ischemic change s.No areas of brain edema or midline shift. Postsurgical changes of aneurysm clipping in the [place]. The paranasal sinuses and mastoids are clear.Old left-sided craniotomy. CT CERVICAL SPINE WITHOUT CONTRAST: No fracture or subluxation.Moderate lower cervical degenerative spondylosis.No prevertebral soft tiss ues swelling is identified. Thyroid goiter. IMPRESSION: No acute intracranial or cervical spine findings.
--- NOTE | 2021-08-07 07:27 | EDPHYS ---
Physician Documentation [facility] Name: Casie Kelley Age: 75 yrs Sex: Female : 1945 Arrival Date: 08/07/2021 Time: 06:20 Bed 14 Private MD: ED Physician Elian Solorzano HPI: 08/07 06:42 This 75 yrs old Female presents to ER via EMS with complaints of head injury. [facility] 06:42 The patient or guardian reports injury. The complaints affect the forehead. Onset: The [facility] symptoms/episode began/occurred acutely, just prior to arrival. Associated signs and symptoms: Loss of consciousness: This patient did not experience any loss of consciousness. Pertinent negatives: the patient has not experienced a loss of conciousness, shortness of breath. It is unknown whether or not the patient has had similar symptoms in the past. This is a 75 year old female that presents to the ED with an abrasion to her head that states she fell forward when she attempted to get out of a chair. Patient denies chest pain, low back pain. . Historical: - Allergies: 06:27 Codeine; bb 06:27 Compazine; bb 06:27 Darvon; bb 06:27 Demerol; bb 06:27 HYDROCODONE; bb 06:27 Levofloxacin; bb 06:27 Lyrica; bb 06:27 meperidine; bb 06:27 PENTAZOCINE; bb 06:27 sulfamethoxazole (bulk); bb 06:27 Talwin; bb 06:27 TRIMETHOPRIM; bb 06:27 Vioxx; bb - Home Meds: 07:06 alendronate 70 mg Oral tab 1 tab once wkly [Active]; amiodarone 200 mg Oral tab 1 tab mr2 once daily [Active]; aspirin 81 mg Oral chew 1 tab once daily [Active]; atorvastatin 40 mg Oral tab 1 tab nightly [Active]; boswellia stuart xt (bulk) 65 % miscellaneous powd daily [Active]; Calcium 600 600 mg (1,500 mg) Oral tab daily [Active]; Colace 100 mg Oral cap 1 cap once daily [Active]; d-mannose 500 mg daily Oral [Active]; doxycycline hyclate 100 mg Oral cap 1 cap every 12 hours [Active]; DuoNeb 0.5 mg-3 mg(2.5 mg base)/3 mL Inhl nebu 3 mL 4 times per day [Active]; Eliquis 5 mg Oral tab 1 tab 2 times per day [Active]; estradiol Vaginal [Active]; fluticasone 50 mcg/actuation nasal spsn 2 sprays once daily [Active]; furosemide 40 mg Oral tab 1 tab once daily [Active]; gabapentin 300 mg Oral cap 1 cap 3 times per day [Active]; glipizide-metformin 2.5-500 mg Oral tab 1 tab 2 times per day [Active]; glucosamine-chondroitin 750-600 mg Oral chew 2 tab twice a day [Active]; GlycoLax 17 gram Oral pwpk 1 packet as needed for constipation [Active]; Klor-Con M20 10mEq Oral TbTQ 1 tab every Monday, and Monday [Active]; Lactobacillus rhamnosus GG Oral [Active]; levothyroxine 50 mcg tab once daily [Active]; Lipitor 40 mg Oral tab 1 tab nightly [Active]; metformin 500 mg Oral Tb24 1 tab 2 times per day [Active]; metolazone 2.5 mg Oral tab WEEKLY [Active]; midodrine 2.5 mg Oral tab 1 tab twice a day [Active]; mirabegron 50mg Oral 1 tab once daily [Active]; montelukast 10 mg Oral tab 1 tab nightly [Active]; morphine 15 mg Oral tab 1 tab daily prn for Severe Pain [Active]; multivitamin Oral cap daily [Active]; nitrofurantoin macrocrystal 100 mg Oral cap 1 cap twice a day [Active]; nitroglycerin 0.4 mg SL subl 1 tab [Active]; Norvasc 5 mg Oral tab 1 tab once daily [Active]; nystatin 100,000 unit/gram Topical powd 2 times per day [Active]; omeprazole 40 mg Oral cpDR 1 cap 2 times per day [Active]; Plavix 75 mg Oral tab 1 tab once daily [Active]; Renew life 1 tab daily [Active]; sennosides-docusate sodium 8.6-50 mg Oral cap 1 tab 2 times per day [Active]; sertraline 100 mg Oral tab 1 tab once daily [Active]; spironolactone 50 mg Oral tab 1 tab once daily [Active]; xcdgswaxyu-kjvfviutye-JzTp(PF) 1 mcg/mL -0.1 % epidural soln per pain pump [Active]; torsemide 20 mg Oral tab 0.5 tabs nightly [Active]; Xyzal 5 mg Oral tab 1 tab once daily [Active]; Zaroxolyn 2.5 mg Oral tab 1 tab once daily [Active]; Zofran (as hydrochloride) 4 mg Oral tab 1 tab every 8 hours [Active]; Zoloft 100 mg Oral tab 1 tab nightly [Active]; - PMHx: 06:27 Aneurysm; Cervical Spondylosis; Chronic pain; constipation; CVA; Diabetes - NIDDM; bb Fibromyalgia; Gastroparesis; GERD; heel spur; Hypothyroidism; ileus; lymphedema; multiple thyroid nodules; Obesity; PERIPHERAL NEUROPATHY; Sleep Apnea; spinal stenosis; vaginal atrophy; - Immunization history:: does not know which vaccine but has had a booster as well. - Social history:: Smoking status: unknown. ROS: 06:42 Constitutional: Negative for fever, chills, and weight loss, Cardiovascular: Negative jmm for chest pain, palpitations, and edema, Respiratory: Negative for shortness of breath, cough, wheezing, and pleuritic chest pain. 06:42 Neuro: Positive for headache. 06:42 All other systems are negative. Exam: 06:42 Constitutional: This is a well developed, well nourished patient who is awake, alert, jmm and in no acute distress. 06:42 Eyes: EOMI, no conjunctival erythema appreciated ENT: Moist Mucus Membranes Neck: Trachea midline, Supple Chest/axilla: Normal chest wall appearance and motion. Cardiovascular: Regular rate and rhythm. No edema appreciated Respiratory: Normal respirations, no respiratory distress appreciated 06:42 Head/face: Noted is abrasion(s), that are moderate, of the forehead, hematoma, that is moderate, of the forehead. 06:42 Abdomen/GI: Inspection: obese Bowel sounds: normal, Palpation: abdomen is soft and non-tender, in all quadrants. 06:42 Back: vertebral tenderness, is not appreciated. 06:42 Skin: Appearance: Color: normal in color. 06:42 Neuro: Motor: is normal. 06:42 Psych: Behavior/mood is pleasant, cooperative. Vital Signs: 06:24 BP 107 / 52; Pulse 51; Resp 18 S; Temp 98.2(O); Pulse Ox 96% on R/A; Weight 95.25 kg bb (R); Height 5 ft. 1 in. (154.94 cm) (R); Pain 8/10; 06:24 Body Mass Index 39.68 (95.25 kg, 154.94 cm) bb [place] Coma Score: 06:42 Eye Response: spontaneous(4). Verbal Response: oriented(5). Motor Response: obeys [facility] commands(6). Total: 15. MDM: 06:27 Patient medically screened. [facility] 07:26 Data reviewed: vital signs, nurses notes. Counseling: I had a detailed discussion with [facility] the patient and/or guardian regarding: the historical points, exam findings, and any diagnostic results supporting the discharge/admit diagnosis, radiology results, the need for outpatient follow up, to return to the emergency department if symptoms worsen or persist or if there are any questions or concerns that arise at home. 08/07 06:28 Order name: CT Head C Spine; Complete Time: 07:19 [facility] 08/07 07:20 Order name: Wound Care [facility] Administered Medications: No medications were administered Disposition: 22:00 Co-signature as Attending Physician, Elian Solorzano MD I agree with the assessment and kdr plan of care. Disposition Summary: 08/07/21 07:27 Discharge Ordered Location: Home [facility] Condition: Stable [facility] Diagnosis - Acute Head Injury [facility] Followup: [facility] - With: Private Physician - When: 2 - 3 days - Reason: Recheck today's complaints, Continuance of care, Re-evaluation by your physician Discharge Instructions: - Discharge Summary Sheet [facility] - Head Injury, Adult [facility] Forms: - Medication Reconciliation Form [facility] - Thank You Letter [facility] - Antibiotic Education [facility] - Prescription Opioid Use [facility] Signatures: Dispatcher [employer] Elian Patton MD MD kdr Mickail, Joel, PA PA jmm Ballard, Brenda, RN RN bb Camilo Forde RN RN mr2
--- NOTE | 2021-08-07 07:27 | ER ---
Nurse's Notes [facility] Name: Casie Kelley Age: 75 yrs Sex: Female : 1945 Arrival Date: 08/07/2021 Time: 06:20 Bed 14 Private MD: Diagnosis: Acute Head Injury Presentation: 08/07 06:24 Chief complaint: EMS states: they were called for report of pt having fallen when bb transferring from toilet to chair pt fell forward hitting her head receiving abrasion to top of forehead with ecchymosis and edema pt denies LOC. Coronavirus screen: At this time, the client does not indicate any symptoms associated with coronavirus-19. Ebola Screen: No symptoms or risks identified at this time. Initial Sepsis Screen: Does the patient meet any 2 criteria? No. Patient's initial sepsis screen is negative. Does the patient have a suspected source of infection? No. Patient's initial sepsis screen is negative. Risk Assessment: Do you want to hurt yourself or someone else? Patient reports no desire to harm self or others. Onset of symptoms was August 07, 2021. 06:24 Method Of Arrival: EMS: [facility] bb 06:24 Acuity: HAN 3 bb Triage Assessment: 06:40 General: Appears distressed, uncomfortable, Behavior is calm, cooperative. Pain: mr2 Complains of pain in forehead. Neuro: No deficits noted. Musculoskeletal: Reports pain in forehead. Historical: - Allergies: 06:27 Codeine; bb 06:27 Compazine; bb 06:27 Darvon; bb 06:27 Demerol; bb 06:27 HYDROCODONE; bb 06:27 Levofloxacin; bb 06:27 Lyrica; bb 06:27 meperidine; bb 06:27 PENTAZOCINE; bb 06:27 sulfamethoxazole (bulk); bb 06:27 Talwin; bb 06:27 TRIMETHOPRIM; bb 06:27 Vioxx; bb - Home Meds: 07:06 alendronate 70 mg Oral tab 1 tab once wkly [Active]; amiodarone 200 mg Oral tab 1 tab mr2 once daily [Active]; aspirin 81 mg Oral chew 1 tab once daily [Active]; atorvastatin 40 mg Oral tab 1 tab nightly [Active]; boswellia stuart xt (bulk) 65 % miscellaneous powd daily [Active]; Calcium 600 600 mg (1,500 mg) Oral tab daily [Active]; Colace 100 mg Oral cap 1 cap once daily [Active]; d-mannose 500 mg daily Oral [Active]; doxycycline hyclate 100 mg Oral cap 1 cap every 12 hours [Active]; DuoNeb 0.5 mg-3 mg(2.5 mg base)/3 mL Inhl nebu 3 mL 4 times per day [Active]; Eliquis 5 mg Oral tab 1 tab 2 times per day [Active]; estradiol Vaginal [Active]; fluticasone 50 mcg/actuation nasal spsn 2 sprays once daily [Active]; furosemide 40 mg Oral tab 1 tab once daily [Active]; gabapentin 300 mg Oral cap 1 cap 3 times per day [Active]; glipizide-metformin 2.5-500 mg Oral tab 1 tab 2 times per day [Active]; glucosamine-chondroitin 750-600 mg Oral chew 2 tab twice a day [Active]; GlycoLax 17 gram Oral pwpk 1 packet as needed for constipation [Active]; Klor-Con M20 10mEq Oral TbTQ 1 tab every Monday, and Monday [Active]; Lactobacillus rhamnosus GG Oral [Active]; levothyroxine 50 mcg tab once daily [Active]; Lipitor 40 mg Oral tab 1 tab nightly [Active]; metformin 500 mg Oral Tb24 1 tab 2 times per day [Active]; metolazone 2.5 mg Oral tab WEEKLY [Active]; midodrine 2.5 mg Oral tab 1 tab twice a day [Active]; mirabegron 50mg Oral 1 tab once daily [Active]; montelukast 10 mg Oral tab 1 tab nightly [Active]; morphine 15 mg Oral tab 1 tab daily prn for Severe Pain [Active]; multivitamin Oral cap daily [Active]; nitrofurantoin macrocrystal 100 mg Oral cap 1 cap twice a day [Active]; nitroglycerin 0.4 mg SL subl 1 tab [Active]; Norvasc 5 mg Oral tab 1 tab once daily [Active]; nystatin 100,000 unit/gram Topical powd 2 times per day [Active]; omeprazole 40 mg Oral cpDR 1 cap 2 times per day [Active]; Plavix 75 mg Oral tab 1 tab once daily [Active]; Renew life 1 tab daily [Active]; sennosides-docusate sodium 8.6-50 mg Oral cap 1 tab 2 times per day [Active]; sertraline 100 mg Oral tab 1 tab once daily [Active]; spironolactone 50 mg Oral tab 1 tab once daily [Active]; mhcizqkddy-vopyoowoei-QsRq(PF) 1 mcg/mL -0.1 % epidural soln per pain pump [Active]; torsemide 20 mg Oral tab 0.5 tabs nightly [Active]; Xyzal 5 mg Oral tab 1 tab once daily [Active]; Zaroxolyn 2.5 mg Oral tab 1 tab once daily [Active]; Zofran (as hydrochloride) 4 mg Oral tab 1 tab every 8 hours [Active]; Zoloft 100 mg Oral tab 1 tab nightly [Active]; - PMHx: 06:27 Aneurysm; Cervical Spondylosis; Chronic pain; constipation; CVA; Diabetes - NIDDM; bb Fibromyalgia; Gastroparesis; GERD; heel spur; Hypothyroidism; ileus; lymphedema; multiple thyroid nodules; Obesity; PERIPHERAL NEUROPATHY; Sleep Apnea; spinal stenosis; vaginal atrophy; - Immunization history:: does not know which vaccine but has had a booster as well. - Social history:: Smoking status: unknown. Screenin:35 Abuse screen: Denies threats or abuse. Denies injuries from another. Nutritional mr2 screening: No deficits noted. Tuberculosis screening: No symptoms or risk factors identified. Fall Risk Fall in past 12 months (25 points). Secondary diagnosis (15 points) CVA. Assessment: 06:43 General: Appears distressed, uncomfortable, Behavior is calm, cooperative. Pain: mr2 Complains of pain in forehead Pain does not radiate. Pain Quality of pain is described as throbbing, Noted to be quiet/stoic, Also complains of no other associated symptoms. Neuro: Level of Consciousness is awake, alert, obeys commands, Oriented to person, place, time, situation, Hearse Driver are equal bilaterally Moves all extremities. Speech is normal, Facial symmetry appears normal, Pupils are PERRLA. Musculoskeletal:. Vital Signs: 06:24 BP 107 / 52; Pulse 51; Resp 18 S; Temp 98.2(O); Pulse Ox 96% on R/A; Weight 95.25 kg bb (R); Height 5 ft. 1 in. (154.94 cm) (R); Pain 8/10; 06:24 Body Mass Index 39.68 (95.25 kg, 154.94 cm) bb Maty Coma Score: 06:42 Eye Response: spontaneous(4). Verbal Response: oriented(5). Motor Response: obeys [facility] commands(6). Total: 15. ED Course: 06:20 Patient arrived in ED. eb 06:21 Delbert Oliveros PA is PHCP. [facility] 06:21 Elian Solorzano MD is Attending Physician. [facility] 06:27 Triage completed. bb 06:27 Arm band placed on Patient placed in an exam room, on a stretcher, on pulse oximetry. bb 06:31 Camilo Forde, RN is Primary Nurse. mr2 06:35 Patient has correct armband on for positive identification. Bed in low position. Call mr2 light in reach. Side rails up X2. 06:35 No provider procedures requiring assistance completed. mr2 06:57 CT Head C Spine In Process Unspecified. EDMS 07:59 Patient did not have IV access during this emergency room visit. mr2 Administered Medications: No medications were administered Outcome: 07:27 Discharge ordered by . [facility] 07:59 Discharged to home mr2 07:59 Condition: good 07:59 Discharge instructions given to EMS. 08:02 Patient left the ED. mr2 Signatures: Dispatcher [employer] EDMS Delbert Oliveros PA PA jmm Ballard, Brenda, RN RN Cheryle Rod Camilo Forde, RN RN mr2
[2021-08-07 08:08] VITALS: BP 107/52; TEMP 98.2; O2SAT 96
== END 2021-08-07 08:02 | disposition home or self-care (01) ==
LOC: ER 06:19
DX: S00.81XA Abrasion of other part of head, initial encounter (principal); W18.30XA Fall on same level, unspecified, initial encounter; E11.9 Type 2 diabetes mellitus without complications; Z79.01 Long term (current) use of anticoagulants; Z79.82 Long term (current) use of aspirin; Z86.73 Personal history of transient ischemic attack (TIA), and cerebral infarction without residual deficits; Z88.1 Allergy status to other antibiotic agents; Z88.2 Allergy status to sulfonamides; Z88.5 Allergy status to narcotic agent; Z88.8 Allergy status to other drugs, medicaments and biological substances
CPT/HCPCS: 70450; 72125; 99283

== ENCOUNTER 2022-01-01 07:48 | Observation (INO) | payer OTHER, MEDICARE ==
--- OUTSIDE RECORDS SUMMARY | 2022-01-01 07:56 | XMS REPORT | Continuity of Care Document ---
:1945 Author Organization [facility] t Address [address] [place] [address] Care Team Providers Name Role Phone Rey MENDES, Keyon Primary Care Physician CARMICHAEL Attending Clinician Unavailable Ramiro MENEDS Attending Clinician Timbo HARPER Attending Clinician Unavailable Timbo Harper MD Attending Clinician DOTTY Attending Clinician Unavailable Rolando MARCH, L Attending Clinician Keyon Le MD Attending Clinician 2, Lab Attending Clinician Unavailable Pob, Lab Main Attending Clinician Unavailable Jose Francisco LOREDOP Attending Clinician Provider, Urgent Care Attending Clinician Unavailable Nae ALEJO Attending Clinician Srikanth MENDES Attending Clinician Doctor Unassigned, Name Attending Clinician Unavailable KATHIA Attending Clinician Unavailable DOTTY Admitting Clinician Unavailable CLAIRE Admitting Clinician Unavailable Payers Payer Name Policy Type Policy Number Effective Date Expiration Date Timbo schofield MEDICARE PART A \\T\\ [id number] 2006 B 00:00:00 [facility] [id number] 2011 MEDICARE SUPPLEMENT 00:00:00 Problems Condition Condition Condition Status Onset Resolution Last Treating Co mments Source Name Details Category Date Date Treatment Clinician Date Right leg Right leg Disease Active 2020-07 Uni vers weakness weakness 1-14 ity of 00:00: [place] [facility] UTI UTI Disease Active Univers symptoms symptoms 7-06 ity of 00:00: [place] [address] Medical Branch Abdominal Abdominal Disease Active Uni vers bloating bloating 7-06 ity of 00:00: [place] [facility] Bleeds Bleeds Disease Active Univers easily easily 7-06 ity of 00:00: [place] [address] Medical Branch High blood High blood Disease Active U hien copper copper 7-06 ity of level level 00:00: [place] [facility] Hematoma Hematoma Disease Active Unive rs 6-03 ity of 00:00: [place] [facility] Atypical Atypical Disease Active Unive rs chest pain chest pain 5-26 it y of 00:00: [place] [facility] Dyslipidem Dyslipidem Disease Active U nivers ia ia 5-12 ity of 00:00: [place] [facility] Essential Essential Disease Active Uni vers hypertensi hypertensi 5-12 it y of on on 00:00: [place] [facility] Memory Memory Disease Active Univers changes changes 2-03 ity of 00:00: [place] [facility] Hypotensio Hypotensio Disease Active U nivers n, n, 2-03 ity of unspecifie unspecifie [place] Medical hypotensio hypotensio Br anch n type n type Recurrent Recurrent Disease Active Uni vers falls falls 8-10 ity of 00:00: [place] [facility] Tremor Tremor Disease Active Univers 8-10 ity of 00:00: [place] [facility] Bradycardi Bradycardi Disease Active U nivers a a 8-10 ity of 00:00: [place] [facility] UTI due to UTI due to Disease Active U nivers Klebsiella Klebsiella 5-14 it y of species species 00:00: [place] [facility] Acute Acute Disease Active 2018-[address] [facility] ischemic ischemic 0-03 [facility] stroke stroke 00:[facility]: [facility] 00 Center JOSE (acute JOSE (acute Disease Active [facility] kidney kidney 04-28 [facility] injury) injury) 00:00: [facility] Type 2 Type [address] [facility]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 04-28 [facility] mellitus mellitus 00:00: Medica l 00 Center Carotid Carotid Disease Active [facility] stenosis stenosis 04-28 [facility] 00:00: Medical [place] Obesity Obesity Disease Active [facility] 04-28 [facility] Chronic Chronic Disease Active [facility] anticoagul anticoagul 04-28 Anita kes ation ation 00:00: Medical 00 Center Sleep Sleep Disease Active [facility] apnea apnea 04-28 [facility] 00:00: [facility] [place] Weakness Weakness Disease [facility] 00:[facility]: Medical 00 [place] Chronic Chronic Disease Active Univers heart heart 9-24 ity of failure failure 00:00: [place] with with 00 Medical preserved preserved Bran ch ejection ejection fraction fraction PAF PAF Disease Active Univers (paroxysma (paroxysma 3-11 it y of l atrial l atrial 00:00: [place] fibrillati fibrillati 00 Me dical on) on) Branch Carotid Carotid Disease Active 2017-07 Overview: Univ ers stenosis, stenosis, 2-14 Formattin i ty of asymptomat asymptomat 00:00: g of this [place] ic, ic, 00 note Medical bilateral bilateral might be Br anch different from the original. Added automatic ally from request for surgery [id number] Carotid Carotid Disease Active Univers artery artery 8-01 ity of disease, disease, 00:00: [place] unspecifie unspecifie 00 Me dical d d [...] thyroid 6-07 ity of nodules nodules 00:00: [place] [facility] Lump in Lump in Disease Active Univers neck neck 3- ity of 00:00: [place] [facility] Neuropathy Neuropathy Disease Active U nivers of both of both 3-07 ity of feet feet 00:00: [place] [facility] S/P lumbar S/P lumbar Disease Active U nivers spinal spinal 3- ity of arthrodesi arthrodesi 00:[place]: [place] Lumbar Lumbar Disease Active Univers degenerati degenerati 3-21 it y of ve disc ve disc 00:00: [place] disease disease 00 Medical Branch Cellulitis Cellulitis Disease Active 2012-[address] 08-22 [facility] 00:[facility] Medical 00 Center Chronic Chronic Disease Active 2012-[address] [facility] pain pain 08-21 [facility] 00:00: Medical 00 Center Hypertensi Hypertensi Disease Active 2012-[address] on on 08-21 [facility] 00:[facility]: Medical 00 Center Hypothyroi Hypothyroi Disease Active 2012-[address] dism dism 08-21 [facility] 00:00: Medical 00 Center Presence Presence Disease Active 2012-07 [facility] of 08[facility] intratheca intratheca 00:00: [place] pump l pump 00 Center 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 8-12 it y of s with s with 00:00: [place] myelopathy myelopathy 00 [place] Branch 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 8-12 it y of s with s with 00:00: [place] myelopathy myelopathy 00 Me dical Branch Spinal Spinal Disease Active Univers stenosis, stenosis, 8-12 ity of lumbar lumbar 00:00: [place] region, region, 00 Medical without without Branch neurogenic neurogenic claudicati claudicati on on Acute Acute Disease Active Univers cystitis cystitis 2-04 ity of with with 00:00: [place] hematuria hematuria 00 Medi renaldo Branch Vaginal Vaginal Disease Active 2011-07 Univers atrophy atrophy 1-14 ity of 00:00: [place] 00 Medical Branch 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 1-14 it y of ce urge ce urge 00:00: [place] and stress and stress 00 Me dical (male)(fem (male)(fem Br anch mojgan) mojgan) Lymphedema Lymphedema Disease Active U nivers ity of [facility] Neuropathy Neuropathy Disease Active U nivers ity of [facility] Heel spur Heel spur Disease Active Uni vers ity of [facility] Primary Primary Disease Active Univers hypothyroi hypothyroi it y of dism dism [facility] Fibromyalg Fibromyalg Disease Active U nivers ia ia ity of [facility] Gastropare Gastropare Disease Active U nivers sis sis ity of [facility] Cerebral Cerebral Disease Active Overview: Un pepito infarction infarction Formattin ity of g of this [place] note Medical might be Branch different from the original. no residual Aneurysm Aneurysm Disease Active Overview: Un pepito Formattin ity of g of this [place] note Medical might be Branch different from the original. L frontal - cerebral -short term memory loss GERD GERD Disease Resolve 2020-11-06 2020-11-06 Univers (gastroeso (gastroeso d 00:00:00 18:21:59 ity of phageal phageal [place] reflux reflux Medical disease) disease) Branch Complicate Complicate Disease Resolve 2020-05-30 2020-05-31 Univers d UTI d UTI d 5-14 00:00:00 00:41:45 ity of (urinary (urinary 00:00: [place] tract tract 00 Medical infection) infection) Br anch Chest pain Chest pain Disease Resolve 2020-05-30 2020-05-31 Univers d 5- 00:00:00 00:41:42 ity of 00:00: [place] 00 Medical Branch Hypokalemi Hypokalemi Disease Resolve 2020-05-30 2020-05-31 Univers a a d 5-22 00:00:00 00:41:50 ity of 00:00: [place] 00 Medical Branch Kidney Kidney Disease Resolve 2020-05-30 2020-05-31 [...] Resolve 2019-09-12 2019-09-13 Univers hemoglobin hemoglobin d 02-28 00:00:00 04:16:13 ity of A1c A1c 00:00: [place] 00 Medical Branch Pre-op Pre-op Disease Resolve 2018-10-27 2018-10-27 Univers chest exam chest exam d 01-06 00:00:00 14:23:40 ity of 00:00: [place] 00 Medical Branch Ileus Ileus Disease Resolve 2016-09-25 2016-09-25 Univers d 00:00:00 20:31:37 ity of [place] [facility] Sepsis Sepsis Disease Resolve 2016-04-02 2016-04-02 Univers d 03-28 00:00:00 19:56:24 ity of 00:00: [place] 00 [...] Resolve 2016-01-09 2016-01-09 Univers artery artery d 10-04 00:00:00 10:56:04 ity of disease disease 00:00: [place] 00 Medical Branch Cerebral Cerebral Disease Resolve 2013-0 2016-01-09 2016-01-09 Univers aneurysm, aneurysm, d 8-12 [...] failure failure d 00:00:00 10:53:58 ity of [facility] Pneumonia Pneumonia Disease Resolve 2016-01-09 2016-01-09 Univers d 00:00:00 10:54:42 ity of [facility] Phlebitis Phlebitis Disease Resolve 2016-01-09 2016-01-09 Univers d 00:00:00 10:54:05 ity of [facility] History of History of Disease Resolve 2016-01-09 2016-01-09 Univers stomach stomach d 00:00:00 10:54:09 ity of ulcers ulcers [facility] Rheumatic Rheumatic Disease Resolve 2016-01-09 2016-01-09 Univers fever fever d 00:00:00 10:54:13 ity of [facility] Colitis Colitis Disease Resolve 2016-01-09 2016-01-09 Univers d 00:00:00 10:54:17 ity of [facility] Diverticul Diverticul Disease Resolve 2016-01-09 2016-01-09 Univers itis itis d 00:00:00 10:54:22 ity of [facility] Dementia Dementia Disease Resolve 2016-01-09 2016-01-09 Univers d 00:00:00 10:54:26 ity of [facility] Urinary Urinary Disease Resolve 2016-01-09 2016-01-09 Univers incontinen incontinen d 00:00:00 10:55:35 ity of ce ce [facility] Poisoning Poisoning Disease Resolve 2016-01-09 2016-01-09 Univers by by d 00:00:00 10:54:35 ity of aromatic aromatic [place] ammonia ammonia [facility] spirit spirit Branch Parkinson Parkinson Disease Resolve 2016-01-09 2016-01-09 Univers disease disease d 00:00:00 10:54:50 ity of [facility] UTI (lower UTI (lower Disease Resolve 2016-01-09 2016-01-09 Univers urinary urinary d 00:00:00 10:54:56 ity of tract tract [place] infection) infection) [place] Branch Constipati Constipati Disease Resolve 2012-11-17 2015-05-01 Univers on on d 11-06 00:00:00 23:44:32 ity of 00:00: [facility] Branch Urinary Urinary Disease Resolve 2012-11-17 2012-11-17 Univers urgency urgency d 09-03 00:00:00 21:36:12 ity of 00:00: [facility] Branch Urinary Urinary Disease Resolve 2012-11-17 2012-11-17 Univers frequency frequency d 09-03 00:00:00 21:36:15 ity of 00:00: Medical Branch Ileus Ileus Disease Resolve 2012-11-17 2012-11-17 Univers following following d 00:00:00 21:36:34 [place] of gastrointe gastrointe [place] st[place] Medical surgery surgery Branch Mixed Mixed Disease Resolve 2012-10-31 2012-10-31 Univers incontinen incontinen d 09-03 00:00:00 17:41:45 ity of ce ce 00:00: [facility] Allergies, Adverse Reactions, Alerts Allergy Allergy Status Severity Reaction(s) Onset Inactive Treating Comm ents Source Name Type Date Date Clinician Pentazoc Drug Active Other - See 2020-07 Uni vers ine-Nalo Allergy comments 08-13 ity o f xone 00:00: 00 [facility] PENTAZOC DRUG Active Other-Cmnt 2020-07 Univ ers INE-NALO -14 ity of XONE 00:00: [facility] Pregabal Propensi Active Nausea 2017-07 Univer s in ty to and/or 16 ity of adverse Vomiting 00:00: [place] reaction 00 Medical s Branch Pregabal Drug Active Nausea 2017-07 Univers in Allergy and/or -16 ity of Vomiting 00:00: 00 [facility] Branch PREGABAL DRUG Active N/V 2017-07 Univers IN INGREDI 08-15 ity of 00:00: [place] 00 Medical Branch Levoflox Drug Active Itching 2016- Univers acin Allergy 4- ity of 00:00: [place] 00 Medical Branch LEVOFLOX DRUG Active ITCHING 2016- Univers ACIN INGREDI - ity of 00:00: [place] 00 Medical Branch Levoflox Propensi Active Itching 2016- Unive rs acin ty to 4-26 ity of adverse 00:00: [place] reaction 00 Medical s Branch MEPERIDI DRUG Active N/V 2014-07 Univers NE INGREDI 2-07 ity of 00:00: [place] [facility] PENTAZOC DRUG Active N/V 2014-07 Univers INE INGREDI 2- ity of 00:00: [place] [facility] Meperidi Propensi Active Nausea 2014-07 Univer s ne ty to and/or 2- ity of adverse Vomiting 00:00: [place] reaction Medical s Branch Pentazoc Propensi Active Nausea 2014-07 Univer s ine ty to and/or 2-07 ity of adverse Vomiting 00:00: [place] reaction 00 Medical s Branch Rofecoxi Propensi Active Severe 2012-[address] [facility] b ty to 08-22 failure [facility] adverse 00:00: Medical reaction 00 Center s Sulfamet Propensi Active 2012-[address] [facility] [facility] hoxazole ty to 08-22 [facility] -Trimeth adverse 00:00: Medical oprim reaction 00 Center s Codeine Propensi Active Nausea And 2012-[address] [facility] ty to Vomiting - [facility] adverse 00:00: Medical reaction 00 Center s Hydrocod Propensi Active Nausea And 2012-[address] one ty to Vomiting - tolerates [facility] adverse 00:00: sufentani Medica l reaction 00 l per IT Center s pain pump from home. Meperidi Propensi Active Nausea And 2012-[address] ne ty to Vomiting - [facility] adverse 00:00: Medical reaction 00 Center s Pentazoc Propensi Active 2012-[address] ine ty to - tions [facility] Lactate adverse 00:00: Medical reaction 00 Center s Prochlor Propensi Active 2012-[address] perazine ty to - tions [facility] Edisylat adverse 00:00: Medical e reaction 00 Center s Propoxyp Propensi Active Nausea And 2012-[address] hene ty to Vomiting 1-23 [facility] adverse 00:00: Medical reaction 00 Center s Rofecoxi Drug Active Unknown - 2011-07 Renal Unive rs b Allergy See comments 0-24 failure it y of 00:00: [place] 00 Medical Branch CODEINE DRUG Active N/V 2011-07 Univers INGREDI 0-24 ity of 00:00: [place] 00 Medical Branch PROCHLOR DRUG Active Hallucinates 2011-07 Un pepito PERAZINE INGREDI 0-24 ity of 00:00: [place] 00 Medical Branch PROPOXYP DRUG Active N/V 2011-07 Univers HENE HCL INGREDI 0-24 ity of 00:00: [place] 00 Medical Branch MEPERIDI DRUG Active N/V 2011-07 Univers NE HCL INGREDI 0-24 ity of 00:00: [place] 00 Medical Branch HYDROCOD DRUG Active N/V 2011-07 Univers ONE INGREDI 0-24 ity of 00:00: [place] 00 Medical Branch TALWIN DRUG Active Hallucinates 2011-07 Univ ers COMPOUND 0-24 ity of 00:00: [place] 00 Medical Branch ROFECOXI DRUG Active Low Unknown-Cmnt 2011-07 Un pepito B INGREDI 0-24 ity of 00:00: [place] 00 Medical Branch Codeine Propensi Active Nausea 2011-07 Univers ty to and/or 0-24 ity of adverse Vomiting 00:00: [place] reaction 00 Medical s Branch Prochlor Propensi Active Hallucinatio 2011-07 Univers perazine ty to ns 0-24 ity of adverse 00:00: [place] reaction 00 Medical s Branch Propoxyp Propensi Active Nausea [...] Medical s Branch prochlor DA Active U 2002-0 [facility] - [facility] 00:00: d 00 [facility] codeine DA Active U 2002-0 [facility] 7- [facility] 00:00: d 00 Medical Center propoxyp DA Active U 2002-0 [facility] hene 02-24 [facility] 00:00: d 00 Medical Center pentazoc DA Active U 2002-0 [facility] ine 02-24 [facility] 00:00: d 00 [facility] Center meperidi DA Active U 2002-0 [facility] ne 02-24 [facility] 00:00: d 00 Medical Center naloxone DA Active U 2002-0 [facility] 7- [facility] 00:00: d 00 [facility] Center CODEINE DA Active U VOMITING 2002-0 [facility] 7- [facility] 00:00: d 00 Medical Center COMPAZIN DA Active U VOMITING 2002-0 [facility] E 02-24 [facility] 00:00: d 00 Medical Center DARVON DA Active U VOMITING 2002-0 [facility] 7- [facility] 00:00: d 00 Medical Center DEMEROL DA Active U VOMITING 2002-0 [facility] 7- [facility] 00:00: d 00 Medical Center No Known DA Active U 2002-0 [facility] Contrast 7- [facility] Allergie 00:00: d s 00 Medical Center No Known DA Active U 2002-0 [facility] Food 7- [facility] Allergie 00:00: d s 00 Medical Center No Known DA Active U 2002-0 [facility] Other 7- [facility] Allergie 00:00: d s 00 Medical Center TALWIN DA Active U VOMITING 2002-0 [facility] 7- [facility] 00:00: d 00 [facility] Center Social History Social Habit Start Date Stop Date Quantity Comments Source Exposure to 2021-10-03 2021-11-02 Not sure University of SARS-CoV-2 00:00:00 18:47:00 [place] [facility] (event) Branch History SDOH 2019-12-12 2019-12-12 5 University o f Financial 00:00:00 00:00:00 [place] [facility] History SDOH Food 2019-12-12 2019-12-12 1 Univers ity of Worry 00:00:00 00:00:00 [place] [facility] History SDOH Food 2019-12-12 2019-12-12 1 Univers ity of Scarcity 00:00:00 00:00:00 [place] [facility] History SDOH 2019-12-12 2019-12-12 2 University o f Transport Med 00:00:00 00:00:00 [place] [facility] History SDOH 2019-12-12 2019-12-12 2 University o f Transport Non-Med 00:00:00 00:00:00 [place] M edical [facility] Alcohol intake 2013-06-24 2013-06-24 Current SHAMAR Conway Homar es 00:00:00 00:00:00 non-drinker of Medical Ce nter alcohol (finding) Tobacco use and 2012-05-17 2012-05-17 Never used Universit y of exposure 00:00:00 00:00:00 [facility] Sex [birth year] SHAMAR Jorgensens 00:00:00 00:00:00 Medical Center Smoking Status Start Date Stop Date Source Never smoker [facility] Branch Medications Ordered Filled Start Stop Current Ordering Indication Dosage Frequency Signature Comments Components Source Medication Medication Date Date Medication? Clinician (SIG) Name Name atorjohnson Yes 40mg Take 1 Univ ers n 40 mg 4-21 tablet by ity of tablet 00:00: mouth at [place] 00 bedtime. Medical Branch Miscellaneo Yes [id number] Pt needs [facility] [place] Medical 4-04 carmine ity of Supply Misc 00:00: lift. [place] [facility] Miscellaneo 2021-0 Yes [id number] Pt needs [facility] [place] Medical 4-04 carmine ity of Supply Misc 00:00: lift. [place] [facility] Miscellaneo 2021-0 Yes [id number] Pt needs [facility] [place] Medical 4-04 carmine ity of Supply Misc 00:00: lift. [place] [facility] Miscellaneo 0 Yes [id number] Pt needs [facility] [place] Medical 4-04 carmine ity of Supply Misc 00:00: lift. [place] [facility] fluconazole 0 Yes [id number] Take 1 Univers 150 mg 3-18 pill now ity of tablet 00:00: and 1 in [place] 00 72 hours. Medical Repeat if Branch skin infection is not gone in 7 days. polyethylen Yes [id number] 17g Take 17 g Univers e glycol 3-18 by mouth 2 ity o f 3350 00:00: (two) [place] (MIRALAX) 00 times Medical 17 daily. Branch gram/dose powder glipizide-m 2021-0 Yes [id number] TAKE 1 Univers etformin 3-18 TABLET BY ity of 2.5-500 mg 00:00: MOUTH [place] per tablet 00 TWICE Medical DAILY Branch BEFORE BREAKFAST AND DINNER fluconazole 2021-0 Yes [id number] Take 1 Univers 150 mg 3-18 pill now ity of tablet 00:00: and 1 in [place] 00 72 hours. Medical Repeat if Branch skin infection is not gone in 7 days. polyethylen Yes [id number] 17g Take 17 g Univers e glycol 3-18 by mouth 2 ity o f 3350 00:00: (two) [place] (MIRALAX) 00 times Medical 17 daily. Branch gram/dose powder glipizide-m 2021-0 Yes [id number] TAKE 1 Univers etformin 3-18 TABLET BY ity of 2.5-500 mg 00:00: MOUTH [place] per tablet 00 TWICE Medical DAILY Branch BEFORE BREAKFAST AND DINNER fluconazole 2021-0 Yes [id number] Take 1 Univers 150 mg 3-18 pill now ity of tablet 00:00: and 1 in [place] 00 72 hours. Medical Repeat if Branch skin infection is not gone in 7 days. polyethylen 0 Yes [id number] 17g Take 17 g Univers e glycol 3-18 by mouth 2 ity o f 3350 00:00: (two) [place] (MIRALAX) 00 times Medical 17 daily. Branch gram/dose powder glipizide-m 2021-0 Yes [id number] TAKE 1 Univers etformin 3-18 TABLET BY ity of 2.5-500 mg 00:00: MOUTH [place] per tablet 00 TWICE Medical DAILY Branch BEFORE BREAKFAST AND DINNER fluconazole 2021-0 Yes [id number] Take 1 Univers 150 mg 3-18 pill now ity of tablet 00:00: and 1 in [place] 00 72 hours. Medical Repeat if Branch skin infection is not gone in 7 days. polyethylen 2021-0 Yes [id number] 17g Take 17 g Univers e glycol 3-18 by mouth 2 ity o f 3350 00:00: (two) [place] (MIRALAX) 00 times Medical 17 daily. Branch gram/dose powder glipizide-m Yes [id number] TAKE 1 Univers etformin 3-18 TABLET BY ity of 2.5-500 mg 00:00: MOUTH [place] per tablet 00 TWICE Medical DAILY Branch BEFORE BREAKFAST AND DINNER MONTELUKAST 0 Yes [id number] 10mg TAKE 1 Univers 10 mg 3-11 TABLET BY ity of tablet 00:00: MOUTH AT [place] 00 BEDTIME Medical Branch MONTELUKAST 0 Yes [id number] 10mg TAKE 1 Univers 10 mg 3-11 TABLET BY ity of tablet 00:00: MOUTH AT [place] 00 BEDTIME Medical Branch MONTELUKAST 0 Yes [id number] 10mg TAKE 1 Univers 10 mg 3-11 TABLET BY ity of tablet 00:00: MOUTH AT [place] 00 BEDTIME Medical Branch MONTELUKAST Yes [id number] 10mg TAKE 1 Univers 10 mg 3-11 TABLET BY ity of tablet 00:00: MOUTH AT [place] 00 BEDTIME Medical Branch midodrine Yes [id number] 2.5mg Take 1 U nivers 2.5 mg 3-10 tablet by ity of tablet 00:00: mouth [place] 00 daily. Medical Branch midodrine Yes [id number] 2.5mg Take 1 U nivers 2.5 mg 3-10 tablet by ity of tablet 00:00: mouth [place] 00 daily. Medical Branch midodrine Yes [id number] 2.5mg Take 1 U nivers 2.5 mg 3-10 tablet by ity of tablet 00:00: mouth [place] 00 daily. Medical Branch midodrine Yes [id number] 2.5mg Take 1 U nivers 2.5 mg 3-10 tablet by ity of tablet 00:00: mouth [place] 00 daily. Medical Branch nystatin 0 Yes [id number] Apply to Univers 100,000 3-07 affected ity of unit/gram 00:00: area(s) 3 Peter as ointment 00 (three) Medical times Branch daily. nystatin 0 Yes [id number] Apply to Univers 100,000 3-07 affected ity of unit/gram 00:00: area(s) 3 [place] ointment 00 (three) Medical times Branch daily. nystatin 2022-0 Yes [id number] Apply to Univers 100,000 3-07 affected ity of unit/gram 00:00: area(s) 3 [place] ointment 00 (three) Medical times Branch daily. nystatin 2021-0 Yes [id number] Apply to Univers 100,000 3-07 affected ity of unit/gram 00:00: area(s) 3 [place] as ointment 00 (three) Medical times Branch daily. D-MANNOSE 0 Yes 500mg Take 500 Uni vers ORAL 3-02 mg by ity of 15:53: mouth 2 [place] [id number] (two) Medical times [place] daily. [place] 2021-0 Yes Univers stuart 3-02 ity of extract 15:53: [place] ([facility] 45 Medical STUART XT, Branch [facility] [place] potassium 2021-0 Yes 20meq Take 20 Univ ers chloride 10 3-02 mEq by ity of mEq CR 15:53: mouth. [address] D-MANNOSE Yes 500mg Take 500 Uni vers ORAL 3-02 mg by ity of 15:53: mouth 2 [place] [id number] (two) Medical times [place] daily. [place] 2021-0 Yes Univers stuart 3-02 ity of extract 15:53: [place] ([facility] 45 Medical STUART XT, [facility]) potassium 2021-0 Yes 20meq Take 20 Univ ers chloride 10 3-02 mEq by ity of mEq CR 15:53: mouth. [address] D-MANNOSE 0 Yes 500mg Take 500 Uni vers ORAL 3-02 mg by ity of 15:53: mouth 2 [place] [id number] (two) Medical times [place] daily. [place] 2021-0 Yes Univers stuart 3-02 ity of extract 15:53: [place] [facility] STUART XT, Branch [place], [facility] [place] potassium 2021-0 Yes 20meq Take 20 Univ ers chloride 10 3-02 mEq by ity of mEq CR 15:53: mouth. [place] [id number] Medical [place] D-MANNOSE 0 Yes 500mg Take 500 Uni vers ORAL 3-02 mg by ity of 15:53: mouth 2 [place] [id number] (two) Medical times [place] daily. [place] 2021-0 Yes [facility] stuart 3-02 ity of extract 15:53: [place] (BOSWELLIA 45 Medical STUART XT, Branch [place], [facility] [place] potassium 2022-0 Yes 20meq Take 20 Univ ers chloride 10 3-02 mEq by ity of mEq CR 15:53: mouth. [place] capsule 45 Medical Branch SUFENTANIL/ 2021-0 Yes by Univer s BUPIVACAINE 3-02 Epidural ity of /NS/PF 15:53: route. The [place] (SUFENTANIL 44 patient Medic al -BUPIVACAIN has a pain Br anch -NACL,PF, pump and EPIDURAL) these are the medication s in the pump. They added morphine. Indication s: also contains clonidine calcium 2022-0 Yes 1{tbl} Take 1 Univer s carbonate 3-02 tablet by ity o f (CALCIUM 15:53: mouth 2 [place] 600 ORAL) 44 (two) Medical times [place] daily. NON-FORMULA 2022-0 Yes [facility] RY 3-02 se and ity of MEDICATION 15:53: [place] 44 essential Medical oils in Branch capsule form SUFENTANIL/ 202-0 Yes by Univer s BUPIVACAINE 3-02 Epidural ity of /NS/PF 15:53: route. The [place] (SUFENTANIL 44 patient Medic al -BUPIVACAIN has a pain Br anch -NACL,PF, pump and EPIDURAL) these are the medication s in the pump. They added morphine. Indication s: also contains clonidine calcium 2022-0 Yes 1{tbl} Take 1 Univer s carbonate 3-02 tablet by ity o f (CALCIUM 15:53: mouth 2 [place] 600 ORAL) 44 (two) Medical times Branch daily. NON-FORMULA 2022-0 Yes [facility] RY 3-02 se and ity of MEDICATION 15:53: [place] 44 essential Medical oils in Branch capsule form SUFENTANIL/ 2022-0 Yes by Univer s BUPIVACAINE 3-02 Epidural ity of /NS/PF 15:53: route. The [place] (SUFENTANIL 44 patient Medic al -BUPIVACAIN has a pain Br anch -NACL,PF, pump and EPIDURAL) these are the medication s in the pump. They added morphine. Indication s: also contains clonidine calcium 2022-0 Yes 1{tbl} Take 1 Univer s carbonate 3-02 tablet by ity o f (CALCIUM 15:53: mouth 2 [place] 600 ORAL) 44 (two) Medical times Branch daily. NON-FORMULA 2021-0 Yes [facility] 3-02 se and ity of MEDICATION 15:53: [place] 44 essential Medical oils in Branch capsule form SUFENTANIL/ 0 Yes by Univer s BUPIVACAINE 3-02 Epidural ity of /NS/PF 15:53: route. The [place] (SUFENTANIL 44 patient Medic al -BUPIVACAIN has a pain Br anch -NACL,PF, pump and EPIDURAL) these are the medication s in the pump. They added morphine. Indication s: also contains clonidine calcium Yes 1{tbl} Take 1 Univer s carbonate 3-02 tablet by ity o f (CALCIUM 15:53: mouth 2 [place] 600 ORAL) 44 (two) Medical times [place] daily. [facility]ULA [facility] se and ity of MEDICATION 15:53: [place] 44 essential Medical oils in Branch capsule form spironolact Yes [id number] 25mg Take 1 Univers one 25 mg 3-02 02 tablet by ity o f tablet 00:00: mouth [place] 00 daily. [facility] Branch spironolact Yes [id number] 25mg Take 1 Univers one 25 mg 3-02 02 tablet by ity o f tablet 00:00: mouth [place] 00 daily. [facility] spironolact Yes [id number] 25mg Take 1 Univers one 25 mg 3-02 02 tablet by ity o f tablet 00:00: mouth [place] 00 daily. [facility] spironolact Yes [id number] 25mg Take 1 Univers one 25 mg 3-02 02 tablet by ity o f tablet 00:00: mouth [place] 00 daily. [facility] diphenhydrA Yes 25mg Take 25 mg Univers MINE 25 mg 2-13 by mouth ity o f tablet 05:43: as needed. [place] [facility] diphenhydrA 0 Yes 25mg Take 25 mg Univers MINE 25 mg 2-13 by mouth ity o f tablet 05:43: as needed. [place] [facility] diphenhydrA Yes 25mg Take 25 mg Univers MINE 25 mg 2-13 by mouth ity o f tablet 05:43: as needed. [place] [address] Medical Branch diphenhydrA 2-0 Yes 25mg Take 25 mg Univers MINE 25 mg 2-13 by mouth ity o f tablet 05:43: as needed. [place] [address] Medical Branch morpHINE 2022-0 Yes 15mg Take 15 mg Uni vers I.R. 15 mg 2-11 by mouth ity o f tablet 17:48: every 6 (six) Medical hours as Branch needed for Pain (scale 7-10). morpHINE 2022-0 Yes 15mg Take 15 mg Uni vers I.R. 15 mg 2-11 by mouth ity o f tablet 17:48: every 6 (six) Medical hours as Branch needed for Pain (scale 7-10). morpHINE 2022-0 Yes 15mg Take 15 mg Uni vers I.R. 15 mg 2-11 by mouth ity o f tablet 17:48: every 6 (six) Medical hours as Branch needed for Pain (scale 7-10). morpHINE 2022-0 Yes 15mg Take 15 mg Uni vers I.R. 15 mg 2-11 by mouth ity o f tablet 17:48: every 6 (six) Medical hours as Branch needed for Pain (scale 7-10). cyclobenzap 2022-0 Yes [id number] 5mg Take 1 Univers rine 5 mg 2-11 tablet by ity o f tablet 00:00: mouth 3 (three) Medical times Branch daily as needed for Muscle Spasms. cyclobenzap 2022-0 Yes [id number] 5mg Take 1 Univers rine 5 mg 2-11 tablet by ity o f tablet 00:00: mouth 3 (three) Medical times Branch daily as needed for Muscle Spasms. cyclobenzap 2022-0 Yes [id number] 5mg Take 1 Univers rine 5 mg 2-11 tablet by ity o f tablet 00:00: mouth 3 (three) Medical times Branch daily as needed for Muscle Spasms. cyclobenzap 2022-0 Yes [id number] 5mg Take 1 Univers rine 5 mg 2-11 tablet by ity o f tablet 00:00: mouth 3 (three) Medical times Branch daily as needed for Muscle Spasms. amiodarone 2022-0 Yes [id number] 200mg Take 1 Univers 200 mg 2-07 tablet by ity of tablet 00:00: mouth [place] 00 daily. Medical Branch amiodarone 0 Yes [id number] 200mg Take 1 [facility] 200 mg 2-07 tablet by ity of tablet 00:00: mouth [place] 00 daily. Medical Branch amiodarone 0 Yes [id number] 200mg Take 1 [facility] 200 mg 2-07 tablet by ity of tablet 00:00: mouth [place] 00 daily. Medical Branch amiodarone 0 Yes [id number] 200mg Take 1 [facility] 200 mg 2-07 tablet by ity of tablet 00:00: mouth [place] 00 daily. Medical Branch metOLazone Yes 1.25mg Take 1.25 Univers 2.5 mg 1-18 mg by ity of tablet 00:00: mouth [place] 00 daily. Medical Branch metOLazone 0 Yes 1.25mg Take 1.25 Univers 2.5 mg 1-18 mg by ity of tablet 00:00: mouth [place] 00 daily. Medical Branch metOLazone 0 Yes 1.25mg Take 1.25 Univers 2.5 mg 1-18 mg by ity of tablet 00:00: mouth [place] 00 daily. Medical Branch metOLazone 0 Yes 1.25mg Take 1.25 Univers 2.5 mg 1-18 mg by ity of tablet 00:00: mouth [place] 00 daily. Medical Branch CREON Yes [id number] TAKE 3 Unive rs 36,000-114, 1-03 CAPSULES ity of 000- 00:00: BY MOUTH [place] 180,000 00 BEFORE Medical unit CpDR MEALS, AND Bran ch 1 BEFORE SNACKS Yes [id number] TAKE 3 Unive rs 36,000-114, 1-03 CAPSULES ity of 000- 00:00: BY MOUTH [place] 180,000 00 BEFORE Medical unit CpDR MEALS, AND Bran ch 1 BEFORE SNACKS CREON Yes [id number] TAKE 3 Unive rs 36,000-114, 1-03 CAPSULES ity of 000- 00:00: BY MOUTH [place] 180,000 00 BEFORE Medical unit CpDR MEALS, AND Bran ch 1 BEFORE SNACKS CREON Yes [id number] TAKE 3 Unive rs 36,000-114, 1-03 CAPSULES ity of 000- 00:00: BY MOUTH [place] 180,000 00 BEFORE Medical unit CpDR MEALS, AND Bran ch 1 BEFORE SNACKS gabapentin 2020-07 Yes [id number] 300mg Take 1 Univers 300 mg 2-16 capsule by ity of capsule 00:00: mouth 3 [place] 00 (three) Medical times Branch daily. gabapentin 2020-07 Yes [id number] 300mg Take 1 Univers 300 mg 2-16 capsule by ity of capsule 00:00: mouth 3 [place] 00 (three) Medical times Branch daily. gabapentin 2020-07 Yes [id number] 300mg Take 1 Univers 300 mg 2-16 capsule by ity of capsule 00:00: mouth 3 [place] 00 (three) Medical times Branch daily. gabapentin 2020-07 Yes [id number] 300mg Take 1 Univers 300 mg 2-16 capsule by ity of capsule 00:00: mouth 3 [place] 00 (three) Medical times Branch daily. MULTIVITAMI 2020-07 Yes 1{tbl} Take 1 Un pepito N ORAL 1-19 tablet by ity of 00:00: mouth [place] 00 daily. Medical Branch MULTIVITAMI 2020-07 Yes 1{tbl} Take 1 Un pepito N ORAL 1-19 tablet by ity of 00:00: mouth [place] 00 daily. Medical Branch MULTIVITAMI 2020-07 Yes 1{tbl} Take 1 Un pepito N ORAL 1-19 tablet by ity of 00:00: mouth [place] 00 daily. Medical Branch MULTIVITAMI 2020-07 Yes 1{tbl} Take 1 Un pepito N ORAL 1-19 tablet by ity of 00:00: mouth [place] 00 daily. Medical Branch Calcium-Cho 2020-07 Yes 600mg Take 600 U nivers lecalcifero 1-15 mg by ity of l, D3, 00:00: mouth [place] (CALCIUM 00 daily. Medical 600 + D) Branch 600-125 mg-unit Tab Calcium-Cho 2020-07 Yes 600mg Take 600 U nivers lecalcifero 1-15 mg by ity of l, D3, 00:00: mouth [place] (CALCIUM 00 daily. Medical 600 + D) Branch 600-125 mg-unit Tab Calcium-Cho 2020-07 Yes 600mg Take 600 U nivers lecalcifero 1-15 mg by ity of l, D3, 00:00: mouth [place] (CALCIUM 00 daily. Medical 600 + D) Branch 600-125 mg-unit Tab Calcium-Cho 2020-07 Yes 600mg Take 600 U nivers lecalcifero 1-15 mg by ity of l, D3, 00:00: mouth [place] (CALCIUM 00 daily. Medical 600 + D) Branch 600-125 mg-unit Tab acetaminoph 2020-07 Yes 2{tbl} Take 2 Un pepito en 325 mg 1-14 tablets by ity of tablet 00:00: mouth as [place] 00 needed. Medical Branch acetaminoph 2020-07 Yes 2{tbl} Take 2 Un pepito [place] 325 mg 1-14 tablets by ity of tablet 00:00: mouth as [place] 00 needed. Medical Branch acetaminoph 2020-07 Yes 2{tbl} Take 2 Un pepito [place] 325 mg 1-14 tablets by ity of tablet 00:00: mouth as [place] 00 needed. Medical Branch acetaminoph 2020-07 Yes 2{tbl} Take 2 Un pepito en 325 mg 1-14 tablets by ity of tablet 00:00: mouth as [place] 00 needed. Medical Branch atorvastati 2020-07 Yes 40mg Take 1 Univ ers n 40 mg 1-10 tablet by ity of tablet 00:00: mouth at [place] 00 bedtime. Medical Branch atorvastati 2020-07 Yes 40mg Take 1 Univ ers n 40 mg 1-10 tablet by ity of tablet 00:00: mouth at [place] 00 bedtime. Medical Branch atorvastati 2020-07 Yes 40mg Take 1 Univ ers n 40 mg 1-10 tablet by ity of tablet 00:00: mouth at [place] 00 bedtime. Medical Branch atorvastati 2020-07- No 40mg Take 1 Uni vers n 40 mg 1-10 04-21 tablet by ity of tablet 00:00: 00:00 mouth at [place] 00 :00 bedtime. Medical Branch hydrocortis 2020-07 Yes [id number] Apply to Univers one 1% / 05 affected ity of nystatin 00:00: area(s) 3 [place] ointment 00 (three) Medical (COMPOUNDED times Branch ) daily as needed (for skin yeast infection. ). Nystatin 325188 units per gram, also with zinc. hydrocortis 2020-07 Yes [id number] Apply to [facility] one 1% / 05 affected ity of nystatin 00:00: area(s) 3 [place] ointment 00 (three) Medical (COMPOUNDED times Branch ) daily as needed (for skin yeast infection. ). Nystatin 879027 units per gram, also with zinc. hydrocortis 2020-07 Yes [id number] Apply to [facility] one 1% / -05 affected ity of nystatin 00:00: area(s) 3 [place] ointment 00 (three) Medical (COMPOUNDED times Branch ) daily as needed (for skin yeast infection. ). Nystatin 752757 units per gram, also with zinc. hydrocortis 2020-07 Yes [id number] Apply to Univers one 1% / 05 affected ity of nystatin 00:00: area(s) 3 [place] ointment 00 (three) Medical (COMPOUNDED times Branch ) daily as needed (for skin yeast infection. ). Nystatin 390151 units per gram, also with zinc. apixaban 2020-07 Yes [id number] 5mg Take 1 Univers (ELIQUIS) 5 1-02 tablet by ity of mg tablet 00:00: mouth 2 00 (two) Medical times [place] daily. Indication s: DVT prevention ibandronate 2020-07 Yes [id number] 150mg Take 1 Univers 150 mg 1-02 tablet by ity of tablet 00:00: mouth once [place] 00 every Medical month. Branch levothyroxi 2020-07 Yes [id number] 50ug Take 1 Univers ne 50 mcg 1-02 tablet by ity o f tablet 00:00: mouth [place] 00 every Medical morning. Branch apixaban 2020-07 Yes [id number] 5mg Take 1 Univers (ELIQUIS) 5 1-02 tablet by ity of mg tablet 00:00: mouth 2 00 (two) Medical times Branch daily. Indication s: DVT prevention ibandronate 2020-07 Yes [id number] 150mg Take 1 [facility] 150 mg 1-02 tablet by ity of tablet 00:00: mouth once [place] 00 every Medical month. Branch levothyroxi 2020-07 Yes [id number] 50ug Take 1 Univers ne 50 mcg 1-02 tablet by ity o f tablet 00:00: mouth [place] 00 every Medical morning. Branch apixaban 2020-07 Yes [id number] 5mg Take 1 Univers (ELIQUIS) 5 1-02 tablet by ity of mg tablet 00:00: mouth 2 [place] 00 (two) Medical times Branch daily. Indication s: DVT prevention ibandronate 2020-07 Yes [id number] 150mg Take 1 [facility] 150 mg 1-02 tablet by ity of tablet 00:00: mouth once [place] 00 every Medical month. Branch levothyroxi 2020-07 Yes [id number] 50ug Take 1 Univers ne 50 mcg 1-02 tablet by ity o f tablet 00:00: mouth [place] 00 every Medical morning. Branch apixaban 2020-07 Yes [id number] 5mg Take 1 Univers (ELIQUIS) 5 1-02 tablet by ity of mg tablet 00:00: mouth 2 [place] 00 (two) Medical times [place] daily. Indication s: DVT prevention ibandronate 2020-07 Yes [id number] 150mg Take 1 [facility] 150 mg 1-02 tablet by ity of tablet 00:00: mouth once [place] 00 every Medical month. Branch levothyroxi 2020-07 Yes [id number] 50ug Take 1 Univers ne 50 mcg 1-02 tablet by ity o f tablet 00:00: mouth [place] 00 every Medical morning. Branch blood sugar Yes USE TO [facility] ers diagnostic 04-02 CHECK ity of (FREESTYLE 00:00: BLOOD [place] LITE 00 SUGAR Medical STRIPS) DAILY. Branch strip DX:E11.22 blood sugar Yes USE TO [place] [facility] ers diagnostic 04-02 CHECK ity of (FREESTYLE 00:00: BLOOD [place] LITE 00 SUGAR Medical STRIPS) DAILY. Branch strip DX:E11.22 blood sugar Yes USE TO [place] [facility] ers diagnostic 04-02 CHECK ity of (FREESTYLE 00:00: BLOOD [place] LITE 00 SUGAR Medical STRIPS) DAILY. Branch strip DX:E11.22 blood sugar Yes USE TO [place] [facility] ers diagnostic 04-02 CHECK ity of (FREESTYLE 00:00: BLOOD [place] LITE 00 SUGAR Medical STRIPS) DAILY. Branch strip DX:E11.22 ammonium Yes [id number] Apply to Univers lactate 12 8-28 area(s) as ity of % lotion 00:00: needed [place] 00 (skin over Medical swollen Branch leg, use ONLY when skin is intact. 1-2 times a day.). ammonium Yes [id number] Apply to [facility] lactate 12 8-28 area(s) as ity of % lotion 00:00: needed [place] 00 (skin over Medical swollen Branch leg, use ONLY when skin is intact. 1-2 times a day.). ammonium Yes [id number] Apply to [facility] lactate 12 8-28 area(s) as ity of % lotion 00:00: needed [place] 00 (skin over Medical swollen Branch leg, use ONLY when skin is intact. 1-2 times a day.). ammonium Yes [id number] Apply to [facility] lactate 12 8-28 area(s) as ity of % lotion 00:00: needed [place] 00 (skin over Medical swollen Branch leg, use ONLY when skin is intact. 1-2 times a day.). lancets Yes Use 1 Univers (FREESTYLE 8-26 daily as ity o f LANCETS) 28 00:00: directed [place] gauge Misc 00 Medical Branch lancets Yes Use 1 Univers (FREESTYLE 8-26 daily as ity o f LANCETS) 28 00:00: directed [place] gauge Misc 00 Medical Branch lancets Yes Use 1 Univers (FREESTYLE 8-26 daily as ity o f LANCETS) 28 00:00: directed [place] gauge Misc 00 Medical Branch lancets Yes Use 1 Univers (FREESTYLE 8-26 daily as ity o f LANCETS) 28 00:00: directed [place] gauge Misc 00 Medical Branch SERTRALINE Yes [id number] 100mg TAKE 1 [facility] 100 mg 8-23 TABLET BY ity of tablet 00:00: MOUTH DAILY Medical Branch torsemide Yes [id number] TAKE 2 Un pepito 20 mg 8-23 TABLETS BY ity of tablet 00:00: MOUTH IN [place] THE Medical MORNING Branch AND 1 TABLET IN THE EVENING SERTRALINE Yes [id number] 100mg TAKE 1 Univers 100 mg 8-23 TABLET BY ity of tablet 00:00: MOUTH DAILY Medical Branch torsemide 0 Yes [id number] TAKE 2 Un pepito 20 mg 8-23 TABLETS BY ity of tablet 00:00: MOUTH IN [place] 00 THE Medical MORNING Branch AND 1 TABLET IN THE EVENING SERTRALINE 2020-0 Yes [id number] 100mg TAKE 1 [facility] 100 mg 8-23 TABLET BY ity of tablet 00:00: MOUTH [place] DAILY Medical Branch torsemide 2020-0 Yes [id number] TAKE 2 Un pepito 20 mg 8-23 TABLETS BY ity of tablet 00:00: MOUTH IN [place] THE Medical MORNING Branch AND 1 TABLET IN THE EVENING SERTRALINE 2020-0 Yes [id number] 100mg TAKE 1 [facility] 100 mg 8-23 TABLET BY ity of tablet 00:00: MOUTH [place] DAILY Medical Branch torsemide 2020-0 Yes [id number] TAKE 2 Un pepito 20 mg 8-23 TABLETS BY ity of tablet 00:00: MOUTH IN [place] THE Medical MORNING Branch AND 1 TABLET IN THE EVENING OMEPRAZOLE 2020-0 Yes [id number] TAKE 1 [facility] 40 mg 6-08 CAPSULE BY ity of capsule 00:00: MOUTH [place] TWICE Medical DAILY Branch OMEPRAZOLE 2020-0 Yes [id number] TAKE 1 [facility] 40 mg 6-08 CAPSULE BY ity of capsule 00:00: MOUTH [place] TWICE Medical DAILY Branch OMEPRAZOLE 2020-0 Yes [id number] TAKE 1 [facility] 40 mg 6-08 CAPSULE BY ity of capsule 00:00: MOUTH [place] TWICE Medical DAILY Branch OMEPRAZOLE 2020-0 Yes [id number] TAKE 1 [facility] 40 mg 6-08 CAPSULE BY ity of capsule 00:00: MOUTH [place] TWICE Medical DAILY Branch fluticasone 2020-0 Yes [id number] 2{spray Use 2 [facility] propionate 5-22 } Sprays in ity of 50 00:00: each [place] mcg/actuati 00 nostril Medic al on nasal daily. Branch spray fluticasone 0 Yes [id number] 2{spray Use 2 [facility] propionate 5-22 } Sprays in ity of 50 00:00: each [place] mcg/actuati 00 nostril Medic al on nasal daily. Branch spray fluticasone 0 Yes [id number] 2{spray Use 2 [facility] propionate 5-22 } Sprays in ity of 50 00:00: each [place] mcg/actuati 00 nostril Medic al on nasal daily. Branch spray fluticasone 0 Yes [id number] 2{spray Use 2 [facility] propionate 5-22 } Sprays in ity of 50 00:00: each [place] mcg/actuati 00 nostril Medic al on nasal daily. Branch spray bisacodyL 5 Yes [id number] 5mg Take 1 [facility] mg EC 5-08 tablet by ity of tablet 00:00: mouth [place] 00 daily. [facility] [id number] 1{tbl} Take 1 [facility] docusate 5-08 tablet by ity of sodium 00:00: mouth 2 [place] 8.6-50 mg 00 (two) Medical per tablet times Branch daily. bisacodyL 5 Yes [id number] 5mg Take 1 [facility] mg EC 5-08 tablet by ity of tablet 00:00: mouth [place] 00 daily. [facility] Yes [id number] 1{tbl} Take 1 [facility] docusate 5-08 tablet by ity of sodium 00:00: mouth 2 [place] 8.6-50 mg 00 (two) Medical per tablet times Branch daily. bisacodyL 5 Yes [id number] 5mg Take 1 [facility] mg EC 5-08 tablet by ity of tablet 00:00: mouth [place] 00 daily. [facility] Yes [id number] 1{tbl} Take 1 [facility] docusate 5-08 tablet by ity of sodium 00:00: mouth 2 [place] 8.6-50 mg 00 (two) Medical per tablet times Branch daily. bisacodyL 5 Yes [id number] 5mg Take 1 [facility] mg EC 5-08 tablet by ity of tablet 00:00: mouth [place] 00 daily. [facility] Yes [id number] 1{tbl} Take 1 [facility] docusate 5-08 tablet [...] 5-03 by mouth ity of 16:59: daily. [place] 16 Medical Branch morpHINE Yes 15mg Take 15 mg Uni vers I.R. 15 mg 5-03 by mouth ity o f tablet 16:59: every 6 [place] [address] (six) Medical hours as Branch needed for [...] Epidural ity of /NS/PF 16:59: route. The [place] (SUFENTANIL 16 patient Medic al -BUPIVACAIN has a pain Br anch -NACL,PF, pump and EPIDURAL) these are the medication s in the pump. They added morphine. Indication s: also contains clonidine multivitami Yes 1{tbl} Take 1 Tab Univers n tablet 5-03 by mouth ity of 16:59: daily. [place] 16 Medical Branch morpHINE Yes 15mg Take 15 mg Uni vers I.R. 15 mg 5-03 by mouth ity o f tablet 16:59: every 6 [place] 16 (six) Medical hours as Branch needed for Pain (scale 7-10). calcium Yes 1{tbl} Take 1 [place] [facility] s carbonate 5-03 tablet by ity o f (CALCIUM 16:59: mouth 2 [place] 600 ORAL) 16 (two) Medical times Branch daily. diphenhydra Yes Take by Un pepito mine HCl 5-03 mouth. ity of (BENADRYL 16:59: [place] ORAL) 16 Medical Branch polyethylen 0 Yes 17g Take [...] bedtime. [place] ORAL) 16 Medical Branch SUFENTANIL/ 0 Yes by [place] [facility] s BUPIVACAINE 5-03 Epidural ity of /NS/PF 16:59: route. The [place] (SUFENTANIL 16 patient Medic al -BUPIVACAIN has a pain Br anch -NACL,PF, pump and EPIDURAL) these are the medication s in the pump. They added morphine. Indication s: also contains clonidine lipase-prot Yes Abdominal 2{capsu Take 2 Univers ease-amylas 5-03 bloating le} capsules ity of e 00:00: by mouth 4 [place] 12,000-38,0 00 (four) Medica l 00 -60,000 times Branch unit daily with capsule meals or snack. Take 2 before meals, 1 before snacks. lipase-prot 0 Yes Abdominal 2{capsu Take 2 Univers ease-amylas 5-03 bloating le} capsules ity of e 00:00: by mouth 4 [place] 12,000-38,0 00 (four) Medica l 00 -60,000 times Branch unit daily with capsule meals or snack. Take 2 before meals, 1 before snacks. doxycycline 2020-0 2021- No Cellulitis 100mg Take 1 [facility] hyclate 100 5-03 05-14 of right capsule by ity of mg capsule 00:00: 04:59 [place] mouth [place] 00 :00 extremity every 12 Medica l (twelve) Branch hours for 10 days. doxycycline 2020- No Cellulitis 100mg Take 1 [facility] hyclate 100 11-30-14 of right capsule by ity of mg capsule 00:00: 04:59 [place] mouth [place] 00 :00 extremity every 12 Medica l (twelve) Branch hours for 10 days. Nitrofurant 2020- No Abnormal 100mg Take 1 [facility] oin&Nit. 11-3011 urinalysis capsule by ity of Macrocryst 00:00: 04:59 mouth 2 [place] (MACROBID) 00 :00 (two) Medical 100 mg times Branch capsule daily for 7 days. Nitrofurant 2020- No Abnormal 100mg Take 1 [facility] oin&Nit. 11-3011 urinalysis capsule by ity of Macrocryst 00:00: 04:59 mouth 2 [place] (MACROBID) 00 :00 (two) Medical 100 mg times Branch capsule daily for 7 days. MONTELUKAST Yes Sinus 10mg TAKE 1 Uni vers 10 mg 4-26 congestion TABLET BY ity of tablet 00:00: MOUTH AT [place] 00 BEDTIME Medical Branch MONTELUKAST Yes Sinus 10mg TAKE 1 Uni vers 10 mg 4-26 congestion TABLET BY ity of tablet 00:00: MOUTH AT [place] 00 BEDTIME Medical Branch metOLazone Yes Chronic [...] CKD stage blood sugar Yes USE TO Univ ers [...] [place] 00 daily. Medical Branch amiodarone Yes PAF 200mg Take 1 Univ ers 200 mg 3-09 (paroxysmal tablet by i ty of tablet 00:00: atrial mouth [place] 00 fibrillatio daily. Medica l n) Branch amiodarone Yes PAF 200mg Take 1 Univ ers 200 mg 3-09 (paroxysmal tablet by i ty of tablet 00:00: atrial mouth [place] 00 fibrillatio daily. Medica l n) Branch gabapentin Yes Neuropathy 300mg Take 1 [facility] 300 mg 3-03 capsule by ity of capsule 00:00: mouth 2 (two) Medical times Branch daily. TAKE ONE CAPSULE BY MOUTH THREE TIMES DAILY gabapentin Yes Neuropathy 300mg Take 1 [facility] 300 mg 3-03 capsule by ity of capsule 00:00: mouth 2 (two) Medical times Branch daily. TAKE ONE CAPSULE BY MOUTH THREE TIMES DAILY torsemide Yes Fluid Take 1 Unive rs 20 mg 2-19 retention QAM, 1 QPM ity of tablet 00:00: [place] 00 Medical Branch torsemide Yes Fluid Take 1 Unive rs 20 mg 2-19 retention QAM, 1 QPM ity of tablet 00:00: Medical Branch omeprazole Yes [facility] 40 mg 1-26 ity of capsule 00:00: Medical Branch omeprazole Yes [facility] 40 mg 1-26 ity of capsule 00:00: Medical Branch fluticasone Yes Sinus 2{spray Use [...] y of tablet 00:00: s without mouth 00 current weekly. Medical pathologica Branch l [...] mouth [place] 00 daily. Medical Branch hydrocortis Yes Skin yeast Apply to [facility] one 1% / 9-11 infection affected it y of nystatin 00:00: area(s) 3 [place] ointment 00 (three) Medical (COMPOUNDED times Branch ) daily as needed (for skin yeast infection. ). Nystatin 414437 units per gram, also with zinc. hydrocortis Yes Skin yeast Apply to [facility] one 1% / 9-11 infection affected it y of nystatin 00:00: area(s) 3 [place] ointment 00 (three) Medical (COMPOUNDED times Branch ) daily as needed (for skin yeast infection. ). Nystatin 177873 units per gram, also with zinc. aspirin 81 0 Yes [id number] 81mg Take 1 [facility] mg EC 1-09 tablet by ity of tablet 00:00: mouth [place] 00 daily. Medical Branch aspirin 81 2019-0 Yes [id number] 81mg Take 1 [facility] mg EC 1-09 tablet by ity of tablet 00:00: mouth [place] 00 daily. [facility] Branch aspirin 81 2019-0 Yes [id number] 81mg Take 1 [facility] mg EC 1-09 tablet by ity of tablet 00:00: mouth [place] 00 daily. [facility] Branch aspirin 81 2019-0 Yes [id number] 81mg Take 1 [facility] mg EC 1-09 tablet by ity of tablet 00:00: mouth [place] 00 daily. Medical Branch aspirin 81 2020-0 Yes Bilateral 81mg Take 1 [facility] mg EC 1- carotid tablet by ity of tablet 00:00: artery mouth [place] 00 stenosis daily. Medical Branch aspirin 81 2020-0 Yes Bilateral 81mg Take 1 [facility] mg EC 1- carotid tablet by ity of tablet 00:00: [...] tablet 2-19 every ity of 00:00: Monday. [place] [place] 00 Once a Medical week the Branch same day she takes the metolazone . KCL 20 mEq 2018-07 Yes 20meq 20 mEq Univ ers tablet 2-19 every ity of 00:00: Monday. [place] 00 Once a Medical week the Branch same day she takes the metolazone . metFORMIN 2018-07 Yes 500mg Q.[id number] Take [address] [facility] (GLUCOPHAGE 0-04 [id number] tablet [facility] ) 500 MG 00:00: 3D (500 mg Medica l tablet 00 total) by Center mouth 3 (three) times daily. glucosamine 2018-07 Yes 1{tbl} Q.[id number] Take [address] [facility] -chondroiti 0-03 [id number] tablet by [facility] n 500-400 18:01: 3D mouth 3 Medic al mg tablet 23 (three) Center times daily. lactobacill 2018-07 Yes 1{tbl} Q.5D Take [address] [facility] acidoph 0-03 tablet by [facility] & bulgar 18:01: mouth 2 Medica l (FLORANEX) 23 (two) Center 1 million times cell Tab daily. per tablet levothyroxi 2018-07 Yes 75ug QD Take [address] [facility] [address] ne 0-03 mcg by [facility] (SYNTHROID, 18:01: mouth Medic al LEVOTHROID) 23 daily. Center 75 MCG tablet multivitami 2018-07 Yes 1{tbl} QD Take [address] n 0-03 tablet by [facility] (THERAGRAN) 18:01: mouth Medic al per tablet 23 daily. Center nystatin 2018-[address] [facility] (MYCOSTATIN 0-03 topically [facility] ) 100,000 18:01: as needed Med ical unit/gram 23 . Center powder polyethylen 2018-07 Yes 17g Take [address] e glycol 0-03 by mouth [facility] (GLYCOLAX) 18:01: as needed Me dical 17 gram 23 . Center packet MAGNESIUM 2018-07 Yes 71.5mg Q.5D Take 71.[address] CHLORIDE 0-03 mg by [facility] (SLOW-MAG 18:01: mouth 2 Medic al ORAL) 23 (two) Center times daily. sodium 2018-[address] [facility] chloride 0-03 Epidural [facility] 0.9% (NS) 18:01: route Medical SolP with 23 continuous Cent er SUfentanil . 50 mcg/mL Soln 0.5 mcg/mL, ropivacaine 5 mg/mL Soln 0.125 % D-MANNOSE 2018-07 Yes 500mg Q.5D Take [address] ORAL 0-03 mg by [facility] 18:01: mouth 2 Medical 23 (two) Center times daily. furosemide 2018-07 Yes 40mg Q.5D Take [address] (LASIX) 40 0-03 by mouth 2 [facility] MG tablet 18:01: (two) Medical 23 times Center daily. midodrine 2018-07 Yes 2.5mg Q.5D Take 2.[address] [facility] (PROAMATINE 0-03 mg by [facility] ) 2.5 MG 18:01: mouth 2 Medica l tablet 23 (two) Center times daily. montelukast 2018-07 Yes 10mg QD Take [address] [facility] (SINGULAIR) 0-03 by mouth Luke [facility] 10 mg 18:01: nightly. Medical tablet 23 Center metOLazone 2018-07 Yes 2.5mg Take 2.[address] (ZAROXOLYN) 0-03 mg by [facility] 2.5 MG 18:01: mouth Medical tablet 23 every 7 Center days Every Monday 30 minutes before lasix. potassium 2018-07 Yes 20meq Take [address] [facility] chloride 0-03 mEq by [facility] (KLOR-CON) 18:01: mouth Medica l 20 mEq 23 every 7 Center packet days Once a week on Monday . spironolact 2018-07 Yes 25mg QD Take [address] [facility] one 0-03 by mouth [facility] (ALDACTONE) 18:01: daily. Medi renaldo 25 MG 23 Center tablet ipratropium 2018-07 Yes 3mL Take [address] [facility] [address] -albuterol 0-03 by [facility] (DUO-NEB) 18:01: nebulizati Me dical 0.5 mg-3 23 on every 6 Cente r mg(2.5 mg (six) base)/3 mL hours as nebulizer needed for solution Wheezing. clopidogrel 2018-07 Yes 75mg QD Take [address] [facility] (PLAVIX) 75 0-03 by mouth Luke [facility] mg tablet 18:01: daily. Medica l 23 [place] apixaban 2018-07 Yes 5mg Q.5D Take [address] [facility] (ELIQUIS) 5 0-03 by mouth 2 [facility]ita kes mg Tab 18:01: (two) Medical tablet 23 times Center daily. omeprazole 2018-07 Yes 40mg QD Take [address] (PRILOSEC) 0-03 by mouth [facility] 40 MG 18:01: daily. Medical capsule 23 [place] levocetiriz 2018-07 Yes 5mg QD Take [address] ine (XYZAL) 0-03 by mouth Luke s 5 MG tablet 18:01: every Medic al 23 evening. [place] glipiZIDE 2018-07 Yes 5mg QD Take [address] [facility] (GLUCOTROL) 0-03 by mouth Luke [facility] 5 MG tablet 18:01: daily. Medi renaldo 23 Center atorvastati 2018-07 Yes 40mg QD Take [address] [facility] n (LIPITOR) 0-03 by mouth Luke s 40 MG 18:01: nightly. Medical tablet 23 Center calcium 2018-07 Yes 600mg QD Take [address] [facility] carbonate 0-03 mg by [facility] (OS-RENALDO) 18:01: mouth Medical 600 mg 23 daily. [place] calcium (1,500 mg) Tab gabapentin 2018-07 Yes 300mg Q.[id number] Take [address] (NEURONTIN) 0-03 [id number] mg by L ukes 300 MG 18:01: 3D mouth 3 Medical [...] Immunizations Ordered Filled Immunization Date Status Comments [facility] e Immunization Name Name Influenza Virus 2021-05-20 Completed Universit y of Vaccine 00:00:00 [facility] Influenza Virus 2021-05-20 Completed Universit y of Vaccine 00:00:00 [facility] Influenza Virus 2021-05-20 Completed Universit y of Vaccine 00:00:00 [facility] Influenza Virus 2021-05-20 Completed Universit y of Vaccine 00:00:00 [facility] SARS-COV-2 COVID-19 2021-04-01 Completed Unive rsity of PFIZER VACCINE 00:00:00 [facility] SARS-COV-2 COVID-19 2021-04-01 Completed Unive rsity of PFIZER VACCINE 00:00:00 [facility] SARS-COV-2 COVID-19 2021-04-01 Completed Unive rsity of PFIZER VACCINE 00:00:00 [facility] SARS-COV-2 COVID-19 2021-04-01 Completed Unive rsity of PFIZER VACCINE 00:00:00 [facility] SARS-COV-2 COVID-19 2020-09-17 Completed Unive rsity of PFIZER VACCINE 00:00:00 [facility] SARS-COV-2 COVID-19 2020-09-17 Completed Unive rsity of PFIZER VACCINE 00:00:00 [facility] SARS-COV-2 COVID-19 2020-09-17 Completed Unive rsity of PFIZER VACCINE 00:00:00 [facility] SARS-COV-2 COVID-19 2020-09-17 Completed Unive rsity of PFIZER VACCINE 00:00:00 [facility] SARS-COV-2 COVID-19 2020-09-17 Completed Unive rsity of PFIZER VACCINE 00:00:00 [facility] SARS-COV-2 COVID-19 2020-09-17 Completed Unive rsity of PFIZER VACCINE 00:00:00 [facility] SARS-COV-2 COVID-19 2020-08-26 Completed Unive rsity of PFIZER VACCINE 00:00:00 [facility] SARS-COV-2 COVID-19 2020-08-26 Completed Unive rsity of PFIZER VACCINE 00:00:00 [facility] SARS-COV-2 COVID-19 2020-08-26 Completed Unive rsity of PFIZER VACCINE 00:00:00 [facility] SARS-COV-2 COVID-19 2020-08-26 Completed Unive rsity of PFIZER VACCINE 00:00:00 [facility] SARS-COV-2 COVID-19 2020-08-26 Completed Unive rsity of PFIZER VACCINE 00:00:00 [facility] SARS-COV-2 COVID-19 2020-08-26 Completed Unive rsity of PFIZER VACCINE 00:00:00 [facility] Influenza High Dose 2020-05-05 Completed Unive rsity of Quad 00:00:00 [facility] Influenza High Dose 2020-05-05 Completed Unive rsity of [place] 00:00:00 [facility] Influenza High Dose 2020-05-05 Completed Unive rsity of [place] 00:00:00 [facility] Influenza High Dose 2020-05-05 Completed Unive rsity of [place] 00:00:00 [facility] Influenza High Dose 2020-05-05 Completed Unive rsity of [place] 00:00:00 [facility] Influenza High Dose 2020-05-05 Completed Unive rsity of Quad 00:00:00 [facility] Influenza High Dose 2019-04-30 Completed Unive rsity of 00:00:00 [facility] Influenza High Dose 2019-04-30 Completed Unive rsity of 00:00:00 [facility] Influenza High Dose 2019-04-30 Completed Unive rsity of 00:00:00 [facility] Influenza High Dose 2019-04-30 Completed Unive rsity of 00:00:00 [facility] Influenza High Dose 2019-04-30 Completed Unive rsity of 00:00:00 [facility] Influenza High Dose 2019-04-30 Completed Unive rsity of 00:00:00 [facility] Influenza High Dose 2018-06-10 Completed Unive rsity of 00:00:00 [facility] Influenza High Dose 2018-06-10 Completed Unive rsity of 00:00:00 [facility] Influenza High Dose 2018-06-10 Completed Unive rsity of 00:00:00 [facility] Influenza High Dose 2018-06-10 Completed Unive rsity of 00:00:00 [facility] Influenza High Dose 2018-06-10 Completed Unive rsity of 00:00:00 [facility] Influenza High Dose 2018-06-10 Completed Unive rsity of 00:00:00 [facility] Pneumococcal 13 2016-08-04 Completed Universit y of Conjugate, PCV13 00:00:00 [place] Me dical (Prevnar 13) Branch Pneumococcal 13 2016-08-04 Completed Universit y of Conjugate, PCV13 00:00:00 [facility] dical (Prevnar 13) Branch Pneumococcal 13 2016-08-04 Completed Universit y of Conjugate, PCV13 00:00:00 [facility] dical (Prevnar 13) Branch Pneumococcal 13 2016-08-04 Completed Universit y of Conjugate, PCV13 00:00:00 [facility] dical (Prevnar 13) Branch Pneumococcal 13 2016-08-04 Completed Universit y of Conjugate, PCV13 00:00:00 [facility] dical (Prevnar 13) Branch Pneumococcal 13 2016-08-04 Completed Universit y of Conjugate, PCV13 00:00:00 [facility] (Prevnar 13) Branch Influenza High Dose 2016-05-25 Completed Unive rsity of 00:00:00 [facility] Influenza High Dose 2016-05-25 Completed Unive rsity of 00:00:00 [facility] Influenza High Dose 2016-05-25 Completed Unive rsity of 00:00:00 [facility] Influenza High Dose 2016-05-25 Completed Unive rsity of 00:00:00 [facility] Influenza High Dose 2016-05-25 Completed Unive rsity of 00:00:00 [facility] Influenza High Dose 2016-05-25 Completed Unive rsity of 00:00:00 [facility] Influenza Virus 2013-04-30 Completed Universit y of Vaccine (3+ yrs) 00:00:00 [facility] Influenza Virus 2013-04-30 Completed Universit y of Vaccine (3+ yrs) 00:00:00 [facility] Influenza Virus 2013-04-30 Completed Universit y of Vaccine (3+ yrs) 00:00:00 [facility] Influenza Virus 2013-04-30 Completed Universit y of Vaccine (3+ yrs) 00:00:00 [facility] Influenza Virus 2013-04-30 Completed Universit y of Vaccine (3+ yrs) 00:00:00 [facility] Influenza Virus 2013-04-30 Completed Universit y of Vaccine (3+ yrs) 00:00:00 [facility] Influenza Virus 2012-04-30 Completed Universit y of Vaccine 00:00:00 [facility] Zoster(Zostavax)( 2012-04-30 Completed Unive rsity of ingles) 00:00:00 [facility] Influenza Virus 2012-04-30 Completed Universit y of Vaccine 00:00:00 [facility] Zoster(Zostavax)( 2012-04-30 Completed Unive rsity of ingles) 00:00:00 [facility] Influenza Virus 2012-04-30 Completed Universit y of Vaccine 00:00:00 [facility] Zoster(Zostavax)( 2012-04-30 Completed Unive rsity of ingles) 00:00:00 [facility] Influenza Virus 2012-04-30 Completed Universit y of Vaccine 00:00:00 [facility] Zoster(Zostavax)( 2012-04-30 Completed Unive rsity of ingles) 00:00:00 [facility] Influenza Virus 2012-04-30 Completed Universit y of Vaccine 00:00:00 [facility] Zoster(Zostavax)( 2012-04-30 Completed Unive rsity of ingles) 00:00:00 [facility] Influenza Virus 2012-04-30 Completed Universit y of Vaccine 00:00:00 [facility] Zoster(Zostavax)( 2012-04-30 Completed Unive rsity of ingles) 00:00:00 [facility] Pneumococcal 2011-04-30 Completed University o f Polysaccharide, 00:00:00 [place] Med ical PPSV23 (PNEUMOVAX) Branch Pneumococcal 2011-04-30 Completed University o f Polysaccharide, 00:00:00 [place] Med ical PPSV23 (PNEUMOVAX) Branch Pneumococcal 2011-04-30 Completed University o f Polysaccharide, 00:00:00 [place] [facility] ical PPSV23 (PNEUMOVAX) Branch Pneumococcal 2011-04-30 Completed University o f Polysaccharide, 00:00:00 [place] [facility] ical PPSV23 (PNEUMOVAX) Branch Pneumococcal 2011-04-30 Completed University o f Polysaccharide, 00:00:00 [place] [facility] ical PPSV23 (PNEUMOVAX) Branch Pneumococcal 2011-04-30 Completed University o f Polysaccharide, 00:00:00 [place] Med ical PPSV23 (PNEUMOVAX) Branch Td 2010-05-22 Completed University of 00:00:00 [facility] Td 2010-05-22 Completed University of 00:00:00 [facility] Td 2010-05-22 Completed University of 00:00:00 [facility] Td 2010-05-22 Completed University of 00:00:00 [facility] Td 2010-05-22 Completed University of 00:00:00 [facility] Td 2010-05-22 Completed University of 00:00:00 [facility] Vital Signs Vital Name Observation Time Observation Value Comments Source Systolic blood 2021-11-02 23:44:00 104 mm[Hg] Univer sity of pressure [facility] Diastolic blood 2021-11-02 23:44:00 41 mm[Hg] Unive rsity of [facility] Heart rate 2021-11-02 23:44:00 54 /min [facility] Body temperature 2021-11-02 23:44:00 36.56 Natalee [facility] Res[facility] rate 2021-11-02 23:44:00 16 /min [facility] Body height 2021-11-02 23:44:00 154.9 cm [facility] Body weight 2021-11-02 23:44:00 95.255 kg [facility] BMI 2021-11-02 23:44:00 39.68 kg/m2 [facility] Oxygen saturation in 2021-11-02 23:44:00 99 /min [facility] Arterial blood by [facility] Pulse oximetry Branch Procedures Procedure Date / Time Performed Performing Clinician [facility] e CONSENT/REFUSAL FOR 2021-11-02 23:42:55 Doctor Unassigned, No Un [facility] DIAGNOSIS AND Name Medical [place] TREATMENT Plan of Care Planned Activity Planned Date Details Comments Source Future Scheduled 2030-07-14 Screening for University of Test 00:00:00 osteoporosis [place] [facility] (procedure) [code = Branch [id number]] Future Scheduled 2030-07-14 Screening for University of Test 00:00:00 osteoporosis [place] [facility] (procedure) [code = Branch 532790033] Future Scheduled 2021-11-26 Creatinine University of Test 00:00:00 measurement [place] [facility] (procedure) [code = Branch 04964660] Future Scheduled 2021-11-26 Creatinine University of Test 00:00:00 measurement [place] [facility] (procedure) [code = Branch 65750536] Future Scheduled 2021-10-15 Depression screening Uni versity of Test 00:00:00 (procedure) [code = [place] [facility] 294534176] Branch Future Scheduled 2021-10-15 Depression screening Uni versity of Test 00:00:00 (procedure) [code = [facility] dical 304242395] Branch Future Scheduled 2021-09-08 Calculated low Universit y of Test 00:00:00 density lipoprotein [facility] dical cholesterol level Branch (procedure) [code = 763068235] Future Scheduled 2021-09-08 Calculated low Universit y of Test 00:00:00 density lipoprotein [facility] dical cholesterol level Branch (procedure) [code = 124463481] Future Scheduled 2021-09-03 Microalbumin University of Test 00:00:00 measurement, urine, [facility] dical quantitative Branch (procedure) [code = 630049127] Future Scheduled 2021-09-03 Microalbumin University of Test 00:00:00 measurement, urine, [facility] dical quantitative Branch (procedure) [code = 266453075] Future Scheduled 2021-05-13 DTaP,Tdap,and Td Postponed from Unive rsity of Test 00:00:00 Vaccines (1 - Tdap) 10/21/1964 (Not [facility] [code = Indicated) Branch DTaP,Tdap,and Td Vaccines (1 - Tdap)] Future Scheduled 2021-05-13 DTaP,Tdap,and Td Postponed from Unive rsity of Test 00:00:00 Vaccines (1 - Tdap) 10/21/1964 (Not [facility] [code = Indicated) Branch DTaP,Tdap,and Td Vaccines (1 - Tdap)] Future Scheduled 2021-03-31 INFLUENZA VACCINE [facility] Test 00:00:00 (#1) [code = [facility] INFLUENZA VACCINE (#1)] Future Scheduled 2021-03-10 Diabetic foot University of Test 00:00:00 examination [place] [facility] (regime/therapy) Branch [code = 579483091] Future Scheduled 2021-03-10 Diabetic foot University of Test 00:00:00 examination [place] [facility] (regime/therapy) Branch [code = 232732575] Future Scheduled 2021-03-08 Hemoglobin A1c Universit y of Test 00:00:00 measurement [place] [facility] (procedure) [code = Branch 32451147] Future Scheduled 2021-03-08 Hemoglobin A1c Universit y of Test 00:00:00 measurement [place] [facility] (procedure) [code = Branch 78853062] Future Scheduled 2020-09-26 Examination of Universit y of Test 00:00:00 retina (procedure) [place] [facility] ical [code = 260366412] Branch Future Scheduled 2020-09-26 Examination of Universit y of Test 00:00:00 retina (procedure) [place] [facility] ical [code = 056019935] Branch Future Scheduled 2020-07-[address] [facility] Test 00:00:00 (12+) [code = Medical Center DEPRESSION SCREENING (12+)] Future Scheduled 2020-07-31 FALLS RISK SCREENING [facility] Test 00:00:00 [code = FALLS RISK Medical C enter SCREENING] Future Scheduled 2020-05-22 DTAP/TDAP/TD [facility] Test 00:00:00 VACCINES (2 - Td or Medical Center Tdap) [code = DTAP/TDAP/TD VACCINES (2 - Td or Tdap)] Future Scheduled 2020-01-09 Medicare Annual Universi ty of Test 00:00:00 Wellness Visit [facility] (procedure) [code = Branch [id number]] Future Scheduled 2020-01-09 Medicare Annual Universi ty of Test 00:00:00 Wellness Visit [facility] (procedure) [code = Branch [id number]] Future Scheduled 2019-10-[address] [facility] Test 00:00:00 [facility] (procedure) [code = 59369257] Future Scheduled 2012-06-25 Zoster Recombinant Unive rsity of Test 00:00:00 Vaccine (SHINGRIX) [place] Med ica (2 of 3) [code = Branch Zoster Recombinant Vaccine (SHINGRIX) (2 of 3)] Future Scheduled 2012-06-25 Zoster Recombinant Unive rsity of Test 00:00:00 Vaccine (SHINGRIX) [place] [facility] ical (2 of 3) [code = Branch Zoster Recombinant Vaccine (SHINGRIX) (2 of 3)] Future Scheduled 2012-06-25 SHINGLES VACCINES ([address] [facility] Test 00:00:00 of 3) [code = Medical Center SHINGLES VACCINES (2 of 3)] Future Scheduled 2007-05-[address] [facility] Test 00:00:00 WELLNESS (YEAR 2 or Medical Center FIRST YEAR if no IPPE) [code = MEDICARE ANNUAL WELLNESS (YEAR 2 or FIRST YEAR if no IPPE)] Future Scheduled 1961-10-21 Hepatitis C University of Test 00:00:00 screening [place] [facility] (procedure) [code = Branch [id number]] Future Scheduled 1961-10-21 Hepatitis C University of Test 00:00:00 screening [place] [facility] (procedure) [code = Branch 541555760] Future Scheduled 1961-10-[address] [facility] Test 00:00:00 SCREENING [code = Medical Ce nter HEPATITIS C SCREENING] Future Scheduled 1955 COVID-19 VACCINE (1) [facility] Test 00:00:00 [code = COVID-[address] VACCINE (1)] Future Scheduled 1953-10-[address] DIABETIC EYE EXAM [facility] Test 00:00:00 [code = DIABETIC EYE Medical Center EXAM] Future Scheduled 1953-10-[address] [facility] Test 00:00:00 examination Medical Center (regime/therapy) [code = 095080161] Future Scheduled 1953-10-21 Urine screening for [facility] Test 00:00:00 protein (procedure) Medical Center [code = 485746032] Encounters Start End Encounter Admission Attending Care Care Encounter Source Date/Time Date/Time Type Type Clinicians Facility Department ID 2020-03-26 Inpatient HCAKW DARRELL [id number] [facility] 12:00:00 [id number] [facility] 2021-11-15 2021-11-15 Outpatient John [facility] [id number] N-20 Univers 16:30:00 16:30:00 [facility] [id number]15 2021-11-15 Outpatient John [facility] [id number] Univers 16:30:00 16:30:00 JAG [facility] 2021-11-15 2021-11-15 [facility] [id number] Univers 00:00:00 00:00:00 Latisha BUNDY [id number] [facility] [id number] [phone] [place] 059 Branch [facility] 2021-11-02 2021-11-02 Emergency X [facility] ERT [id number] Univers 18:48:00 23:40:00 DEEDEE ity [facility] 2021-11-02 2021-11-02 [facility] [id number] Univers 18:48:00 23:40:00 Deedee Izquierdo [place] [id number] ity of [place] [id number] [phone] [facility] 084 [place] 2021-11-02 2021-11-02 Emergency [facility] SUU [id number] Univers 20:09:52 20:09:52 [facility] 2021-11-01 2021-11-01 [facility] [id number] Univers 00:00:00 00:00:00 Outreach Griselda Addison [place] [id number] ity [facility] [id number] [phone] [place] [facility] [address] [facility] 2021-11-01 2021-11-01 Patient [facility] [id number] Univers 00:00:00 00:00:00 Secure Msg Cheryle T[place] [id number] ity of [facility] [id number] [phone] [place] [facility] 044 Branch [facility] 2020-11-30 2020-11-30 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, 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 [facility] [id number] 13:14:25 13:29:25 Visit [place] [id number] [place] [id number] Professio [phone] [address] 2020-11-27 2020-11-27 Telephone [facility] [id number] 00:00:00 00:00:00 Cheryle [place] [id number] [place] [id number] Professio [phone] [facility] 231 [facility] 2020-11-26 2020-11-26 Journeyman Plumber [place], Adc [facility] [id number] 11:47:44 12:02:44 Visit Lab Rony Bundy [id number] [place] [id number] Professio [phone] [facility] 353 [facility] 2020-11-26 2020-11-26 Emergency [facility] [id number] 03:21:00 06:10:00 Deedee Izquierdo [place] [id number] [place] [id number] [place] [id number] [id number] 2020-11-23 2020-11-23 [facility] [id number] 16:20:16 23:59:00 Encounter Jennifer Gregor [id number] [place] [id number] [place] [id number] 2020-11-23 2020-11-23 Urgent Provider, [facility] [id number] 14:51:43 15:11:43 Care [facility] [id number] Care [place] [id number] Professio [phone] [facility] [address] 2020-11-21 2020-11-21 [facility] [id number] 00:00:00 00:00:00 Cheryle Bundy [id number] [place] [id number] Professio [phone] [facility] 231 Building 2020-11-17 2020-11-17 [facility] [id number] 14:30:00 23:59:00 Encounter Veronica Bundy [id number] [place] 4.2.7.2.686 [place] [id number] 2020-11-12 2020-11-12 Telephone [facility] [id number] 00:00:00 00:00:00 Deo Bundy [id number] [place] [id number] Professio [phone] nal 044 [facility] 2020-11-11 2020-11-11 Telephone [facility] [id number] 00:00:00 00:00:00 Latisha Bundy [id number] [place] [id number] Professio [phone] [facility] 059 [facility] 2020-11-10 2020-11-10 Telephone Rey [facility] [id number] 00:00:00 00:00:00 Cheryle Ta Gregor [id number] [place] [id number] Professio [phone] [address] 2020-11-09 2020-11-09 Journeyman Plumber Hui Dutton [facility] [facility] 1.2.840.114 [id number] 12:26:23 12:41:23 Visit Lab Main [place] 350.1.13.10 [place] 4.2.7.2.686 Professio [phone] [facility] 353 [facility] 2020-11-09 2020-11-09 [facility] 1.2.840.114 [id number] 11:35:43 12:06:49 Visit Latisha Bundy 350.1.13.10 [place] 4.2.7.2.686 Professio [phone] [facility] 059 [facility] 2020-11-09 2020-11-09 Patient Le [facility] 1.2.840.114 [id number] 00:00:00 00:00:00 Secure Msg Cheryle Bundy 350.1.13.10 [place] 4.2.7.2.686 Professio [phone] [facility] 231 [facility] 2020-11-07 2020-11-07 Orders Doctor SKYE 1.2.840.114 [id number] 00:00:00 00:00:00 Only Unassigned, CORNELIA 350.1.13.10 [facility] 4.2.7.2.686 [phone] 009 Results Test Description Test Time Test Comments Results Result [facility] e Comments - CT T-SPINE W/O 2020-03-26 FAX: CONTRAST 13:56:00 Tatiana Mai MD [phone] [place]: St: REG FAX: Frandy Shaw Name: CASSIA KELSEY [facility] : 1945 Age/S: 74/F [address] Unit: [id number] [place]: [place] [address] Phys: Frandy Shaw MD R1 Acct: [id number] Dis Date: Status: REG ER PHONE #: [phone] Exam Date: 03/26/2020 1326 FAX #: [phone] Reason: back pain EXAMS: CPT CODE: [id number] CT T-SPINE W/O CONTRAST 28886 EXAM: - CT T-SPINE W/O CONTRAST, - [...] abnormality with chronic changes as above. at 1358 Reported and signed by: Frandy Lorenzana MD PAGE 1 Signed Report (CONTINUED) FAX: Tatiana Mai MD [phone] [place]: St: REG FAX: Frandy Shaw Name: CASSIA KELSEY [facility] : 1945 Age/S: 74/F [address] Unit: [id number] Loc: [place] [address] Phys: Frandy Shaw MD R1 Acct: [id number] Dis Date: Status: REG ER PHONE #: [phone] Exam Date: 03/26/2020 1326 FAX #: [phone] Reason: back pain EXAMS: CPT CODE: [id number] CT T-SPINE W/O CONTRAST 03352 <Continued> CC: Tatiana Mai MD; Frandy Shaw MD Technologist: Ara Hall Dt/Tm: 03/26/2020 (3035) [email or web address] Orig Print D/T: S: 03/26/2020 (0669 PAGE 2 Signed Report - CT L-SPINE W/O 2020-03-26 FAX: CONTRAST 13:56:00 Tatiana Mai MD [phone] [place]: St: REG FAX: Frandy Shaw Name: CASSIA KELSEY : 1945 Age/S: 74/F [address] Unit: [id number] Loc: [place] [address] Phys: Frandy Shaw MD R1 Acct: [id number] Dis Date: Status: REG ER PHONE #: [phone] Exam Date: 03/26/2020 1326 FAX #: [phone] Reason: pain EXAMS: CPT CODE: [id number] CT L-SPINE W/O CONTRAST 18153 EXAM: - CT T-SPINE W/O CONTRAST, - [...] Signed Report (CONTINUED) FAX: Tatiana Mai MD [phone] [place]: St: REG FAX: Frandy Shaw Name: CASSIA KELSEY [facility] : 1945 Age/S: 74/F [address] Unit: [id number] Loc: [place] [address] Phys: Frandy Shaw MD R1 Acct: [id number] Dis Date: Status: REG ER PHONE #: [phone] Exam Date: 03/26/2020 1326 FAX #: [phone] Reason: pain EXAMS: CPT CODE: [id number] CT L-SPINE W/O CONTRAST 29502 <Continued> CC: Tatiana Mai MD; Frandy Shaw MD Technologist: Ara Hall Dt/Tm: 03/26/2020 (8315) [email or web address] Orig Print D/T: S: 03/26/2020 (2889 PAGE 2 Signed Report - CT C-SPINE W/O 2020-03-26 FAX: CONT 13:53:00 Franyd Shaw [place]: St: REG Name: CASSIA KELSEY [facility] : 1945 Age/S: 74/F [address] Unit: [id number] Loc: [place] [address] Phys: Frandy Shaw MD R1 Acct: [id number] Dis Date: Status: REG ER PHONE #: [phone] Exam Date: 03/26/2020 1326 FAX #: [phone] Reason: fall EXAMS: CPT CODE: [id number] CT C-SPINE W/O CONT 08742 EXAM: - CT C-SPINE W/O CONT CLINICAL [...] 1 Signed Report (CONTINUED) FAX: Frandy Shaw [place]: St: REG Name: CASSIA KELSEY [facility] [place] : 1945 Age/S: 74/F [address] Unit: [id number] Loc: [place] [address] Phys: Frandy Shaw MD R1 Acct: [id number] Dis Date: Status: REG ER PHONE #: [phone] Exam Date: 03/26/2020 0126 FAX #: [phone] Reason: fall EXAMS: CPT CODE: [id number] CT C-SPINE W/O CONT 43363 <Continued> CC: Frandy Shaw MD Technologist: Ara Hall Dt/Tm: 03/26/2020 (5057) [email or web address] Orig Print D/T: S: 03/26/2020 (3388 PAGE 2 Signed Report - CT HEAD/BRAIN 2020-03-26 FAX: W/O CONT 13:43:00 Frandy Shaw [place]: St: REG Name: LOWCASSIA G [facility] : 1945 Age/S: 74/F [address] Unit: [id number] Loc: [place] [address] Phys: Frandy Shaw MD R1 Acct: [id number] Dis Date: Status: [facility] ER PHONE #: [phone] Exam Date: 03/26/2020 1326 FAX #: [phone] Reason: fall thinners EXAMS: CPT CODE: [id number] CT HEAD/BRAIN W/O CONT 07497 EXAM: - CT HEAD/BRAIN W/O CONT INDICATION: [...] MD PAGE 1 Signed Report (CONTINUED) FAX: Farndy Shaw [place]: St: REG Name: CASSIA KELSEY [facility] : 1945 Age/S: 74/F [address] Unit: [id number] Loc: [place] [address] Phys: Frandy Shaw MD R1 Acct: [id number] Dis Date: Status: REG ER PHONE #: [phone] Exam Date: 03/26/2020 1324 FAX #: [phone] Reason: fall thinners EXAMS: CPT CODE: [id number] CT HEAD/BRAIN W/O CONT 06265 <Continued> CC: Frandy Shaw MD Technologist: Ara Wilde Trnscrd Dt/Tm: 03/26/2020 (1195) [email or web address] Orig Print D/T: S: 03/26/2020 (6836 PAGE 2 Signed Report COMPREHENSIVE METABOLIC PANEL [...] U/L 38-126 H code = ALKP) PROTHROMBIN [id number] 13:07:00 Test Item Value Reference Range Interpretation [...] - 3.0 Atrial fibrillation 2.0 - 3.03. Mind Reader al prosthetic valv es (high risk) 2.5 - 3.5 * If oral anticoagulant t herapy is elected to preventrecurren t myocardial infa rction, an INR of 2.5-3 .5 isrecommended, consistent with Food and Drug Administrationr ecommen dations. THROMBOPLASTIN TIME [id number] 13:07:00 Test Item Value Reference Range Interpretation Comments THROMBOPLASTIN TIME 23.7 SECONDS 23.4-37.0 N Therap eutic Range PARTIAL (test code = for Hep clint PTT) EFFECTIVE Heparin IU/mL aPT T Seconds0.3 64.30.7 88.8 CBC W/AUTO [id number] 12:58:00 Test Item Value Reference Range Interpretation [...] 3/uL 0.0-0.1 N - XR PELVIS 08/01 [id number] 12:35:00 FAX: Felice Shaw [place]: ALLY St: REG Name: CASSIA KELSEY [facility] : 1945 Age/S: 74/F [address] Unit#: [id number] Loc: [place] [address] Phys: Frandy Shaw MD R1 Acct: [id number] Dis Date: Status: REG ER PHONE #: [phone] Exam Date: 03/26/2020 1229 FAX #: [phone] Reason: fall EXAMS: CPT CODE: [id number] XR PELVIS 1/2 VIEWS 17669 EXAM: - XR PELVIS 1/2 VIEWS INDICATION: fall Location: T 18. COMPARISON: None. TECHNIQUE: 1 view. FINDINGS: Diminished sensitivity secondary to patient body habitus. No acute fractureseen. Soft tissues appear grossly unremarkable. IMPRESSION: No acute fracture seen. Diminished sensitivity at 5940 Reported and signed by: Dao Potter MD CC: Frandy Shaw MD Technologist: Lazaro Hall Date/Time/By: 03/26/2020 (4435) : By: [email or web address] PAGE 1 Signed Report FAX: Frandy Shaw [place]: St: REG -- Name: CASSIA KELSEY [facility] : 1945 Age/S: 74/[address] Unit #: [id number] Loc: [place] [address] Phys: Frandy Shaw MD R1 Acct: [id number] Dis Date: Status: REG ER PHONE #: [phone] Exam Date: 03/26/2020 1229 FAX #: [phone] Reason: fall EXAMS: CPT CODE: [id number] XR PELVIS 1/2 VIEWS 54775 <Continued> Orig Print D/T: S: 03/26/2020 (1238) PAGE 2 Signed Report- XR CHEST 1 [id number] 12:32:00 [facility] Name: CASSIA KELSEY [facility] [place] : 1945 Age/S: 74/F [address] Unit#: [id number] Loc: [place] [address] Phys: Frandy Shaw MD R1 Acct: [id number] Dis Date: Status: REG ER PHONE #: [phone] Exam Date: 03/26/2020 1222 FAX #: [phone] Reason: fall EXAMS: CPT CODE: [id number] XR CHEST 1 V 88371 EXAM: - XR CHEST 1 V INDICATION: [...] MD Technologist: Lazaro Castrejon Trnscrd Date/Time/By: 03/26/2020 (1232) : By: [email or web address] PAGE 1 Signed Report [facility] St[facility] RE G Name: CASSIA KELSEY : 1945 Age/S: 74/F [address] Unit #: [id number] Loc: [place] [address] Phys: Frandy Shaw MD R1 Acct: [id number] Dis Date: Status: REG ER PHONE #: [phone] Exam Date: 03/26/2020 1222 FAX #: [phone] Reason: fall EXAMS: CPT CODE: [id number] XR CHEST 1 V 44959 <Continued> Orig Print D/T: S: 03/26/2020 (4782) PAGE 2 Signed ReportCT, BRAIN, WITHOUT [id number] 14:47:00Reason for exam:- >eval for stroke, unable [...] anterior temporal lobe infarct.No intracranial hemorrhage. Signed: Kimberly Finney Verified Date/Time: 05/02/2019 14:47:24 -GLUCOSE [id number] 12:03:00 Test Item Value Reference Range Interpretation Comments POC-GLUCOSE METER 237 mg/dL 70-110 H TESTED AT [facility] 67 [facility] (test code = [place] 1538) [address] POCT-GLUCOSE [id number] 07:42:00 Test Item Value Reference Range Interpretation Comments POC-GLUCOSE METER 155 mg/dL 70-110 H TESTED AT [facility] 6720 ([facility] (test code = [place] 1538) [address] POCT-GLUCOSE [id number] 23:26:00 Test Item Value Reference Range Interpretation Comments POC-GLUCOSE METER 300 mg/dL 70-110 H TESTED AT [place] [address] ([facility]) (test code = [place] 1538) [address] CT, CTANGIO [id number] 17:04:00Reason for exam:->eval for strokeFINAL REPORT CLINICAL [...] the proximal ACAs segments. The MCAs and principal trainer are patent without occlusion or high-grade stenosis.Distal [...] arterial occlusion orhigh-grade stenosis where visualized. Signed: Kimberly Finney MDReport Verified Date/Time: 05/01/2019 17:04:53 CT, CAROTID, [id number] 17:04:00Reason for exam:- >eval strokeFINAL REPORT CLINICAL [...] the proximal ACAs segments. The MCAs and principal trainer are patent without occlusion or high-grade stenosis. [...] arterial occlusion orhigh-grade stenosis where visualized. Signed: Kimberly Finney Verified Date/Time: 05/01/2019 17:04:53 POCT-GLUCOSE METER 2019-05-01 17:03:00 Test Item Value Reference Range Interpretation Comments POC-GLUCOSE METER 135 mg/dL 70-110 H TESTED AT [place] [address] ([facility]) (test code = JACQUE Lopez [place] [address]) [address] POCT-GLUCOSE [id number] 12:56:00 Test Item Value Reference Range Interpretation Comments POC-GLUCOSE METER 329 mg/dL 70-110 H Notified John Vincent MD/TESTED ([facility]) (test code = AT [place] [address]) [facility] 7[address] 0 POCT-GLUCOSE [id number] 08:12:00 Test Item Value Reference Range Interpretation Comments POC-GLUCOSE METER 140 mg/dL 70-110 H TESTED AT [place] [address] ([facility]) (test code = JACQUE Lopez [place] [address]) [address] BASIC METABOLIC [id number] 07:13:00 Test Item Value Reference Range Interpretation Comments SODIUM (BEAKER) 139 meq/L 136-145 (test code = 381) POTASSIUM (BEAKER) 4.0 meq/L 3.5-5.1 (test code = 379) CHLORIDE (BEAKER) 106 meq/L 98-107 (test code = 382) CO2 (BEAKER) (test 23 meq/L 22-29 code = 355) BLOOD UREA NITROGEN 19 mg/dL 7-21 ([facility]) (test code = 354) CREATININE (BEAKER) 1.00 mg/dL 0.57-1.25 (test code = 358) GLUCOSE RANDOM 142 mg/dL 70-105 H ([facility]) (test code = 652) CALCIUM (BEAKER) 9.4 mg/dL 8.4-10.2 (test code = 697) EGFR (BEAKER) (test 54 mL/min/1.73 ESTIMA LIZY GFR IS code = 1092) sq m NOT ACCURATE CREATININE CLEARANCE IN PREDICTING GLOMERULAR FILTRATION RATE . ESTIMATED GFR I S NOT APPLICABLE FOR DIALYSIS PATIEN TS. CBC W/PLT COUNT & AUTO [id number] 06:37:00 Test Item Value Reference Range Interpretation [...] PERCENT (BEAKER) (test code = 2801) POCT-GLUCOSE [id number] 21:36:00 Test Item Value Reference Range Interpretation Comments POC-GLUCOSE METER 169 mg/dL 70-110 H TESTED AT [place] [address] (BEAKER) (test code = [facility] 1538) [address] POCT-GLUCOSE [id number] 17:12:00 Test Item Value Reference Range Interpretation Comments POC-GLUCOSE METER 156 mg/dL 70-110 H TESTED AT [place] [address] ([facility] (test code = [facility] John [facility] 1538) [address] POCT-GLUCOSE [id number] 12:23:00 Test Item Value Reference Range Interpretation Comments POC-GLUCOSE METER 267 mg/dL 70-110 H TESTED AT [place] [address] ([facility]) (test code = [facility] 1538) [address] POCT-GLUCOSE [id number] 08:41:00 Test Item Value Reference Range Interpretation Comments POC-GLUCOSE METER 172 mg/dL 70-110 H TESTED AT [place] [address] (BEAKER) (test code = [facility] John [facility] 1538) [address] BASIC METABOLIC [id number] 07:45:00 Test Item Value Reference Range Interpretation [...] PATIEN TS. CBC W/PLT COUNT & AUTO [id number] 06:18:00 Test Item Value Reference Range Interpretation [...] PERCENT (BEAKER) (test code = 2801) POCT-GLUCOSE [id number] 21:28:00 Test Item Value Reference Range Interpretation Comments POC-GLUCOSE METER 268 mg/dL 70-110 H TESTED AT [place] [address] ([facility]) (test code = [facility] 1538) [address] POCT-GLUCOSE [id number] 17:44:00 Test Item Value Reference Range Interpretation Comments POC-GLUCOSE METER 258 mg/dL 70-110 H TESTED AT [place] [address] ([facility]) (test code = [facility] 1538) [address] POCT-GLUCOSE [id number] 14:15:00 Test Item Value Reference Range Interpretation Comments POC-GLUCOSE METER 208 mg/dL 70-110 H TESTED AT [place] [address] ([facility]) (test code = [facility] 1538) [address] BASIC METABOLIC [id number] 13:21:00 Test Item Value Reference Range Interpretation [...] PATIEN TS. CBC W/PLT COUNT & AUTO [id number] 12:52:00 Test Item Value Reference Range Interpretation [...] (test code = 2801) CT, BRAIN, WITHOUT [id number] 12:34:00Reason for exam:->right leg weakness, ? TIA [...] examination is recommended for further characterization. Signed: Roula Adkins MDReport Verified Date/Time: 04/29/2019 12:34:14 Reading Location: [facility] B1 C013V Neuro Reading Room POCT-GLUCOSE [id number] 07:49:00 Test Item Value Reference Range Interpretation Comments POC-GLUCOSE METER 170 mg/dL 70-110 H TESTED AT [facility] 6720 ([facility] (test code = [place] 1538) [address] POCT-GLUCOSE [id number] 21:52:00 Test Item Value Reference Range Interpretation Comments POC-GLUCOSE METER 227 mg/dL 70-110 H TESTED AT [place] [address] ([facility]) (test code = JACQUE Lopez [facility] 1538) [address] POCT-GLUCOSE [id number] 17:00:00 Test Item Value Reference Range Interpretation Comments POC-GLUCOSE METER 277 mg/dL 70-110 H TESTED AT [place] [address] ([facility]) (test code = [facility] John [facility] 1538) [address] POCT-GLUCOSE [id number] 11:19:00 Test Item Value Reference Range Interpretation Comments POC-GLUCOSE METER 306 mg/dL 70-110 H TESTED AT [place] [address] ([facility]) (test code = [facility] John [facility] 1538) [address] HEMOGLOBIN [id number] 08:41:00 Test Item Value Reference Range Interpretation Comments HEMOGLOBIN A1C ([facility]) (test code = 7.8 % 4.3-6.1 H 368) POCT-GLUCOSE [id number] 07:54:00 Test Item Value Reference Range Interpretation Comments POC-GLUCOSE METER 165 mg/dL 70-110 H TESTED AT [place] [address] ([facility]) (test code = [facility] 1538) [address] LIPID [id number] 05:59:00 Test Item Value Reference Range Interpretation Comments TRIGLYCERIDES ([facility] (test code = 219 mg/dL 540) CHOLESTEROL ([facility] (test code = 101 mg/dL 631) HDL CHOLESTEROL ([facility]) (test code 25 mg/dL = 976) LDL CHOLESTEROL CALCULATED ([facility]) 32 mg/dL (test code = 633) Triglyceride Reference Range: Low Risk <150 Borderline 150-199 High Risk 200-499 Very High Risk >=500Cholesterol Reference Range: Low Risk <200 Borderline 200-239 High Risk >240HDL Cholesterol Reference Range: Low Risk >=60 High Risk <40LDL Cholesterol Reference Range: Optimal <100 Near Optimal 100-129 Borderline 130-159 High 160-189 Very High >=190 FastingBASIC METABOLIC [id number] 05:59:00 Test Item Value Reference Range Interpretation [...] 0-0 (BEAKER) (test code = 413) POCT-GLUCOSE [id number] 23:58:00 Test Item Value Reference Range Interpretation Comments POC-GLUCOSE METER 272 mg/dL 70-110 H TESTED AT [facility] 6720 (BEAKER) (test code = [place] 1538) [address] POCT-GLUCOSE [id number] 17:13:00 Test Item Value Reference Range Interpretation Comments POC-GLUCOSE METER 251 mg/dL 70-110 H TESTED AT [facility] 6720 (BEAKER) (test code = [place] 1538) [address] VITAMIN B12 AND [id number] 12:54:00 Test Item Value Reference Range Interpretation Comments VITAMIN B12 (BEAKER) (test code = 622 pg/mL 213-816 774) FOLATE (BEAKER) (test code = 362) > ng/mL >=7.0 TSH/FREE T4 IF [id number] 12:40:00 Test Item Value Reference Range Interpretation Comments THYROID STIMULATING HORMONE 0.54 uIU/mL 0.35-4.94 (BEAKER) (test code = 772) URINALYSIS [id number] 12:06:00 Test Item Value Reference Range Interpretation Comments RBC UA (BEAKER) (test code = 519) 3 /HPF WBC UA (BEAKER) (test code = 520) 114 /HPF SQUAMOUS EPITHELIAL (BEAKER) (test 4 /HPF code = 516) HYALINE CASTS (BEAKER) (test code = 2 /LPF 514) URINALYSIS WITH MICROSCOPIC IF [id number] 12:03:00 Test Item Value Reference Range Interpretation [...] A (test code = 466) UROBILINOGEN UA ([facility]) (test 0.2 mg/dL 0.2-1.0 code = 463) SOURCE([facility]) (test code = 2795) POCT-GLUCOSE [id number] 11:46:00 Test Item Value Reference Range Interpretation Comments POC-GLUCOSE METER 178 mg/dL 70-110 H TESTED AT [place] [address] ([facility]) (test code = [place] 1538) [address] POCT-GLUCOSE [id number] 08:47:00 Test Item Value Reference Range Interpretation Comments POC-GLUCOSE METER 113 mg/dL 70-110 H TESTED AT [place] [address] ([facility]) (test code = JACQUE Lopez [facility] 1538) [address]
[2022-01-01] MEDS ORDERED: NA CHLORIDE 0.9% 1,000 ML ONE (08:15)
[2022-01-01 08:23] LABS: Urine Blood 2+ (Negative); Urine Glucose Negative (Negative); Urine Protein 2+ (Negative)
[2022-01-01 08:27] LABS: Absolute Lymphocytes (CBC) 1.2 K/uL (0.7-4.9); Hematocrit 40.8 % (36.0-45.0); Lymphocytes % 10.2 % (15.3-44.8); MCV 86.3 fL (80-100); MPV 7.6 fL (7.6-11.3); RBC Red Blood Cell Count 4.73 M/uL (3.86-4.86)
[2022-01-01 08:33] LABS: Protime INR 1.31
[2022-01-01 08:46] LABS: Albumin 2.8 g/dL (3.4-5.0); Bilirubin Direct 0.1 mg/dL (0-0.2); Bilirubin Total 0.3 mg/dL (0.2-1.0); Magnesium 1.8 mg/dL (1.8-2.4); Protein, Total 7.4 g/dL (6.4-8.2); Troponin High Sensitivity 12.7 pg/mL (<58.9)
--- NOTE | 2022-01-01 08:47 | RAD REPORT ---
EXAM DESCRIPTION: CT - Abdomen Pelvis Wo Contrast - 01/01/2022 8:31 am CLINICAL HISTORY: Abdominal pain COMPARISON: 2019 TECHNIQUE: Computed axial tomography of the abdomen and pelvis was obtained. IV and oral contrast we re not requested. All CT scans are performed using dose optimization technique as appropriate and may include automated exposure control or mA/KV adjustment according to patient size. FINDINGS: The evaluation of solid organs, vessels and bowel is limited secondary to the lack of con trast administration. The liver, spleen, pancreas, adrenals and kidneys appear grossly normal. Rectum is distended with stool measuring 8.7 centimeters. Large amount stool is present throughout co apolinar. Patient likely has a fecal impaction. A suprapubic catheter within the bladder. Pessary within the pelvis. Postsurgical changes involve spi ne Cholecystectomy/hysterectomy IMPRESSION: Fecal impaction
[2022-01-01 09:16] LABS: Blood Morphology Comment NOT SEEN (NOT SEEN); Platelet Estimate INCR; Platelets, Giant 1+
[2022-01-01] MEDS ORDERED: BISACODYL 10 MG RECTAL SUPP ONE (09:34)
[2022-01-01] MEDS ORDERED: CEFTRIAXONE 1000 MG/VIAL ONE (09:34)
[2022-01-01] MEDS ORDERED: LACTULOSE 20 GM/30 ML UCUP ONE (09:35)
--- NOTE | 2022-01-01 09:49 | RAD REPORT ---
EXAM DESCRIPTION: Vikram Single View01/01/2022 9:00 am CLINICAL HISTORY: Cough COMPARISON: 2020 FINDINGS: The lungs appear clear of acute infiltrate. The heart is normal size IMPRESSION: No acute abnormalities displayed
--- NOTE | 2022-01-01 10:24 | ER ---
Nurse's Notes [facility] Name: Casie Kelley Age: 76 yrs Sex: Female : 1945 Arrival Date: 01/01/2022 Time: 07:55 Bed 8 Private MD: Diagnosis: Elevated white blood cell count;Bandemia;Nausea;Constipation;UTI/ Urinary tract infection, site not specified;Dehydration;Abdominal tenderness Presentation: 01/01 07:44 Chief complaint: EMS states: NVD and constipation x 2 days; pt is from home and has vg1 been placed on hospice care. 07:44 Coronavirus screen: Vaccine status: Patient reports receiving the 2nd dose of the covid vg1 vaccine. Client denies travel out of the [place] in the last 14 days. Ebola Screen: Patient denies exposure to infectious person. Patient denies travel to an Ebola-affected area in the 21 days before illness onset. Initial Sepsis Screen: Does the patient meet any 2 criteria? No. Patient's initial sepsis screen is negative. Does the patient have a suspected source of infection? No. Patient's initial sepsis screen is negative. Risk Assessment: Do you want to hurt yourself or someone else? Patient reports no desire to harm self or others. Onset of symptoms was December 30, 2021. 07:44 Method Of Arrival: EMS: [facility] 07:44 Acuity: HAN 3 vg1 Triage Assessment: 07:44 General: Appears uncomfortable, Behavior is cooperative. Pain: Complains of pain in vg1 buttocks Pain currently is 8 out of 10 on a pain scale. EENT: No signs and/or symptoms were reported regarding the EENT system. Neuro: Level of Consciousness is awake, alert, obeys commands, confused, Oriented to person, place, situation. Cardiovascular: Patient's skin is warm and dry. Respiratory: Airway is patent Respiratory effort is even, unlabored. GI: Abdomen is round non-distended, obese, Reports constipation, diarrhea, nausea, vomiting. : suprapubic catheter in place to gravity drainage Urine is dark brown in color Reports unsure of why platt has been placed; stated has been placed for about three weeks. Derm: Skin is pale. Musculoskeletal: Circulation, motion, and sensation intact. Historical: - Allergies: 08:00 Codeine; vg1 08:00 Compazine; vg1 08:00 Darvon; vg1 08:00 Demerol; vg1 08:00 HYDROCODONE; vg1 08:00 Levofloxacin; vg1 08:00 Lyrica; vg1 08:00 meperidine; vg1 08:00 PENTAZOCINE; vg1 08:00 sulfamethoxazole (bulk); vg1 08:00 Talwin; vg1 08:00 TRIMETHOPRIM; vg1 08:00 Vioxx; vg1 - Home Meds: 08:00 amiodarone 200 mg Oral tab 1 tab once daily [Active]; Eliquis 5 mg Oral tab 1 tab 2 vg1 times per day [Active]; nitrofurantoin macrocrystal 100 mg Oral tab 1 cap twice a day [Active]; spironolactone 50 mg Oral tab 1 tab once daily [Active]; morphine 15 mg Oral tab 1 tab daily prn for Severe Pain [Active]; Metoclopramide Oral [Active]; midodrine 2.5 mg Oral tab 1 tab twice a day [Active]; glipizide-metformin 2.5-500 mg Oral tab 1 tab 2 times per day [Active]; - PMHx: 08:00 Aneurysm; Cervical Spondylosis; Chronic pain; constipation; CVA; Diabetes - NIDDM; vg1 Fibromyalgia; Gastroparesis; GERD; heel spur; Hypothyroidism; lymphedema; ileus; multiple thyroid nodules; Obesity; PERIPHERAL NEUROPATHY; Sleep Apnea; spinal stenosis; vaginal atrophy; - Immunization history:: Client reports receiving the 2nd dose of the Covid vaccine. - Social history:: Smoking status: Patient denies any tobacco usage or history of. Screenin:05 Abuse screen: Denies threats or abuse. Nutritional screening: No deficits noted. vg1 Tuberculosis screening: No symptoms or risk factors identified. Fall Risk No fall in past 12 months (0 pts). No secondary diagnosis (0 pts). IV access (20 points). Ambulatory Aid- None/Bed Rest/Nurse Assist (0 pts). Gait- Weak (10 pts.). Mental Status- Oriented to own ability (0 pts). Total Miller Fall Scale indicates Low Risk Score (25-44 pts). Fall prevention measures have been instituted. Side Rails Up X 2 Placed close to Nursing Station As available Patient and Family Educated on Fall Prevention Program and strategies. Assessment: 08:05 Reassessment: SEE TRIAGE. vg1 09:00 Reassessment: Patient appears in no apparent distress at this time. No changes from vg1 previously documented assessment. Patient and/or family updated on plan of care and expected duration. Pain level reassessed. Patient is alert, oriented x 3, equal unlabored respirations, skin warm/dry/pink. 10:17 Reassessment: Patient appears in no apparent distress at this time. Patient and/or vg1 family updated on plan of care and expected duration. Pain level reassessed. Patient is alert, oriented x 3, equal unlabored respirations, skin warm/dry/pink. Mary care performed and brief changed. 10:17 Derm: Rash noted that is red, on buttocks. vg1 11:00 Reassessment: Patient appears in no apparent distress at this time. Patient and/or vg1 family updated on plan of care and expected duration. Pain level reassessed. Patient is alert, oriented x 3, equal unlabored respirations, skin warm/dry/pink. 12:42 Reassessment: Patient appears in no apparent distress at this time. Patient and/or vg1 family updated on plan of care and expected duration. Pain level reassessed. Patient is alert, oriented x 3, equal unlabored respirations, skin warm/dry/pink. 13:45 Reassessment: Patient appears in no apparent distress at this time. pt resting with vg1 eyes closed. 14:45 Reassessment: Patient appears in no apparent distress at this time. Patient and/or vg1 family updated on plan of care and expected duration. Pain level reassessed. Patient is alert, oriented x 3, equal unlabored respirations, skin warm/dry/pink. Vital Signs: 07:44 BP 150 / 67; Pulse 68; Resp 20; Temp 97.9(TE); Pulse Ox 94% on R/A; Weight 104.33 kg; vg1 Height 5 ft. 1 in. (154.94 cm); Pain 8/10; 09:00 BP 144 / 57; Pulse 62; Resp 19; Pulse Ox 95% on R/A; vg1 10:00 BP 133 / 55; Pulse 70; Resp 19; Pulse Ox 93% on R/A; vg1 11:00 BP 112 / 65; Pulse 63; Resp 13; Pulse Ox 93% on R/A; vg1 12:00 BP 128 / 63; Pulse 61; Resp 16; Pulse Ox 93% on R/A; vg1 13:00 BP 119 / 55; Pulse 59; Resp 14; Pulse Ox 93% on R/A; vg1 14:00 BP 119 / 64; Pulse 56; Resp 20; Pulse Ox 93% on R/A; vg1 07:44 Body Mass Index 43.46 (104.33 kg, 154.94 cm) vg1 ED Course: 07:44 Arm band placed on. vg1 07:55 Patient arrived in ED. vg1 08:00 Triage completed. vg1 08:00 Inserted saline lock: 20 gauge in left forearm, using aseptic technique. Blood jg9 collected. 08:01 Everett Yoon MD is Attending Physician. isaias 08:05 Patient has correct armband on for positive identification. Placed in gown. Bed in low vg1 position. Call light in reach. Side rails up X2. 08:05 No provider procedures requiring assistance completed. by ED staff. Inserted saline vg1 lock: 20 gauge in left forearm, using aseptic technique. ,using aseptic technique. placed by Sofia KIM Blood collected. 08:07 Gina Azevedo RN is Primary Nurse. beasley 08:07 Primary Nurse role handed off by Gina Azevedo RN beasley 08:07 Kelly Farooq, JUDY is Primary Nurse. beasley 08:07 Kelly Farooq, JUDY is Primary Nurse. beasley 08:33 CT Abd/Pelvis - Without Contrast In Process Unspecified. EDMS 09:02 XRAY Chest (1 view) In Process Unspecified. EDMS 10:19 Sherwin Conroy MD is Hospitalizing Provider. isaias 11:35 COVID-19 SARS RT PCR (Document "Date of Onset" if Symptomatic) Sent. beasley 15:20 Patient admitted, IV remains in place. vg1 Administered Medications: 08:15 Drug: NS 0.9% 1000 ml Route: IV; Rate: 1 bolus; Site: left forearm; vg1 09:35 Drug: Rocephin (cefTRIAXone) 1 grams Route: IV; Rate: per protocol; Site: left forearm; vg1 15:10 Follow up: IV Status: Completed infusion vg1 09:40 Drug: Lactulose 30 grams Volume: 45 ml; Route: PO; vg1 15:10 Follow up: Response: No adverse reaction vg1 10:15 Drug: Dulcolax (bisacodyl) Suppository 10 mg Route: KS; vg1 15:10 Follow up: Response: No adverse reaction vg1 Medication: 15:20 VIS not applicable for this client. vg1 Outcome: 10:22 Decision to Hospitalize by Provider. isaias 15:20 Admitted to Tele accompanied by tech, via stretcher, room 220, with chart, Report vg1 called to Federico KIM 15:20 Condition: unchanged 15:20 Instructed on the need for admit. 15:34 Patient left the ED. vg1 Signatures: Dispatcher [employer] EDEverett Smith MD MD cha Garcia, Victoria RN RN vg1 Sofia Plasencia RN RN jg9 AliyahrGina RN RN beasley Corrections: (The following items were deleted from the chart) 10:20 07:44 : Platt in place to gravity drainage Urine is dark brown in color Reports vg1 unsure of why platt has been placed; stated has been placed for about three weeks vg1 10:20 10:17 Reassessment: Patient appears in no apparent distress at this time. Patient vg1 and/or family updated on plan of care and expected duration. Pain level reassessed. Patient is alert, oriented x 3, equal unlabored respirations, skin warm/dry/pink. Mary care performed and brief changed vg1
--- NOTE | 2022-01-01 10:24 | EDPHYS ---
Physician Documentation [facility] Name: Casie Kelley Age: 76 yrs Sex: Female : 1945 Arrival Date: 01/01/2022 Time: 07:55 Bed 8 Private MD: MADAY Physician Everett Yoon HPI: 01/01 08:06 This 76 yrs old Female presents to ER via EMS with complaints of isaias Nausea/Vomiting/Diarrhea. Historical: - Allergies: 08:00 Codeine; vg1 08:00 Compazine; vg1 08:00 Darvon; vg1 08:00 Demerol; vg1 08:00 HYDROCODONE; vg1 08:00 Levofloxacin; vg1 08:00 Lyrica; vg1 08:00 meperidine; vg1 08:00 PENTAZOCINE; vg1 08:00 sulfamethoxazole (bulk); vg1 08:00 Talwin; vg1 08:00 TRIMETHOPRIM; vg1 08:00 Vioxx; vg1 - Home Meds: 08:00 amiodarone 200 mg Oral tab 1 tab once daily [Active]; Eliquis 5 mg Oral tab 1 tab 2 vg1 times per day [Active]; nitrofurantoin macrocrystal 100 mg Oral tab 1 cap twice a day [Active]; spironolactone 50 mg Oral tab 1 tab once daily [Active]; morphine 15 mg Oral tab 1 tab daily prn for Severe Pain [Active]; Metoclopramide Oral [Active]; midodrine 2.5 mg Oral tab 1 tab twice a day [Active]; glipizide-metformin 2.5-500 mg Oral tab 1 tab 2 times per day [Active]; - PMHx: 08:00 Aneurysm; Cervical Spondylosis; Chronic pain; constipation; CVA; Diabetes - NIDDM; vg1 Fibromyalgia; Gastroparesis; GERD; heel spur; Hypothyroidism; lymphedema; ileus; multiple thyroid nodules; Obesity; PERIPHERAL NEUROPATHY; Sleep Apnea; spinal stenosis; vaginal atrophy; - Immunization history:: Client reports receiving the 2nd dose of the Covid vaccine. - Social history:: Smoking status: Patient denies any tobacco usage or history of. ROS: 08:47 Eyes: Negative for injury, pain, redness, and discharge, ENT: Negative for injury, isaias pain, and discharge, Neck: Negative for injury, pain, and swelling, Cardiovascular: Negative for chest pain, palpitations, and edema, Respiratory: Negative for shortness of breath, cough, wheezing, and pleuritic chest pain, : Negative for injury, bleeding, discharge, and swelling, MS/Extremity: Negative for injury and deformity, Psych: Negative for depression, anxiety, suicide ideation, homicidal ideation, and hallucinations, Allergy/Immunology: Negative for hives, rash, and allergies, Endocrine: Negative for neck swelling, polydipsia, polyuria, polyphagia, and marked weight changes. 08:47 Constitutional: Positive for fatigue, malaise. 08:47 Respiratory: Positive for cough. 08:47 Abdomen/GI: Positive for nausea and vomiting, diarrhea, constipation, abdominal cramps, abdominal distension. 08:47 MS/extremity: Positive for decreased range of motion. 08:47 Neuro: Positive for weakness. Exam: 08:47 Constitutional: This is a well developed, well nourished patient who is awake, alert, isaias and in no acute distress. Head/Face: Normocephalic, atraumatic. Eyes: Pupils equal round and reactive to light, extra-ocular motions intact. Lids and lashes normal. Conjunctiva and sclera are non-icteric and not injected. Cornea within normal limits. Periorbital areas with no swelling, redness, or edema. ENT: Nares patent. No nasal discharge, no septal abnormalities noted. Tympanic membranes are normal and external auditory canals are clear. Oropharynx with no redness, swelling, or masses, exudates, or evidence of obstruction, uvula midline. Mucous membranes moist. Neck: Trachea midline, no thyromegaly or masses palpated, and no cervical lymphadenopathy. Supple, full range of motion without nuchal rigidity, or vertebral point tenderness. No Meningismus. Chest/axilla: Normal chest wall appearance and motion. Nontender with no deformity. No lesions are appreciated. Cardiovascular: Regular rate and rhythm with a normal S1 and S2. No gallops, murmurs, or rubs. Normal PMI, no JVD. No pulse deficits. Respiratory: Lungs have equal breath sounds bilaterally, clear to auscultation and percussion. No rales, rhonchi or wheezes noted. No increased work of breathing, no retractions or nasal flaring. Back: No spinal tenderness. No costovertebral tenderness. Full range of motion. Female : Normal external genitalia. Psych: Awake, alert, with orientation to person, place and time. Behavior, mood, and affect are within normal limits. 08:47 ECG was reviewed by the Attending Physician. 08:47 Abdomen/GI: Inspection: distension, Bowel sounds: normal, Palpation: mild abdominal tenderness, in all quadrants, Liver: no appreciated palpable abnormalities, Hernia: not appreciated. 08:47 Musculoskeletal/extremity: ROM: limited active range of motion, limited passive range of motion, in the right leg and left leg, Circulation is intact in all extremities. Sensation intact. Compartment Syndrome exam of affected extremity: is normal. 08:47 Skin: Appearance: Color: pale. Vital Signs: 07:44 BP 150 / 67; Pulse 68; Resp 20; Temp 97.9(TE); Pulse Ox 94% on R/A; Weight 104.33 kg; vg1 Height 5 ft. 1 in. (154.94 cm); Pain 8/10; 09:00 BP 144 / 57; Pulse 62; Resp 19; Pulse Ox 95% on R/A; vg1 10:00 BP 133 / 55; Pulse 70; Resp 19; Pulse Ox 93% on R/A; vg1 11:00 BP 112 / 65; Pulse 63; Resp 13; Pulse Ox 93% on R/A; vg1 12:00 BP 128 / 63; Pulse 61; Resp 16; Pulse Ox 93% on R/A; vg1 13:00 BP 119 / 55; Pulse 59; Resp 14; Pulse Ox 93% on R/A; vg1 14:00 BP 119 / 64; Pulse 56; Resp 20; Pulse Ox 93% on R/A; vg1 07:44 Body Mass Index 43.46 (104.33 kg, 154.94 cm) vg1 MDM: 08:01 Patient medically screened. isaias 08:51 Differential diagnosis: Nonspecific abd pain, gastritis, pancreatitis, viral isaias gastroenteritis, gastroenteritis. Data reviewed: vital signs, nurses notes, EMS record, lab test result(s), EKG, radiologic studies, CT scan, plain films. 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 Test interpretation: by ED physician or midlevel provider: ECG, plain radiologic studies. Counseling: I had a detailed discussion with the patient and/or guardian regarding: the historical points, exam findings, and any diagnostic results supporting the discharge/admit diagnosis, lab results, radiology results. 01/01 08:06 Order name: Basic Metabolic Panel; Complete Time: 09:[address] [facility] 01/01 08:06 Order name: CBC with Diff; Complete Time: 10:[address] [facility] 01/01 08:06 Order name: LFT's; Complete Time: 09:[address] [facility] 01/01 08:06 Order name: Magnesium; Complete Time: 09:[address] [facility] 01/01 08:06 Order name: NT PRO-BNP; Complete Time: 09:[address] [facility] 01/01 08:06 Order name: PT-INR; Complete Time: 09:[address] [facility] 01/01 08:06 Order name: Troponin HS; Complete Time: 09:[address] [facility] 01/01 08:06 Order name: Urine Culture [facility] 01/01 08:06 Order name: Lipase; Complete Time: 09:[address] [facility] 01/01 08:23 Order name: Urine Dipstick-Ancillary; Complete Time: 09:12 [facility] 01/01 09:17 Order name: Manual Differential; Complete Time: 10:18 [facility] 01/01 11:26 Order name: COVID-19 SARS RT PCR (Document "Date of Onset" if Symptomatic) 01/01 14:21 Order name: CBC with Automated Diff [facility] 01/01 08:06 Order name: XRAY Chest (1 view); Complete Time: 10:[address] [facility] 01/01 08:06 Order name: EKG; Complete Time: 08:[address] [facility] 01/01 08:06 Order name: Cardiac monitoring; Complete Time: 08:[address] [facility] 01/01 08:06 Order name: EKG - Nurse/Tech; Complete Time: 08:[address] [facility] 01/01 08:06 Order name: IV Saline Lock; Complete Time: 08:[address] [facility] 01/01 08:06 Order name: Labs collected and sent; Complete Time: 08:[address] [facility] 01/01 08:06 Order name: O2 Per Protocol; Complete Time: 08:[address] [facility] 01/01 08:06 Order name: CT Abd/Pelvis - Without Contrast; Complete Time: 09:[address] [facility] 01/01 14:21 Order name: Heart Healthy EDMS 01/01 14:21 Order name: CBC with Automated Diff EDMS 01/01 14:21 Order name: Comprehensive Metabolic Panel EDMS 01/01 14:21 Order name: Comprehensive Metabolic Panel [facility] 01/01 08:06 Order name: O2 Sat Monitoring; Complete Time: 08:[address] [facility] 01/01 08:06 Order name: Urine Dipstick-Ancillary (obtain specimen); Complete Time: 08:[address] [facility] EC:47 Rate is 66 beats/min. Rhythm is regular. QRS [place] is Normal. MD interval is prolonged isaias at 240 msec. QRS interval is normal. QT interval is normal. No Q waves. T waves are Normal. No ST changes noted. Clinical impression: NSR w/ Non-specific ST/T Changes, 1st degree heart block, and No evidence of ischemia. Interpreted by me. Reviewed by me. Administered Medications: 08:15 Drug: NS 0.9% 1000 ml Route: IV; Rate: 1 bolus; Site: left forearm; vg1 09:35 Drug: Rocephin (cefTRIAXone) 1 grams Route: IV; Rate: per protocol; Site: left forearm; vg1 15:10 Follow up: IV Status: Completed infusion vg1 09:40 Drug: Lactulose 30 grams Volume: 45 ml; Route: PO; vg1 15:10 Follow up: Response: No adverse reaction vg1 10:15 Drug: Dulcolax (bisacodyl) Suppository 10 mg Route: MD; vg1 15:10 Follow up: Response: No adverse reaction vg1 Disposition Summary: 01/01/22 10:22 Hospitalization Ordered Hospitalization Status: Observation isaias Provider: Sherwin Conroy cha Location: Telemetry/MedSurg (observation) isaias Condition: Stable isaias Problem: new isaias Symptoms: have improved isaias Bed/Room Type: Standard isaias Room Assignment: 220(01/01/22 14:35) dw Diagnosis - Elevated white blood cell count isaias - Bandemia isaias - Nausea isaias - Constipation isaias - UTI/ Urinary tract infection, site not specified isaias - Dehydration isaias - Abdominal tenderness isaias Forms: - Medication Reconciliation Form isaias - SBAR form isaias Signatures: Dispatcher [employer] EDKizzy Ferrell RN RN Everett Ruby MD MD cha Garcia, Victoria RN RN vg1 Corrections: (The following items were deleted from the chart) 09:17 08:33 CBC Smear Scan ordered. [facility] EDIA 14:35 10:22 isaias dw
[2022-01-01] MEDS ORDERED: MORPHINE 2 MG/ML SYR IV PRN (14:18)
[2022-01-01] MEDS ORDERED: ONDANSETRON 4 MG/2 ML VIAL IV PRN (14:18)
[2022-01-01] MEDS ORDERED: LACTULOSE 20 GM/30 ML UCUP PO PRN (14:18)
[2022-01-01] MEDS ORDERED: POLYETHYL GLY 3350 17 GM/DOSE PO PRN (14:18)
[2022-01-01] MEDS ORDERED: ACETAMINOPHEN 500 MG TAB PO PRN (14:18)
[2022-01-01] MEDS ORDERED: NA CHLORIDE 0.9% 1,000 ML IV SCH (15:00)
[2022-01-01] MEDS ORDERED: MINERAL OIL 30 ML UCUP PO ONE (16:13)
[2022-01-01 16:29] VITALS: BMI 43.4
[2022-01-02 03:56] LABS: Absolute Lymphocytes (CBC) 3.4 K/uL (0.7-4.9); Hematocrit 37.5 % (36.0-45.0); Lymphocytes % 38.5 % (15.3-44.8); MCV 88.9 fL (80-100); MPV 7.7 fL (7.6-11.3); RBC Red Blood Cell Count 4.22 M/uL (3.86-4.86)
[2022-01-02 04:15] LABS: Albumin 2.5 g/dL (3.4-5.0); Bilirubin Total 0.3 mg/dL (0.2-1.0); Potassium 3.4 mmol/L (3.5-5.1); Protein, Total 6.3 g/dL (6.4-8.2)
[2022-01-02 10:26] VITALS: O2SAT 96
--- NOTE | 2022-01-02 12:52 | EKG ---
Test Date: 2022-01-01 Test Time: 08:16:58 Adjuster Arbitrator: EMILIE MEASUREMENT RESULTS: Intervals: Rate: 66 RI: 240 QRSD: 88 QT: 552 QTc: 578 [place]: P: 70 RI: 240 QRS: -18 T: 52 INTERPRETIVE STATEMENTS: Sinus rhythm with 1st degree AV block Nonspecific T wave abnormality Abnormal ECG Compared to ECG 05/05/2021 07:48:25 First degree AV block now present T-wave abnormality now present Atrial fibrillation no longer present ST (T wave) deviation no longer present Electronically Signed On 01-02-22 12:51:26 CDT by Joe Sanchez
--- NOTE | 2022-01-02 13:22 | RAD REPORT ---
EXAM DESCRIPTION: RAD - Abdomen 1 View (KUB) - 01/02/2022 1:10 pm CLINICAL HISTORY: fecal impaction Pain COMPARISON: <Comparisons> FINDINGS: The bowel gas pattern is non-obstructive. No evidence of free air or pneumatosis. No suspi cious calcifications. Hardware is present lower lumbar spine. Cholecystectomy. Significant fecal retention throughout the colon. IMPRESSION: Significant fecal retention.
[2022-01-02] MEDS ORDERED: MINERAL OIL 30 ML UCUP PO ONE (14:32)
[2022-01-02 16:54] VITALS: BP 136/53; TEMP 97
--- NOTE | 2022-01-26 01:15 | P.DS ---
Discharge Date: 01/02/22 Disposition: ROUTINE DISCHARGE Discharge Condition: GOOD Reason for Admission: Fecal impaction - Problems (1) Fecal impaction Status: Acute Brief History of Present Illness: patient is a 76-year-old female came to the hospital with abdominal pain. She also was having nausea and vomiting. She was constipated. CT scan was performed. It revealed patient with fecal impaction. Patient was disimpacted and patient was given enema. Patient had a large bowel movement. She is clinically feeling better. She will be admitted for observation. Hospital Course: Patient has done well during hospital stay. Clinically, patient is much better. At this time, patient is stable for discharge home. Patient will follow-up with consultants and PCP as an outpatient. Vital Signs/Physical Exam: Temp Pulse Resp BP Pulse Ox 97.0 F 52 16 136/53 L 96 01/26/22 01:14 01/26/22 01:14 01/26/22 01:14 01/26/22 01:14 01/26/22 01:14 General: Alert, In no apparent distress, Oriented x3 Laboratory Data at Discharge: WBC 8.8 K/uL (4.3-10.9) D 01/02/22 02:44 Hgb 12.2 g/dL (12.0-15.0) 01/02/22 02:44 Hct 37.5 % (36.0-45.0) 01/02/22 02:44 Plt Count 305 K/uL (152-406) 01/02/22 02:44 PT 14.5 SECONDS (9.5-12.5) H 01/01/22 08:12 INR 1.31 01/01/22 08:12 Sodium 138 mmol/L (136-145) 01/02/22 02:44 Potassium 3.4 mmol/L (3.5-5.1) L 01/02/22 02:44 BUN 11 mg/dL (7-18) 01/02/22 02:44 Creatinine 0.76 mg/dL (0.55-1.3) 01/02/22 02:44 Glucose 117 mg/dL (74-106) H 01/02/22 02:44 Magnesium 1.8 mg/dL (1.8-2.4) D 01/01/22 08:12 Total Bilirubin 0.3 mg/dL (0.2-1.0) 01/02/22 02:44 AST 20 U/L (15-37) 01/02/22 02:44 ALT 15 U/L (12-78) 01/02/22 02:44 Alkaline Phosphatase 124 U/L (45-117) H 01/02/22 02:44 Lipase 11 U/L (73-393) L 01/01/22 08:12 Home Medications: Atorvastatin Calcium [Lipitor] 40 mg PO BEDTIME 08/21/18 Montelukast [Singulair*] 10 mg PO BEDTIME 08/21/18 Omeprazole [Prilosec] 40 mg PO BID 08/21/18 Potassium Oral Tab [Klor-Con 10 mEq Tab*] 20 meq PO SEECOM 08/21/18 Apixaban [Eliquis] 5 mg PO BID 05/03/19 Gabapentin [Gralise] 300 mg PO TID 05/03/19 Alendronate Sodium 1 tab PO DAILY 04/18/21 Amiodarone HCl [Cordarone*] 1 tab PO DAILY 04/18/21 Aspirin [Vazalore] 81 mg PO DAILY 04/18/21 Calcium Carbonate/Vitamin D3 [Calcium 600-Vit D3 400 Tablet] 1 each PO BID 04/18/21 Glipizide/Metformin HCl [Glipizide-Metformin 2.5-500 mg] 1 tab PO BID 04/18/21 L.acidoph,Paracasei, B.lactis [Probiotic] 12 mg PO BID 04/18/21 Levothyroxine Sodium [Synthroid] 50 mcg PO DAILY 04/18/21 Midodrine HCl 1 tab PO BID 04/18/21 Morphine *Extended Release* [MS Contin*] 1 tab PO DAILY 04/18/21 Sennosides/Docusate Sodium [Senna-S 8.6-50 mg Tablet] 1 tab PO BID 04/18/21 Sertraline [Zoloft*] 1 tab PO BEDTIME 04/18/21 Spironolactone 1 tab PO NOON 04/18/21 Torsemide [Demadex*] 20 mg PO SEECOM 04/18/21 metOLazone [Zaroxolyn*] 0.5 tab PO DAILY 04/18/21 Amlodipine [Norvasc*] 5 mg PO DAILY tab 04/20/21 Docusate [Colace Cap*] 100 mg PO BID cap 04/20/21 Polyethyl Gly 3350 [Glycolax*] 17 gm PO DAILY PRN #0 udbot 04/20/21 Cefdinir [Omnicef] 300 mg PO BID #20 capsule 05/07/21 Metoclopramide HCl [Reglan] 10 mg PO DAILY 01/01/22 Nitrofurantoin Monohyd/M-Cryst [Nitrofurantoin [place]-Mcr 100 mg] 100 mg PO BID 01/01/22 fentaNYL [Fentanyl] 1 each TD EVERY 3RD DAY 01/01/22 Amox/Clavulanate [Augmentin 875-125 Tab] 1 each PO BID #14 tab 01/02/22 Lactulose [Cephulac*] 30 ml PO BID PRN #1000 ml 01/02/22 Mineral Oil 30 ml PO DAILY #1000 ml 01/02/22 New Medications: Amox/Clavulanate [Augmentin 875-125 Tab] 1 each PO BID #14 tab Lactulose [Cephulac*] 30 ml PO BID PRN #1000 ml PRN Reason: Constipation Mineral Oil 30 ml PO DAILY #1000 ml Physician Discharge Instructions: -DC IV and DC home with hospice -Follow-up with PCP in 1 to 2 weeks -Follow-up with gastroenterology in 1 to 2 weeks -Please call Dr. Conroy at [phone] if any questions regarding hospital stay -Please call nursing station at [phone] if any nursing or medication questions -Return to the emergency room if symptoms worsen Diet: Regular Activity: Fall precautions Followup: NONE,NONE [Primary Care Provider] - Time spent managing pt's care (in minutes): 35
--- NOTE | 2022-01-26 01:15 | P.HP ---
Certification for Inpatient Patient admitted to: Observation With expected LOS: <2 Midnights Patient will require the following post-hospital care: None Practitioner: I am a practitioner with admitting privileges, knowledge of patient current condition, hospital course, and medical plan of care. Services: Services provided to patient in accordance with Admission requirements found in Title 42 Section 412.3 of the Code of Federal Regulations Patient History Date of Service: 01/01/22 Reason for admission: Fecal impaction History of Present Illness: patient is a 76-year-old female came to the hospital with abdominal pain. She also was having nausea and vomiting. She was constipated. CT scan was performed. It revealed patient with fecal impaction. Patient was disimpacted and patient was given enema. Patient had a large bowel movement. She is clinically feeling better. She will be admitted for observation. Allergies codeine Allergy (Intermediate, Verified 05/03/19 00:13) nausea/vomitting meperidine HCl [From Demerol] Allergy (Intermediate, Verified 05/03/19 00:13) Nausea vomitting hydrocodone [Hydrocodone] Allergy (Verified 05/03/19 00:13) nausea vomitting pentazocine lactate [From [place]win] Allergy (Verified 05/03/19 00:13) hallucinations prochlorperazine edisylate [From Compazine] Allergy (Verified 05/03/19 00:13) hallucinations propoxyphene HCl [From Darvon] Allergy (Verified 05/03/19 00:13) nausea vomitting sulfamethoxazole [From Bactrim] Allergy (Verified 05/03/19 00:14) Nausea/Vomiting trimethoprim [From Bactrim] Allergy (Verified 05/03/19 00:14) Nausea/Vomiting rofecoxib [From Vioxx] Adverse Reaction (Severe, Verified 05/03/19 00:13) renal failure Home Medications: Atorvastatin Calcium [Lipitor] 40 mg PO BEDTIME 08/21/18 Montelukast [Singulair*] 10 mg PO BEDTIME 08/21/18 Omeprazole [Prilosec] 40 mg PO BID 08/21/18 Potassium Oral Tab [Klor-Con 10 mEq Tab*] 20 meq PO SEECOM 08/21/18 Apixaban [Eliquis] 5 mg PO BID 05/03/19 Gabapentin [Gralise] 300 mg PO TID 05/03/19 Alendronate Sodium 1 tab PO DAILY 04/18/21 Amiodarone HCl [Cordarone*] 1 tab PO DAILY 04/18/21 Aspirin [Vazalore] 81 mg PO DAILY 04/18/21 Calcium Carbonate/Vitamin D3 [Calcium 600-Vit D3 400 Tablet] 1 each PO BID 04/18/21 Glipizide/Metformin HCl [Glipizide-Metformin 2.5-500 mg] 1 tab PO BID 04/18/21 L.acidoph,Paracasei, B.lactis [Probiotic] 12 mg PO BID 04/18/21 Levothyroxine Sodium [Synthroid] 50 mcg PO DAILY 04/18/21 Midodrine HCl 1 tab PO BID 04/18/21 Morphine *Extended Release* [MS Contin*] 1 tab PO DAILY 04/18/21 Sennosides/Docusate Sodium [Senna-S 8.6-50 mg Tablet] 1 tab PO BID 04/18/21 Sertraline [Zoloft*] 1 tab PO BEDTIME 04/18/21 Spironolactone 1 tab PO NOON 04/18/21 Torsemide [Demadex*] 20 mg PO SEECOM 04/18/21 metOLazone [Zaroxolyn*] 0.5 tab PO DAILY 04/18/21 Amlodipine [Norvasc*] 5 mg PO DAILY tab 04/20/21 Docusate [Colace Cap*] 100 mg PO BID cap 04/20/21 Polyethyl Gly 3350 [Glycolax*] 17 gm PO DAILY PRN #0 udbot 04/20/21 Cefdinir [Omnicef] 300 mg PO BID #20 capsule 05/07/21 Metoclopramide HCl [Reglan] 10 mg PO DAILY 01/01/22 Nitrofurantoin Monohyd/M-Cryst [Nitrofurantoin [place]-Mcr 100 mg] 100 mg PO BID 01/01/22 fentaNYL [Fentanyl] 1 each TD EVERY 3RD DAY 01/01/22 Amox/Clavulanate [Augmentin 875-125 Tab] 1 each PO BID #14 tab 01/02/22 Lactulose [Cephulac*] 30 ml PO BID PRN #1000 ml 01/02/22 Mineral Oil 30 ml PO DAILY #1000 ml 01/02/22 - Past Medical/Surgical History Has patient received pneumonia vaccine in the past: Yes Diabetic: Yes -: Hypothyroidism -: Fibromyalgia -: Diabetes mellitus -: Gastroparesis -: Diabetic neuropathy -: Spinal stenosis -: Cervical spondylosis with myelopathy -: brain aneurysm with clipping -: Left carotid stenosis -: History of CVA, TIA -: Chronic UTI's,JOSE -: Chronic back pain -: Bladder Suspension -: Laminectomy -: Spinal fusion x2 -: Hysterectomy -: Cholecystectomy -: Appendectomy -: Pain pump placement x2 -: shoulder surgery - bilateral Psychosocial/ Personal History: The patient is . She has 4 children. She does not work. - Family History Mother Medical History: Lung disease, Cancer Notes: Rheumatic fever, Rhuematoid arthritis. Father Medical History: Heart disease, Hypertension, Diabetes Notes: - Social History Smoking Status: Never smoker Alcohol use: No CD- Drugs: No Caffeine use: Yes Review of Systems 10-point ROS is otherwise unremarkable Physical Examination - Vital Signs Temperature: 97.0 F Blood Pressure: 136/53 Pulse: 52 Respirations: 16 Pulse Ox (%): 96 - Physical Exam General: Alert, In no apparent distress, Oriented x3 HEENT: Atraumatic, PERRLA, Mucous membr. moist/pink, EOMI, Sclerae nonicteric Neck: Supple, 2+ carotid pulse no bruit, No LAD, Without JVD or thyroid abnormality Respiratory: Clear to auscultation bilaterally, Normal air movement Cardiovascular: Regular rate/rhythm, Normal S1 S2 Gastrointestinal: Normal bowel sounds, Tenderness Musculoskeletal: No clubbing, No swelling, No tenderness Integumentary: No rashes Neurological: Normal gait, Normal speech, Normal strength at 5/5 x4 extr, Normal tone, Sensation intact, Cranial nerves 3-12 intact, Normal affect Lymphatics: No axilla or inguinal lymphadenopathy Assessment & Plan - Problems (Diagnosis) (1) Fecal impaction Status: Acute - Plan Plan: 1. IV hydration 2. Laxatives 3. advanced diet as tolerated 4. bowel regimen 5. Gi and DVT prophylaxis Discharge Plan: Home Plan to discharge in: 24 Hours - Advance Directives Does patient have a Living Will: Yes Does patient have a Durable POA for Healthcare: No - Code Status/Comfort Care Code Status Assessed: Yes Code Status: Full Code Critical Care: No Time Spent Managing PTS Care (In Minutes): 45
== END 2022-01-02 18:25 | disposition home or self-care (01) ==
LOC: ER 07:48 → ERHOLD 14:18 → 2ND 15:20
PROVIDERS: ADMIT Hospitalist; ATTEND Hospitalist
DX: K56.41 Fecal impaction (principal); E86.0 Dehydration; N39.0 Urinary tract infection, site not specified; E03.9 Hypothyroidism, unspecified; M79.7 Fibromyalgia; E11.43 Type 2 diabetes mellitus with diabetic autonomic (poly)neuropathy; K31.84 Gastroparesis; E11.40 Type 2 diabetes mellitus with diabetic neuropathy, unspecified; G47.30 Sleep apnea, unspecified; I65.22 Occlusion and stenosis of left carotid artery; M54.9 Dorsalgia, unspecified; G89.29 Other chronic pain; M47.12 Other spondylosis with myelopathy, cervical region; I67.1 Cerebral aneurysm, nonruptured; E66.9 Obesity, unspecified; Z68.41 Body mass index [BMI] 40.0-44.9, adult; Z20.822 Contact with and (suspected) exposure to COVID-19; Z87.440 Personal history of urinary (tract) infections; Z86.73 Personal history of transient ischemic attack (TIA), and cerebral infarction without residual deficits; Z79.01 Long term (current) use of anticoagulants; Z79.82 Long term (current) use of aspirin; Z79.84 Long term (current) use of oral hypoglycemic drugs; Z79.899 Other long term (current) drug therapy; Z88.2 Allergy status to sulfonamides; Z88.5 Allergy status to narcotic agent; Z88.6 Allergy status to analgesic agent; Z88.8 Allergy status to other drugs, medicaments and biological substances; Z90.49 Acquired absence of other specified parts of digestive tract; Z90.710 Acquired absence of both cervix and uterus; Z82.61 Family history of arthritis; Z80.9 Family history of malignant neoplasm, unspecified; Z82.49 Family history of ischemic heart disease and other diseases of the circulatory system; Z83.3 Family history of diabetes mellitus
CPT/HCPCS: 36415; 71045; 74018; 74176; 80048; 80053; 80076; 81003; 82947; 83690; 83735; 83880; 84484; 85025; 85610; 87077; 87086; 87088; 87186; 93005; 96365; 96366; 99285; G0378; J7030; U0003